=== PATIENT | female | born 1935 | race Caucasian/White ===

== ENCOUNTER → 2016-10-17 | Outpatient (CLI) | payer MEDICARE ==
[~2016-10-17] MED LIST: ACID1TAB5 PO; ASCO500T5 PO; ASPI500T50 PO; CALC-8 PO; CEFD300C3 PO; CYAN100081 PO; DIAZ5TAB3 PO; ESTR0.5T PO; FLUC150T PO; HYDR-2890; HYDR-2890 PO; HYDR-3820 PO; HYDR4TAB PO; LEVO750T9 PO; MOME13HF IH; MORP-34 PO; MORP30TA16 PO; NAPR-243 PO; NAPR500T3 PO; OMEG1CAP51 PO; OMEP40CA36 PO; ONDA4TAB11 PO; PRD10T PO; RT-ALBUINH IH; VITAMIN B12 PO; ZOLP10TA5 PO
--- OUTSIDE RECORDS SUMMARY | 2016-10-17 17:30 | XMS REPORT | Continuity of Care Document ---
Author Author [facility] Organization [facility] Address Unknown Phone Unavailable Care Team Providers Care Upsetter Helper Name Role Phone ARELY SUNSHINE MD PCP Insurance Providers Payer Name Policy Number Subscriber Name Relationship Wps Medicare [id number] EvelioMickey 18 Self / Same As Patient Blue Cross [facility] Supp [id number] Mickey Hunter 18 Self / Same As Patient Advance Directives Directive Response Recorded Date/Time Advance Directives Yes 11/29/14 12:58am Health Care Power of Roller Helper No 11/29/14 12:58am Organ Donor Yes 11/29/14 12:58am Resuscitation Status Full Code 11/29/14 12:58am Problems Medical Problems Problem Onset Date Status Diarrhea Unknown Active Nausea and vomiting Unknown Active Dehydration Unknown Active Diarrhea Unknown Active Medications Medication Dose Route Sig Days/Qty Instructions Order Date Discontinued Date Status Hydrocodone Bit/Acetaminophen 1 - 2 Tab PO EVERY 8HRS PRN 10-325mg TABLET 04/08/13 11/12/13 Discontinued Diazepam (Valium) 5 Mg PO EVERY 8HRS PRN 04/08/13 Active Zolpidem Tartrate 10 Mg PO BEDTIME PRN NEEDED FOR SLEEP 04/08/13 Active Estradiol 0.5 Mg PO BEDTIME 04/08/13 11/12/13 Discontinued Naproxen 500 Mg PO TWICE A DAY 04/08/13 Active Omeprazole 40 Mg PO DAILY 04/08/13 Active [Vitamin B12] 6,000 Mcg PO DAILY 04/08/13 04/08/13 Discontinued Noti-3 Fatty Acids/Fish Oil 1,000 Mg PO DAILY 04/08/13 04/08/13 Discontinued Aspirin 500 Mg PO TWICE A DAY PRN PAIN 11/12/13 Active Hydromorphone Hcl 4 Mg PO EVERY 8HRS PRN PAIN 11/12/13 11/17/13 Discontinued Morphine Sulfate (Morphine Sulfate 30 mg (12 HOUR)) 60 Mg PO GIVE EVERY 12 HRS ON SCHEDULE 60 Qty 11/17/13 Active Hydrocodone Bit/Acetaminophen 120 Qty 11/29/14 Active Ondansetron 4 Mg PO EVERY 6 HOURS PRN NAUSEA/VOMITING 10 Qty 11/29/14 Active Social History Social History Problem Response Recorded Date/Time Alcohol Use Denies Use 11/29/2014 12:58am Recreational Drug Use No 11/29/2014 12:58am Recent Foreign Travel No 11/12/2013 9:00pm Recent Infectious Disease Exposure No 11/12/2013 9:00pm Hospitalization with Isolation Denies 11/17/2013 12:11pm Smoking Status Never a Smoker 11/29/2014 12:58am Query Response Start Date Stop Date Smoking Status Never a Smoker Hospital Discharge Instructions No hospital discharge instructions. Plan of Care No plan of care. Functional Status No functional status results. Allergies, Adverse Reactions, Alerts Allergen Type Severity Reaction Status Last Updated Sulfa (Sulfonamide Antibiotics) ([id number]) Allergy Unknown Active 10/24 Immunizations Name Given Type Date of Pneumonia Vaccine 11/16/13 Historical Tetanus Booster (TDap) Less than 5yrs Historical Vital Signs Acute Vital Signs Vital Response Date/Time Temperature (Fahrenheit) 99.8 degrees F (97.6 - 99.5) Temperature (Calculated Celsius) 37.70828 degrees C (36.4 - 37.5) Pulse Rate (adult) 84 bpm (60 - 90) Respiratory Rate 20 bpm (12 - 24) O2 Sat by Pulse Oximetry 95 % (88 - 100) Blood Pressure 115/63 mm Hg Pain Pain Intensity 0 Height (Feet) 5 feet Height (Inches) 2 inches Height (Calculated Centimeters) 157.830046 cm Weight (Pounds) 175 pounds Weight (Calculated Kilograms) 79.176693 kilograms Calculated BMI 32.00 Results Laboratory Results Test Name Result Units Flags Reference Collection Date/Time Result Date/ Time Comments White Blood Count 8.7 10^3/uL 4.3-11.0 11/29/2014 1:00am 11/29/2014 1: 14am Red Blood Count 4.80 10^6/uL 4.35-5.85 11/29/2014 1:00am 11/29/2014 1: 14am Hemoglobin 11.1 G/DL L 11.5-16.0 11/29/2014 1:00am 11/29/2014 1:14am Hematocrit 35 % 35-52 11/29/2014 1:00am 11/29/2014 1:14am Mean Corpuscular Volume 73 FL L 80-99 11/29/2014 1:00am 11/29/2014 1: 14am Mean Corpuscular Hemoglobin 23 PG L 25-34 11/29/2014 1:00am 11/29/2014 1: 14am Mean Corpuscular Hemoglobin Concent 32 G/DL 32-36 11/29/2014 1:00am 1:14am Red Cell Distribution Width 15.2 % H 10.0-14.5 11/29/2014 1:00am 2014 1:14am Platelet Count 208 10^3/uL 130-400 11/29/2014 1:00am 11/29/2014 1:14am Mean Platelet Volume 9.0 FL 7.4-10.4 11/29/2014 1:00am 11/29/2014 1: 14am Neutrophils (%) (Auto) 76 % H 42-75 11/29/2014 1:00am 11/29/2014 1:14am Lymphocytes (%) (Auto) 14 % 12-44 11/29/2014 1:00am 11/29/2014 1:14am Monocytes (%) (Auto) 9 % 0-12 11/29/2014 1:00am 11/29/2014 1:14am Eosinophils (%) (Auto) 2 % 0-10 11/29/2014 1:0011/29/2014 1:14am Basophils (%) (Auto) 0 % 0-10 11/29/2014 1:00am 11/29/2014 1:14am Neutrophils # (Auto) 6.5 X 10^3 1.8-7.8 11/29/2014 1:00am 11/29/2014 1: 14am Lymphocytes # (Auto) 1.2 X 10^3 1.0-4.0 11/29/2014 1:00am 11/29/2014 1: 14am Monocytes # (Auto) 0.8 X 10^3 0.0-1.0 11/29/2014 1:00am 11/29/2014 1: 14am Eosinophils # (Auto) 0.2 10^3/uL 0.0-0.3 11/29/2014 1:00am 11/29/2014 1 :14am Basophils # (Auto) 0.0 10^3/uL 0.0-0.1 11/29/2014 1:00am 11/29/2014 1: 14am Urine Color YELLOW 11/29/2014 2:00am 11/29/2014 2:19am Urine Clarity CLEAR 11/29/2014 2:00am 11/29/2014 2:19am Urine pH 5 5-9 11/29/2014 2:00am 11/29/2014 2:19am Urine Specific [place] 1.015 * 1.016-1.022 11/29/2014 2:00am 2014 2:19am Urine Protein 1+ * NEGATIVE 11/29/2014 2:00am 11/29/2014 2:19am Urine Glucose (UA) NEGATIVE NEGATIVE 11/29/2014 2:00am 11/29/2014 2: 19am Urine RBC (Auto) NEGATIVE NEGATIVE 11/29/2014 2:00am 11/29/2014 2: 19am Urine Ketones NEGATIVE NEGATIVE 11/29/2014 2:00am 11/29/2014 2:19am Urine Nitrite NEGATIVE NEGATIVE 11/29/2014 2:00am 11/29/2014 2:19am Urine Bilirubin NEGATIVE NEGATIVE 11/29/2014 2:00am 11/29/2014 2: 19am Urine Urobilinogen NORMAL MG/DL NORMAL 11/29/2014 2:00am 11/29/2014 2: 19am Urine Leukocyte Esterase 1+ * NEGATIVE 11/29/2014 2:00am 11/29/2014 2: 19am Urine RBC NONE /HPF 11/29/2014 2:00am 11/29/2014 2:19am Urine WBC 0-2 /HPF 11/29/2014 2:00am 11/29/2014 2:19am Urine Bacteria NEGATIVE /HPF 11/29/2014 2:00am 11/29/2014 2:19am Urine Squamous Epithelial Cells 10-25 /HPF * 11/29/2014 2:00am 2014 2:19am Urine Crystals NONE /LPF 11/29/2014 2:00am 11/29/2014 2:19am Urine Casts NONE /LPF 11/29/2014 2:00am 11/29/2014 2:19am Urine Mucus LARGE /LPF * 11/29/2014 2:00am 11/29/2014 2:19am Urine Culture Indicated NO 11/29/2014 2:00am 11/29/2014 2:19am Sodium Level 134 MMOL/L L 135-145 11/29/2014 1:00am 11/29/2014 1:32am Potassium Level 3.0 MMOL/L L 3.6-5.0 11/29/2014 1:00am 11/29/2014 1:32am Chloride Level 105 MMOL/L 98-107 11/29/2014 1:00am 11/29/2014 1:32am Carbon Dioxide Level 17 MMOL/L L 21-32 11/29/2014 1:00am 11/29/2014 1: 32am Blood Urea Nitrogen 9 MG/DL 7-18 11/29/2014 1:00am 11/29/2014 1:32am Creatinine 0.71 MG/DL 0.60-1.30 11/29/2014 1:00am 11/29/2014 1:32am BUN/Creatinine Ratio 13 11/29/2014 1:00am 11/29/2014 1:32am Estimat Glomerular Filtration Rate > 60 11/29/2014 1:00am 2014 1:32am GFR INTERPRETIVE DATA UNITS FOR ESTIMATED GFR (eGFR): mL/min/1.73 M2 REFERENCE RANGE FOR ESTIMATED GFR (eGFR) eGFR NORMAL eGFR >60 MODERATELY DECREASED eGFR 30-59 SEVERLY DECREASED eGFR 15-29 KIDNEY FAILURE <15 (OR DIALYSIS) Glucose Level 109 MG/DL H 70-105 11/29/2014 1:00am 11/29/2014 1:32am Calcium Level 8.6 MG/DL 8.5-10.1 11/29/2014 1:00am 11/29/2014 1:32am Magnesium Level 1.8 MG/DL 1.8-2.4 11/29/2014 1:00am 11/29/2014 1:32am Total Bilirubin 0.4 MG/DL 0.1-1.0 11/29/2014 1:00am 11/29/2014 1:32am Alkaline Phosphatase 82 U/L 40-136 11/29/2014 1:00am 11/29/2014 1:32am Aspartate Amino Transf (AST/SGOT) 26 U/L 5-34 11/29/2014 1:00am 2014 1:32am Alanine Aminotransferase (ALT/SGPT) 18 U/L 0-55 11/29/2014 1:00am 11/29 1:32am Total Protein 7.3 G/DL 6.4-8.2 11/29/2014 1:00am 11/29/2014 1:32am Albumin 3.9 G/DL 3.2-4.5 11/29/2014 1:00am 11/29/2014 1:32am Procedures No known history of procedures. Encounters Encounter Location Date/Time Departed Emergency Room [facility] 11/29/14 12:57am Recent Diagnosis
--- NOTE | 2016-10-17 18:08 | Diagnostic Imaging Report ---
INDICATION: Productive cough. Comparison with 06/05/2016. FINDINGS: The lungs are well-aerated. No infiltrates are present. There are no masses. The heart is upper limits of normal. No hilar adenopathy. No pulmonary edema. There is some apical pleural scarring which is unchanged. IMPRESSION: No acute abnormalities when compared with previous exam. Dictated by: Dictated on workstation # [id number]
== END ==
LOC: RAD 17:26
PROVIDERS: ATTEND Family Medicine
DX: J20.8 Acute bronchitis due to other specified organisms (principal)
CPT/HCPCS: 71020

== ENCOUNTER 2016-12-27 11:57 | Outpatient (CLI) | payer MEDICARE ==
[~2016-12-27] VITALS: Ht 157.5 cm; Wt 77.3 kg
[2016-12-27] MEDS ORDERED: NS IV 500 ML 500 ML IV SCH (13:30)
[2016-12-27 13:57] VITALS: BP 138/65
[2016-12-27 14:15] VITALS: BP 129/51
[2016-12-27 16:30] VITALS: BP 123/66
[2016-12-27 19:03] VITALS: BP 138/65
== END 2016-12-27 17:07 | disposition home or self-care (01) ==
LOC: SDC 11:57
PROVIDERS: ATTEND Family Medicine
DX: D64.9 Anemia, unspecified (principal)
CPT/HCPCS: 36430; 86850; 86900; 86901; 86920

== ENCOUNTER → 2017-01-02 | Outpatient (CLI) | payer MEDICARE ==
[~2017-01-02] MED LIST changes: +MULT-1029 PO; +RANI150T90 PO
--- NOTE | 2017-01-02 16:30 | Diagnostic Imaging Report ---
PROCEDURE: CT chest without contrast. TECHNIQUE: Multiple contiguous axial images were obtained through the chest without the use of intravenous contrast. INDICATION: Cough and shortness of breath. Chronic anemia. COMPARISON: 11/30/2015. FINDINGS: There are patchy groundglass areas of consolidation involving the lungs bilaterally. This is more prominent in the mid and lower lung zones but also involves the upper lungs. There is a minimal solid consolidation component. Mild septal thickening is also seen. There is no effusion. No mass or pulmonary nodules. The mediastinum demonstrates mildly enlarged lymph nodes up to 1.6 cm in the right paratracheal station and a mildly enlarged infracarinal lymph node measuring 1.2 cm. The axilla demonstrates no significantly enlarged lymph nodes. The thoracic aorta is normal in caliber. There is no pericardial or pleural effusion. Cholecystectomy clips are seen. The osseous structures appear grossly unremarkable. IMPRESSION: Bilateral patchy groundglass opacities in the lungs may relate to inflammatory or infectious pneumonitis. There is associated mild mediastinal lymphadenopathy. Dictated by: Dictated on workstation # [id number]
== END ==
LOC: RAD 15:22
PROVIDERS: ATTEND Family Medicine
DX: D64.9 Anemia, unspecified (principal); R59.0 Localized enlarged lymph nodes; R93.8 Abnormal findings on diagnostic imaging of other specified body structures
CPT/HCPCS: 71250

== ENCOUNTER 2017-01-03 17:32 | Inpatient (IN) | payer MEDICARE ==
[~2017-01-03] VITALS: Ht 157.5 cm; Wt 72.6 kg
[~2017-01-03 17:32] MED LIST changes: -MULT-1029 PO; -RANI150T90 PO
[2017-01-03 18:14] LABS: BASOPHILS % (AUTO) 0 % (0-10); EOSINOPHILS # (AUTO) 0.3 10^3/uL (0.0-0.3); EOSINOPHILS % (AUTO) 3 % (0-10); LYMPHOCYTES # (AUTO) 1.9 X 10^3 (1.0-4.0); LYMPHOCYTES % (AUTO) 17 % (12-44); MEAN CORPUSCULAR HEMOGLOBIN 23 PG (25-34); MEAN CORPUSCULAR HGB CONC 31 G/DL (32-36); MEAN CORPUSCULAR VOLUME 73 FL (80-99); MEAN PLATELET VOLUME 9.5 FL (7.4-10.4); MONOCYTES # (AUTO) 0.7 X 10^3 (0.0-1.0); MONOCYTES % (AUTO) 6 % (0-12); NEUTROPHILS # (AUTO) 8.1 X 10^3 (1.8-7.8); NEUTROPHILS % (AUTO) 74 % (42-75); PLATELET COUNT 376 10^3/uL (130-400); RED BLOOD COUNT 5.18 10^6/uL (4.35-5.85); RED CELL DISTRIBUTION WIDTH 16.8 % (10.0-14.5)
[2017-01-03] MEDS ORDERED: DEXAMETHASONE 4 MG/ML SDV (DECADRON) IH ONE (18:15)
[2017-01-03] MEDS ORDERED: RT-ALBUTEROL/IPRATROPIUM 3 ML (DUONEB) VIAL INH ONE (18:15)
[2017-01-03 18:18] LABS: INR 1.2 (0.8-1.4); PROTHROMBIN TIME PATIENT 14.7 SEC (12.2-14.7)
--- NOTE | 2017-01-03 18:18 | ED Respiratory ---
General Chief Complaint: Respiratory Problems Stated Complaint: COUGH/PNEUMONIA/SOB Nursing Triage Note: TO ROOM 07 VIA WC. STATES SHE HAD A CT DONE YESTERDAY ET CALLED [facility] OFFICE TODAY BECAUSE SHE WAS NOT FEELING BETTER. TOLD SHE HAD PNEUMONIA AND TOLD TO COME TO ER. PT COMPLAINS OF SOA. STATES SHE ALSO RECIEVED A LITER OF BLOOD LAST WEEK DUE TO SOA. Source: patient History of Present Illness Time seen by provider: 17:55 Initial Comments ARRIVES VIA POV FROM HOME STATES SHE HAS BEEN SICK OVER A WEEK, WITH COUGH, CHEST TIGHTNESS AND SHORTNESS OF BREATH HAS HAD YELLOW SPUTUM NO FEVER MUCH DYSPNEA WITH MINIMAL EXERTION NO SWELLING IN LEGS/ FEET OR PAIN IN CALVES PT HAS BEEN SEEN AT DR. SUNSHINE'S OFFICE AND HAD CT OF CHEST TODAY AND WAS REPORTED PNEUMONITIS PT STATES SHE WAS GIVEN A SYMBICORT INHALER, BUT SHE HAS NOT USED IT TODAY DOES NOT NORMALLY WEAR HOME O2. STATES SHE GETS BRONCHITIS OR PNEUMONIA 2-3 TIMES A YEAR NEVER SMOKED, AND ONLY SECOND HAND SMOKE WAS WHEN SHE WAS A CHILD. PT ALSO STATES SHE HAS BEEN ANEMIC AND RECEIVED A UNIT OF BLOOD LAST WEEK PCP: DR. SUNSHINE Allergies and Home Medications Allergies Coded Allergies: Sulfa (Sulfonamide Antibiotics) (Verified Allergy, Unknown, 11/13/13) nitrofurantoin (Verified Adverse Reaction, Unknown, NAUSEA, 06/05/16) Home Medications Cefdinir 300 Mg Capsule, 300 MG PO twice a day, #14 Prescribed by: URSZULA RICHARD on 06/06/16 1406 Cyanocobalamin (Vitamin B-12) 1,000 Mcg/1 Ml Drops, 1,000 MCG PO DAILY, ( Reported) Diazepam 5 Mg Tablet, 5 MG PO Q8H PRN for ANXIETY, (Reported) Hydrocodone/Acetaminophen 1 Each Tablet, 1 TAB PO Q6H PRN for PAIN, (Reported) L. Acidophilus/Bulgaricus 1 Each Tab.chew, 3 TAB.CHEW PO DAILY, (Reported) Mometasone/Formoterol 13 Gm Hfa.aer.ad, 2 PUFF IH BID PRN for SHORTNESS OF BREATH, (Reported) Morphine Sulfate 30 Mg Tablet.er, 30 MG PO BID, (Reported) Naproxen 500 Mg Tablet, 500 MG PO BID PRN for PAIN, (Reported) Omeprazole 40 Mg Capsule.dr, 40 MG PO DAILY, (Reported) Constitutional: No diaphoresis, No dizziness, No fever, malaise, weakness EENTM: no symptoms reported Respiratory: see HPI, cough, dyspnea on exertion, phlegm, short of breath, wheezing Cardiovascular: see HPI, chest pain, No edema, No palpitations, No syncope, No vascular heart diseas Gastrointestinal: no symptoms reported Genitourinary: no symptoms reported Musculoskeletal: no symptoms reported Skin: no symptoms reported Psychiatric/Neurological: No Symptoms Reported Hematologic/Lymphatic: See HPI, Anemia Past Sclcjcx-Tadfmn-Dftuku Hx Patient Social History Alcohol Use: Rarely Uses Recreational Drug Use: No Smoking Status: Never a Smoker Recent Foreign Travel: No (ONLY A CHILD) Contact w/Someone Who Travel: No Recent Infectious Disease Expo: No Recent Hopitalizations: Yes Immunizations Up To Date Tetanus Booster (TDap): Less than 5yrs PED Vaccines UTD: No Date of Pneumonia Vaccine: Nov 16, 2013 Seasonal Allergies Seasonal Allergies: No Surgeries HX Surgeries: Yes (2 hip replacements on right hip; L ankle surgery; CATARACTS) Surgeries: Eye Surgery, Hysterectomy, Orthopedic Respiratory Hx Respiratory Disorders: Yes (SOB WITH EXERTION, FREQUENT BRONCHITIS, PNEUMONIA) Respiratory Disorders: Pneumonia, Chronic Bronchitis Cardiovascular Hx Cardiac Disorders: No Neurological Hx Neurological Disorders: No Reproductive System Hx Reproductive Disorders: No Sexually Transmitted Disease: No HIV/AIDS: No Female Reproductive Disorders: Denies Genitourinary Hx Genitourinary Disorders: Yes Genitourinary Disorders: Bladder Infection, UTI-Chronic Gastrointestinal Hx Gastrointestinal Disorders: Yes Gastrointestinal Disorders: Chronic Constipation Musculoskeletal Hx Musculoskeletal Disorders: Yes (Chronic osteoarthritis, bursitis, ) Musculoskeletal Disorders: Arthritis, Rheumatoid Arthritis Endocrine Hx Endocrine Disorders: No HEENT HX ENT Disorders: Yes (cataracts removed) HEENT Disorders: Cataract Cancer Hx Cancer: No Psychosocial Hx Psychiatric Problems: No Integumentary HX Skin/Integumentary Disorder: No Blood Transfusions Hx Blood Disorders: Yes (CHRONIC ANEMIA) Hx of Blood Transfusion YES Adverse Reaction to a Blood Tr: No Family Medical History Significant Family History: No Pertinent Family Hx Family Medial History: BONE CANCER 19 FATHER HIP REPLACEMENT 19 MOTHER THYROID ISSUES 19 MOTHER Physical Exam Vital Signs Vital Sign - Last 12Hours 01/03/17 17:35 Temp 98.8 Pulse 82 Resp 20 B/P (MAP) 136/54 Pulse Ox 84 O2 Delivery Room Air O2 Flow Rate 2.00 Capillary Refill : Less Than 3 Seconds General Appearance: WD/WN, no apparent distress HEENT: PERRL/EOMI, normal ENT inspection Neck: normal inspection Respiratory: no respiratory distress, no accessory muscle use, rales, rhonchi, wheezing, plerual rub, other (ALL ON RIGHT) Cardiovascular: regular rate, rhythm, no edema, no JVD, no murmur Gastrointestinal: normal bowel sounds, non tender, soft Extremities: normal inspection, no pedal edema, no calf tenderness, normal capillary refill Neurologic/Psychiatric: housing officer II-XII nml as tested, no motor/sensory deficits, alert, normal mood/affect, oriented x 3 Skin: normal color, warm/dry Focused Exam Lactic Acid Level Laboratory Tests Test 01/03/17 18:27 Lactic Acid Level 0.80 MMOL/L (0.50-2.00) Progress/Results/Core Measures Results/Orders Lab Results Laboratory Tests Test 01/03/17 18:00 01/03/17 18:27 01/03/17 18:33 Range/Units White Blood Count 11.0 4.3-11.0 10^3/uL Red Blood Count 5.18 4.35-5.85 10^6/uL Hemoglobin 11.7 11.5-16.0 G/DL Hematocrit 38 35-52 % Mean Corpuscular Volume 73 L 80-99 FL Mean Corpuscular Hemoglobin 23 L 25-34 PG Mean Corpuscular Hemoglobin Concent 31 L 32-36 G/DL Red Cell Distribution Width 16.8 H 10.0-14.5 % Platelet Count 376 130-400 10^3/uL Mean Platelet Volume 9.5 7.4-10.4 FL Neutrophils (%) (Auto) 74 42-75 % Lymphocytes (%) (Auto) 17 12-44 % Monocytes (%) (Auto) 6 0-12 % Eosinophils (%) (Auto) 3 0-10 % Basophils (%) (Auto) 0 0-10 % Neutrophils # (Auto) 8.1 H 1.8-7.8 X 10^3 Lymphocytes # (Auto) 1.9 1.0-4.0 X 10^3 Monocytes # (Auto) 0.7 0.0-1.0 X 10^3 Eosinophils # (Auto) 0.3 0.0-0.3 10^3/uL Basophils # (Auto) 0.0 0.0-0.1 10^3/uL Prothrombin Time 14.7 12.2-14.7 SEC INR Comment 1.2 0.8-1.4 Activated Partial Thromboplast Time 38 H 24-35 SEC Sodium Level 136 135-145 MMOL/L Potassium Level 3.7 3.6-5.0 MMOL/L Chloride Level 101 98-107 MMOL/L Carbon Dioxide Level 23 21-32 MMOL/L Anion Gap 12 5-14 MMOL/L Blood Urea Nitrogen 7 7-18 MG/DL Creatinine 0.80 0.60-1.30 MG/DL Estimat Glomerular Filtration Rate > 60 BUN/Creatinine Ratio 9 Glucose Level 98 70-105 MG/DL Calcium Level 9.8 8.5-10.1 MG/DL Magnesium Level 2.0 1.8-2.4 MG/DL Total Bilirubin 0.3 0.1-1.0 MG/DL Aspartate Amino Transf (AST/SGOT) 26 5-34 U/L Alanine Aminotransferase (ALT/SGPT) 9 0-55 U/L Alkaline Phosphatase 87 40-136 U/L Total Creatine Kinase 32 29-168 U/L Creatine Kinase MB 1.0 <6.6 NG/ML Troponin I < 0.30 <0.30 NG/ML B-Type Natriuretic Peptide 28.9 <100.0 PG/ML Total Protein 7.6 6.4-8.2 G/DL Albumin 3.5 3.2-4.5 G/DL Lactic Acid Level 0.80 0.50-2.00 MMOL/L Blood Gas Puncture Site RIGHT RADIAL Blood Gas Patient Temperature 99.2 Arterial Blood pH 7.36 L 7.37-7.43 Arterial Blood Partial Pressure CO2 46 H 35-45 MMHG Arterial Blood Partial Pressure O2 212 H 79-93 MMHG Arterial Blood HCO3 25 23-27 MMOL/L Arterial Blood Total CO2 26.6 21.0-31.0 MMOL/L Arterial Blood Oxygen Saturation 100 94-100 % Arterial Blood Base Excess 0.5 -2.5-2.5 MMOL/L Villa Test POSITIVE Blood Gas Ventilator Setting NO Blood Gas Inspired Oxygen 2L My Orders Orders - GUILHERME JOHNS DO Saline Lock/Iv-Start (01/03/17 18:07) Ekg Tracing (01/03/17 18:07) O2 (01/03/17 18:07) Monitor-Rhythm Ecg Trace Only (01/03/17 18:07) BNP (01/03/17 18:07) Cbc With Automated Diff (01/03/17 18:07) Comprehensive Metabolic Panel (01/03/17 18:07) Creatine Kinase (01/03/17 18:07) Creatine Kinase Mb (01/03/17 18:07) Lactic Acid Analyzer (01/03/17 18:07) Magnesium (01/03/17 18:07) Protime With Inr (01/03/17 18:07) Partial Thromboplastin Time (01/03/17 18:07) Troponin I (01/03/17 18:07) Blood Culture (01/03/17 18:07) Sputum Culture (01/03/17 18:07) Chest Pa/Lat (2 View) (01/03/17 18:07) Albuterol/Ipra Inhalation Soln (Duoneb I (01/03/17 18:15) Dexamethasone Injection (Decadron Inject (01/03/17 18:15) Rt Request For Service (01/03/17 18:07) Svn Sm Volume Nebulizer Rt-Rfs (01/03/17 18:07) Arterial Blood Gas (01/03/17 18:07) Ceftriaxone Injection (Rocephin Injectio (01/03/17 19:15) Medications Given in ED Current Medications Medications Dose Ordered Sig/Chery Route Start Time Stop Time Status Last Admin Dose Admin Albuterol/ Ipratropium 3 ml ONCE ONCE INH 01/03/17 18:15 01/03/17 18:16 DC 01/03/17 18:25 3 ML Dexamethasone Sodium Phosphate 20 mg ONCE ONCE IH 01/03/17 18:15 01/03/17 18:16 DC 01/03/17 18:25 20 MG Vital Signs/I&O Vital Sign - Last 12Hours 01/03/17 01/03/17 01/03/17 17:35 17:35 18:25 Temp 98.8 Pulse 82 Resp 20 B/P (MAP) 136/54 Pulse Ox 84 97 O2 Delivery Room Air Nasal Cannula O2 Flow Rate 2.00 2.00 Blood Pressure Mean: 81 Progress Note : Progress Note O2 SATS 83-84% ON ROOM AIR ON ARRIVAL--UP TO 96% ON O2 AT 2L/NC PT FEELS MUCH BETTER AFTER NEB TREATMENT, WITH IMPROVED LUNG SOUNDS--DECREASED RALES/RHONCHI/WHEEZING AND NO RUB NOTED AFTER TREATMENT NO DETERIORATION IN PT'S CONDITION DURING ER STAY ECG Initial ECG Impression Time: 19:21 Initial ECG Rate: 85 Initial ECG Rhythm: Normal Sinus Initial ECG Impression: Nonspecific Changes Initial ECG Comparisson: Unchanged (FORM 2013) Diagnostic Imaging Comments CXR--BILATERAL INFILTRATES VS EDEMA PER RADIOLOGIST REPORT AT 1905 Reviewed: Reviewed by Me Departure Communication Progress Notes 1909--SPOKE WITH DR. MCCLELLAN, HOSPITALIST, ACCEPTS PT FOR ADMIT Impression Impression: Primary Impression: Bilateral pneumonia Additional Impression: Hypoxia Disposition: ADMITTED INPATIENT Condition: Improved Decision to Admit Reason: Admit from ER (General) Decision to Admit/Date: January 03, 2017 Time/Decision to Admit Time: 19:10 Departure-Patient Inst. Referrals: ARELY SUNSHINE MD (PCP/Family) Primary Care Physician GUILHERME JOHNS DO January 03, 2017 18:18
[2017-01-03 18:29] LABS: ALANINE AMINOTRANSFERASE 9 U/L (0-55); ALBUMIN 3.5 G/DL (3.2-4.5); ANION GAP 12 MMOL/L (5-14); ASPARTATE AMINO TRANSFERASE 26 U/L (5-34); BILIRUBIN,TOTAL 0.3 MG/DL (0.1-1.0); BLOOD UREA NITROGEN 7 MG/DL (7-18); BUN/CREATININE RATIO 9; CALCIUM 9.8 MG/DL (8.5-10.1); CARBON DIOXIDE 23 MMOL/L (21-32); CHLORIDE 101 MMOL/L (98-107); CREATINE KINASE 32 U/L (29-168); GFR ESTIMATED > 60; GLUCOSE 98 MG/DL (70-105); POTASSIUM 3.7 MMOL/L (3.6-5.0); SODIUM 136 MMOL/L (135-145); TOTAL PROTEIN 7.6 G/DL (6.4-8.2)
[2017-01-03 18:35] LABS: TROPONIN I < 0.30 NG/ML (<0.30)
[2017-01-03 18:39] LABS: ABG BASE EXCESS 0.5 MMOL/L (-2.5-2.5); ABG HCO3 25 MMOL/L (23-27); ABG OXYGEN SATURATION 100 % (94-100); ABG PCO2 46 MMHG (35-45); ABG PH 7.36 (7.37-7.43); ABG PO2 212 MMHG (79-93); ABG TCO2 26.6 MMOL/L (21.0-31.0)
[2017-01-03 18:40] LABS: ALLENS TEST POSITIVE; PATIENT TEMP 99.2
--- NOTE | 2017-01-03 18:54 | Diagnostic Imaging Report ---
Indication: Cough and congestion with dyspnea. Discussion: Two views of the chest were obtained, comparison 10/17/2016. Borderline cardiomegaly is stable. Bilateral mixed interstitial alveolar opacities are now present which could represent pneumonia or edema. No pleural fluid or pneumothorax. No Carmen B lines identified. Age-related degenerative changes are present throughout the thoracic spine. Impression: 1. Interval development of bilateral pulmonary infiltrates, pneumonia versus edema. Dictated by: Dictated on workstation # [id number]
[2017-01-03] MEDS ORDERED: cefTRIAXone INJECTION 1,000 MG in NS (IVPB) 50 ML IV ONE (19:15)
[2017-01-03 20:18] VITALS: BP 124/55
[2017-01-03] MEDS ORDERED: AZITHROMYCIN 500 MG/NS 250 ML IVPB IV NR ×2 (20:45)
[2017-01-03] MEDS ORDERED: CATHETER FLUSH 10 ML SYR IV PRN (20:45)
[2017-01-03] MEDS ORDERED: ACETAMINOPHEN 500 MG TAB (TYLENOL) PO PRN (20:45)
[2017-01-03] MEDS ORDERED: RT-ALBUTEROL/IPRATROPIUM 3 ML (DUONEB) VIAL ONE (20:55)
[2017-01-03] MEDS: CATHETER FLUSH 10 ML SYR IV SCH (21:02)
[2017-01-03] MEDS ORDERED: RT-ALBUTEROL/IPRATROPIUM 3 ML (DUONEB) VIAL INH PRN (22:00)
[2017-01-04 00:14] VITALS: BP 109/67
[2017-01-04 04:20] VITALS: BP 100/66
[2017-01-04] MEDS: CATHETER FLUSH 10 ML SYR IV SCH ×3 (04:55→20:46)
[2017-01-04 06:09] LABS: BASOPHILS % (AUTO) 1 % (0-10); EOSINOPHILS # (AUTO) 0.1 10^3/uL (0.0-0.3); EOSINOPHILS % (AUTO) 1 % (0-10); LYMPHOCYTES # (AUTO) 1.5 X 10^3 (1.0-4.0); LYMPHOCYTES % (AUTO) 16 % (12-44); MEAN CORPUSCULAR HEMOGLOBIN 23 PG (25-34); MEAN CORPUSCULAR HGB CONC 31 G/DL (32-36); MEAN CORPUSCULAR VOLUME 74 FL (80-99); MONOCYTES # (AUTO) 0.5 X 10^3 (0.0-1.0); MONOCYTES % (AUTO) 6 % (0-12); NEUTROPHILS # (AUTO) 6.8 X 10^3 (1.8-7.8); NEUTROPHILS % (AUTO) 77 % (42-75); PLATELET COUNT 316 10^3/uL (130-400); RED BLOOD COUNT 4.66 10^6/uL (4.35-5.85); RED CELL DISTRIBUTION WIDTH 16.8 % (10.0-14.5); WHITE BLOOD COUNT 8.8 10^3/uL (4.3-11.0)
[2017-01-04 06:29] LABS: ALANINE AMINOTRANSFERASE 8 U/L (0-55); ALBUMIN 3.2 G/DL (3.2-4.5); ANION GAP 10 MMOL/L (5-14); ASPARTATE AMINO TRANSFERASE 16 U/L (5-34); BILIRUBIN,TOTAL 0.3 MG/DL (0.1-1.0); BLOOD UREA NITROGEN 7 MG/DL (7-18); BUN/CREATININE RATIO 10; CALCIUM 9.5 MG/DL (8.5-10.1); CARBON DIOXIDE 24 MMOL/L (21-32); CHLORIDE 103 MMOL/L (98-107); CREATININE SERUM 0.67 MG/DL (0.60-1.30); GFR ESTIMATED > 60; GLUCOSE 105 MG/DL (70-105); POTASSIUM 3.7 MMOL/L (3.6-5.0); SODIUM 137 MMOL/L (135-145); TOTAL PROTEIN 7.1 G/DL (6.4-8.2)
[2017-01-04 07:20] VITALS: BP 137/63
[2017-01-04] MEDS: RT-ALBUTEROL/IPRATROPIUM 3 ML (DUONEB) VIAL INH SCH ×4 (07:25→19:07)
--- NOTE | 2017-01-04 08:08 | Pulmonary Consultation ---
History of Present Illness History of Present Illness Date of Consultation 01/04/17 08:07 Date of Admission History of Present Illness 81yo presented to ED secondary to worsening SOB, and generalized fatigue. Pt recieved 1 unit of PRBC last week. Symptoms started 1 wk ago has have been progressively worsening since then. She has had a progressive cough with yellow sputum production. CT scan shows bilateral interstitial infiltrates. Pt gets pneumonia 1-2x/ yr with symptoms like this. I am consulted for pulmonary management. Allergies and Home Medications Allergies Coded Allergies: Sulfa (Sulfonamide Antibiotics) (Verified Allergy, Unknown, 11/13/13) nitrofurantoin (Verified Adverse Reaction, Unknown, NAUSEA, 06/05/16) Home Medications Cefdinir 300 Mg Capsule, 300 MG PO twice a day, #14 Prescribed by: URSZULA RICHARD on 06/06/16 6611 Cyanocobalamin (Vitamin B-12) 1,000 Mcg/1 Ml Drops, 1,000 MCG PO DAILY, ( Reported) Diazepam 5 Mg Tablet, 5 MG PO Q8H PRN for ANXIETY, (Reported) Hydrocodone/Acetaminophen 1 Each Tablet, 1 TAB PO Q6H PRN for PAIN, (Reported) L. Acidophilus/Bulgaricus 1 Each Tab.chew, 3 TAB.CHEW PO DAILY, (Reported) Mometasone/Formoterol 13 Gm Hfa.aer.ad, 2 PUFF IH BID PRN for SHORTNESS OF BREATH, (Reported) Morphine Sulfate 30 Mg Tablet.er, 30 MG PO BID, (Reported) Naproxen 500 Mg Tablet, 500 MG PO BID PRN for PAIN, (Reported) Omeprazole 40 Mg Capsule.dr, 40 MG PO DAILY, (Reported) Past Zuitznf-Bgaepq-Xvvtpo Hx Patient Social History Alcohol Use: Denies Use Recreational Drug Use: No Smoking Status: Never a Smoker Recent Foreign Travel: No Contact w/Someone Who Travel: No Recent Infectious Disease Expo: No Recent Hopitalizations: No Physical Abuse Screen: No Sexual Abuse: No Immunizations Up To Date Tetanus Booster (TDap): Less than 5yrs PED Vaccines UTD: No Date of Pneumonia Vaccine: Nov 16, 2013 Seasonal Allergies Seasonal Allergies: No Surgeries HX Surgeries: Yes (2 hip replacements on right hip; L ankle surgery; CATARACTS) Surgeries: Eye Surgery, Hysterectomy, Orthopedic Respiratory Hx Respiratory Disorders: Yes (SOB WITH EXERTION, FREQUENT BRONCHITIS, PNEUMONIA) Respiratory Disorders: Pneumonia, Chronic Bronchitis Cardiovascular Hx Cardiac Disorders: No Neurological Hx Neurological Disorders: No Reproductive System Hx Reproductive Disorders: No Sexually Transmitted Disease: No HIV/AIDS: No Female Reproductive Disorders: Denies Genitourinary Hx Genitourinary Disorders: Yes Genitourinary Disorders: Bladder Infection, UTI-Chronic Gastrointestinal Hx Gastrointestinal Disorders: Yes Gastrointestinal Disorders: Chronic Constipation Musculoskeletal Hx Musculoskeletal Disorders: Yes (Chronic osteoarthritis, bursitis, ) Musculoskeletal Disorders: Arthritis, Rheumatoid Arthritis Endocrine Hx Endocrine Disorders: No HEENT HX ENT Disorders: Yes (cataracts removed) HEENT Disorders: Cataract Cancer Hx Cancer: No Psychosocial Hx Psychiatric Problems: No Integumentary HX Skin/Integumentary Disorder: No Blood Transfusions Hx Blood Disorders: Yes (CHRONIC ANEMIA) Adverse Reaction to a Blood Tr: No Family Medical History Significant Family History: No Pertinent Family Hx Family Medial History: BONE CANCER 19 FATHER HIP REPLACEMENT 19 MOTHER THYROID ISSUES 19 MOTHER Review of Systems Constitutional: Fever, Malaise, Sweats, Weakness Eyes: No: Conjunctivae inflammation, Eyelid inflammation, Other, Pain, Redness , Vision change ENT: No: Ear discharge, Ear pain, Mouth pain, Mouth swelling, Nose congestion, Nose discharge, Nose pain, Other, Throat pain, Throat swelling Respiratory: Cough, SOB with excertion, Shortness of breath, Sputum Cardiovascular: Edema (left >R), Paroxysmal Noc. Dyspnea, No: Chest Pain, Lt Headedness, Orthopnea, Other, Palpitations Neurological: Weakness, No: Change in speech, Confusion, Incoordination, Numbness, Other, Seizures Exam Exam Vital Signs Date Time Temp Pulse Resp B/P (MAP) Pulse Ox O2 Delivery O2 Flow Rate FiO2 01/04/17 07:26 93 2.00 01/04/17 07:20 97.8 65 18 137/63 96 2.00 01/04/17 04:20 97.4 82 18 100/66 95 2.00 01/04/17 01:00 71 01/04/17 00:14 97.3 78 18 109/67 94 2.00 01/03/17 21:30 95 01/03/17 21:24 97 2.00 01/03/17 20:52 86 01/03/17 20:38 2.00 01/03/17 20:18 100.2 89 20 124/55 96 2.00 01/03/17 20:05 84 20 97 2.00 01/03/17 18:25 97 2.00 01/03/17 17:35 Nasal Cannula 2.00 01/03/17 17:35 98.8 82 20 136/54 84 Room Air I & O 01/04/17 07:00 Intake Total 1210 ml Output Total 550 ml Balance 660 ml General Appearance: No Apparent Distress, WD/WN, Anxious, Chronically ill Respiratory: No Accessory Muscle Use, No Respiratory Distress, Decreased Breath Sounds Capillary Refill: Less Than 3 Seconds Gastrointestinal: normal bowel sounds, non tender, soft Extremity: Other (left leg has 2+ pitting edema ) Neurologic/Psychiatric: Alert, Oriented x3 Skin: Normal Color, Warm/Dry Lymphatic: No Adenopathy Results Lab Laboratory Tests 01/03/17 18:00 01/04/17 05:57 Assessment/Plan Assessment/Plan CAP -Continue Rocephin and azithromycin -sputum and blood culture -check urine strep and legionella Ag LLE edema with hx of fracture -check dopplers 254 Clinical Quality Measures DVT/VTE Risk/Contraindication: Risk Factor Score Per Nursin RFS Level Per Nursing on Admit: 3=High NAOMI GUZMAN DO January 04, 2017 08:08
--- NOTE | 2017-01-04 08:24 | History & Physical-Hospitalist ---
HPI History of Present Illness: HPI/Chief Complaint CC: Pneumonia after failed Z-pack 2 weeks ago HPI: This is a 81yoWF clinic patient of Dr Alvarenga'toya for the past 40 years that has h/o chronic bronchitis and pneumonias in the past that was admitted through the ER due to worsened pneumonia and bilateral infiltrates and O2 sat of 83%. She is a patient of Dr Asher and he will see her in consultation. She does not have home O2 and I am ordering that assessment while in-pt. She reports that she did not feel any better after given Z-pack 2 weeks ago and the dyspnea worsened to the point that she could not manage at home. She denies any chest pain and overall is doing well since taking her narcotic maintenance meds. Source: patient Exam Limitations: no limitations Date Seen 01/04/17 Attending Physician Ronnie Alvarenga MD PCP Ronnie Alvarenga MD Referring Physician Date of Admission January 03, 2017 at 19:10 Home Medications & Allergies Home Medications Reviewed patient Home Medication Reconciliation Form Allergies Allergies Coded Allergies Sulfa (Sulfonamide Antibiotics) (Verified Allergy, Unknown, 11/13/13) nitrofurantoin (Verified Adverse Reaction, Unknown, NAUSEA, 06/05/16) Past Ituedxo-Pqsrtt-Qrddms Hx Patient Social History Marrital Status: Employed/Student: retired Alcohol Use: Denies Use Recreational Drug Use: No Smoking Status: Never a Smoker Physical Abuse Screen: No Sexual Abuse: No Recent Foreign Travel: No Contact w/other who traveled: No Recent Hopitalizations: No Recent Infectious Disease Expo: No Immunizations Up To Date Tetanus Booster (TDap): Less than 5yrs Date of Pneumonia Vaccine: Nov 16, 2013 Seasonal Allergies Seasonal Allergies: No Surgeries HX Surgeries: Yes (2 hip replacements on right hip; L ankle surgery; CATARACTS) Surgeries: Eye Surgery, Hysterectomy, Orthopedic Respiratory Hx Respiratory Disorders: Yes (SOB WITH EXERTION, FREQUENT BRONCHITIS, PNEUMONIA) Cardiovascular Hx Cardiovascular Disorders: No Neurological Hx Neurological Disorders: No Reproductive System Hx Reproductive Disorders: No Sexually Transmitted Disease: No HIV/AIDS: No Female Reproductive Disorders: Denies Genitourinary Hx Genitourinary Disorders: Yes Genitourinary Disorders: Bladder Infection, UTI-Chronic Gastrointestinal Hx Gastrointestinal Disorders: Yes Gastrointestinal Disorders: Chronic Constipation Musculoskeletal Hx Musculoskeletal Disorders: Yes (Chronic osteoarthritis, bursitis, ) Musculoskeletal Disorders: Arthritis, Rheumatoid Arthritis Endocrine Hx Endocrine Disorders: No HEENT HX ENT Disorders: Yes (cataracts removed) HEENT Disorders: Cataract Cancer Hx Cancer: No Psychosocial Hx Psychiatric Problems: No Integumentary HX Skin/Integumentary Disorder: No Blood Transfusions Hx Blood Disorders: Yes (CHRONIC ANEMIA) Adverse Reaction to a Blood Tr: No Family Medical History Significant Family History: No Pertinent Family Hx Family Hx: BONE CANCER 19 FATHER HIP REPLACEMENT 19 MOTHER THYROID ISSUES 19 MOTHER Review of Systems Constitutional: see HPI EENTM: no symptoms reported Respiratory: cough, dyspnea on exertion, short of breath, wheezing Cardiovascular: no symptoms reported Gastrointestinal: no symptoms reported Genitourinary: no symptoms reported Musculoskeletal: back pain Skin: no symptoms reported Psychiatric/Neurological: No Symptoms Reported All Other Systems Reviewed Negative Unless Noted: Yes Physical Exam Physical Exam Vital Signs Vital Sign - Last 12Hours 01/03/17 17:35 Temp 98.8 Pulse 82 Resp 20 B/P (MAP) 136/54 Pulse Ox 84 O2 Delivery Room Air O2 Flow Rate 2.00 Capillary Refill : Less Than 3 Seconds General Appearance: No Apparent Distress, WD/WN, Chronically ill Eyes: Bilateral Eye Normal Inspection, Bilateral Eye PERRL HEENT: PERRL/EOMI, Normal ENT Inspection, Pharynx Normal Neck: Full Range of Motion, Normal Inspection, Non Tender, Supple, Carotid Bruit Respiratory: Chest Non Tender, No Accessory Muscle Use, No Respiratory Distress , Crackles, Decreased Breath Sounds, Wheezing Cardiovascular: Regular Rate, Rhythm, No Edema, No Gallop, No JVD, No Murmur, Normal Peripheral Pulses Gastrointestinal: Normal Bowel Sounds, No Organomegaly, No Pulsatile Mass, Non Tender, Soft Back: Normal Inspection, No CVA Tenderness, No Vertebral Tenderness Extremity: Normal Capillary Refill, Normal Inspection, Normal Range of Motion, Non Tender, No Calf Tenderness, No Pedal Edema Neurologic/Psychiatric: Alert, Oriented x3, No Motor/Sensory Deficits, Normal Mood/Affect Skin: Normal Color, Warm/Dry Lymphatic: No Adenopathy Results Results/Procedures Lab Laboratory Tests 01/03/17 18:00 01/04/17 05:57 Assessment/Plan Admission Diagnosis Assessment: Recurrent pneumonia failed Z-pack 2 weeks ago now with bilateral pneumonia and hypoxia of 83% in ER RA OA Chronic pain Chronic constipation Assessment and Plan Plan: Consult Dr Asher Check CT chest results IV abx Nebs O2 w/home O2 evaluation Clinical Quality Measures DVT/VTE Risk/Contraindication: Risk Factor Score Per Nursin RFS Level Per Nursing on Admit: 3=High CARSON MCCLELLAN DO January 04, 2017 08:24
[2017-01-04] MEDS: morphine ER 30 MG (MS CONTIN) TAB PO SCH ×2 (09:22→20:43)
[2017-01-04] MEDS: AZITHROMYCIN 250 MG TAB (ZITHROMAX) PO SCH (09:22)
[2017-01-04] MEDS: HYDROcodone/APAP 10 MG/325 MG (LORTAB) TAB PO PRN ×2 (09:22→20:45)
[2017-01-04] MEDS ORDERED: MULT-1029 PO ×2 (09:56)
[2017-01-04] MEDS ORDERED: RANI150T90 PO ×2 (09:56)
[2017-01-04] MEDS ORDERED: RT-ALBUINH IH ×2 (09:57)
--- NOTE | 2017-01-04 11:02 | Diagnostic Imaging Report ---
EXAMINATION: Bilateral lower extremity duplex venous ultrasound. TECHNIQUE: DVT protocol. Multiple sonographic images with color Doppler and waveform interrogation were performed of the lower extremity veins, bilaterally, with compression and augmentation maneuvers. INDICATION: Bilateral leg swelling. FINDINGS: The lower extremity veins from the common femoral veins to below the knee veins were examined with normal color-flow, compressibility, and normal waveform demonstrated. The great saphenous vein bilaterally is patent. IMPRESSION: No evidence of DVT in either lower extremity. Dictated by: Dictated on workstation # [id number]
[2017-01-04 12:00] VITALS: BP 113/57
[2017-01-04] MEDS ORDERED: RT-ALBUTEROL SULF 2.5 MG/3 ML PRE-MIX VIAL IH PRN (13:30)
[2017-01-04] MEDS ORDERED: FAMOTIDINE 20 MG (PEPCID) TABLET PO PRN (13:30)
[2017-01-04] MEDS ORDERED: DIAZEPAM 5 MG (VALIUM) TABLET PO PRN (13:30)
[2017-01-04] MEDS ORDERED: raNItidine (ZANTAC) 150 MG TAB NON-FORMULARY PO PRN (13:30)
[2017-01-04] MEDS ORDERED: RT-ALBUTEROL HFA (VENTOLIN) PER PUFF IH PRN ×2 (13:30)
[2017-01-04] MEDS: PANTOPRAZOLE 40 MG (PROTONIX) TAB PO SCH (16:15)
[2017-01-04 16:35] VITALS: BP_SYST 127; BP_SYST 132; BP_DIAS 67; BP_DIAS 88
[2017-01-04 19:36] VITALS: BP 129/66
[2017-01-05] VITALS: BP 144/62
[2017-01-05 04:00] VITALS: BP 128/60
[2017-01-05] MEDS: MULTIVIT W/MINERALS TAB (THERAGRAN M) PO SCH (05:32)
[2017-01-05] MEDS: PANTOPRAZOLE 40 MG (PROTONIX) TAB PO SCH (05:32)
[2017-01-05] MEDS: HYDROcodone/APAP 10 MG/325 MG (LORTAB) TAB PO PRN ×2 (05:32→20:18)
[2017-01-05] MEDS: CATHETER FLUSH 10 ML SYR IV SCH ×3 (05:34→20:12)
[2017-01-05] MEDS: RT-ALBUTEROL/IPRATROPIUM 3 ML (DUONEB) VIAL INH SCH ×4 (06:43→19:07)
--- NOTE | 2017-01-05 07:27 | Pulmonary Progress Note ---
Exam Exam Vital Signs Date Time Temp Pulse Resp B/P (MAP) Pulse Ox O2 Delivery O2 Flow Rate FiO2 01/05/17 06:46 95 2.00 01/05/17 04:00 98.0 78 18 128/60 96 2.50 01/05/17 01:00 79 01/05/17 00:00 98.6 82 18 144/62 94 2.50 01/04/17 20:00 2.00 01/04/17 19:36 98.7 79 20 129/66 97 2.00 01/04/17 19:07 94 2.00 01/04/17 19:00 82 01/04/17 16:35 96.3 76 16 127/67 96 2.00 01/04/17 15:21 92 2.00 01/04/17 13:56 68 01/04/17 12:00 99.8 73 20 113/57 94 2.00 01/04/17 10:51 93 2.00 01/04/17 09:10 94 2.00 01/04/17 08:38 2.00 01/04/17 07:54 79 01/04/17 07:26 93 2.00 I & O 01/05/17 07:00 Intake Total 2930 ml Output Total 1800 ml Balance 1130 ml General Appearance: No Apparent Distress, WD/WN, Anxious, Chronically ill HEENT: PERRL/EOMI, Normal ENT Inspection, Pharynx Normal Neck: Full Range of Motion, Normal Inspection, Non Tender, Supple, Carotid Bruit Respiratory: No Accessory Muscle Use, No Respiratory Distress, Decreased Breath Sounds Cardiovascular: Regular Rate, Rhythm, No Edema, No Gallop, No JVD, No Murmur, Normal Peripheral Pulses Capillary Refill: Less Than 3 Seconds Gastrointestinal: normal bowel sounds, non tender, soft Extremity: Other (left leg has 2+ pitting edema ) Neurologic/Psychiatric: Alert, Oriented x3 Skin: Normal Color, Warm/Dry Lymphatic: No Adenopathy Results Lab Laboratory Tests 01/03/17 18:00 01/04/17 05:57 Assessment/Plan Assessment/Plan MRSA and pseudomonas PNA -vanco and cefepime -sputum and blood culture -BNP is normal -IVF LLE edema with hx of fracture -dopplers-- negative 232 Clinical Quality Measures DVT/VTE Risk/Contraindication: Risk Factor Score Per Nursin RFS Level Per Nursing on Admit: 3=High NAOMI GUZMAN DO January 05, 2017 07:27
[2017-01-05 08:54] VITALS: BP 118/67
[2017-01-05] MEDS ORDERED: NON-FORMULARY MEDICATION 1 EA EA (Omeprazole 40 MG) PO SCH (09:00)
[2017-01-05] MEDS ORDERED: NON-FORMULARY MEDICATION 1 EA EA (Cyanocobalamin (Vitamin B-12) (Vitamin B-12) 1,000 MCG) PO SCH (09:00)
[2017-01-05] MEDS ORDERED: NON-FORMULARY MEDICATION 1 EA EA (Multivit-Min/FA/Lycopene/Lut (Centrum Silver Tablet) 1 T PO SCH (09:00)
[2017-01-05] MEDS ORDERED: [UNRECOGNIZED DRUG - MIXTURE] PO SCH (09:00)
[2017-01-05] MEDS: AZITHROMYCIN 250 MG TAB (ZITHROMAX) PO SCH (09:51)
[2017-01-05] MEDS: morphine ER 30 MG (MS CONTIN) TAB PO SCH ×2 (09:51→20:12)
[2017-01-05] MEDS: LACTOBACILLUS Acidoph/Bulgar (LACTINEX/FLORANEX) TAB PO SCH (09:51)
[2017-01-05] MEDS: CYANOCOBALAMIN 500 MCG TAB (VITAMIN B-12) PO SCH (09:51)
[2017-01-05] MEDS: NS IV 1000 ML 1,000 ML IV SCH (09:54)
[2017-01-05 11:42] VITALS: BP 123/70
[2017-01-05] MEDS ORDERED: VANCOMYCIN 1500 MG/NS 500 ML IVPB IV NR ×2 (12:37)
--- NOTE | 2017-01-05 12:37 | Progress Note-Hospitalist ---
Progress Note HPI/CC on Admission CC: Pneumonia after failed Z-pack 2 weeks ago HPI: This is a 81yoWF clinic patient of Dr Alvarenga's for the past 40 years that has h/o chronic bronchitis and pneumonias in the past that was admitted through the ER due to worsened pneumonia and bilateral infiltrates and O2 sat of 83%. She is a patient of Dr Asher and he will see her in consultation. She does not have home O2 and I am ordering that assessment while in-pt. She reports that she did not feel any better after given Z-pack 2 weeks ago and the dyspnea worsened to the point that she could not manage at home. She denies any chest pain and overall is doing well since taking her narcotic maintenance meds. Progress Notes/Assess & Plan Date Seen 01/05/17 Admission Dx/Process Assessment: Recurrent pneumonia failed Z-pack 2 weeks ago now with bilateral pneumonia and hypoxia of 83% in ER RA OA Chronic pain Chronic constipation Diagonsis/Assessment & Plan Patient still having cough and shortness of breath but much improved Sputum culture revealed Pseudomonas and MRSA so will discontinue Rocephin and Zithromax and start on vancomycin and cefepime No bowel movement yet that she did take her stool softeners Denies any pain issues I restarted her Valium and oxycodone that she is on chronically for many years No fever, vital signs stable, chronically ill, slightly improved Regular rate and rhythm, wheezes and crackles in the bases bilaterally but upper lobes are clear No edema Assessment: Recurrent pneumonia failed Z-pack 2 weeks ago now with bilateral pneumonia and hypoxia of 83% in ER but sputum reveals MRSA and Pseudomonas RA OA Chronic pain Chronic constipation Plan: Consult Dr Asher appreciated IV abx changed to Vanc and Cefepime until cultures completed Nebs O2 w/home O2 evaluation upon DC poor prognosis CARSON MCCLELLAN DO January 05, 2017 12:37
[2017-01-05 16:00] VITALS: BP 125/69
[2017-01-05 20:00] VITALS: BP 125/67
[2017-01-05] MEDS: CEFEPIME INJECTION 2,000 MG in NS (IVPB) 50 ML IV SCH (20:12)
[2017-01-06] VITALS: BP 111/65
[2017-01-06 04:00] VITALS: BP 124/80
[2017-01-06] MEDS: NS IV 1000 ML 1,000 ML IV SCH ×2 (04:04→23:42)
[2017-01-06] MEDS: HYDROcodone/APAP 10 MG/325 MG (LORTAB) TAB PO PRN ×4 (04:04→23:39)
[2017-01-06] MEDS: CATHETER FLUSH 10 ML SYR IV SCH ×3 (05:11→20:21)
[2017-01-06] MEDS: MULTIVIT W/MINERALS TAB (THERAGRAN M) PO SCH (06:16)
[2017-01-06] MEDS: PANTOPRAZOLE 40 MG (PROTONIX) TAB PO SCH (06:17)
[2017-01-06 06:33] LABS: BASOPHILS # (AUTO) 0.1 10^3/uL (0.0-0.1); BASOPHILS % (AUTO) 1 % (0-10); EOSINOPHILS # (AUTO) 0.8 10^3/uL (0.0-0.3); EOSINOPHILS % (AUTO) 12 % (0-10); LYMPHOCYTES # (AUTO) 1.3 X 10^3 (1.0-4.0); LYMPHOCYTES % (AUTO) 20 % (12-44); MEAN CORPUSCULAR HEMOGLOBIN 23 PG (25-34); MEAN CORPUSCULAR HGB CONC 30 G/DL (32-36); MEAN CORPUSCULAR VOLUME 75 FL (80-99); MEAN PLATELET VOLUME 9.5 FL (7.4-10.4); MONOCYTES # (AUTO) 0.6 X 10^3 (0.0-1.0); MONOCYTES % (AUTO) 9 % (0-12); NEUTROPHILS # (AUTO) 3.9 X 10^3 (1.8-7.8); NEUTROPHILS % (AUTO) 58 % (42-75); PLATELET COUNT 316 10^3/uL (130-400); RED BLOOD COUNT 4.27 10^6/uL (4.35-5.85); RED CELL DISTRIBUTION WIDTH 16.7 % (10.0-14.5); WHITE BLOOD COUNT 6.6 10^3/uL (4.3-11.0)
[2017-01-06 06:54] LABS: ALANINE AMINOTRANSFERASE 9 U/L (0-55); ANION GAP 8 MMOL/L (5-14); ASPARTATE AMINO TRANSFERASE 20 U/L (5-34); BILIRUBIN,TOTAL 0.2 MG/DL (0.1-1.0); BLOOD UREA NITROGEN 7 MG/DL (7-18); BUN/CREATININE RATIO 12; CALCIUM 8.9 MG/DL (8.5-10.1); CARBON DIOXIDE 26 MMOL/L (21-32); CHLORIDE 104 MMOL/L (98-107); GFR ESTIMATED > 60; GLUCOSE 91 MG/DL (70-105); POTASSIUM 3.8 MMOL/L (3.6-5.0); SODIUM 138 MMOL/L (135-145); TOTAL PROTEIN 6.4 G/DL (6.4-8.2)
[2017-01-06] MEDS: RT-ALBUTEROL/IPRATROPIUM 3 ML (DUONEB) VIAL INH SCH ×4 (07:45→20:27)
[2017-01-06 08:00] VITALS: BP 123/57
[2017-01-06] MEDS: CEFEPIME INJECTION 2,000 MG in NS (IVPB) 50 ML IV SCH ×2 (09:03→20:21)
[2017-01-06] MEDS: LACTOBACILLUS Acidoph/Bulgar (LACTINEX/FLORANEX) TAB PO SCH (10:41)
[2017-01-06] MEDS: CYANOCOBALAMIN 500 MCG TAB (VITAMIN B-12) PO SCH (10:42)
[2017-01-06] MEDS: morphine ER 30 MG (MS CONTIN) TAB PO SCH ×2 (10:42→20:20)
--- NOTE | 2017-01-06 10:45 | Progress Note-Hospitalist ---
Subjective HPI/CC On Admission CC: Pneumonia after failed Z-pack 2 weeks ago HPI: This is a 81yoWF clinic patient of Dr Alvarenga's for the past 40 years that has h/o chronic bronchitis and pneumonias in the past that was admitted through the ER due to worsened pneumonia and bilateral infiltrates and O2 sat of 83%. She is a patient of Dr Asher and he will see her in consultation. She does not have home O2. Date Seen 01/06/17 Subjective/Events-last exam Pt reports sleeping poorly and thus continuing to feel poorly. She is continuing to cough and feels too weak to ambulate. She has not yet bed out of bed. Objective Exam Vital Signs Vital Sign - Last 12Hours 01/03/17 17:35 Temp 98.8 Pulse 82 Resp 20 B/P (MAP) 136/54 Pulse Ox 84 O2 Delivery Room Air O2 Flow Rate 2.00 Capillary Refill : Less Than 3 Seconds General Appearance: No Apparent Distress, Chronically ill Respiratory: Chest Non Tender, Decreased Breath Sounds (in bases), Rales Cardiovascular: Regular Rate, Rhythm, No JVD Gastrointestinal: Normal Bowel Sounds, Non Tender, Soft Extremity: Non Tender, No Pedal Edema Neurologic/Psychiatric: Alert, Oriented x3 Results/Procedures Lab Laboratory Tests 01/06/17 06:06 Assessment/Plan Assessment and Plan Assess & Plan/Chief Complaint Assessment: CAP due to MRSA/pseudomonas - Continue on IV Vanc/Cefepime - Pulm consulted, appreciate recs - Breathing treatments ordered - Titrate oxygen as able to keep sat >90 - Needs evaluate for will oxygen when more stable - Not sepsis RA OA Chronic pain - on no DMARDs - Continue home narcotic pain medication Chronic constipation - Continue bowel regimen Anemia - likely due to chronic disease, trend in AM Dispo: Cont admission for IV abx. DC Tele. MD GERHARD Contreras KATELYN M MD January 06, 2017 10:45
[2017-01-06 12:00] VITALS: BP 132/76
[2017-01-06] MEDS: VANCOMYCIN INJECTION 1,000 MG in NS (IVPB) 250 ML IV SCH (13:01)
[2017-01-06 15:53] VITALS: BP 115/66
[2017-01-06 19:37] VITALS: BP 155/61
[2017-01-07] VITALS: BP 126/63
[2017-01-07] MEDS: CATHETER FLUSH 10 ML SYR IV SCH ×3 (05:24→22:32)
[2017-01-07 05:28] LABS: BASOPHILS # (AUTO) 0.1 10^3/uL (0.0-0.1); BASOPHILS % (AUTO) 1 % (0-10); EOSINOPHILS # (AUTO) 0.9 10^3/uL (0.0-0.3); EOSINOPHILS % (AUTO) 15 % (0-10); LYMPHOCYTES # (AUTO) 1.3 X 10^3 (1.0-4.0); LYMPHOCYTES % (AUTO) 21 % (12-44); MEAN CORPUSCULAR HEMOGLOBIN 23 PG (25-34); MEAN CORPUSCULAR HGB CONC 30 G/DL (32-36); MEAN CORPUSCULAR VOLUME 76 FL (80-99); MEAN PLATELET VOLUME 9.4 FL (7.4-10.4); MONOCYTES # (AUTO) 0.6 X 10^3 (0.0-1.0); MONOCYTES % (AUTO) 9 % (0-12); NEUTROPHILS # (AUTO) 3.3 X 10^3 (1.8-7.8); NEUTROPHILS % (AUTO) 54 % (42-75); PLATELET COUNT 321 10^3/uL (130-400); RED BLOOD COUNT 4.27 10^6/uL (4.35-5.85); RED CELL DISTRIBUTION WIDTH 16.8 % (10.0-14.5); WHITE BLOOD COUNT 6.1 10^3/uL (4.3-11.0)
[2017-01-07 06:01] LABS: BAND NEUTROPHILS 1 %; LYMPHOCYTES % (MANUAL) 22 %; NEUTROPHILS % (MANUAL) 56 %
[2017-01-07 06:02] LABS: ANISOCYTOSIS SLIGHT; BASOPHILS % (MANUAL) 0 %; EOSINOPHILS % (MANUAL) 14 %; HYPOCHROMASIA MODERATE; POLYCHROMASIA SLIGHT
[2017-01-07] MEDS: MULTIVIT W/MINERALS TAB (THERAGRAN M) PO SCH (06:17)
[2017-01-07] MEDS: PANTOPRAZOLE 40 MG (PROTONIX) TAB PO SCH (06:17)
[2017-01-07 06:29] LABS: ALANINE AMINOTRANSFERASE 8 U/L (0-55); ALBUMIN 2.9 G/DL (3.2-4.5); ANION GAP 8 MMOL/L (5-14); ASPARTATE AMINO TRANSFERASE 20 U/L (5-34); BILIRUBIN,TOTAL 0.2 MG/DL (0.1-1.0); BLOOD UREA NITROGEN 8 MG/DL (7-18); BUN/CREATININE RATIO 13; CALCIUM 9.5 MG/DL (8.5-10.1); CARBON DIOXIDE 28 MMOL/L (21-32); CHLORIDE 102 MMOL/L (98-107); GFR ESTIMATED > 60; GLUCOSE 98 MG/DL (70-105); SODIUM 138 MMOL/L (135-145); TOTAL PROTEIN 6.3 G/DL (6.4-8.2)
[2017-01-07] MEDS: RT-ALBUTEROL/IPRATROPIUM 3 ML (DUONEB) VIAL INH SCH ×4 (07:24→18:44)
[2017-01-07 08:00] VITALS: BP 139/63
[2017-01-07] MEDS: CEFEPIME INJECTION 2,000 MG in NS (IVPB) 50 ML IV SCH ×2 (08:57→20:38)
[2017-01-07] MEDS: LACTOBACILLUS Acidoph/Bulgar (LACTINEX/FLORANEX) TAB PO SCH (09:02)
[2017-01-07] MEDS: morphine ER 30 MG (MS CONTIN) TAB PO SCH ×2 (09:02→20:38)
[2017-01-07] MEDS: HYDROcodone/APAP 10 MG/325 MG (LORTAB) TAB PO PRN ×3 (09:02→21:29)
[2017-01-07] MEDS: CYANOCOBALAMIN 500 MCG TAB (VITAMIN B-12) PO SCH (09:03)
[2017-01-07] MEDS ORDERED: TROUGH ORDER-PHARMACY XX NR (11:00)
[2017-01-07] MEDS: VANCOMYCIN INJECTION 1,000 MG in NS (IVPB) 250 ML IV SCH (11:45)
--- NOTE | 2017-01-07 12:39 | Progress Note-Hospitalist ---
Subjective HPI/CC On Admission CC: Pneumonia after failed Z-pack 2 weeks ago HPI: This is a 81yoWF clinic patient of Dr Alvarenga's for the past 40 years that has h/o chronic bronchitis and pneumonias in the past that was admitted through the ER due to worsened pneumonia and bilateral infiltrates and O2 sat of 83%. She is a patient of Dr Asher and he will see her in consultation. She does not have home O2. Date Seen 01/07/17 Subjective/Events-last exam Reports feeling better but still SOB with exertion. Otherwise no complaints and no overnight events. Objective Exam Vital Signs Vital Sign - Last 12Hours 01/03/17 17:35 Temp 98.8 Pulse 82 Resp 20 B/P (MAP) 136/54 Pulse Ox 84 O2 Delivery Room Air O2 Flow Rate 2.00 Capillary Refill : Less Than 3 Seconds General Appearance: No Apparent Distress, WD/WN Respiratory: No Accessory Muscle Use, Crackles (bilateral bases) Cardiovascular: Regular Rate, Rhythm, No Murmur Gastrointestinal: Non Tender, Soft Extremity: No Calf Tenderness, No Pedal Edema Neurologic/Psychiatric: Alert, Oriented x3, Normal Mood/Affect Skin: Normal Color, Warm/Dry Results/Procedures Lab Laboratory Tests 01/07/17 04:42 Assessment/Plan Assessment and Plan Assess & Plan/Chief Complaint Assessment: CAP due to MRSA/pseudomonas - Continue on IV Vanc/Cefepime as fever curve trending up today - Pharm to dose Vanc - Pulm consulted, appreciate recs - Continue Nebs - Titrate oxygen as able to keep sat >90 - Needs evaluate for home oxygen when more stable RA OA Chronic pain - on no DMARDs, follows with PCP - Continue home narcotic pain medication Chronic constipation - Continue bowel regimen Anemia - likely due to chronic disease, trend in AM Dispo: Cont admission for IV abx. MD GERHARD Contreras KATELYN M MD January 07, 2017 12:39
[2017-01-07 16:08] VITALS: BP 122/65
[2017-01-07] MEDS: NS IV 1000 ML 1,000 ML IV SCH (20:38)
[2017-01-07] MEDS: VANCOMYCIN INJECTION 750 MG in NS (IVPB) 250 ML IV SCH (22:50)
[2017-01-08 00:19] VITALS: BP 157/67
[2017-01-08] MEDS: CATHETER FLUSH 10 ML SYR IV SCH ×3 (06:00→20:28)
[2017-01-08 06:06] LABS: BASOPHILS # (AUTO) 0.1 10^3/uL (0.0-0.1); BASOPHILS % (AUTO) 1 % (0-10); EOSINOPHILS # (AUTO) 0.9 10^3/uL (0.0-0.3); EOSINOPHILS % (AUTO) 16 % (0-10); LYMPHOCYTES # (AUTO) 1.3 X 10^3 (1.0-4.0); LYMPHOCYTES % (AUTO) 23 % (12-44); MEAN CORPUSCULAR HEMOGLOBIN 23 PG (25-34); MEAN CORPUSCULAR HGB CONC 30 G/DL (32-36); MEAN CORPUSCULAR VOLUME 76 FL (80-99); MEAN PLATELET VOLUME 8.9 FL (7.4-10.4); MONOCYTES # (AUTO) 0.4 X 10^3 (0.0-1.0); MONOCYTES % (AUTO) 8 % (0-12); NEUTROPHILS # (AUTO) 2.9 X 10^3 (1.8-7.8); NEUTROPHILS % (AUTO) 52 % (42-75); PLATELET COUNT 297 10^3/uL (130-400); RED BLOOD COUNT 4.12 10^6/uL (4.35-5.85); RED CELL DISTRIBUTION WIDTH 16.6 % (10.0-14.5); WHITE BLOOD COUNT 5.5 10^3/uL (4.3-11.0)
[2017-01-08 06:24] LABS: ALANINE AMINOTRANSFERASE 8 U/L (0-55); ALBUMIN 2.9 G/DL (3.2-4.5); ANION GAP 7 MMOL/L (5-14); ASPARTATE AMINO TRANSFERASE 18 U/L (5-34); BILIRUBIN,TOTAL 0.2 MG/DL (0.1-1.0); BLOOD UREA NITROGEN 7 MG/DL (7-18); BUN/CREATININE RATIO 12; CALCIUM 9.2 MG/DL (8.5-10.1); CARBON DIOXIDE 28 MMOL/L (21-32); CHLORIDE 104 MMOL/L (98-107); CREATININE SERUM 0.58 MG/DL (0.60-1.30); GFR ESTIMATED > 60; GLUCOSE 105 MG/DL (70-105); POTASSIUM 3.5 MMOL/L (3.6-5.0); SODIUM 139 MMOL/L (135-145); TOTAL PROTEIN 6.1 G/DL (6.4-8.2)
[2017-01-08] MEDS: PANTOPRAZOLE 40 MG (PROTONIX) TAB PO SCH ×2 (06:39→09:28)
[2017-01-08] MEDS: MULTIVIT W/MINERALS TAB (THERAGRAN M) PO SCH ×2 (06:39→09:30)
[2017-01-08] MEDS: RT-ALBUTEROL/IPRATROPIUM 3 ML (DUONEB) VIAL INH SCH ×4 (07:17→19:21)
[2017-01-08 08:00] VITALS: BP 163/72
[2017-01-08] MEDS: CYANOCOBALAMIN 500 MCG TAB (VITAMIN B-12) PO SCH (09:00)
[2017-01-08] MEDS: LACTOBACILLUS Acidoph/Bulgar (LACTINEX/FLORANEX) TAB PO SCH (09:28)
[2017-01-08] MEDS: morphine ER 30 MG (MS CONTIN) TAB PO SCH ×2 (09:29→20:27)
[2017-01-08] MEDS: CEFEPIME INJECTION 2,000 MG in NS (IVPB) 50 ML IV SCH ×2 (09:29→20:27)
[2017-01-08] MEDS: VANCOMYCIN INJECTION 750 MG in NS (IVPB) 250 ML IV SCH ×2 (11:34→22:38)
--- NOTE | 2017-01-08 11:39 | Progress Note-Hospitalist ---
Progress Note HPI/CC on Admission CC: Pneumonia after failed Z-pack 2 weeks ago HPI: This is a 81yoWF clinic patient of Dr Alvarenga's for the past 40 years that has h/o chronic bronchitis and pneumonias in the past that was admitted through the ER due to worsened pneumonia and bilateral infiltrates and O2 sat of 83%. She is a patient of Dr Asher and he will see her in consultation. She does not have home O2. Progress Notes/Assess & Plan Date Seen 01/08/17 Admission Dx/Process Assessment: Recurrent pneumonia failed Z-pack 2 weeks ago now with bilateral pneumonia and hypoxia of 83% in ER RA OA Chronic pain Chronic constipation Diagonsis/Assessment & Plan Patient doing very well overall and feels like she is breathing better IV abx tolerated and will HLIVF to allow patient to get up and around in the room more in prep for DC soon Works at the [employer] so she is ready to go as soon as she can No pain is reported BM+ No fever, vital signs stable, chronically ill, slightly improved Regular rate and rhythm, wheezes and crackles are improved No edema Assessment: Recurrent pneumonia failed Z-pack 2 1/2 weeks ago now with bilateral pneumonia and hypoxia of 83% in ER but sputum reveals MRSA and Pseudomonas RA OA Chronic pain Chronic constipation Plan: Consult Dr Asher appreciated IV abx changed to Vanc and Cefepime Nebs O2 w/home O2 evaluation upon DC Poor prognosis retirement HLIVF CARSON MCCLELLAN DO January 08, 2017 11:39
[2017-01-08] MEDS: HYDROcodone/APAP 10 MG/325 MG (LORTAB) TAB PO PRN ×2 (11:40→22:38)
[2017-01-08 15:25] VITALS: BP 125/68
[2017-01-08 23:41] VITALS: BP 145/77
[2017-01-09 05:37] LABS: BASOPHILS # (AUTO) 0.1 10^3/uL (0.0-0.1); BASOPHILS % (AUTO) 1 % (0-10); EOSINOPHILS # (AUTO) 0.7 10^3/uL (0.0-0.3); EOSINOPHILS % (AUTO) 11 % (0-10); LYMPHOCYTES # (AUTO) 1.5 X 10^3 (1.0-4.0); LYMPHOCYTES % (AUTO) 22 % (12-44); MEAN CORPUSCULAR HEMOGLOBIN 23 PG (25-34); MEAN CORPUSCULAR HGB CONC 30 G/DL (32-36); MEAN CORPUSCULAR VOLUME 75 FL (80-99); MEAN PLATELET VOLUME 9.7 FL (7.4-10.4); MONOCYTES # (AUTO) 0.5 X 10^3 (0.0-1.0); MONOCYTES % (AUTO) 8 % (0-12); NEUTROPHILS % (AUTO) 58 % (42-75); PLATELET COUNT 306 10^3/uL (130-400); RED BLOOD COUNT 4.27 10^6/uL (4.35-5.85); RED CELL DISTRIBUTION WIDTH 16.7 % (10.0-14.5); WHITE BLOOD COUNT 6.8 10^3/uL (4.3-11.0)
[2017-01-09 06:02] LABS: ALANINE AMINOTRANSFERASE 8 U/L (0-55); ALBUMIN 2.9 G/DL (3.2-4.5); ANION GAP 10 MMOL/L (5-14); ASPARTATE AMINO TRANSFERASE 21 U/L (5-34); BILIRUBIN,TOTAL 0.2 MG/DL (0.1-1.0); BLOOD UREA NITROGEN 8 MG/DL (7-18); BUN/CREATININE RATIO 14; CALCIUM 9.2 MG/DL (8.5-10.1); CARBON DIOXIDE 26 MMOL/L (21-32); CHLORIDE 103 MMOL/L (98-107); CREATININE SERUM 0.57 MG/DL (0.60-1.30); GFR ESTIMATED > 60; GLUCOSE 99 MG/DL (70-105); POTASSIUM 3.5 MMOL/L (3.6-5.0); SODIUM 139 MMOL/L (135-145); TOTAL PROTEIN 6.3 G/DL (6.4-8.2)
[2017-01-09] MEDS: PANTOPRAZOLE 40 MG (PROTONIX) TAB PO SCH (06:03)
[2017-01-09] MEDS: MULTIVIT W/MINERALS TAB (THERAGRAN M) PO SCH ×2 (06:03→06:06)
[2017-01-09] MEDS: CATHETER FLUSH 10 ML SYR IV SCH (06:03)
[2017-01-09] MEDS: RT-ALBUTEROL/IPRATROPIUM 3 ML (DUONEB) VIAL INH SCH ×2 (06:39→11:03)
[2017-01-09 08:00] VITALS: BP 138/64
[2017-01-09] MEDS: HYDROcodone/APAP 10 MG/325 MG (LORTAB) TAB PO PRN (08:33)
[2017-01-09] MEDS: LACTOBACILLUS Acidoph/Bulgar (LACTINEX/FLORANEX) TAB PO SCH ×2 (08:33→09:25)
[2017-01-09] MEDS: CYANOCOBALAMIN 500 MCG TAB (VITAMIN B-12) PO SCH ×2 (08:34→09:26)
[2017-01-09] MEDS: morphine ER 30 MG (MS CONTIN) TAB PO SCH (08:34)
[2017-01-09] MEDS: CEFEPIME INJECTION 2,000 MG in NS (IVPB) 50 ML IV SCH (08:34)
[2017-01-09] MEDS ORDERED: TROUGH ORDER-PHARMACY XX NR (10:00)
[2017-01-09] MEDS ORDERED: LINE600T5 PO ×2 (10:06)
[2017-01-09] MEDS: VANCOMYCIN INJECTION 750 MG in NS (IVPB) 250 ML IV SCH (11:31)
[2017-01-09] MEDS ORDERED: VANCOMYCIN 1 GM/NS 250 ML IVPB IV SCH ×2 (22:00)
[2017-01-11] MEDS ORDERED: TROUGH ORDER-PHARMACY XX NR (09:00)
--- NOTE | 2017-01-11 11:16 | Discharge Summary-Hospitalist ---
Diagnosis/Chief Complaint Date of Admission January 04, 2017 at 08:54 Date of Discharge January 09, 2017 at 11:58 Discharge Date: January 09, 2017 Admission Diagnosis Assessment: Recurrent pneumonia failed Z-pack 2 weeks ago now with bilateral pneumonia and hypoxia of 83% in ER RA OA Chronic pain Chronic constipation Discharge Diagnosis Patient doing very well overall and feels like she is breathing better IV abx tolerated and will HLIVF to allow patient to get up and around in the room more in prep for DC soon Works at the [employer] so she is ready to go as soon as she can No pain is reported BM+ No fever, vital signs stable, chronically ill, slightly improved Regular rate and rhythm, wheezes and crackles are improved No edema Assessment: Recurrent pneumonia failed Z-pack 2 1/2 weeks ago now with bilateral pneumonia and hypoxia of 83% in ER but sputum reveals MRSA and Pseudomonas RA OA Chronic pain Chronic constipation Plan: Consult Dr Asher appreciated IV abx changed to Vanc and Cefepime Nebs O2 w/home O2 evaluation upon DC 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 She is a patient of Dr Asher and he will see her in consultation. She does not have home O2. Hospital course: Patient had an uneventful hospital course she was placed on swing bed to continue cefepime and vancomycin due to resistant strains of bacteria on sputum culture causing the recurrent pneumonia. Overall she stabilized lab work remained stable and she was agreeable for swing bed status along with oxygen supplementation and nebulizer treatments to improve enough to be discharged once IV antibiotics were completed. Discharge Summary Discharge Physical Examination Allergies: Coded Allergies: Sulfa (Sulfonamide Antibiotics) (Verified Allergy, Unknown, 11/13/13) nitrofurantoin (Verified Adverse Reaction, Unknown, NAUSEA, 06/05/16) Vitals & I&Os Vital Signs Date Time Temp Pulse Resp B/P (MAP) Pulse Ox O2 Delivery O2 Flow Rate FiO2 01/09/17 11:30 91 01/09/17 11:10 1.00 01/09/17 08:00 98.9 73 20 138/64 Hospital Course Labs (last 24 hrs) Microbiology 01/03/17 Blood Culture - Final, Complete No growth 01/03/17 Gram Stain - Final, Complete 01/03/17 Sputum Culture - Final, Complete Staphylococcus Aureus Pseudomonas Aeruginosa Normal michael Discharge Home Medications: Active Scripts Active Zyvox (Linezolid) 600 Mg Tablet 600 Mg PO BID Reported Proair Hfa (Albuterol Sulfate) 1 Puff Puff 2 Puff IH Q4H PRN 1 PUFF = 90 MCG Acid Bartender (RANITIDINE) (Ranitidine HCl) 150 Mg Tablet 150 Mg PO HS PRN Centrum Silver Tablet (Multivit-Min/FA/Lycopene/Lut) 1 Each Tablet 1 Tab PO DAILY Vitamin B-12 (Cyanocobalamin (Vitamin B-12)) 1,000 Mcg/1 Ml Drops 1,000 Mcg PO DAILY Lactinex Chewable Tablet (L. Acidophilus/Bulgaricus) 1 Each Tab.chew 3 Tab.chew PO DAILY Omeprazole 40 Mg Capsule.dr 40 Mg PO DAILY Hydrocodon-Acetaminophn 10-325 (Hydrocodone/Acetaminophen) 1 Each Tablet 1-2 Tab PO Q6H PRN Morphine Sulfate ER (Morphine Sulfate) 30 Mg Tablet.er 30 Mg PO BID Diazepam 5 Mg (Diazepam) 5 Mg Tablet 5 Mg PO Q8H PRN Instructions to patient/family Please see electonic discharge instructions given to patient. Clinical Quality Measures DVT/VTE Risk/Contraindication: Risk Factor Score Per Nursin RFS Level Per Nursing on Admit: 3=High CARSON MCCLELLAN DO Jan 11, 2017 11:16
== END 2017-01-09 11:58 | disposition swing bed (61) | DRG 179 ==
LOC: EDUNIT# 17:32 → ER 17:34 → UNDOADMOB 19:10 → 4TH 19:10 → OBSVTOIN 01-04 08:54 → INTOOBSV 01-04 08:55 → OBSVTOIN 01-04 08:55
PROVIDERS: ADMIT Internal Medicine; ATTEND Family Medicine
DX: J15.1 Pneumonia due to Pseudomonas (principal); J15.212 Pneumonia due to Methicillin resistant Staphylococcus aureus; J42 Unspecified chronic bronchitis; M06.9 Rheumatoid arthritis, unspecified; M19.90 Unspecified osteoarthritis, unspecified site; R60.9 Edema, unspecified; G89.29 Other chronic pain; K59.00 Constipation, unspecified; D63.8 Anemia in other chronic diseases classified elsewhere
CPT/HCPCS: 36415; 71020; 80053; 80202; 82550; 82553; 82805; 83605; 83735; 83880; 84484; 85007; 85025; 85027; 85610; 85730; 87040; 87070; 87077; 87186; 87205; 93005; 93970; 94640; 94664; 94760; 94761; 96374; G0378

== ENCOUNTER 2017-01-09 09:14 | Inpatient (IN) | payer MEDICARE ==
[~2017-01-09] VITALS: Ht 157.5 cm; Wt 72.6 kg
[~2017-01-09 09:14] MED LIST changes: +MULT-1029 PO; +RANI150T90 PO
[2017-01-09] MEDS ORDERED: LINE600T5 PO (10:06)
[2017-01-09] MEDS ORDERED: ACETAMINOPHEN 500 MG TAB (TYLENOL) PO PRN (12:15)
[2017-01-09] MEDS ORDERED: RT-ALBUTEROL/IPRATROPIUM 3 ML (DUONEB) VIAL INH PRN (12:15)
[2017-01-09] MEDS ORDERED: DIAZEPAM 5 MG (VALIUM) TABLET PO PRN (12:15)
[2017-01-09] MEDS ORDERED: FAMOTIDINE 20 MG (PEPCID) TABLET PO PRN (12:15)
[2017-01-09] MEDS ORDERED: CATHETER FLUSH 10 ML SYR IV PRN (12:15)
--- NOTE | 2017-01-09 12:40 | Pulmonary Progress Note ---
Exam Exam General Appearance: No Apparent Distress, WD/WN HEENT: PERRL/EOMI, Pharynx Normal Neck: Full Range of Motion, Normal Inspection, Supple Respiratory: Chest Non Tender, No Accessory Muscle Use, No Respiratory Distress , Decreased Breath Sounds Cardiovascular: Regular Rate, Rhythm, No Edema, No Gallop Gastrointestinal: normal bowel sounds, non tender, soft, no organomegaly Neurologic/Psychiatric: Alert, Oriented x3 Skin: Normal Color, Warm/Dry Assessment/Plan Assessment/Plan pseudomonus/MRSA PNA -Cefepime -- Sergio was d/c'd by Dr. Dang -Will repeat CXR -There is no leukocytosis or fever so will continue to monitor with cefepime only for now and await repeat CXR LLE edema with hx of fracture -dopplers negative 232 NAOMI GUZMAN DO January 09, 2017 12:40
[2017-01-09] MEDS ORDERED: PROMETHAZINE/ CODEINE SYRUP 5 ML UDC PO PRN (13:00)
[2017-01-09] MEDS: HYDROcodone/APAP 10 MG/325 MG (LORTAB) TAB PO PRN (13:15)
--- NOTE | 2017-01-09 13:47 | Diagnostic Imaging Report ---
INDICATION: Cough. COMPARISON: 01/03/2017. FINDINGS: Frontal and lateral radiographic views of the chest were obtained and continue to show scattered patchy and confluent areas of alveolar infiltrate bilaterally. Overall, aeration has not significantly changed compared to prior exam. No large effusion or pneumothorax is seen. Cardiac silhouette and pulmonary vasculature within normal limits. Bony structures show no acute abnormalities. IMPRESSION: 1. Stable exam of the chest showing scattered patchy and confluent bilateral infiltrates. Continued followup to resolution is recommended. Dictated by: Dictated on workstation # [id number]
[2017-01-09] MEDS: CATHETER FLUSH 10 ML SYR IV SCH ×2 (14:46→20:20)
[2017-01-09] MEDS: RT-ALBUTEROL/IPRATROPIUM 3 ML (DUONEB) VIAL INH SCH ×3 (15:00→19:27)
[2017-01-09 17:35] VITALS: BP 126/70
[2017-01-09] MEDS: morphine ER 30 MG (MS CONTIN) TAB PO SCH (20:19)
[2017-01-09] MEDS: CEFEPIME INJECTION 2,000 MG in NS (IVPB) 50 ML IV SCH (20:19)
[2017-01-10 06:00] VITALS: BP 147/67
[2017-01-10] MEDS: MULTIVIT W/MINERALS TAB (THERAGRAN M) PO SCH (06:04)
[2017-01-10] MEDS: CATHETER FLUSH 10 ML SYR IV SCH ×3 (06:05→20:17)
[2017-01-10] MEDS: PANTOPRAZOLE 40 MG (PROTONIX) TAB PO SCH (06:05)
[2017-01-10] MEDS: RT-ALBUTEROL/IPRATROPIUM 3 ML (DUONEB) VIAL INH SCH ×4 (07:30→18:50)
[2017-01-10] MEDS: CYANOCOBALAMIN 500 MCG TAB (VITAMIN B-12) PO SCH (09:43)
[2017-01-10] MEDS: morphine ER 30 MG (MS CONTIN) TAB PO SCH ×2 (09:43→20:16)
[2017-01-10] MEDS: LACTOBACILLUS Acidoph/Bulgar (LACTINEX/FLORANEX) TAB PO SCH (09:43)
[2017-01-10] MEDS: CEFEPIME INJECTION 2,000 MG in NS (IVPB) 50 ML IV SCH ×2 (09:45→20:16)
--- NOTE | 2017-01-10 09:45 | Pulmonary Progress Note ---
Exam Exam Vital Signs Date Time Temp Pulse Resp B/P (MAP) Pulse Ox O2 Delivery O2 Flow Rate FiO2 01/10/17 06:00 96.8 64 22 147/67 94 1.00 01/09/17 19:25 1.00 01/09/17 17:35 98.9 68 24 126/70 95 1.00 01/09/17 11:57 1.00 I & O 01/10/17 07:00 Intake Total 1190 ml Balance 1190 ml General Appearance: No Apparent Distress, WD/WN HEENT: PERRL/EOMI, Pharynx Normal Neck: Full Range of Motion, Normal Inspection, Supple Respiratory: Chest Non Tender, No Accessory Muscle Use, No Respiratory Distress , Decreased Breath Sounds Cardiovascular: Regular Rate, Rhythm, No Edema, No Gallop Gastrointestinal: normal bowel sounds, non tender, soft, no organomegaly Neurologic/Psychiatric: Alert, Oriented x3 Skin: Normal Color, Warm/Dry Assessment/Plan Assessment/Plan pseudomonus/MRSA PNA -Cefepime -- Sergio was d/c'd by Dr. Dang -Will repeat CXR -There is no leukocytosis or fever so will continue to monitor with cefepime only for now and await repeat CXR -repeat labs LLE edema with hx of fracture -dopplers negative 232 Clinical Quality Measures DVT/VTE Risk/Contraindication: Risk Factor Score Per Nursin RFS Level Per Nursing on Admit: 4+=Very High NAOMI GUZMAN DO January 10, 2017 09:45
[2017-01-10 10:08] LABS: RED BLOOD COUNT 4.72 10^6/uL (4.35-5.85); RED CELL DISTRIBUTION WIDTH 16.8 % (10.0-14.5); WHITE BLOOD COUNT 6.1 10^3/uL (4.3-11.0)
[2017-01-10 10:28] LABS: ANION GAP 8 MMOL/L (5-14); BLOOD UREA NITROGEN 8 MG/DL (7-18); BUN/CREATININE RATIO 13; CALCIUM 9.9 MG/DL (8.5-10.1); CARBON DIOXIDE 29 MMOL/L (21-32); CHLORIDE 101 MMOL/L (98-107); CREATININE SERUM 0.63 MG/DL (0.60-1.30); GFR ESTIMATED > 60; GLUCOSE 98 MG/DL (70-105); POTASSIUM 3.5 MMOL/L (3.6-5.0); SODIUM 138 MMOL/L (135-145)
[2017-01-10 17:36] VITALS: BP 136/61
[2017-01-10] MEDS: HYDROcodone/APAP 10 MG/325 MG (LORTAB) TAB PO PRN (19:43)
[2017-01-11 05:27] VITALS: BP 140/66
[2017-01-11] MEDS: PANTOPRAZOLE 40 MG (PROTONIX) TAB PO SCH (06:08)
[2017-01-11] MEDS: CATHETER FLUSH 10 ML SYR IV SCH ×3 (06:08→20:58)
[2017-01-11] MEDS: MULTIVIT W/MINERALS TAB (THERAGRAN M) PO SCH (06:08)
[2017-01-11] MEDS: RT-ALBUTEROL/IPRATROPIUM 3 ML (DUONEB) VIAL INH SCH ×4 (08:35→19:00)
[2017-01-11] MEDS: morphine ER 30 MG (MS CONTIN) TAB PO SCH ×2 (09:18→20:57)
[2017-01-11] MEDS: CEFEPIME INJECTION 2,000 MG in NS (IVPB) 50 ML IV SCH ×2 (09:18→20:57)
[2017-01-11] MEDS: CYANOCOBALAMIN 500 MCG TAB (VITAMIN B-12) PO SCH (09:18)
[2017-01-11] MEDS: HYDROcodone/APAP 10 MG/325 MG (LORTAB) TAB PO PRN (09:19)
[2017-01-11] MEDS: LACTOBACILLUS Acidoph/Bulgar (LACTINEX/FLORANEX) TAB PO SCH (09:19)
--- NOTE | 2017-01-11 10:56 | Progress Note-Hospitalist ---
Progress Note Progress Notes/Assess & Plan Date Seen 01/11/17 Diagonsis/Assessment & Plan Chart Review: Max fever 100.6 Pharmacy Review: Pt is only be treating one of the resistant organisms. Dr. 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 Pt was informed that she is, in fact, getting better, but it is a slow progression. Physical exam stable. Pt stated that she took 5 stool softeners last night. Pt has been having BMs, but did not have one yesterday. 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 Asher is appreciated [facility] at [place] PT Rehab eval? Restart Zyvox and will continue that on [place] Scribed by Rina Melo under the direct supervision of Dr. Mcclellan. CARSON MCCLELLAN DO Jan 11, 2017 10:56
--- NOTE | 2017-01-11 11:42 | Physical Therapy Evaluation ---
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 Pain Numeric Pain Scale: 0-No Pain Location: No Pain Reported Pt/Family Goals return to home ANT Objective Patient Orientation: Normal For Age Problem Solving: Good Attachments: Oxygen (2L) ROM/Strength ROM Lower Extremities bilateral LE WFL Strenght Lower Extremities right knee flexion/extension 5/5; hip flexion 4/5; ankle dorsi/plantarflexion 5/ 5 left knee flexion/extension 5/5; hip flexion 4/5; ankle dorsi/plantarflexion 5/5 Integumentary/Posture Integumentary refer to nursing notes Bowel Incontinence: No Bladder Incontinence: No Posture WNL Neuromuscular (Tone, Coordination, Reflexes) grossly intact Sensory Vision: Functional Hearing: Functional Sensation Right Lower Extremit: Intact Sensation Left Lower Extremity: Intact Transfers Functional Green Measure 0=Not Assessed/NA 4=Minimal Assistance 1=Total Assistance 5=Supervision or Setup 2=Maximal Assistance 6=Modified Green 3=Moderate Assistance 7=Complete Green Transfers (B, C, W/C) (FIM): 7 Scootin Rollin Supine to/from Sit: 7 Sit to/from Stand: 7 Sit to Lying (QC): 6 Lying to Sitting/Side of Bed(Q: 6 Sit to Stand (QC): 6 Gait Does the Patient Walk?: Yes Mode of Locomotion: Walk Anticipated Mode of Locomotion: Walk Gait (FIM): 6 Distance (FIM): 3=150 ft Distance: 300' Walk 50 ft with 2 Turns(QC): 6 Walk 150 ft (QC): 6 Gait Level of Assist: 6 Gait Assistive Device: Cane Large Base Quad Comments/Gait Description safe and functional with LBQC; assist for O2 tank Balance Sitting Static: Normal Sitting Dynamic: Normal Standing Static: Normal Standing Dynamic: Normal Treatment SAO2 monitor for Home O2 during treatment with patient decreasing to 87 on RA with ambulation x 15' and improving to 93% on 2L O2 NC during ambulation x 300' with noted increase in SOA, however, SAO2 remained >90%; RT notified. Assessment/Needs 81 y.o. female, will benefit from short term skilled PT to address cardiopulmonary functional with functional mobility to return to home safely. Per Dr. Lin, patient will dismiss to home tomorrow. 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 Time Frame: Jan 12, 2017 Transfers (B,C,W/C) (FIM): 7 Sit to Lying (QC): 6 Lying-Sitting on Side/Bed(QC): 6 Sit to Stand (QC): 6 Rollin Chair/Qix-iy-Vibvl Xfer(QC): 6 Does the Patient Walk: Yes Gait (FIM): 6 Gait distance (FIM): 3=150 ft Distance: 300' Walk 50ft with 2 Turns (QC): 6 Walk 150 ft (QC): 6 Gait Level of Assist: 6 Gait Assistive Device: Cane Large Base Quad PT Plan Treatment/Plan Treatment Plan: Continue Plan of Care Treatment Plan: Education, Functional Activity Lelia, Functional Strength, Gait , Safety, Therapeutic Exercise, Transfers Treatment Duration: Jan 12, 2017 # of days/week 2 Visits Per Week: 2 Minutes/Day (M-F): 15-30 Pt/Family Agrees w/Plan: Yes Safety Risks/Education Patient Education: Disease Process, Safety Issues Teaching Recipient: Patient Teaching Methods: Discussion Response to Teaching: Verbalize Understanding, Reinforcement Needed Discharge Recommendations Therapy D/C Recommendations: Home w/ Family Support Time/GCodes Time In: 1050 Time Out: 1115 Total Billed Treatment Time: 25 Total Billed Treatment 1 visit EVLowC 10 min FA 15 min NIKO FERNANDEZ PT Jan 11, 2017 11:42
[2017-01-11] MEDS: LINEZOLID (ZYVOX) 600 MG TAB PO SCH ×2 (13:34→20:57)
--- NOTE | 2017-01-11 14:23 | Occupational Therapy Eval ---
OT Evaluation-General/PLF Medical Diagnosis Admission Date January 09, 2017 at 11:58 Medical Diagnosis: pneumonia/hypoxia Onset Date: January 03, 2017 Therapy Diagnosis Therapy Diagnosis: weakness Height/Weight Height (Feet): 5 Height (Inches): 2.00 Weight (Pounds): 160 Weight (Ounces): 2.3 Precautions Precautions/Isolations: Droplet Isolation, Fall Prevention Safety Interventions: None Referral Physician: Riley Referral Reason: Evaluation/Treatment Medical History Pertinent Medical History: Arthritis, OA, Rheumatoid Arthritis Additional Medical History R THR x 2, L ankle surgery, cataract surgery. SOB with exertion, frequent bronchitis, pneumonia. Chronic UTI and constipation. Bursitis. Chronic anemia Current History Admitted with bilat pneumonia, hypoxia. Reviewed History: Yes Social History Home: Single Level Current Living Status: Spouse ADL-Prior Level of Function ADL PLOF Comments Pt reported that she has been able to manage all of her basic ADLs except that she goes to the [employer] 2 times a week. She lives with her and daughter and she takes turns with her daughter for cooking. She still drives and works with her at their [employer]. 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 Reports pain 0/10. Appearance Alert, cooperative Current Upper Extremity ROM grossly WFL bilat Upper Extremity Strength Grossly 4+/5 bilat ADL-Treatment ADL-Current Pt reported she has been taking herself to the bathroom, has been brushing her own teeth, gave herself a bath last night, dressing herself. She was observed feeding herself without assistance. Functional [place] Measure 0=Not Assessed/NA 4=Minimal Assistance 1=Total Assistance 5=Supervision or Setup 2=Maximal Assistance 6=Modified [place] 3=Moderate Assistance 7=Complete IndependenceIRFPAI Quality Coding Scale 6 Independent with activity with or without an assistive device 5 Patient requires set up or clean up by helper. Patient completes activity by themselves 4 Supervision or touching assist (CGA). Story provide cues , steadying assist 3 The helper provides less than half the effort to complete the activity 2 The helper provides more than half the effort to complete the activity 1 Dependent. The helper does all the effort to complete an activity 7 Patient refused to complete or attempt activity 9 The patient did not perform the activity before the current illness or injury 88 Not attempted due to Medical conditions or safety concerns Eating (FIM): 7 Eating (QC): 6 Grooming (FIM): 6 Oral Hygiene (QC): 6 Bathing (FIM): 6 Upper Body Dressing (FIM): 6 Lower Body Dressing (FIM): 6 Toileting (FIM): 6 Toileting Hygiene (QC): 6 Toilet/Commode Transfer (FIM): 6 Toilet Transfer (QC): 6 All ADL scores by patient report. Education OT Patient Education: Purpose of tx/functional activities, Rehab process Teaching Recipient: Patient Teaching Methods: Discussion Response to Teaching: Verbalize Understanding OT Education/Plan Problem List/Assessment Assessment: No Skilled OT Needs ID'd (pt is managing basic ADLs and UE strength is functional) Pt does not demonstrate needs for skilled OT Discharge Recommendations Plan/Recommendations: Discontinue OT Target Placement Pt reported she is being discharged to home tomorrow Treatment Plan/Plan of Care Treatment,Training & Education: No Patient would benefit from OT for education, treatment and training to promote independence in ADL's, mobility, safety and/or upper extremity function for ADL' s. Treatment Duration: Jan 11, 2017 Visits Per Week: one Agreement: Yes Rehab Potential: Good Time/GCodes Start Time: 13:45 Stop Time: 14:05 Total Time Billed (hr/min): 20 Billed Treatment Time visit, 20 minutes evaluation low intensity ROBERTO ROBERSON OT Jan 11, 2017 14:23
[2017-01-11 17:44] VITALS: BP 125/59
[2017-01-12 05:00] VITALS: BP 141/63
[2017-01-12] MEDS: CATHETER FLUSH 10 ML SYR IV SCH (06:20)
[2017-01-12] MEDS: MULTIVIT W/MINERALS TAB (THERAGRAN M) PO SCH ×2 (06:20→06:30)
[2017-01-12] MEDS: PANTOPRAZOLE 40 MG (PROTONIX) TAB PO SCH (06:21)
[2017-01-12] MEDS: LINEZOLID (ZYVOX) 600 MG TAB PO SCH (08:00)
[2017-01-12] MEDS: HYDROcodone/APAP 10 MG/325 MG (LORTAB) TAB PO PRN (08:00)
[2017-01-12] MEDS: LACTOBACILLUS Acidoph/Bulgar (LACTINEX/FLORANEX) TAB PO SCH (08:00)
[2017-01-12] MEDS: RT-ALBUTEROL/IPRATROPIUM 3 ML (DUONEB) VIAL INH SCH ×2 (08:00→10:44)
[2017-01-12] MEDS: CEFEPIME INJECTION 2,000 MG in NS (IVPB) 50 ML IV SCH (08:00)
[2017-01-12] MEDS: CYANOCOBALAMIN 500 MCG TAB (VITAMIN B-12) PO SCH ×2 (08:00→09:45)
[2017-01-12] MEDS: morphine ER 30 MG (MS CONTIN) TAB PO SCH (09:45)
[2017-01-12] MEDS ORDERED: LEVO750T9 PO (10:59)
[2017-01-12] MEDS ORDERED: LINE600T5 PO ×3 (11:02→11:05)
--- NOTE | 2017-01-12 11:19 | Discharge Summary-Hospitalist ---
Diagnosis/Chief Complaint Date of Admission January 09, 2017 at 11:58 Date of Discharge Discharge Date: Jan 12, 2017 Discharge Diagnosis Chart Review: Max fever 100.6 Pharmacy Review: Pt is only be treating one of the resistant organisms. Dr. Alton HUANG Vanc earlier this week Zyvox was previously stopped MRSA is not currently being treated Dr. 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 Pt was informed that she is, in fact, getting better, but it is a slow progression. Physical exam stable. Pt stated that she took 5 stool softeners last night. Pt has been having BMs, but did not have one yesterday. 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 Asher is appreciated [facility] [place] PT Rehab eval? Restart Zyvox and will continue that on [place] Scribed by Rina Melo under the direct supervision of Dr. Mcclellan. Reason Hospital Visit/Course Notes from 01/12/17: Chart Review: No fever Vit stable SW Review: Pt denies home health Patient Interview: Pt states that she started the Zyvox today and will continue this medication She will need some O2 when she goes home Lungs sounded very good today Physical examination was stable Pt does not need any pain med refills no fever vital signs stable, pleasant, improved Regular rate and rhythm, clear to auscultation bilaterally only subtle wheezes in the upper lobes Plan: Home O2 Continue at home PO antibiotics Pt will regroup with Dr. Alvarenga and Dr. Asher for an afternoon appt possibly on the same day Scribed by Rina Melo under the direct supervision of Dr. Mcclellan. Hospital course: Patient had an uneventful swing bed hospital course she was maintained on appropriate antibiotics for MRSA pneumonia along with resistant bacteria source so she did well vitals remained stable labs remain stable and physical therapy walked patient and able to approve going home. She declined home health but she did agree to 2 L of oxygen to be sent home on continuous. Discharge Summary Discharge Physical Examination Allergies: Coded Allergies: Sulfa (Sulfonamide Antibiotics) (Verified Allergy, Unknown, 11/13/13) nitrofurantoin (Verified Adverse Reaction, Unknown, NAUSEA, 06/05/16) Vitals & I&Os Vital Signs Date Time Temp Pulse Resp B/P (MAP) Pulse Ox O2 Delivery O2 Flow Rate FiO2 01/12/17 10:44 95 1.00 01/12/17 05:00 97.3 74 20 141/63 Discharge Home Medications: Active Scripts Active Zyvox (Linezolid) 600 Mg Tablet 600 Mg PO BID 8 Days ALREADY SENT TO [facility] ON 01/11/17 Levaquin (Levofloxacin) 750 Mg Tablet 750 Mg PO Q48H Reported Proair Hfa (Albuterol Sulfate) 1 Puff Puff 2 Puff IH Q4H PRN 1 PUFF = 90 MCG Acid Ict Developer (RANITIDINE) (Ranitidine HCl) 150 Mg Tablet 150 Mg PO HS PRN Centrum Silver Tablet (Multivit-Min/FA/Lycopene/Lut) 1 Each Tablet 1 Tab PO DAILY Vitamin B-12 (Cyanocobalamin (Vitamin B-12)) 1,000 Mcg/1 Ml Drops 1,000 Mcg PO DAILY Lactinex Chewable Tablet (L. Acidophilus/Bulgaricus) 1 Each Tab.chew 3 Tab.chew PO DAILY Omeprazole 40 Mg Capsule.dr 40 Mg PO DAILY Hydrocodon-Acetaminophn 10-325 (Hydrocodone/Acetaminophen) 1 Each Tablet 1-2 Tab PO Q6H PRN Morphine Sulfate ER (Morphine Sulfate) 30 Mg Tablet.er 30 Mg PO BID Diazepam 5 Mg (Diazepam) 5 Mg Tablet 5 Mg PO Q8H PRN Instructions to patient/family Please see electonic discharge instructions given to patient. Clinical Quality Measures DVT/VTE Risk/Contraindication: Risk Factor Score Per Nursin RFS Level Per Nursing on Admit: 4+=Very High CARSON MCCLELLAN DO Jan 12, 2017 11:19
--- NOTE | 2017-01-12 11:41 | Therapy Team Discharge Summary ---
Therapy Discharge Summary Discharge Recommendations Date of Discharge Therapy D/C Recommendations: Home w/ Family Support Physical Therapy Patient has attained all functional goals and will dismiss to home at [facility]. Patient seen x 2 sessions. PT Medical Administrative Goals Shelter Goals PT Shelter Goals Time Frame: Jan 12, 2017 Transfers (B,C,W/C) (FIM): 7 (met 01/12/17) Sit to Lying (QC): 6 (met 01/12/17) Lying-Sitting on Side/Bed(QC): 6 (met 01/12/17) Sit to Stand (QC): 6 (met ) Rollin (met 01/12/17) Chair/Ggo-tg-Hjkwy Xfer(QC): 6 (met 01/12/17) Does the Patient Walk: Yes Gait (FIM): 6 (met 01/12/17) Gait distance (FIM): 3=150 ft Distance: 300' Walk 50ft with 2 Turns (QC): 6 (met 01/12/17) Walk 150 ft (QC): 6 (met 01/12/17) Gait Level of Assist: 6 (met 01/12/17) Gait Assistive Device: Cane Large Base Quad OT Medical Administrative Goals Shelter Goals 1=Demonstrate adherence to instructed precautions during ADL tasks. 2=Patient will verbalize/demonstrate understanding of assistive devices/ modifications for ADL. 3=Patient will improve strength/tolerance for activity to enable patient to perform ADL's. NIKO FERNANDEZ PT Jan 12, 2017 11:41
--- NOTE | 2017-01-12 11:41 | Physical Therapy Daily Note ---
PT Daily Note-Current Subjective Patient reports she is going home on this date. Pain Numeric Pain Scale: 0-No Pain Location: No Pain Reported Mental Status Patient Orientation: Normal For Age Attachments: Oxygen (2L continuous) Transfers Functional [place] Measure 0=Not Assessed/NA 4=Minimal Assistance 1=Total Assistance 5=Supervision or Setup 2=Maximal Assistance 6=Modified [place] 3=Moderate Assistance 7=Complete IndependenceIRFPAI Quality Coding Scale 6 Independent with activity with or without an assistive device 5 Patient requires set up or clean up by helper. Patient completes activity by themselves 4 Supervision or touching assist (CGA). [place] provide cues , steadying assist 3 The helper provides less than half the effort to complete the activity 2 The helper provides more than half the effort to complete the activity 1 Dependent. The helper does all the effort to complete an activity 7 Patient refused to complete or attempt activity 9 The patient did not perform the activity before the current illness or injury 88 Not attempted due to Medical conditions or safety concerns Transfers (B, C, W/C) (FIM): 7 Scootin Roll Left to Right (QC): 6 Supine to/from Sit: 7 Sit to/from Stand: 7 Sit to Lying (QC): 6 Sit to Stand (QC): 6 Chair/Php-xl-Ldyut Xfer(QC): 6 Bed to/from Chair: 7 Gait Training Does the Patient Walk?: Yes Gait (FIM): 6 Distance (FIM): 3=150 ft Distance: 300' Walk 50 ft with 2 Turns(QC): 6 Walk 150 ft (QC): 6 Gait Level of Assist: 6 Gait Assistive Device: Cane Large Base Quad safe and functional Assessment Patient has attained all functional goals and will dismiss to home at [facility]. Patient seen x 2 sessions. 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 [facility] Goals 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 Time Frame: Jan 12, 2017 Transfers (B,C,W/C) (FIM): 7 (met 01/12/17) Sit to Lying (QC): 6 (met 01/12/17) Lying-Sitting on Side/Bed(QC): 6 (met 01/12/17) Sit to Stand (QC): 6 (met ) Rollin (met 01/12/17) Chair/Lsc-ut-Emyhv Xfer(QC): 6 (met 01/12/17) Does the Patient Walk: Yes Gait (FIM): 6 (met 01/12/17) Gait distance (FIM): 3=150 ft Distance: 300' Walk 50ft with 2 Turns (QC): 6 (met 01/12/17) Walk 150 ft (QC): 6 (met 01/12/17) Gait Level of Assist: 6 (met 01/12/17) Gait Assistive Device: Cane Large Base Quad PT Plan Treatment/Plan Treatment Plan: Discontinue PT, goals met Treatment Plan: Education, Functional Activity Lelia, Functional Strength, Gait , Safety, Therapeutic Exercise, Transfers Treatment Duration: Jan 12, 2017 Visits Per Week: 2 Minutes/Day (M-F): 15-30 Time/GCodes Time In: 1102 Time Out: 1117 Total Billed Treatment Time: 15 Total Billed Treatment 1 visit FA 15 min NIKO FERNANDEZ PT Jan 12, 2017 11:41
[2017-01-12 12:00] VITALS: BP 141/63
== END 2017-01-12 12:25 | disposition home or self-care (01) | DRG 179 ==
LOC: 4TH 11:58
PROVIDERS: ADMIT Internal Medicine; ATTEND Internal Medicine
DX: J15.1 Pneumonia due to Pseudomonas (principal); J15.212 Pneumonia due to Methicillin resistant Staphylococcus aureus; J42 Unspecified chronic bronchitis; M06.9 Rheumatoid arthritis, unspecified; M19.90 Unspecified osteoarthritis, unspecified site; R60.9 Edema, unspecified; G89.29 Other chronic pain; K59.00 Constipation, unspecified; D63.8 Anemia in other chronic diseases classified elsewhere
CPT/HCPCS: 36415; 71020; 80048; 85027; 94640; 94664; 94760; 94761

== ENCOUNTER → 2019-06-04 | Outpatient (CLI) | payer MEDICARE ==
[~2019-06-04] MED LIST changes: -CALC-8 PO; +LINE600T5 PO; +NAPR-915 PO; -NAPR500T3 PO; +[UNRECOGNIZED DRUG - CODE] PO
--- NOTE | 2019-06-04 13:26 | Diagnostic Imaging Report ---
PROCEDURE: CT head without contrast. TECHNIQUE: Multiple contiguous axial images were obtained through the brain without the use of intravenous contrast. Auto Exposure Controls were utilized during the CT exam to meet ALARA standards for radiation dose reduction. DATE: June 04, 2019. COMPARISON: None. INDICATION: 83-year-old female, stroke-like symptoms x 1 week. Dizziness. Loss of consciousness. Slurred speech. FINDINGS: There is mild proportional prominence of the ventricles and CSF spaces, consistent with mild cerebral volume loss. The ventricles and cerebral spinal fluid spaces are of normal size and configuration for the patient's age. There is no mass effect or midline shift. There is no acute intracranial hemorrhage. There is no abnormal extra-axial fluid collection. The visualized portions of the paranasal sinuses, mastoid air cells, and middle ears are well aerated. IMPRESSION: 1. No identified acute intracranial abnormality. 2. Mild cerebral volume loss. Dictated by: Dictated on workstation # [id number]
== END ==
LOC: RAD 12:08
PROVIDERS: ATTEND Family Medicine
DX: G93.89 Other specified disorders of brain (principal); R55 Syncope and collapse
CPT/HCPCS: 70450

== ENCOUNTER 2019-07-27 11:27 | Inpatient (IN) | payer MEDICARE ==
[~2019-07-27] VITALS: Ht 154.9 cm; Wt 76.9 kg
[2019-07-27] MEDS ORDERED: IBUPROFEN 800 MG (MOTRIN) TAB PO ONE (11:45)
--- NOTE | 2019-07-27 11:52 | ED General ---
General Chief Complaint: Altered Mental Status Stated Complaint: AMS Source of Information: EMS Exam Limitations: No Limitations History of Present Illness Date Seen by Provider: Jul 27, 2019 Time Seen by Provider: 11:50 Initial Comments To ER per EMS from home with reports of altered mental status, fever, talking nonsense. She was seen to be well and conversing appropriately at 5 AM this morning at home by family. Upon EMS arrival he is garbled and unintelligible. She moves all extremities. She is noted to be febrile at 101.1. Family reports she has a history of similar symptoms with urinary tract infection.On ER arrival, o2 sats 85% room air--does not wear home o2. Timing/Duration: 4-6 Hours Severity: Mild Associated Systoms: Denies Symptoms Allergies and Home Medications Allergies Coded Allergies: Sulfa (Sulfonamide Antibiotics) (Verified Allergy, Unknown, 11/13/13) nitrofurantoin (Verified Adverse Reaction, Unknown, NAUSEA, 06/05/16) Home Medications Albuterol Sulfate 1 Puff Puff, 2 PUFF IH Q4H PRN for SHORTNESS OF BREATH, (Reported) 1 PUFF = 90 MCG Cyanocobalamin (Vitamin B-12) 1,000 Mcg/1 Ml Drops, 1,000 MCG PO DAILY, (Reported) Diazepam 5 Mg Tablet, 5 MG PO Q8H PRN for ANXIETY, (Reported) Hydrocodone/Acetaminophen 1 Each Tablet, 1-2 TAB PO Q6H PRN for PAIN-MODERATE, (Reported) L. Acidophilus/Bulgaricus 1 Each Tab.chew, 3 TAB.CHEW PO DAILY, (Reported) Levofloxacin 750 Mg Tablet, 750 MG PO Q48H Prescribed by: CARSON MCCLELLAN on 01/12/17 1059 Linezolid 600 Mg Tablet, 600 MG PO BID ALREADY SENT TO [facility] ON 01/11/17 Prescribed by: FRANK KLEIN on 01/12/17 1105 Morphine Sulfate 30 Mg Tablet.er, 30 MG PO BID, (Reported) Multivit-Min/FA/Lycopene/Lut 1 Each Tablet, 1 TAB PO DAILY, (Reported) Omeprazole 40 Mg Capsule.dr, 40 MG PO DAILY, (Reported) Ranitidine HCl 150 Mg Tablet, 150 MG PO HS PRN for HEARTBURN, (Reported) Patient Home Medication List Home Medication List Reviewed: Yes Review of Systems Review of Systems Constitutional: see HPI, other (unable to obtain) Past Jodtitl-Ldbace-Vgqfyc Hx Patient Social History Alcohol Use: Denies Use Recreational Drug Use: No Smoking Status: Never a Smoker Recent Hopitalizations: No Physical Abuse: No Sexual Abuse: No Mistreated: No Fear: No Immunizations Up To Date Tetanus Booster (TDap): Less than 5yrs PED Vaccines UTD: No Date of Pneumonia Vaccine: Nov 16, 2013 Seasonal Allergies Seasonal Allergies: No Past Medical History Surgeries: Yes (2 hip replacements on right hip; L ankle surgery; CATARACTS) Eye Surgery, Hysterectomy, Orthopedic Respiratory: Yes (SOB WITH EXERTION, FREQUENT BRONCHITIS, PNEUMONIA) Pneumonia, Chronic Bronchitis Currently Using CPAP: No Currently Using BIPAP: No Cardiac: No Neurological: No Reproductive Disorders: No Female Reproductive Disorders: Denies Sexually Transmitted Disease: No HIV/AIDS: No Bladder Infection, UTI-Chronic Gastrointestinal: Yes Chronic Constipation Musculoskeletal: Yes (Chronic osteoarthritis, bursitis, ) Arthritis, Rheumatoid Arthritis Endocrine: No Cataract Cancer: No Psychosocial: No Integumentary: No Blood Disorders: Yes (CHRONIC ANEMIA) Adverse Reaction/Blood Tranf: No Family Medical History BONE CANCER 19 FATHER HIP REPLACEMENT 19 MOTHER THYROID ISSUES 19 MOTHER No Pertinent Family Hx Physical Exam Vital Signs Vital Signs - First Documented 07/27/19 11:36 Temp 38.3 Pulse 92 Resp 16 B/P (MAP) 163/81 (108) Pulse Ox 92 O2 Delivery Nasal Cannula O2 Flow Rate 2.00 Capillary Refill : Height, Weight, BMI Height: 5'2.00" Weight: 160lbs. 2.3oz. 72.329924yg; 29.3 BMI Method:Stated General Appearance: No Apparent Distress, WD/WN, Other (speech is garbled and unintelligible. She does move all extremities, unable to participate in an age exam as she cannot follow direction.) Eyes: Bilateral Eye Normal Inspection, Bilateral Eye PERRL, Bilateral Eye EOMI Neck: Full Range of Motion, Normal Inspection Respiratory: No Accessory Muscle Use, No Respiratory Distress Cardiovascular: Regular Rate, Rhythm, Normal Peripheral Pulses Gastrointestinal: Normal Bowel Sounds, Non Tender, Soft Extremity: Normal Capillary Refill, Normal Inspection Neurologic/Psychiatric: Alert, Other (alert and speaking but disoriented) Skin: Normal Color, Warm/Dry Focused Exam Lactate Level 07/27/19 11:45: Lactic Acid Level 2.23*H Lactic Acid Level Laboratory Tests Test 07/27/19 11:45 Lactic Acid Level 2.23 MMOL/L (0.50-2.00) *H Progress/Results/Core Measures Suspected Sepsis SIRS Temperature: Pulse: Respiratory Rate: Laboratory Tests 07/27/19 11:35: White Blood Count 16.8H Blood Pressure / Mean: 07/27/19 11:45: Lactic Acid Level 2.23*H Laboratory Tests 07/27/19 11:35: Creatinine 0.84, INR Comment 1.0, Platelet Count 206, Total Bilirubin 0.5 Results/Orders Lab Results Laboratory Tests Test 07/27/19 11:35 07/27/19 11:45 Range/Units White Blood Count 16.8 H 4.3-11.0 10^3/uL Red Blood Count 5.30 4.35-5.85 10^6/uL Hemoglobin 14.6 11.5-16.0 G/DL Hematocrit 46 35-52 % Mean Corpuscular Volume 86 80-99 FL Mean Corpuscular Hemoglobin 28 25-34 PG Mean Corpuscular Hemoglobin Concent 32 32-36 G/DL Red Cell Distribution Width 14.2 10.0-14.5 % Platelet Count 206 130-400 10^3/uL Mean Platelet Volume 9.1 7.4-10.4 FL Neutrophils (%) (Auto) 84 H 42-75 % Lymphocytes (%) (Auto) 9 L 12-44 % Monocytes (%) (Auto) 4 0-12 % Eosinophils (%) (Auto) 2 0-10 % Basophils (%) (Auto) 0 0-10 % Neutrophils # (Auto) 14.2 H 1.8-7.8 X 10^3 Lymphocytes # (Auto) 1.5 1.0-4.0 X 10^3 Monocytes # (Auto) 0.7 0.0-1.0 X 10^3 Eosinophils # (Auto) 0.4 H 0.0-0.3 10^3/uL Basophils # (Auto) 0.1 0.0-0.1 10^3/uL Neutrophils % (Manual) 84 % Lymphocytes % (Manual) 11 % Monocytes % (Manual) 0 % Eosinophils % (Manual) 2 % Basophils % (Manual) 0 % Band Neutrophils 3 % Blood Morphology Comment NORMAL Prothrombin Time 13.7 12.2-14.7 SEC INR Comment 1.0 0.8-1.4 Sodium Level 137 135-145 MMOL/L Potassium Level 4.2 3.6-5.0 MMOL/L Chloride Level 100 98-107 MMOL/L Carbon Dioxide Level 22 21-32 MMOL/L Anion Gap 15 H 5-14 MMOL/L Blood Urea Nitrogen 12 7-18 MG/DL Creatinine 0.84 0.60-1.30 MG/DL Estimat Glomerular Filtration Rate > 60 BUN/Creatinine Ratio 14 Glucose Level 135 H 70-105 MG/DL Calcium Level 9.7 8.5-10.1 MG/DL Corrected Calcium 9.5 8.5-10.1 MG/DL Total Bilirubin 0.5 0.1-1.0 MG/DL Aspartate Amino Transf (AST/SGOT) 20 5-34 U/L Alanine Aminotransferase (ALT/SGPT) 11 0-55 U/L Alkaline Phosphatase 96 40-136 U/L Total Protein 8.7 H 6.4-8.2 GM/DL Albumin 4.2 3.2-4.5 GM/DL Urine Color YELLOW Urine Clarity CLEAR Urine pH 5.0 5-9 Urine Specific [place] 1.015 L 1.016-1.022 Urine Protein NEGATIVE NEGATIVE Urine Glucose (UA) NEGATIVE NEGATIVE Urine Ketones NEGATIVE NEGATIVE Urine Nitrite NEGATIVE NEGATIVE Urine Bilirubin NEGATIVE NEGATIVE Urine Urobilinogen 0.2 < = 1.0 MG/DL Urine Leukocyte Esterase NEGATIVE NEGATIVE Urine RBC (Auto) NEGATIVE NEGATIVE Urine RBC NONE /HPF Urine WBC NONE /HPF Urine Squamous Epithelial Cells NONE /HPF Urine Crystals NONE /LPF Urine Bacteria NEGATIVE /HPF Urine Casts NONE /LPF Urine Mucus NEGATIVE /LPF Urine Culture Indicated NO Lactic Acid Level 2.23 *H 0.50-2.00 MMOL/L Micro Results Microbiology 07/27/19 Influenza Types A,B Antigen (JASBIR) - Final, Complete My Orders Orders - TIERRA ESPINAL LIEUTENANT BALLISTICS Cbc With Automated Diff (07/27/19 11:30) Comprehensive Metabolic Panel (07/27/19 11:30) Ua Culture If Indicated (07/27/19 11:30) Straight Cath (Urinary) (07/27/19 11:30) Ct Head/Cervical Spine Wo (07/27/19 11:30) Chest 1 View, Ap/Pa Only (07/27/19 11:30) Influenza A And B Antigens (07/27/19 11:30) Blood Culture (07/27/19 11:30) Lactic Acid Analyzer (07/27/19 11:30) Protime With Inr (07/27/19 11:32) Ibuprofen Tablet (Motrin Tablet) (07/27/19 11:45) Manual Differential (07/27/19 11:35) Ns Iv 1000 Ml (Sodium Chloride 0.9%) (07/27/19 12:30) Ceftriaxone For Iv Use (Rocephin For I (07/27/19 12:30) Ns Iv 1000 Ml (Sodium Chloride 0.9%) (07/27/19 12:30) Medications Given in ED Current Medications Medications Dose Ordered Sig/Chery Route Start Time Stop Time Status Last Admin Dose Admin Ceftriaxone Sodium 1000 mg/ Sterile Water 10 ml @ 200 mls/hr ONCE ONCE IV 07/27/19 12:30 07/27/19 12:32 DC 07/27/19 12:40 200 MLS/HR Ibuprofen 800 mg ONCE ONCE PO 07/27/19 11:45 07/27/19 11:46 DC 07/27/19 11:50 800 MG Vital Signs/I&O 07/27/19 11:36 Temp 38.3 Pulse 92 Resp 16 B/P (MAP) 163/81 (108) Pulse Ox 92 O2 Delivery Nasal Cannula O2 Flow Rate 2.00 Capillary Refill : Diagnostic Imaging Diagonstic Imaging: CT Comments NAME: [facility] REC#: [id number] PT STATUS: REG ER : 1935 PHYSICIAN: TIERRA ESPINAL APRN ADMIT DATE: 07/27/19/ER Signed POSDate of Exam:07/27/19 CT HEAD/CERVICAL SPINE WO PROCEDURE: CT head and CT cervical spine without contrast. TECHNIQUE: Multiple contiguous axial images were obtained through the brain and cervical spine without the use of intravenous contrast. Sagittal and coronal reformations through the cervical spine were then performed. Auto Exposure Controls were utilized during the CT exam to meet ALARA standards for radiation dose reduction. INDICATION: Head and neck pain after fall. Comparison interpretation 06/04/2019 FINDINGS: There is prominence of ventricles and sulci. There is no hydrocephalus. No midline shift. There is no mass hemorrhage or extra-axial fluid collection. The calvarium is intact. Sinuses and mastoid air cells are clear. There is straightening of the normal cervical lordosis. There is multilevel degenerative disc disease. No fracture tracks fixation. Odontoids intact lateral masses well aligned. Prevertebral soft tissues are within normal limits. There is posterior facet arthropathy. There is a focal infiltrate in the right upper lobe. IMPRESSION: Atrophy and some chronic microvascular ischemic disease however no acute intracranial abnormality Moderate cervical spondylosis without acute fracture to maxillofacial fixation. Focal infiltrate in the right lung apex Dictated by: Dictated on workstation # [id number] Dict: 07/27/19 1221 Trans: 07/27/19 1223 LG [id number] Interpreted by: TERELL LOFTON MD Electronically signed by: TERELL LOFTON MD 07/27/19 1223 NAME: MICKEY HUNTER [facility] REC#: [id number] PT STATUS: REG ER : 1935 PHYSICIAN: TIERRA ESPINAL APRN ADMIT DATE: 07/27/19/ER Draft POSDate of Exam:07/27/19 CHEST 1 VIEW, AP/PA ONLY INDICATION: Confusion and fever. COMPARISON: Comparison made with prior examination 01/09/2017. FINDINGS: Heart size is normal. There is some venous congestion. There are patchy bibasilar and right upper lobe infiltrates. Mediastinum is unremarkable. IMPRESSION: 1. Patchy bibasilar and right upper lobe infiltrates. 2. Mild central pulmonary venous congestion. Dictated on workstation # [id number] Dict: 07/27/19 1214 Trans: 07/27/19 1224 TS [id number] Interpreted by: TERELL LOFTON MD Electronically signed by: Departure Communication (Admissions) Time/Spoke to Admitting Phy: 12:[address] Campbell, we'll admit, Rocephin and doxycycline was initially going to be my drug of choice given the absence of recent antibiotics or known structural lung disease, however she has had several episodes of recurrent pneumonia over the past few years making a structural lung disease possibility, as such I'll change to cefepime. Daughter states full CODE STATUS, patient is unable to verbalize to me her wishes. Granddaughter at the bedside, Araceli Mueller, advises other family members as well as myself that DO NOT RESUSCITATE would be a better option. At this point we'll keep her full code Impression Primary Impression: RUL pneumonia Additional Impression: Hypoxia Disposition: 09 ADMITTED INPATIENT Condition: Stable Admissions Decision to Admit Reason: Admit from ER (General) Decision to Admit/Date: Jul 27, 2019 Time/Decision to Admit Time: 12:12 Departure-Patient Inst. Referrals: ARELY SUNSHINE MD (PCP/Family) Primary Care Physician TIERRA ESPINAL APRN Jul 27, 2019 11:52 POS
[2019-07-27 11:54] LABS: BASOPHILS # (AUTO) 0.1 10^3/uL (0.0-0.1); BASOPHILS % (AUTO) 0 % (0-10); EOSINOPHILS # (AUTO) 0.4 10^3/uL (0.0-0.3); EOSINOPHILS % (AUTO) 2 % (0-10); HEMATOCRIT 46 % (35-52); HEMOGLOBIN 14.6 G/DL (11.5-16.0); LYMPHOCYTES # (AUTO) 1.5 X 10^3 (1.0-4.0); LYMPHOCYTES % (AUTO) 9 % (12-44); MEAN CORPUSCULAR HEMOGLOBIN 28 PG (25-34); MEAN CORPUSCULAR HGB CONC 32 G/DL (32-36); MEAN CORPUSCULAR VOLUME 86 FL (80-99); MEAN PLATELET VOLUME 9.1 FL (7.4-10.4); MONOCYTES # (AUTO) 0.7 X 10^3 (0.0-1.0); MONOCYTES % (AUTO) 4 % (0-12); NEUTROPHILS # (AUTO) 14.2 X 10^3 (1.8-7.8); NEUTROPHILS % (AUTO) 84 % (42-75); PLATELET COUNT 206 10^3/uL (130-400); RED CELL DISTRIBUTION WIDTH 14.2 % (10.0-14.5); WHITE BLOOD COUNT 16.8 10^3/uL (4.3-11.0)
[2019-07-27 11:54] LABS: BILIRUBIN,URINE NEGATIVE (NEGATIVE); CLARITY,URINE CLEAR; COLOR,URINE YELLOW; GLUCOSE, URINE (UA) NEGATIVE (NEGATIVE); KETONES,URINE NEGATIVE (NEGATIVE); LEUKOCYTE ESTERASE ,URINE NEGATIVE (NEGATIVE); NITRITE,URINE NEGATIVE (NEGATIVE); PROTEIN,URINE NEGATIVE (NEGATIVE)
[2019-07-27 12:03] LABS: PROTHROMBIN TIME PATIENT 13.7 SEC (12.2-14.7)
[2019-07-27 12:07] LABS: BACTERIA,URINE NEGATIVE /HPF
[2019-07-27 12:14] LABS: ALANINE AMINOTRANSFERASE 11 U/L (0-55); ALBUMIN 4.2 GM/DL (3.2-4.5); ALKALINE PHOSPHATASE 96 U/L (40-136); BILIRUBIN,TOTAL 0.5 MG/DL (0.1-1.0); BUN/CREATININE RATIO 14; CALCIUM 9.7 MG/DL (8.5-10.1); CARBON DIOXIDE 22 MMOL/L (21-32); CHLORIDE 100 MMOL/L (98-107); CREATININE SERUM 0.84 MG/DL (0.60-1.30); GFR ESTIMATED > 60; GLUCOSE 135 MG/DL (70-105); POTASSIUM 4.2 MMOL/L (3.6-5.0); SODIUM 137 MMOL/L (135-145); TOTAL PROTEIN 8.7 GM/DL (6.4-8.2)
--- NOTE | 2019-07-27 12:25 | Diagnostic Imaging Report ---
PROCEDURE: CT head and CT cervical spine without contrast. TECHNIQUE: Multiple contiguous axial images were obtained through the brain and cervical spine without the use of intravenous contrast. Sagittal and coronal reformations through the cervical spine were then performed. Auto Exposure Controls were utilized during the CT exam to meet ALARA standards for radiation dose reduction. INDICATION: Head and neck pain after fall. Comparison interpretation 06/04/2019 FINDINGS: There is prominence of ventricles and sulci. There is no hydrocephalus. No midline shift. There is no mass hemorrhage or extra-axial fluid collection. The calvarium is intact. Sinuses and mastoid air cells are clear. There is straightening of the normal cervical lordosis. There is multilevel degenerative disc disease. No fracture tracks fixation. Odontoids intact lateral masses well aligned. Prevertebral soft tissues are within normal limits. There is posterior facet arthropathy. There is a focal infiltrate in the right upper lobe. IMPRESSION: Atrophy and some chronic microvascular ischemic disease however no acute intracranial abnormality Moderate cervical spondylosis without acute fracture to maxillofacial fixation. Focal infiltrate in the right lung apex Dictated by: Dictated on workstation # [id number]
--- NOTE | 2019-07-27 12:25 | Diagnostic Imaging Report ---
INDICATION: Confusion and fever. COMPARISON: Comparison made with prior examination 01/09/2017. FINDINGS: Heart size is normal. There is some venous congestion. There are patchy bibasilar and right upper lobe infiltrates. Mediastinum is unremarkable. IMPRESSION: 1. Patchy bibasilar and right upper lobe infiltrates. 2. Mild central pulmonary venous congestion. Dictated by: Dictated on workstation # [id number]
[2019-07-27 12:29] LABS: BAND NEUTROPHILS 3 %; BASOPHILS % (MANUAL) 0 %; EOSINOPHILS % (MANUAL) 2 %; LYMPHOCYTES % (MANUAL) 11 %; MONOCYTES % (MANUAL) 0 %; NEUTROPHILS % (MANUAL) 84 %; RBC MORPH NORMAL
[2019-07-27] MEDS ORDERED: cefTRIAXone FOR IV USE 1,000 MG in WATER (STERILE) FOR INJECTION 10 ML IV ONE (12:30)
[2019-07-27] MEDS ORDERED: NS IV 1000 ML 1,000 ML IV SCH ×2 (12:30)
[2019-07-27 13:19] VITALS: BP 120/65
[2019-07-27] MEDS: NS IV 1000 ML 1,000 ML IV SCH ×2 (14:14→23:29)
[2019-07-27] MEDS ORDERED: IBUPROFEN 600 MG (MOTRIN) TAB PO PRN (14:15)
[2019-07-27] MEDS ORDERED: ACETAMINOPHEN 325 MG TABLET PO PRN ×2 (14:15→16:00)
[2019-07-27] MEDS ORDERED: FLU QUADRIvalent (5+ YOA) 2019-2020 (AFLURIA) 0.5 ML IM ONE (15:15)
[2019-07-27 15:25] VITALS: BP 101/64
[2019-07-27] MEDS ORDERED: RT-ALBUTEROL SULF 2.5 MG/3 ML PRE-MIX VIAL INH PRN (15:45)
[2019-07-27] MEDS ORDERED: ONDANSETRON 4 MG/2 ML (SDV) Z0FRAN IV PRN (16:00)
[2019-07-27] MEDS ORDERED: ONDANSETRON 4 MG (ZOFRAN) ORAL DISSOLVE TAB PO PRN (16:00)
[2019-07-27] MEDS ORDERED: POLYETHYLENE GLYCOL 17 GM (MIRALAX) PACK PO PRN (16:00)
[2019-07-27] MEDS ORDERED: BISACODYL 10 MG SUPP (DULCOLAX) PR PRN (16:00)
[2019-07-27] MEDS: ENOXAPARIN 40 MG/0.4 ML (LOVENOX) SYR SC SCH (16:55)
[2019-07-27 19:25] VITALS: BP 107/66
[2019-07-27] MEDS ORDERED: RT-ALBUTEROL SULF 2.5 MG/3 ML PRE-MIX VIAL INH SCH (21:00)
[2019-07-27] MEDS: DOCUSATE SODIUM 100 MG (COLACE) CAP PO SCH (21:47)
[2019-07-27] MEDS: CEFEPIME 2,000 MG/SWFI 20 ML IV PUSH IV SCH ×2 (21:47)
[2019-07-27] MEDS: SENNOSIDES 8.6 MG (SENOKOT) TAB PO SCH (21:47)
[2019-07-28] VITALS (7 sets, daily range): BP systolic 101–122; BP diastolic 57–67
[2019-07-28 06:28] LABS: BASOPHILS % (AUTO) 0 % (0-10); EOSINOPHILS # (AUTO) 0.2 10^3/uL (0.0-0.3); EOSINOPHILS % (AUTO) 1 % (0-10); HEMATOCRIT 37 % (35-52); HEMOGLOBIN 11.5 G/DL (11.5-16.0); LYMPHOCYTES # (AUTO) 1.9 X 10^3 (1.0-4.0); LYMPHOCYTES % (AUTO) 15 % (12-44); MEAN CORPUSCULAR HEMOGLOBIN 28 PG (25-34); MEAN CORPUSCULAR HGB CONC 32 G/DL (32-36); MEAN CORPUSCULAR VOLUME 89 FL (80-99); MEAN PLATELET VOLUME 9.5 FL (7.4-10.4); MONOCYTES # (AUTO) 0.8 X 10^3 (0.0-1.0); MONOCYTES % (AUTO) 6 % (0-12); NEUTROPHILS # (AUTO) 9.7 X 10^3 (1.8-7.8); NEUTROPHILS % (AUTO) 77 % (42-75); PLATELET COUNT 157 10^3/uL (130-400); WHITE BLOOD COUNT 12.6 10^3/uL (4.3-11.0)
[2019-07-28 06:46] LABS: BUN/CREATININE RATIO 15; CALCIUM 8.2 MG/DL (8.5-10.1); CARBON DIOXIDE 23 MMOL/L (21-32); CHLORIDE 107 MMOL/L (98-107); CREATININE SERUM 0.68 MG/DL (0.60-1.30); GFR ESTIMATED > 60; GLUCOSE 91 MG/DL (70-105); POTASSIUM 3.4 MMOL/L (3.6-5.0); SODIUM 139 MMOL/L (135-145)
[2019-07-28] MEDS: SENNOSIDES 8.6 MG (SENOKOT) TAB PO SCH ×2 (08:04→20:35)
[2019-07-28] MEDS: CEFEPIME 2,000 MG/SWFI 20 ML IV PUSH IV SCH ×2 (08:04)
[2019-07-28] MEDS: DOCUSATE SODIUM 100 MG (COLACE) CAP PO SCH ×2 (08:04→20:35)
[2019-07-28] MEDS ORDERED: ESCI20TA PO (09:36)
[2019-07-28] MEDS ORDERED: DIAZ5TAB3 PO (09:36)
[2019-07-28] MEDS ORDERED: OMEP20TA7 PO (09:37)
[2019-07-28] MEDS ORDERED: GLYC-18 RC (09:38)
[2019-07-28] MEDS ORDERED: DOCU100T7 PO (09:38)
--- NOTE | 2019-07-28 09:38 | NUR ---
SPOKE WITH PT (AND HER DAUGHTER WHO HELPS TAKE CARE OF HER) WELL GETTING A MED LIST FROM [facility] (I ATTACHED TO THE CHART) TO COMPLETE THE MED REC. PT AND HER DAUGHTER WERE ABLE TO TELL ME HOW/WHEN SHE TAKES EACH MEDICATION. THE FOLLOWING ARE FILL DATES PER [facility]: 07-08-2019 HYDROCODONE #142/28DS 07-08-2019 MORPHINE #60/30DS 07-08-2019 DIAZEPAM#90/30DS 07-24-2019 ESCITALOPRAM #30/30DS PT SAYS ON THE MORPHINE ER THAT SHE CUTS THEM IN HALF- BUT ASAF WITH DR. SUNSHINE SAID NOT TO, I LET HER KNOW SHE SHOULD FOLLOW THE DIRECTIONS AND ADVISE FROM THE OFFICE- AND IF SHE NEEDED A LOWER STRENGTH TO SPEAK WITH THE DR AND LET HIM KNOW OF HER CONCERNS. OTC MEDS: GLYCERIN SUPP STOOL SOFTENER RANITIDINE OMEPRAZOLE
[2019-07-28] MEDS: NS IV 1000 ML 1,000 ML IV SCH ×2 (09:53→20:15)
--- NOTE | 2019-07-28 10:39 | History & Physical-Hospitalist ---
History of Present Illness HPI/Chief Complaint Patient is an 84-year-old female well-known to me who presented to the emergency department due to altered mental status and fever. She is alert and oriented today but does not remember much of yesterday. Because of this history is obtained from the notes. Apparently she was well at 5 a.m. yesterday but th en throughout the day worsened had garbled speech with confusion. She is found to be febrile at 101. She has had previous episodes with urinary tract infections and family thought that maybe what is going on so brought her to the emergency department. She was found to have a leukocytosis with lactic acidosis and chest x-ray concerning for pneumonia. She was admitted for severe sepsis. This morning she states she is feeling much better. She does complain of a cough otherwise has no complaints. Source: patient Date Seen 07/28/19 Time Seen by a Provider: 10:35 Attending Physician Carol Campbell MD PCP Ronnie Alvarenga MD Referring Physician Date of Admission Jul 27, 2019 at 12:30 Home Medications & Allergies Home Medications Reviewed patient Home Medication Reconciliation performed by pharmacy medication reconciliations manufacturing process technician and/or nursing. Patients Allergies have been reviewed. Allergies Allergies Coded Allergies Sulfa (Sulfonamide Antibiotics) (Verified Allergy, Unknown, 11/13/13) nitrofurantoin (Verified Adverse Reaction, Unknown, NAUSEA, 06/05/16) Past Oqizxad-Ertgak-Qfidhn Hx Past Med/Social Hx: Reviewed Nursing Past Med/Soc Hx Patient Social History Marrital Status: Alcohol Use: Denies Use Recreational Drug Use: No Smoking Status: Never a Smoker Recent Foreign Travel: No Contact w/other who traveled: No Recent Hopitalizations: No Recent Infectious Disease Expo: No Immunizations Up To Date Tetanus Booster (TDap): Less than 5yrs Pediatric: No Date of Pneumonia Vaccine: Nov 16, 2013 Seasonal Allergies Seasonal Allergies: No Past Medical History Surgeries: Eye Surgery, Hysterectomy, Orthopedic Currently Using CPAP: No Currently Using BIPAP: No : No Reproductive: No Sexually Transmitted Disease: No HIV/AIDS: No Female Reproductive Disorders: Denies Genitourinary: Bladder Infection, UTI-Chronic Gastrointestinal: Chronic Constipation Musculoskeletal: Arthritis, Rheumatoid Arthritis HEENT: Cataract History of Blood Disorders: Yes (CHRONIC ANEMIA) Adverse Reaction to Blood [place]: No Family History BONE CANCER 19 FATHER HIP REPLACEMENT 19 MOTHER THYROID ISSUES 19 MOTHER No Pertinent Family Hx Review of Systems ROS-Unable to Obtain: limited- see hpi Constitutional: fever, malaise Respiratory: cough Physical Exam Physical Exam Vital Signs Vital Signs - First Documented 07/27/19 07/28/19 11:36 08:19 Temp 38.3 Pulse 92 Resp 16 B/P (MAP) 163/81 (108) Pulse Ox 92 O2 Delivery Nasal Cannula O2 Flow Rate 2.00 FiO2 28 Capillary Refill : Less Than 3 Seconds Height, Weight, BMI Height: 5'2.00" Weight: 160lbs. 2.3oz. 72.078387ky; 29.50 BMI Method:Stated General Appearance: No Apparent Distress, WD/WN HEENT: Moist Mucous Membranes; No Scleral Icterus (L), No Scleral Icterus (R) Neck: Supple; No Thyromegaly Respiratory: Lungs Clear, No Accessory Muscle Use, No Respiratory Distress Cardiovascular: Regular Rate, Rhythm, No Murmur Gastrointestinal: Normal Bowel Sounds, Non Tender, Soft Extremity: Normal Capillary Refill, No Calf Tenderness, No Pedal Edema Neurologic/Psychiatric: Alert, Oriented x3, Normal Mood/Affect Skin: Normal Color, Warm/Dry Results Results/Procedures Labs Laboratory Tests 07/27/19 11:35 07/28/19 05:35 Patient resulted labs reviewed. Imaging: Reviewed Imaging Report Assessment/Plan Admission Diagnosis Severe Sepsis Admission Status: Inpatient Order (span 2 midnights) Reason for Inpatient Admission: IV abx, await cultures Assessment and Plan Severe Sepsis CAP present on arrival- now resolved Continue IV abx Await cultures MAT protocol RA OA Chronic pain on no DMARDs, follows with PCP Continue home narcotic pain medication as able but limit due to AMS if she tolerates PT/OT Diagnosis/Problems Diagnosis/Problems (1) Rheumatoid arthritis Status: Chronic Qualifiers: Rheumatoid arthritis location: unspecified site Rheumatoid factor presence: unspecified presence Qualified Codes: M06.9 - Rheumatoid arthritis, unspecified (2) Chronic pain Status: Chronic Qualifiers: Chronic pain type: other chronic pain Qualified Codes: G89.29 - Other chronic pain (3) Severe sepsis Status: Acute (4) CAP (community acquired pneumonia) Status: Acute Qualifiers: Laterality: right Lung location: upper lobe of lung Qualified Codes: J18.1 - Lobar pneumonia, unspecified organism (5) Hypoxia Status: Acute Clinical Quality Measures DVT/VTE Risk/Contraindication: Risk Factor Score Per Nursin RFS Level Per Nursing on Admit: 3=High TIFFANIE HENNESSY MD Jul 28, 2019 10:39 POS
[2019-07-28] MEDS ORDERED: DIAZEPAM 5 MG (VALIUM) TABLET PO PRN (10:45)
[2019-07-28] MEDS: PANTOPRAZOLE 20 MG TABLET (PROTONIX) PO SCH (11:37)
[2019-07-28] MEDS ORDERED: RT-ALBUTEROL SULF 2.5 MG/3 ML PRE-MIX VIAL INH PRN (12:00)
--- NOTE | 2019-07-28 12:11 | Occupational Therapy Eval ---
OT Evaluation-General/PLF Medical Diagnosis Admission Date Jul 27, 2019 at 12:30 Medical Diagnosis: severe sepsis, Community acquired pneumonia, RA, chronic pain, hypoxia Onset Date: Jul 27, 2019 Therapy Diagnosis Therapy Diagnosis: impaired ADLs and functional mobility Height/Weight Height (Feet): 5 Height (Inches): 2.00 Weight (Pounds): 160 Weight (Ounces): 2.3 Precautions Precautions/Isolations: Fall Prevention, Standard Precautions Safety Interventions: None Referral Physician: Ryan Referral Reason: Evaluation/Treatment Medical History Pertinent Medical History: Arthritis, OA, Rheumatoid Arthritis Additional Medical History pneumonia, chronic bronchitis, 2 hip replacements (R hip), L ankle surgery, cataracts, chronic UTI, arthritis, RA, chronic anemia Current History Per H&P: "Patient is an 84-year-old female well-known to me who presented to the emergency department due to altered mental status and fever. She is alert and oriented today but does not remember much of yesterday. Because of this history is obtained from the notes. Apparently she was well at 5 a.m. yesterday but then throughout the day worsened had garbled speech with confusion. She is found to be febrile at 101. She has had previous episodes with urinary tract infections and family thought that maybe what is going on so brought her to the emergency department. She was found to have a leukocytosis with lactic acidosis and chest x-ray concerning for pneumonia. She was admitted for severe sepsis. This morning she states she is feeling much better. She does complain of a cough otherwise has no complaints." Reviewed History: Yes Social History Home: Multilevel (pt stays on first level) Current Living Status: Significant Other ( and daughter) Pt's daughter reports the pt lives with her and the pt's . They live in a multilevel house but only use the first level. ADL-Prior Level of Function SCALE: Activities may be completed with or without assistive devices. 0-Uakjpbbyrz-ksssqgw completes the activity by him/herself with no assistance from a helper. 5-Set-up or Clean-up Assistance-helper sets up or cleans up; patient completes activity. [place] assists only prior to or following the activity. 4-Supervision or Touching Assistance-helper provides verbal cues and/or touching/steadying and/or contact guard assistance as patient completes activity. Assistance may be provided throughout the activity or intermittently. 3-Partial/Moderate Assistance-helper does LESS THAN HALF the effort. [place] lifts, holds or supports trunk or limbs, but provides less than half the effort. 2-Substantial/Maximal Assistance-helper does MORE THAN HALF the effort. [place] lifts or holds trunk or limbs and provides more than half the effort. 1-Okzvxpmhn-bduswq does ALL the effort. Patient does none of the effort to complete the activity. Or, the assistance of 2 or more helpers is required for the patient to complete the activity. If activity was not attempted, code reason: 7-Patient Refused. 9-Not Applicable-not attempted and the patient did not perform the activity before the current illness, exacerbation or injury. 10-Not Attempted due to Environmental Limitations-(lack of equipment, weather restraints, etc.). 88-Not Attempted due to Medical Conditions or Safety Concerns. ADL PLOF Comments Pt's daughter reports pt is able to complete a sponge bath and dressing without assistance. She does not take a regular bath/shower, she just completes sponge bath. Self Care: Independent Functional Cognition: Needed Some Help DME/Equipment Comments Pt's daughter indicated the pt has a cane that she uses some, but she does not use it all of the time. OT Current Status Subjective Pt laying in bed at start of session with daughter and aide present. rehabilitation therapy aide stated pt had already had a sponge bath and she had been having BM in the bed. Pt declined transferring to the commode, but with encouragement agreed. Mental Status/Objective Patient Orientation: Confused Attachments: IV Current Hearing Aids: Yes Hand Dominance: Right Upper Extremity ROM BUE shoulder flexion to approximately 110 degrees Upper Extremity Coordination WFL Upper Extremity Sensation unable to assess on eval, further testing required Upper Extremity Strength grossly 3/5 MMT Pt asked where her hearing aides were, daughter said she had not had time to go home to bring them into the hospital. Pt did not state if she wore glasses/had dentures. ADL-Treatment Eating (QC): 6 Oral Hygiene (QC): 6 Shower/Bathe Self (QC): 6 Upper Body Dressing (QC): 6 Lower Body Dressing (QC): 6 On/Off Footwear (QC): 6 Toileting Hygiene (QC): 1 Toilet Transfer (QC): 4 Other Treatments Pt laying in bed at start of session, pt having BM in bed. With encouragement pt able to transfer to [facility] with CGA. Pt unable to provide information about PLOF due to confusion. OT talked with pt's daughter who provided information about pt's PLOF and home set up. Pt was not wearing a brief so clothing management not assess, pt required total assist with hygiene for BM. During session, pt talked about a suppository and other topics not relevant to eval/tx. Post OT session, pt seated on BSC, GAMING CAGE WORKER and daughter present, with all needs met. Education OT Patient Education: Correct positioning, Modified ADL techniques, Progress toward Goal/Update tx plan, Purpose of tx/functional activities, Transfer techniques Teaching Recipient: Patient, Family Teaching Methods: Discussion Response to Teaching: Verbalize Understanding, Reinforcement Needed OT Respiratory Care Specialist Goals Respiratory Care Specialist Goals Time Frame: Aug 08, 2019 Eating (QC): 6 Oral Hygiene (QC): 5 Toileting Hygiene (QC): 3 Shower/Bathe Self (QC): 3 Upper Body Dressing (QC): 5 Lower Body Dressing (QC): 3 On/Off Footwear (QC): 3 Additional Goals: 1-Demonstrate ADL Tasks, 2-Verbalize Understanding, 3- ImproveStrength/Lelia 1=Demonstrate adherence to instructed precautions during ADL tasks. 2=Patient will verbalize/demonstrate understanding of assistive devices/modifications for ADL. 3=Patient will improve strength/tolerance for activity to enable patient to perform ADL's. OT Education/Plan Problem List/Assessment Assessment: Decreased Activ Tolerance, Decreased UE Strength, Impaired I ADL's, Impaired Self-Care Skills Discharge Recommendations Plan/Recommendations: Continue POC Therapy Discharge Recommendati: 24 Hour Supervision Treatment Plan/Plan of Care Treatment,Training & Education: Yes Patient would benefit from OT for education, treatment and training to promote independence in ADL's, mobility, safety and/or upper extremity function for ADL's. Plan of Care: ADL Retraining, Caregiver Training, Functional Mobility, UE Funct Exercise/Act Treatment Duration: Aug 08, 2019 Frequency: 5 times per week Estimated Hrs Per Day: .25 hour per day Agreement: Yes Rehab Potential: Fair Time/GCodes Start Time: 11:10 Stop Time: 11:20 Total Time Billed (hr/min): 10 Billed Treatment Time 1, CELINA GHOSH OT Jul 28, 2019 12:10 POS
--- NOTE | 2019-07-28 13:55 | Physical Therapy Evaluation ---
PT Evaluation-General Medical Diagnosis Admission Date Jul 27, 2019 at 12:30 Medical Diagnosis: severe sepsis, Community acquired pneumonia, RA, chronic pain, hypoxia Onset Date: Jul 27, 2019 Therapy Diagnosis Therapy Diagnosis: debility/weakness Height/Weight Height (Feet): 5 Height (Inches): 2.00 Weight (Pounds): 160 Weight (Ounces): 2.3 Precautions Precautions/Isolations: Fall Prevention, Standard Precautions Weight Bear Status Right Lower Extremity: Right Weight Bearing/Tolerated Left Lower Extremity: Left Weight Bearing/Tolerated Referral Physician: Ryan Reason for Referral: Evaluation/Treatment Medical History Pertinent Medical History: Arthritis, OA, Rheumatoid Arthritis Additional Medical History bilateral THR Current History EMS from home secondary to AMS and fever Reviewed History: Yes Social History Home: Multilevel (pt stays on first level) Current Living Status: Significant Other ( and daughter) Prior Prior Level of Function SCALE: Activities may be completed with or without assistive devices. 8-Ioxyhojcid-kdogxvm completes the activity by him/herself with no assistance from a helper. 5-Set-up or Clean-up Assistance-helper sets up or cleans up; patient completes activity. [place] assists only prior to or following the activity. 4-Supervision or Touching Assistance-helper provides verbal cues and/or touchin g/steadying and/or contact guard assistance as patient completes activity. Assistance may be provided throughout the activity or intermittently. 3-Partial/Moderate Assistance-helper does LESS THAN HALF the effort. [place] lifts, holds or supports trunk or limbs, but provides less than half the effort. 2-Substantial/Maximal Assistance-helper does MORE THAN HALF the effort. [place] lifts or holds trunk or limbs and provides more than half the effort. 6-Vtwchnppt-dupznz does ALL the effort. Patient does none of the effort to complete the activity. Or, the assistance of 2 or more helpers is required for the patient to complete the activity. If activity was not attempted, code reason: 7-Patient Refused. 9-Not Applicable-not attempted and the patient did not perform the activity before the current illness, exacerbation or injury. 10-Not Attempted due to Environmental Limitations-(lack of equipment, weather restraints, etc.). 88-Not Attempted due to Medical Conditions or Safety Concerns. Bed Mobility: 5 Transfers (B,C,W/C): 5 Gait: 5 Stairs: 5 Indoor Mobility (Ambulation): Independent Stairs: Independent Prior Devices Use: Other-see list below Prior Device Use: cane PT Evaluation-Current Subjective Patient agrees to PT. Family present Pain Numeric Pain Scale: 0-No Pain Location: No Pain Reported Objective Patient Orientation: Normal For Age Attachments: Oxygen, IV ROM/Strength ROM Lower Extremities bilateral LE WFL Strength Lower Extremities 4-/5 grossly bilateral LE Integumentary/Posture Integumentary refer to nursing notes Bowel Incontinence: No Bladder Incontinence: No Posture WFL Neuromuscular (Tone, Coordination, Reflexes) grossly intact Sensory Vision: Functional Hearing: Functional Hand Dominance: Right Sensation Right Lower Extremit: Intact Sensation Left Lower Extremity: Intact Transfers Roll Left to Right (QC): 5 Sit to Lying (QC): 5 Lying to Sitting/Side of Bed(Q: 5 Sit to Stand (QC): 5 Chair/Mjx-zt-Jidqb Xfer(QC): 5 Car Transfer (QC): 88 Gait Does the Patient Walk?: Yes Mode of Locomotion: Walk Anticipated Mode of Locomotion: Walk Walk 10 feet (QC): 5 Walk 50 ft with 2 Turns(QC): 5 Walk 150 ft (QC): 5 Walking 10ft/uneven surface-QC: 5 Distance: 225' Gait Assistive Device: FWW Comments/Gait Description slow, safe and functional Wheelchair Training Does the Pt Use a Wheelchair?: No Wheel 50 ft with 2 turns (QC): 9 Wheel 150 ft (QC): 9 Type of Wheelchair: Manual Stairs 1 Step (curb) (QC): 88 4 Steps (QC): 88 12 Steps (QC): 88 Balance Sitting Static: Normal Sitting Dynamic: Normal Standing Static: Normal Standing Dynamic: Normal Picking up an Object (QC): 88 Assessment/Needs 84 y.o. female, will benefit from short term skilled PT to address functional strength and mobility to ensure safe return to home with family at maximum LOF. Rehab Potential: Fair PT Pickling Drum Operator Goals Pickling Drum Operator Goals PT Intermediate Goals Time Frame: Aug 16, 2019 Roll Left & Right (QC): 5 Sit to Lying (QC): 5 Lying-Sitting on Side/Bed(QC): 5 Sit to Stand (QC): 5 Chair/Olg-yk-Ycnbx Xfer(QC): 5 Toilet Transfer (QC): 5 Car Transfer (QC): 5 Does the Patient Walk: Yes Walk 10 feet (QC): 5 Walk 50ft with 2 Turns (QC): 5 Walk 150 ft (QC): 5 Walking 10ft on Uneven Surface: 5 1 Step (curb) (QC): 5 4 Steps (QC): 5 12 Steps (QC): 9 Picking up an Object (QC): 5 Does the Pt use WC or Scooter?: No Type: N/A Type: N/A PT Plan Problem List Problem List: Activity Tolerance Treatment/Plan Treatment Plan: Continue Plan of Care Treatment Plan: Bed Mobility, Education, Functional Activity Lelia, Functional Strength, Gait, Safety, Therapeutic Exercise, Transfers Treatment Duration: Aug 16, 2019 Frequency: 6 times per week Estimated Hrs Per Day: .25 hour per day Patient and/or Family Agrees t: Yes Time/GCodes Time In: 1300 Time Out: 1314 Total Billed Treatment Time: 14 Total Billed Treatment 1 visit EVLowC 14 min NIKO FERNANDEZ PT Jul 28, 2019 13:55 POS
[2019-07-28] MEDS: HYDROcodone/APAP 10 MG/325 MG (LORTAB) TAB PO PRN ×2 (13:56→23:28)
[2019-07-28] MEDS: ENOXAPARIN 40 MG/0.4 ML (LOVENOX) SYR SC SCH (15:29)
[2019-07-28] MEDS: RT-ALBUTEROL SULF 2.5 MG/3 ML PRE-MIX VIAL INH SCH ×2 (18:06→21:43)
[2019-07-28] MEDS: FAMOTIDINE 20 MG (PEPCID) TABLET PO SCH (21:06)
[2019-07-28] MEDS: MELATONIN 3 MG TABLET PO PRN (23:28)
[2019-07-29 00:05] VITALS: BP 125/66
[2019-07-29] MEDS: RT-ALBUTEROL SULF 2.5 MG/3 ML PRE-MIX VIAL INH SCH ×6 (01:28→22:35)
[2019-07-29 04:00] VITALS: BP 124/68
[2019-07-29 06:29] LABS: BASOPHILS % (AUTO) 0 % (0-10); EOSINOPHILS # (AUTO) 0.2 10^3/uL (0.0-0.3); EOSINOPHILS % (AUTO) 2 % (0-10); HEMATOCRIT 33 % (35-52); HEMOGLOBIN 10.6 G/DL (11.5-16.0); LYMPHOCYTES # (AUTO) 1.5 X 10^3 (1.0-4.0); LYMPHOCYTES % (AUTO) 22 % (12-44); MEAN CORPUSCULAR HEMOGLOBIN 28 PG (25-34); MEAN CORPUSCULAR HGB CONC 32 G/DL (32-36); MEAN CORPUSCULAR VOLUME 87 FL (80-99); MEAN PLATELET VOLUME 9.5 FL (7.4-10.4); MONOCYTES # (AUTO) 0.5 X 10^3 (0.0-1.0); MONOCYTES % (AUTO) 8 % (0-12); NEUTROPHILS # (AUTO) 4.8 X 10^3 (1.8-7.8); NEUTROPHILS % (AUTO) 68 % (42-75); PLATELET COUNT 153 10^3/uL (130-400)
[2019-07-29 06:50] LABS: BUN/CREATININE RATIO 8; CALCIUM 8.2 MG/DL (8.5-10.1); CARBON DIOXIDE 22 MMOL/L (21-32); CHLORIDE 110 MMOL/L (98-107); CREATININE SERUM 0.59 MG/DL (0.60-1.30); GFR ESTIMATED > 60; GLUCOSE 94 MG/DL (70-105); POTASSIUM 3.2 MMOL/L (3.6-5.0); SODIUM 141 MMOL/L (135-145)
[2019-07-29] MEDS: NS IV 1000 ML 1,000 ML IV SCH ×2 (07:01→16:05)
[2019-07-29 08:00] VITALS: BP 144/71
[2019-07-29] MEDS: CEFEPIME 2,000 MG/SWFI 20 ML IV PUSH IV SCH ×2 (08:16)
[2019-07-29] MEDS: PANTOPRAZOLE 20 MG TABLET (PROTONIX) PO SCH (08:16)
[2019-07-29] MEDS: SENNOSIDES 8.6 MG (SENOKOT) TAB PO SCH ×2 (08:17→20:49)
[2019-07-29] MEDS: HYDROcodone/APAP 10 MG/325 MG (LORTAB) TAB PO PRN (10:01)
[2019-07-29] MEDS ORDERED: KCL 20 MEQ TAB (K-DUR) PO NR (11:15)
--- NOTE | 2019-07-29 11:40 | Physical Therapy Daily Note ---
PT Daily Note-Current Subjective Pt in bed, agreeable to participate with PT. No c/o. Mental Status Patient Orientation: Person, Place, Time, Situation Attachments: Oxygen, Guillen Catheter, IV Transfers SCALE: Activities may be completed with or without assistive devices. 9-Bxtubsycdm-kqcgwuw completes the activity by him/herself with no assistance from a helper. 5-Set-up or Clean-up Assistance-helper sets up or cleans up; patient completes activity. [place] assists only prior to or following the activity. 4-Supervision or Touching Assistance-helper provides verbal cues and/or touching/steadying and/or contact guard assistance as patient completes activity. Assistance may be provided throughout the activity or intermittently. 3-Partial/Moderate Assistance-helper does LESS THAN HALF the effort. [place] lifts, holds or supports trunk or limbs, but provides less than half the effort. 2-Substantial/Maximal Assistance-helper does MORE THAN HALF the effort. [place] lifts or holds trunk or limbs and provides more than half the effort. 3-Scfvfvjwy-gtdssm does ALL the effort. Patient does none of the effort to complete the activity. Or, the assistance of 2 or more helpers is required for the patient to complete the activity. If activity was not attempted, code reason: 7-Patient Refused. 9-Not Applicable-not attempted and the patient did not perform the activity before the current illness, exacerbation or injury. 10-Not Attempted due to Environmental Limitations-(lack of equipment, weather restraints, etc.). 88-Not Attempted due to Medical Conditions or Safety Concerns. Sit to Lying (QC): 5 Lying to Sitting/Side of Bed(Q: 5 Sit to Stand (QC): 5 Toilet Transfer (QC): 5 Weight Bearing Right Lower Extremity: Right Weight Bearing/Tolerated Left Lower Extremity: Left Weight Bearing/Tolerated Gait Training Does the Patient Walk?: Yes Distance: 175 Walk 10 feet (QC): 5 Walk 50 ft with 2 Turns(QC): 5 Walk 150 ft (QC): 5 Gait Persons Needed: 1 Gait Assistive Device: FWW Pt ambulates with slow, steady gait. Assist with IV/O2 Wheelchair Training Does the Pt Use a Wheelchair?: No Treatments Transfer training, gait with FWW. SBA with toilet transfer. Stood at sink with good static standing balance to brush teeth (I). Returned to bed with O2 in situ, needs met. Assessment Current Status: Good Progress Pt tolerated well. Slow but steady functional mobility. PT Chcf Goals Outsole Cementer Goals PT Chcf Goals Time Frame: Aug 16, 2019 Roll Left & Right (QC): 5 Sit to Lying (QC): 5 Lying-Sitting on Side/Bed(QC): 5 Sit to Stand (QC): 5 Chair/Jeu-ig-Tlzpi Xfer(QC): 5 Toilet Transfer (QC): 5 Car Transfer (QC): 5 Does the Patient Walk: Yes Walk 10 feet (QC): 5 Walk 50ft with 2 Turns (QC): 5 Walk 150 ft (QC): 5 Walking 10ft on Uneven Surface: 5 1 Step (curb) (QC): 5 4 Steps (QC): 5 12 Steps (QC): 9 Picking up an Object (QC): 5 Does the Pt use WC or Scooter?: No Type: N/A Type: N/A PT Plan Problem List Problem List: Activity Tolerance, Functional Strength, Safety, Balance, Gait, Transfer, Bed Mobility Treatment/Plan Treatment Plan: Continue Plan of Care Treatment Plan: Bed Mobility, Education, Functional Activity Lelia, Functional Strength, Gait, Safety, Therapeutic Exercise, Transfers Treatment Duration: Aug 16, 2019 Frequency: 6 times per week Estimated Hrs Per Day: .25 hour per day Patient and/or Family Agrees t: Yes Time/GCodes Time In: 1052 Time Out: 1132 Total Billed Treatment Time: 40 Total Billed Treatment 1, FA x 40' KAYLENE KIM DPSaadia Jul 29, 2019 11:40 POS
--- NOTE | 2019-07-29 12:31 | Progress Note - Hospitalist ---
[facility] 07/29/19 1231: Subjective HPI/CC On Admission Date Seen by Provider: Jul 29, 2019 Time Seen by Provider: 09:30 Patient is an 84-year-old female well-known to me who presented to the emergency department due to altered mental status and fever. She is alert and oriented today but does not remember much of yesterday. Because of this history is obtained from the notes. Apparently she was well at 5 a.m. yesterday but then throughout the day worsened had garbled speech with confusion. She is found to be febrile at 101. She has had previous episodes with urinary tract infections and family thought that maybe what is going on so brought her to the emergency department. She was found to have a leukocytosis with lactic acidosis and chest x-ray concerning for pneumonia. She was admitted for severe sepsis. This morning she states she is feeling much better. She does complain of a cough otherwise has no complaints. Subjective/Events-last exam She is alert and oriented and in no acute distress. Family at bedside Drinking without issue. Has not eaten yet, she has not had the urge. Patient has catheter present Having bowel movements without issue She is ambulating. She has pain in her LE but is being managed on pain medication. Denies feeling SOB, Chest pain, N/V, F/C and Abdominal pain Focused Exam Lactate Level 07/27/19 13:30: Lactic Acid Level 1.50 Objective Exam Vital Signs Vital Signs Date Time Temp Pulse Resp B/P (MAP) Pulse Ox O2 Delivery O2 Flow Rate FiO2 07/30/19 08:00 37.1 53 18 142/66 (91) 97 Nasal Cannula 2.00 07/28/19 08:19 28 Capillary Refill : Less Than 3 Seconds General Appearance: No Apparent Distress HEENT: PERRL/EOMI Neck: Non Tender, Supple Respiratory: Chest Non Tender, No Accessory Muscle Use, No Respiratory Distress, Crackles, Wheezing Cardiovascular: Regular Rate, Rhythm, No Murmur, Normal Peripheral Pulses Gastrointestinal: Normal Bowel Sounds, No Organomegaly; No Distended, No Guarding Extremity: Normal Capillary Refill, No Calf Tenderness, Other (left ankle and right hip pain ) Neurologic/Psychiatric: Alert, Oriented x3 Skin: Normal Color, Warm/Dry Lymphatic: No Adenopathy Results/Procedures Lab Patient resulted labs reviewed. Imaging: Reviewed Imaging Report Assessment/Plan Assessment and Plan Assess & Plan/Chief Complaint CAP: - WBC resolved - Continue IV ABX - Cultures came back positive for staph Epidermis and Gram positive cocci. Waiting for sensitivities - MAT protocol RA, OA, Chronic pain - patient is currently on DMARDS, she should follow up with PCP. Pain is being managed. PT/OT - making progress Guillen Catheter - remove Clinical Quality Measures DVT/VTE Risk/Contraindication: Risk Factor Score Per Nursin RFS Level Per Nursing on Admit: 3=High TIFFANIE HENNESSY MD 07/29/19 1546: Assessment/Plan Assessment and Plan Assess & Plan/Chief Complaint Sepsis resolving. Blood cultures are positive and ID and sensitivities are pending. Will DC Guillen and continue on IV abx as she is clinically improving. Diagnosis/Problems Diagnosis/Problems (1) Severe sepsis Status: Acute (2) CAP (community acquired pneumonia) Status: Acute Qualifiers: Qualified Codes: J18.1 - Lobar pneumonia, unspecified organism (3) Rheumatoid arthritis Status: Chronic Qualifiers: Qualified Codes: M06.9 - Rheumatoid arthritis, unspecified (4) Chronic pain Status: Chronic Qualifiers: Qualified Codes: G89.29 - Other chronic pain (5) Hypoxia Status: Acute Supervisory-Addendum Brief Verification & Attestation Participated in pt care: history, MDM, physical Personally performed: exam, history, MDM, supervision of care Care discussed with: Medical Student Procedures: n/a Results interpretation: Verified all documentation Verification and Attestation of Medical Student E/M Service A medical student performed and documented this service in my presence. I reviewed and verified all information documented by the medical student and made modifications to such information, when appropriate. I personally performed the physical exam and medical decision making. Tiffanie Hennessy, Jul 29, 2019,15:42 [facility] Jul 29, 2019 12:31 TIFFANIE HENNESSY MD Jul 29, 2019 15:46
--- NOTE | 2019-07-29 12:38 | NUR ---
"RD ASSESSMENT PMHx: RA; chronic-UTI; chronic constipation PT INTERACTION: Pt was awake and pleasant during nutrition assessment. Note pt has AMS, per chart review. Pt states current appetite is poor and has been for quite awhile. Note pt avg PO intake of 30% x1d, per chart review. Pt states following a regular diet at home, and has no issues with chewing/swallowing food at this time. Pt states no recent issues with n/v at this time. Pt states having recent episodes of diarrhea. Note last BM was 07/28 (x3), and pt currently on bowel regimen of colace BID, and senna BID, per chart review. Pt states some recent wt loss, but could not give amount/timeframe. Note unable to determine recent wt hx, per chart review. ABNORMAL NUTRITION-RELATED LAB VALUES LOW: K 3.2; BUN 5; cr 0.59; Ca 8.2 HIGH: Cl 110 Est. kcal needs: 3103-4174 kcal | 20-25 kcal/kg Est. Pro needs: 61-76 g Pro | 0.8-1.0 g Pro/kg PES STATEMENT: Inadequate oral intake (NI-2.1) related to loss of appetite | diarrhea as evidenced by pt interview | avg PO intake 30% x1d INTERVENTION: Continue with current diet order of Regular diet. Add Ensure Clear (vary) to meals TID for increased kcal intake. Provides 240 kcal and 8 g Pro per serving. Will continue to follow and reassess as pt needs and status change. MONITOR/EVALUATE: PO Intake; Plan of Care; Hydration Status; Weight Status; Lab Values Sayra Gonzalez, MS, RD, LD"
--- NOTE | 2019-07-29 13:49 | Occupational Ther Daily Note ---
OT Current Status-Daily Note Subjective Pt in bed, agrees to therapy. Mental Status/Objective Attachments: Guillen Catheter, IV, Oxygen ADL-Treatment Pt supine to sit with SBA. Pt sat EOB with supervision for balance during ADL tasks. Pt combed hair with much increased time. Able to complete task after set up. Pt doffed socks without assist. Donned socks with SBA for balance while seated EOB. Sit to stand with supervision. Steps to HOB. Pt completed sit to supine without assist. Pt requires increased time to complete all functional tasks. Pt resting in bed with needs met and daughter present after session. Therapy Code Descriptions/Definitions Functional [place] Measure: 0=Not Assessed/NA 4=Minimal Assistance 1=Total Assistance 5=Supervision or Setup 2=Maximal Assistance 6=Modified [place] 3=Moderate Assistance 7=Complete IndependenceSCALE: Activities may be completed with or without assistive devices. 0-Jvrfsbhknz-sbjqqix completes the activity by him/herself with no assistance from a helper. 5-Set-up or Clean-up Assistance-helper sets up or cleans up; patient completes activity. [place] assists only prior to or following the activity. 4-Supervision or Touching Assistance-helper provides verbal cues and/or touching/steadying and/or contact guard assistance as patient completes activity. Assistance may be provided throughout the activity or intermittently. 3-Partial/Moderate Assistance-helper does LESS THAN HALF the effort. [place] lifts, holds or supports trunk or limbs, but provides less than half the effort. 2-Substantial/Maximal Assistance-helper does MORE THAN HALF the effort. [place] lifts or holds trunk or limbs and provides more than half the effort. 5-Hmhsedhph-xefdun does ALL the effort. Patient does none of the effort to complete the activity. Or, the assistance of 2 or more helpers is required for the patient to complete the activity. If activity was not attempted, code reason: 7-Patient Refused. 9-Not Applicable-not attempted and the patient did not perform the activity before the current illness, exacerbation or injury. 10-Not Attempted due to Environmental Limitations-(lack of equipment, weather restraints, etc.). 88-Not Attempted due to Medical Conditions or Safety Concerns. OT Fci Goals Fci Goals Time Frame: Aug 08, 2019 Eating (QC): 6 Oral Hygiene (QC): 5 Toileting Hygiene (QC): 3 Shower/Bathe Self (QC): 3 Upper Body Dressing (QC): 5 Lower Body Dressing (QC): 3 On/Off Footwear (QC): 3 Additional Goals: 1-Demonstrate ADL Tasks, 2-Verbalize Understanding, 3- ImproveStrength/Lelia 1=Demonstrate adherence to instructed precautions during ADL tasks. 2=Patient will verbalize/demonstrate understanding of assistive devices/modifications for ADL. 3=Patient will improve strength/tolerance for activity to enable patient to perform ADL's. OT Education/Plan Discharge Recommendations Plan/Recommendations: Continue POC Treatment Plan/Plan of Care Patient would benefit from OT for education, treatment and training to promote independence in ADL's, mobility, safety and/or upper extremity function for ADL's. Plan of Care: ADL Retraining, Caregiver Training, Functional Mobility, UE Funct Exercise/Act Treatment Duration: Aug 08, 2019 Frequency: 5 times per week Estimated Hrs Per Day: .25 hour per day Agreement: Yes Rehab Potential: Fair Time/GCodes Start Time: 13:13 Stop Time: 13:40 Total Time Billed (hr/min): 27 Billed Treatment Time 1 visit, ADLx2(27minutes) JORJE ALFRED OT Jul 29, 2019 13:49 POS
[2019-07-29] MEDS: ENOXAPARIN 40 MG/0.4 ML (LOVENOX) SYR SC SCH (16:06)
[2019-07-29 16:11] VITALS: BP 147/67
[2019-07-29] MEDS: FAMOTIDINE 20 MG (PEPCID) TABLET PO SCH (20:48)
[2019-07-29] MEDS: DOCUSATE SODIUM 100 MG (COLACE) CAP PO SCH (20:49)
[2019-07-30] VITALS: BP 152/66
[2019-07-30 01:01] VITALS: BP 152/66
[2019-07-30] MEDS: MELATONIN 3 MG TABLET PO PRN (01:19)
[2019-07-30] MEDS: NS IV 1000 ML 1,000 ML IV SCH ×3 (01:42→19:52)
[2019-07-30] MEDS: RT-ALBUTEROL SULF 2.5 MG/3 ML PRE-MIX VIAL INH SCH ×6 (02:15→22:28)
[2019-07-30 08:00] VITALS: BP 142/66
[2019-07-30] MEDS: PANTOPRAZOLE 20 MG TABLET (PROTONIX) PO SCH (08:47)
[2019-07-30] MEDS: CEFEPIME 2,000 MG/SWFI 20 ML IV PUSH IV SCH ×2 (08:48)
[2019-07-30] MEDS: SENNOSIDES 8.6 MG (SENOKOT) TAB PO SCH ×2 (08:50→19:44)
--- NOTE | 2019-07-30 11:03 | Progress Note - Hospitalist ---
[facility] 07/30/19 1103: Subjective HPI/CC On Admission Date Seen by Provider: Jul 30, 2019 Time Seen by Provider: 09:00 Patient is an 84-year-old female well-known to me who presented to the emergency department due to altered mental status and fever. She is alert and oriented today but does not remember much of yesterday. Because of this history is obtained from the notes. Apparently she was well at 5 a.m. yesterday but then throughout the day worsened had garbled speech with confusion. She is found to be febrile at 101. She has had previous episodes with urinary tract infections and family thought that maybe what is going on so brought her to the emergency department. She was found to have a leukocytosis with lactic acidosis and chest x-ray concerning for pneumonia. She was admitted for severe sepsis. This morning she states she is feeling much better. She does complain of a cough otherwise has no complaints. Subjective/Events-last exam Patient is alert and in no acute distress with family at bedside. Patient has been drinking without issue and is still working up an appetite to eat Urinating fine without catheter and is having bowel movements. She ambulated yesterday, she stated she need oxygen afterwards She states she is feeling better but is tired because she had trouble sleeping last night. Denies: SOB, Chest pain, N/V and F/C Focused Exam Lactate Level 07/27/19 13:30: Lactic Acid Level 1.50 Objective Exam Vital Signs Vital Signs Date Time Temp Pulse Resp B/P (MAP) Pulse Ox O2 Delivery O2 Flow Rate FiO2 07/30/19 08:00 37.1 53 18 142/66 (91) 97 Nasal Cannula 2.00 07/28/19 08:19 28 Capillary Refill : Less Than 3 Seconds General Appearance: No Apparent Distress HEENT: PERRL/EOMI, Moist Mucous Membranes Neck: Non Tender, Supple Respiratory: Chest Non Tender, No Accessory Muscle Use, No Respiratory Dist ress, Other (Patient was wheezing yesterday and lung sounds shows improvement today. ) Cardiovascular: Regular Rate, Rhythm, Normal Peripheral Pulses Gastrointestinal: No Organomegaly, Non Tender, Soft; No Distended, No Guarding Extremity: Normal Capillary Refill, No Calf Tenderness, Other (2/4 radial and 2/4 dorsal pedial pulse, sensory intact LE BL and strength in dorsi and plantarflexion 5/5 LE BL ) Neurologic/Psychiatric: Alert, Normal Mood/Affect, smasher II-XII Norm as Tested Skin: Normal Color, Warm/Dry Lymphatic: No Adenopathy Results/Procedures Lab Patient resulted labs reviewed. Imaging: Reviewed Imaging Report Assessment/Plan Assessment and Plan Assess & Plan/Chief Complaint CAP: - WBC resolved - Continue IV ABX, receiving 2g Cefepime - Cultures came back positive for staph Epidermis and Gram positive cocci. Waiting for sensitivities - MAT protocol RA, OA, Chronic pain - patient is currently on DMARDS, she should follow up with PCP. Pain is being managed. PT/OT - making progress Guillen Catheter - catheter has been removed and patient is urinating without issue Respiratory - titrate oxygen and see if patient can tolerate 1L NC Hypokalemia - patient was received potassium supplement - consider reordering CMP Clinical Quality Measures DVT/VTE Risk/Contraindication: Risk Factor Score Per Nursin RFS Level Per Nursing on Admit: 3=High TIFFANIE HENNESSY MD 07/30/19 1313: Assessment/Plan Assessment and Plan Assess & Plan/Chief Complaint Continues to improves on antibiotics. Awaiting c/s form blood cultures. Continue PT/OT. Екатерина be able to DC tomorrow if continues to improve. Will need home oxygen study. Diagnosis/Problems Diagnosis/Problems (1) Bacteremia Status: Acute (2) CAP (community acquired pneumonia) Status: Acute Qualifiers: Qualified Codes: J18.1 - Lobar pneumonia, unspecified organism (3) Severe sepsis Status: Acute (4) Chronic pain Status: Chronic Qualifiers: Qualified Codes: G89.29 - Other chronic pain (5) Rheumatoid arthritis Status: Chronic Qualifiers: Qualified Codes: M06.9 - Rheumatoid arthritis, unspecified Supervisory-Addendum Brief Verification & Attestation Participated in pt care: history, MDM, physical Personally performed: exam, history, MDM, supervision of care Care discussed with: Medical Student Procedures: n/a Results interpretation: Verified all documentation Verification and Attestation of Medical Student E/M Service A medical student performed and documented this service in my presence. I reviewed and verified all information documented by the medical student and made modifications to such information, when appropriate. I personally performed the physical exam and medical decision making. Tiffanie Hennessy, Jul 30, 2019,13:10 [facility] Jul 30, 2019 11:03 TIFFANIE HENNESSY MD Jul 30, 2019 13:13
--- NOTE | 2019-07-30 11:19 | Physical Therapy Daily Note ---
PT Daily Note-Current Subjective Pt agreeable to PT session with encouragement, states she would rather just sleep. Pain Numeric Pain Scale: 0-No Pain Appearance Pt in bed upon arrival. Pt requesting and assisted to bathroom. At end of session, pt sitting EOB with OT. Mental Status Patient Orientation: Normal For Age Attachments: [place] Lock, Oxygen (2L), IV Transfers SCALE: Activities may be completed with or without assistive devices. 0-Hopkkorxzl-hfcwsds completes the activity by him/herself with no assistance from a helper. 5-Set-up or Clean-up Assistance-helper sets up or cleans up; patient completes activity. [place] assists only prior to or following the activity. 4-Supervision or Touching Assistance-helper provides verbal cues and/or touching/steadying and/or contact guard assistance as patient completes ac tivity. Assistance may be provided throughout the activity or intermittently. 3-Partial/Moderate Assistance-helper does LESS THAN HALF the effort. [place] lifts, holds or supports trunk or limbs, but provides less than half the effort. 2-Substantial/Maximal Assistance-helper does MORE THAN HALF the effort. [place] lifts or holds trunk or limbs and provides more than half the effort. 2-Iwqpwkeko-qnvczb does ALL the effort. Patient does none of the effort to complete the activity. Or, the assistance of 2 or more helpers is required for the patient to complete the activity. If activity was not attempted, code reason: 7-Patient Refused. 9-Not Applicable-not attempted and the patient did not perform the activity before the current illness, exacerbation or injury. 10-Not Attempted due to Environmental Limitations-(lack of equipment, weather restraints, etc.). 88-Not Attempted due to Medical Conditions or Safety Concerns. Roll Left & Right (QC): 5 Lying to Sitting/Side of Bed(Q: 4 Sit to Stand (QC): 4 Toilet Transfer (QC): 4 slow transitions Weight Bearing Right Lower Extremity: Right Weight Bearing/Tolerated Left Lower Extremity: Left Weight Bearing/Tolerated Gait Training Does the Patient Walk?: Yes Walk 10 feet (QC): 5 Walk 50 ft with 2 Turns(QC): 5 Walk 150 ft (QC): 5 Gait Persons Needed: 1 (assist with O2 tank) Gait Assistive Device: FWW slow pace, report of ankle pain toward end of gait distance, no LOB or unsteadiness, pt with fatigue and slight SOA Treatments education, safety, bed mobility, transfers, gait, toileting, activity tolerance, functional mobility. During session, pt standing, requesting to be on room air, SPO2 decreased to 88%, pt agreeable to keep O2 on during session. Assessment Current Status: Good Progress SPO2 decreased on room air while standing with walker x5 minutes PT Broom Maker Goals Senior Living Goals PT Broom Maker Goals Time Frame: Aug 16, 2019 Roll Left & Right (QC): 5 Sit to Lying (QC): 5 Lying-Sitting on Side/Bed(QC): 5 Sit to Stand (QC): 5 Chair/Ats-qq-Lftfd Xfer(QC): 5 Toilet Transfer (QC): 5 Car Transfer (QC): 5 Does the Patient Walk: Yes Walk 10 feet (QC): 5 Walk 50ft with 2 Turns (QC): 5 Walk 150 ft (QC): 5 Walking 10ft on Uneven Surface: 5 1 Step (curb) (QC): 5 4 Steps (QC): 5 12 Steps (QC): 9 Picking up an Object (QC): 5 Does the Pt use WC or Scooter?: No Type: N/A Type: N/A PT Plan Treatment/Plan Treatment Plan: Continue Plan of Care Treatment Plan: Bed Mobility, Education, Functional Activity Lelia, Functional Strength, Gait, Safety, Therapeutic Exercise, Transfers Treatment Duration: Aug 16, 2019 Frequency: 6 times per week Estimated Hrs Per Day: .25 hour per day Patient and/or Family Agrees t: Yes Safety Risks/Education Patient Education: Gait Training, Transfer Techniques, Safety Issues Teaching Recipient: Patient Teaching Methods: Demonstration, Discussion Response to Teaching: Verbalize Understanding, Return Demonstration Time/GCodes Time In: 1109 Time Out: 1145 Total Billed Treatment Time: 36 Total Billed Treatment 1 visit, GT x18 min, FA x18 min SYLVIA WALKER PTA Jul 30, 2019 11:19
--- NOTE | 2019-07-30 14:47 | Occupational Ther Daily Note ---
OT Current Status-Daily Note Subjective Took over care from PT. Pt seated EOB and agrees to therapy. No c/o pain only fatigue. Mental Status/Objective Patient Orientation: Person, Place Attachments: IV ADL-Treatment Per PT report, pt was able to complete toileting and transfer with CGA then stood at sink with SBA to cleanse hands. Sitting EOB, pt able to brush hair by self, don robe and shoes. Therapy Code Descriptions/Definitions Functional [place] Measure: 0=Not Assessed/NA 4=Minimal Assistance 1=Total Assistance 5=Supervision or Setup 2=Maximal Assistance 6=Modified [place] 3=Moderate Assistance 7=Complete IndependenceSCALE: Activities may be completed with or without assistive devices. 5-Zosuswashg-kcgkhwc completes the activity by him/herself with no assistance from a helper. 5-Set-up or Clean-up Assistance-helper sets up or cleans up; patient completes activity. [place] assists only prior to or following the activity. 4-Supervision or Touching Assistance-helper provides verbal cues and/or touching/steadying and/or contact guard assistance as patient completes activity. Assistance may be provided throughout the activity or intermittently. 3-Partial/Moderate Assistance-helper does LESS THAN HALF the effort. [place] lifts, holds or supports trunk or limbs, but provides less than half the effort. 2-Substantial/Maximal Assistance-helper does MORE THAN HALF the effort. [place] lifts or holds trunk or limbs and provides more than half the effort. 4-Xjifpnubx-xxzejm does ALL the effort. Patient does none of the effort to complete the activity. Or, the assistance of 2 or more helpers is required for the patient to complete the activity. If activity was not attempted, code reason: 7-Patient Refused. 9-Not Applicable-not attempted and the patient did not perform the activity before the current illness, exacerbation or injury. 10-Not Attempted due to Environmental Limitations-(lack of equipment, weather restraints, etc.). 88-Not Attempted due to Medical Conditions or Safety Concerns. Other Treatment Pt was able to complete light resistance theraband exercises (3) after skilled instruction for correct position and technique. Pt stated that she has rheumatoid arthritis and stretching UE's hurt. LOPEZ educated pt on keeping mobile for increased ROM and mobility. Theraband was left in pt's room with instructions to use at least 1x per day. After therapy, pt lying in bed with call light/phone in reach. All needs met in room. OT Shelter Goals Jamb Cutter Goals Time Frame: Aug 08, 2019 Eating (QC): 6 Oral Hygiene (QC): 5 Toileting Hygiene (QC): 3 Shower/Bathe Self (QC): 3 Upper Body Dressing (QC): 5 Lower Body Dressing (QC): 3 On/Off Footwear (QC): 3 Additional Goals: 1-Demonstrate ADL Tasks, 2-Verbalize Understanding, 3- ImproveStrength/Lelia 1=Demonstrate adherence to instructed precautions during ADL tasks. 2=Patient will verbalize/demonstrate understanding of assistive devices/modifications for ADL. 3=Patient will improve strength/tolerance for activity to enable patient to perform ADL's. OT Education/Plan Problem List/Assessment Assessment: Decreased UE Strength Discharge Recommendations Plan/Recommendations: Continue POC Treatment Plan/Plan of Care Patient would benefit from OT for education, treatment and training to promote independence in ADL's, mobility, safety and/or upper extremity function for ADL's. Plan of Care: ADL Retraining, Caregiver Training, Functional Mobility, UE Funct Exercise/Act Treatment Duration: Aug 08, 2019 Frequency: 5 times per week Estimated Hrs Per Day: .25 hour per day Agreement: Yes Rehab Potential: Fair Time/GCodes Start Time: 11:45 Stop Time: 11:55 Total Time Billed (hr/min): 10 Billed Treatment Time 1 visit-EX 1 (10 min) VIET RAM Jul 30, 2019 14:47
[2019-07-30] MEDS: HYDROcodone/APAP 10 MG/325 MG (LORTAB) TAB PO PRN (14:54)
[2019-07-30] MEDS: ENOXAPARIN 40 MG/0.4 ML (LOVENOX) SYR SC SCH (16:02)
[2019-07-30 16:59] VITALS: BP 149/67
[2019-07-30] MEDS: DOCUSATE SODIUM 100 MG (COLACE) CAP PO SCH (19:44)
[2019-07-30] MEDS: FAMOTIDINE 20 MG (PEPCID) TABLET PO SCH (19:52)
[2019-07-31 00:45] VITALS: BP 142/66
[2019-07-31] MEDS: HYDROcodone/APAP 10 MG/325 MG (LORTAB) TAB PO PRN (01:42)
[2019-07-31] MEDS: RT-ALBUTEROL SULF 2.5 MG/3 ML PRE-MIX VIAL INH SCH ×2 (02:15→06:50)
[2019-07-31] MEDS: NS IV 1000 ML 1,000 ML IV SCH (05:51)
[2019-07-31 07:03] VITALS: BP 142/66
--- NOTE | 2019-07-31 07:12 | NUR ---
PATIENT HAD BEEN ON 1 L NC AND WAS SATTING 94%, O2 WAS REMOVED AND PATIENT WAS CHECKED OVER 1 HR LATER AND HER O2 SAT WAS AT 87%, RT ADDED 1 L NC TO GET O2 SAT UP TO AND ABOVE 88%. PATIENT IS REQUIRING 1 L NC CONTINUOUSLY AT THIS TIME
[2019-07-31 07:33] VITALS: BP 142/63
[2019-07-31] MEDS: SENNOSIDES 8.6 MG (SENOKOT) TAB PO SCH (08:22)
[2019-07-31] MEDS: PANTOPRAZOLE 20 MG TABLET (PROTONIX) PO SCH (08:22)
[2019-07-31] MEDS: CEFEPIME 2,000 MG/SWFI 20 ML IV PUSH IV SCH ×2 (08:22)
--- NOTE | 2019-07-31 10:15 | Occupational Ther Daily Note ---
OT Current Status-Daily Note Subjective Pt alert, up walking with nrsg. Pt agrees to therapy. Pt c/o cramps in lower legs, pt has reported to nrsg. Mental Status/Objective Patient Orientation: Person, Place, Time, Situation Attachments: IV, Oxygen (1L) ADL-Treatment Pt ambulated using FWW to bathroom, assist for manipulating IV pole. Pt transferred to toilet using FWW and grabbars, mod I. Completed toilet hygiene and manipulated clothing, mod I. Pt stood at sink to complete grooming and oral care, mod I. Pt ambulated back to bed and got back into bed using FWW and bedrails. After therapy, pt lying in bed with call light/phone in reach. All n eeds met in room. Therapy Code Descriptions/Definitions Functional [place] Measure: 0=Not Assessed/NA 4=Minimal Assistance 1=Total Assistance 5=Supervision or Setup 2=Maximal Assistance 6=Modified [place] 3=Moderate Assistance 7=Complete IndependenceSCALE: Activities may be completed with or without assistive devices. 8-Mmguoxidvz-lpvpcjz completes the activity by him/herself with no assistance from a helper. 5-Set-up or Clean-up Assistance-helper sets up or cleans up; patient completes activity. [place] assists only prior to or following the activity. 4-Supervision or Touching Assistance-helper provides verbal cues and/or touching/steadying and/or contact guard assistance as patient completes activity. Assistance may be provided throughout the activity or intermittently. 3-Partial/Moderate Assistance-helper does LESS THAN HALF the effort. [place] lifts, holds or supports trunk or limbs, but provides less than half the effort. 2-Substantial/Maximal Assistance-helper does MORE THAN HALF the effort. [place] lifts or holds trunk or limbs and provides more than half the effort. 9-Itghbwapg-gikdur does ALL the effort. Patient does none of the effort to complete the activity. Or, the assistance of 2 or more helpers is required for the patient to complete the activity. If activity was not attempted, code reason: 7-Patient Refused. 9-Not Applicable-not attempted and the patient did not perform the activity before the current illness, exacerbation or injury. 10-Not Attempted due to Environmental Limitations-(lack of equipment, weather restraints, etc.). 88-Not Attempted due to Medical Conditions or Safety Concerns. OT Retirement Goals Retirement Goals Time Frame: Aug 08, 2019 Eating (QC): 6 Oral Hygiene (QC): 5 Toileting Hygiene (QC): 3 Shower/Bathe Self (QC): 3 Upper Body Dressing (QC): 5 Lower Body Dressing (QC): 3 On/Off Footwear (QC): 3 Additional Goals: 1-Demonstrate ADL Tasks, 2-Verbalize Understanding, 3- ImproveStrength/Lelia 1=Demonstrate adherence to instructed precautions during ADL tasks. 2=Patient will verbalize/demonstrate understanding of assistive devices/modifications for ADL. 3=Patient will improve strength/tolerance for activity to enable patient to perform ADL's. OT Education/Plan Problem List/Assessment Assessment: Decreased Activ Tolerance Discharge Recommendations Plan/Recommendations: Continue POC Treatment Plan/Plan of Care Patient would benefit from OT for education, treatment and training to promote independence in ADL's, mobility, safety and/or upper extremity function for ADL's. Plan of Care: ADL Retraining, Caregiver Training, Functional Mobility, UE Funct Exercise/Act Treatment Duration: Aug 08, 2019 Frequency: 5 times per week Estimated Hrs Per Day: .25 hour per day Agreement: Yes Rehab Potential: Fair Time/GCodes Start Time: 10:13 Stop Time: 10:30 Total Time Billed (hr/min): 17 Billed Treatment Time 1 visit-ADL 1 (17 min) VIET RAM Jul 31, 2019 10:15
--- NOTE | 2019-07-31 11:00 | Discharge Summary ---
GISELLE CORNEJO [facility] 07/31/19 1100: Diagnosis/Chief Complaint Date of Admission Jul 27, 2019 at 12:30 Date of Discharge Admission Diagnosis Severe Sepsis Primary Care Ronnie Alvarenga MD Discharge Diagnosis (1) Bacteremia Status: Acute (2) CAP (community acquired pneumonia) Status: Acute (3) Severe sepsis Status: Acute (4) Chronic pain Status: Chronic (5) Rheumatoid arthritis Status: Chronic Discharge Summary Discharge Physical Exam Allergies: Coded Allergies: Sulfa (Sulfonamide Antibiotics) (Verified Allergy, Unknown, 11/13/13) nitrofurantoin (Verified Adverse Reaction, Unknown, NAUSEA, 06/05/16) Vitals & I&Os Vital Signs Date Time Temp Pulse Resp B/P (MAP) Pulse Ox O2 Delivery O2 Flow Rate FiO2 07/31/19 08:00 97 Nasal Cannula 1.00 07/31/19 07:33 36.9 61 18 142/63 (89) 07/31/19 07:03 24 General Appearance: No Apparent Distress, WD/WN HEENT: PERRL/EOMI Respiratory: Chest Non Tender, Normal Breath Sounds, No Accessory Muscle Use, Other (lung sounds improved ) Cardiovascular: Regular Rate, Rhythm, No Edema, Normal Peripheral Pulses Gastrointestinal: Normal Bowel Sounds, No Organomegaly; No Distended, No Guarding Extremity: Normal Capillary Refill, No Calf Tenderness, No Pedal Edema Neurologic/Psychiatric: Alert, Oriented x3, linoleum layer helper II-XII Norm as Tested Hospital Course Avril was admitted to [facility] on 07/27/19 and is being discharged today 07/31/19. She was admitted for altered mental status, hypoxemia and running a temperature >101.She has no pertinent PMH. She was admitted under the care of Dr. Davis hospitalist. She worked with PT/OT while admitted. While at [facility] the patient had a chest x-ray that showed a patchy basilar RUL infiltrate and CT showed focal infiltrate of the right lung apex. Urinary analysis showed no infection, but urine antigen for strep pneumoniae was positive. She also had positive blood cultures. The patient had a WBC of 16.8, lactic acid of 2.23. Her lung exam had wheezing and crackles present predominantly over the right lung area. The patient was treated for bacteriemia, CAP, severe sepsis and for her chronic pain. The patient was started on antibiotics, supplemental oxygen and fluids for her CAP, sepsis and bacteruria. Pain was managed accordingly. The patient has improved since being admitted. WBC has now normalized to 7.0 and lactic acid has normalized. Patient states she is feeling better and is breathing better. Lung sounds have improved. The patient should follow all D/C instructions that are outlined in her packet. The patient is being discharged today in stable conditions. The following information is only a summary of the patients admission while at [facility] and is not all inclusive. Please review entire chart for more complete information. Labs (last 24 hrs) Microbiology 07/29/19 Gram Stain - Final, Complete 07/29/19 Sputum Culture - Final, Complete Usual upper respiratory michael 07/27/19 Blood Culture - Final, Complete Staphylococcus epidermidis See Comments Patient resulted labs reviewed. Imaging: Reviewed Imaging Report Discharge Home Medications: Active Scripts Active Reported Stool Softener (Docusate Sodium) 100 Mg Tablet 400 Mg PO HS TAKES 4 (100MG) FOR A TOTAL OF 400MG Glycerin 1 Each Supp.rect 1 Each RC DAILY Omeprazole 20 Mg Tablet.dr 20 Mg PO DAILY PRN Lexapro (Escitalopram Oxalate) 20 Mg Tablet 20 Mg PO DAILY Diazepam 5 Mg Tablet 5 Mg PO Q8H PRN Acid Compounding Pharmacy Technician (RANITIDINE) (Ranitidine HCl) 150 Mg Tablet 150 Mg PO HS PRN Hydrocodon-Acetaminophn 10-325 (Hydrocodone/Acetaminophen) 1 Each Tablet 1 Tab PO Q4H PRN MDD 5 PER DAY Morphine Sulfate ER (Morphine Sulfate) 30 Mg Tablet.er 15-30 Mg PO BID PRN TAKES 1/2 TO 1 TAB Instructions to patient/family Please see electronic discharge instructions given to patient. Clinical Quality Measures DVT/VTE Risk/Contraindication: Risk Factor Score Per Nursin RFS Level Per Nursing on Admit: 3=High TIFFANIE DAVIS MD 07/31/19 1510: Discharge Summary Discharge Physical Exam Allergies: Coded Allergies: Sulfa (Sulfonamide Antibiotics) (Verified Allergy, Unknown, 11/13/13) nitrofurantoin (Verified Adverse Reaction, Unknown, NAUSEA, 06/05/16) Discussion & Recommendations Discharge Planning: >30 minutes discharge planning Supervisory-Addendum Brief Verification & Attestation Participated in pt care: history, MDM, physical Personally performed: exam, history, MDM, supervision of care Care discussed with: Medical Student Procedures: n/a Results interpretation: Verified all documentation Verification and Attestation of Medical Student E/M Service A medical student performed and documented this service in my presence. I reviewed and verified all information documented by the medical student and made modifications to such information, when appropriate. I personally performed the physical exam and medical decision making. Tiffanie Davis, Jul 31, 2019,15:10 Problem Qualifiers (1) CAP (community acquired pneumonia): Laterality: right Lung location: upper lobe of lung Qualified Codes: J18.1 - Lobar pneumonia, unspecified organism (2) Chronic pain: Chronic pain type: other chronic pain Qualified Codes: G89.29 - Other chronic pain (3) Rheumatoid arthritis: Rheumatoid arthritis location: unspecified site Rheumatoid factor presence: unspecified presence Qualified Codes: M06.9 - Rheumatoid arthritis, unspecified GISELLE CORNEJO STUD Jul 31, 2019 11:00 TIFFANIE DAVIS MD Jul 31, 2019 15:10
[2019-07-31] MEDS ORDERED: CEPH-507 PO (12:31)
--- NOTE | 2019-07-31 12:34 | Discharge Inst-Simple/Standard ---
Discharge Inst-Standard Reconcile Patient Problems Problems Reviewed?: Yes Discharge Medications New, Converted or Re-Newed RX: Transmitted to Pharmacy Patient Instructions/Follow Up Plan of Care/Instructions/FU: Please continue to take your medications as written. Please follow up with your PCP in the next week to follow up this stay. Activity as Tolerated: Yes Discharge Diet: No Restrictions Return to The Hospital For: Chest pain, fever, shortness of breath, confusion, weakness, if you feel you are getting worse. TIFFANIE HENNESSY MD Jul 31, 2019 12:34
--- NOTE | 2019-07-31 12:45 | NUR ---
Important Message from Medicare presented, reviewed, signed and placed in patient chart. Patient voiced no intention to appeal and deny any needs or further questions at this time.
--- NOTE | 2019-07-31 13:38 | Physical Therapy Progress Note ---
Therapy Progress Note x2 attempts made for PT visit at 0915am and 1058am, pt refusing both times stating that she is having cramping in both of her calves and does not want to make it worse. 3rd attempt pt states she is going home and does not want PT visit before she leaves. SYLVIA WALKER EXCHANGE TROUBLE SHOOTER Jul 31, 2019 13:38
[2019-07-31] MEDS ORDERED: RT-ALBUTEROL SULF 2.5 MG/3 ML PRE-MIX VIAL INH SCH (21:00)
== END 2019-07-31 15:24 | disposition home or self-care (01) | DRG 871 ==
LOC: ER 11:27 → EDUNIT# 11:27 → 4TH 12:30
PROVIDERS: ADMIT Internal Medicine; ATTEND Internal Medicine
DX: A40.3 Sepsis due to Streptococcus pneumoniae (principal); R65.20 Severe sepsis without septic shock; J18.1 Lobar pneumonia, unspecified organism; E87.2 Acidosis; R09.02 Hypoxemia; R41.0 Disorientation, unspecified; J42 Unspecified chronic bronchitis; M06.9 Rheumatoid arthritis, unspecified; M19.91 Primary osteoarthritis, unspecified site; G89.29 Other chronic pain; K59.09 Other constipation; E87.6 Hypokalemia; Z96.641 Presence of right artificial hip joint
CPT/HCPCS: 36415; 70450; 71045; 72125; 80048; 80053; 81000; 83605; 84145; 85007; 85025; 85027; 85610; 87040; 87070; 87077; 87186; 87205; 87804; 87899; 94640; 94760; 94761; 96374

== ENCOUNTER → 2021-05-02 | Outpatient (CLI) | payer MEDICARE ==
[~2021-05-02] MED LIST changes: +ACHYD1T PO; -ASCO500T5 PO; +ASCO500T71 PO; +CEPH-507 PO; +DIAZ5TAB49 PO; +DOCU100T7 PO; +ESCI20TA PO; +GLYC-18 RC; -HYDR-3820 PO; +LINE600T12 PO; -LINE600T5 PO; -MORP-34 PO; +MORP-69 PO; +OMEP20TA7 PO; +OMEP40CA6 PO
--- NOTE | 2021-05-02 16:55 | Diagnostic Imaging Report ---
EXAMINATION: CT chest without contrast (high resolution) TECHNIQUE: Prone and supine non-contrast high resolution CT images of the chest were obtained in inspiration and expiration. All CT scans use one or more of the following dose optimizing techniques: automated exposure control, MA and/or KvP adjustment based on patient size and exam type or iterative reconstruction. HISTORY: Abnormal chest radiograph, interstitial lung disease COMPARISON: 01/02/2017 FINDINGS: Aggression of a fibrotic interstitial lung disease characterized predominantly by honeycombing in the right lung base. There is mildly asymmetric involvement of the right lung compared to the left. There is honeycombing extending into the right apex. There are moderate reticulations. There is traction bronchiectasis. The disease has progressed significantly from the prior exam. There is no air trapping, no groundglass. There is no edema or pneumonia. No pleural effusion. No pneumothorax. There is a 2.1 x 1.8 cm consolidative area in the right upper lobe. There is no axillary or supraclavicular lymphadenopathy. There is no mediastinal lymphadenopathy. Enlarged mediastinal lymph nodes are likely reactive to interstitial lung disease. Heart size is normal. There are mild coronary artery calcifications. No pericardial effusion. Aorta is normal in caliber. Limited views of the upper abdomen show changes of cholecystectomy. There are no suspicious osseus lesions. IMPRESSION: 1. Progressive severe fibrotic interstitial lung disease in a typical usual interstitial pneumonia pattern. 2. More consolidative opacity in the right upper lobe measures 2.1 x 1.8 cm. It may represent a focal area of fibrosis. A PET CT is recommended as it could represent a lung malignancy. Dictated by: Dictated on workstation # [id number]
== END ==
LOC: RAD 15:45
PROVIDERS: ATTEND Pediatrics
DX: J84.9 Interstitial pulmonary disease, unspecified (principal); M19.90 Unspecified osteoarthritis, unspecified site
CPT/HCPCS: 36415; 71250; 85652

== ENCOUNTER → 2021-05-17 | Outpatient (CLI) | payer MEDICARE ==
--- NOTE | 2021-05-17 15:42 | Diagnostic Imaging Report ---
INDICATION: Lung mass. TECHNIQUE: Serum blood glucose level at the time of injection was 112 mg/dL. The patient was administered 12.1 mCi F-18 FDG intravenously in the left antecubital location, and whole body PET imaging was performed. Noncontrast CT was also performed for attenuation correction and anatomic correlation. COMPARISON: No prior PET/CT studies are available for comparison. Comparison is made with prior high-resolution CT chest study from 05/02/2021. FINDINGS: There is symmetric activity throughout the brain. Soft tissues of the neck are unremarkable. Extensive interstitial changes throughout both lungs are again noted. The area of consolidation in the right upper lobe does not demonstrate FDG avidity. No suspicious hypermetabolic focus is identified. There is physiologic activity throughout the gastrointestinal and genitourinary tracts of the abdomen and pelvis. Bilateral lower extremities are unremarkable. IMPRESSION: Unremarkable whole body PET/CT study. Specifically, the area of consolidation in the right upper lobe does not demonstrate FDG avidity and likely represents fibrotic tissue. Dictated by: Dictated on workstation # [id number]
== END ==
LOC: RAD 11:58
PROVIDERS: ATTEND Pediatrics
DX: J18.1 Lobar pneumonia, unspecified organism (principal); J84.10 Pulmonary fibrosis, unspecified; R91.8 Other nonspecific abnormal finding of lung field
CPT/HCPCS: 78816; A9552

== ENCOUNTER 2021-07-15 13:57 | Inpatient (IN) | payer MEDICARE ==
[~2021-07-15] VITALS: Ht 160 cm; Wt 56.2 kg
--- NOTE | 2021-07-15 14:24 | ED General ---
General Chief Complaint: Unresponsive Stated Complaint: UNRESPONSIVE Source of Information: Patient Exam Limitations: No Limitations History of Present Illness Date Seen by Provider: Jul 15, 2021 Time Seen by Provider: 14:21 Initial Comments 86 y.o Female pt of Dr Carl Hopkins at [facility] presents to ER after being found at home unresponsive by daughter at around 1030am today. Ems summoned subsequently at around 1400. 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 She is DO NOT RESUSCITATE status according to granddaughter. Reportedly, she has had similar presentation with urinary tract infection. Upon EMS arrival she had an oxygen saturation of mid 70% range and a blood pressure of 70 systolic. IV fluids were initiated and she was transported to the hospital. Timing/Duration: 1-2 Days Severity: Moderate Associated Systoms: Weakness Allergies and Home Medications Allergies Coded Allergies: Sulfa (Sulfonamide Antibiotics) (Verified Allergy, Unknown, 11/13/13) nitrofurantoin (Verified Adverse Reaction, Unknown, NAUSEA, 06/05/16) Patient Home Medication List Home Medication List Reviewed: Yes Cephalexin (Keflex) 500 Mg Capsule, 500 MG PO BID Prescribed by: TIFFANIE HENNESSY on 07/31/19 1231 Diazepam (Diazepam) 5 Mg Tablet, 5 MG PO Q8H PRN for ANXIETY, (Reported) Entered as Reported by: CARL SHI on 07/28/19 0936 Docusate Sodium (Stool Softener) 100 Mg Tablet, 400 MG PO HS, (Reported) Entered as Reported by: CARL SHI on 07/28/19 0938 Escitalopram Oxalate (Lexapro) 20 Mg Tablet, 20 MG PO DAILY, (Reported) Entered as Reported by: CARL SHI on 07/28/19 0936 Glycerin (Glycerin) 1 Each Supp.rect, 1 EACH RC DAILY, (Reported) Entered as Reported by: CARL SHI on 07/28/19 0938 Hydrocodone Bit/Acetaminophen (HYDROcodone/APAP 10/325 TABLET) 1 Each Tablet, 1 TAB PO Q4H PRN for PAIN-MODERATE (5-7), (Reported) Entered as Reported by: CAMRON JACINTO on 12/01/15 0916 Morphine Sulfate (Morphine Sulfate ER) 30 Mg Tablet.er, 15-30 MG PO BID PRN for PAIN-SEVERE (8-10), (Reported) Entered as Reported by: CAMRON JACINTO on 12/01/15 0916 Omeprazole (Omeprazole) 20 Mg Tablet.dr, 20 MG PO DAILY PRN for HEARTBURN, (Reported) Entered as Reported by: ACRL SHI on 07/28/19 0937 Ranitidine HCl (Acid Ui Designer (RANITIDINE)) 150 Mg Tablet, 150 MG PO HS PRN for HEARTBURN, (Reported) Entered as Reported by: CAMRON JACINTO on 01/04/17 0956 Review of Systems Review of Systems Constitutional: see HPI, other (Unable to obtain) Past [id number] Hx Patient Social History Tobacco Use?: No Smoking Status: Never a Smoker Smokeless Tobacco Frequency: Never a User Use of E-Cig and/or Vaping dev: No Use of E-Cig and/or Vaping Bk: Never a User Substance use?: No Alcohol Use?: No Pt feels they are or have been: No Immunizations Up To Date Tetanus Booster (TDap): Less than 5yrs PED Vaccines UTD: No Seasonal Allergies Seasonal Allergies: No Past Medical History Surgeries: Yes (2 hip replacements on right hip; L ankle surgery; CATARACTS) Eye Surgery, Hysterectomy, Orthopedic Respiratory: Yes (SOB WITH EXERTION, FREQUENT BRONCHITIS, PNEUMONIA) Pneumonia, Chronic Bronchitis Currently Using CPAP: No Currently Using BIPAP: No Cardiac: No Neurological: No Reproductive Disorders: No Female Reproductive Disorders: Denies Sexually Transmitted Disease: No HIV/AIDS: No Bladder Infection, UTI-Chronic Gastrointestinal: Yes Chronic Constipation Musculoskeletal: Yes (Chronic osteoarthritis, bursitis, ) Arthritis, Rheumatoid Arthritis Endocrine: No Cataract Cancer: No Psychosocial: No Integumentary: No Blood Disorders: Yes (CHRONIC ANEMIA) Adverse Reaction/Blood Tranf: No Family Medical History BONE CANCER 19 FATHER HIP REPLACEMENT 19 MOTHER THYROID ISSUES 19 MOTHER No Pertinent Family Hx Physical Exam Vital Signs Vital Signs - First Documented Capillary Refill : Height, Weight, BMI Height: 5'2.00" Weight: 160lbs. 2.3oz. 72.543250lx; 29.50 BMI Method:Stated General Appearance: Thin, Other (Frail unresponsive.. GCS gets score of 1 for eye, 1 for verbal and 4 for motor response as she withdraws to Covid testing. GCS total 6, however at this time I do not think intubation is in her best interest. On a nonrebreather oxygen saturation is up to 96% though quickly fall s back to the mid 70s when this is taken off even briefly. Blood pressure is 110 over 80s) Neck: Full Range of Motion, Normal Inspection Respiratory: No Accessory Muscle Use, No Respiratory Distress, Wheezing (On the right) Cardiovascular: Regular Rate, Rhythm, Normal Peripheral Pulses Gastrointestinal: Normal Bowel Sounds, Non Tender, Soft Extremity: Normal Capillary Refill, Normal Inspection Skin: Normal Color, Warm/Dry Focused Exam Lactate Level 07/15/21 14:03: Lactic Acid Level 1.73 Lactic Acid Level Laboratory Tests Test 07/15/21 14:03 Lactic Acid Level 1.73 MMOL/L (0.50-2.00) Progress/Results/Core Measures Suspected Sepsis SIRS Temperature: Pulse: Respiratory Rate: Laboratory Tests 07/15/21 14:03: White Blood Count 11.7H Blood Pressure / Mean: 07/15/21 14:03: Lactic Acid Level 1.73 Laboratory Tests 07/15/21 14:03: Creatinine 1.83H, INR Comment 1.0, Platelet Count 228, Total Bilirubin 0.3 Results/Orders Lab Results Laboratory Tests Test 07/15/21 14:03 07/15/21 14:11 07/15/21 14:12 07/15/21 14:49 Range/Units White Blood Count 11.7 H 4.3-11.0 10^3/uL Red Blood Count 4.55 3.80-5.11 10^6/uL Hemoglobin 13.6 11.5-16.0 g/dL Hematocrit 44 35-52 % Mean Corpuscular Volume 96 80-99 fL Mean Corpuscular Hemoglobin 30 25-34 pg Mean Corpuscular Hemoglobin Concent 31 L 32-36 g/dL Red Cell Distribution Width 14.0 10.0-14.5 % Platelet Count 228 130-400 10^3/uL Mean Platelet Volume 9.9 9.0-12.2 fL Immature Granulocyte % (Auto) 2 % Neutrophils (%) (Auto) 61 42-75 % Lymphocytes (%) (Auto) 32 12-44 % Monocytes (%) (Auto) 5 0-12 % Eosinophils (%) (Auto) 1 0-10 % Basophils (%) (Auto) 1 0-10 % Neutrophils # (Auto) 7.1 1.8-7.8 10^3/uL Lymphocytes # (Auto) 3.7 1.0-4.0 10^3/uL Monocytes # (Auto) 0.6 0.0-1.0 10^3/uL Eosinophils # (Auto) 0.1 0.0-0.3 10^3/uL Basophils # (Auto) 0.1 0.0-0.1 10^3/uL Immature Granulocyte # (Auto) 0.2 H 0.0-0.1 10^3/uL Prothrombin Time 14.1 12.2-14.7 SEC INR Comment 1.0 0.8-1.4 Activated Partial Thromboplast Time 37 H 24-35 SEC Sodium Level 137 135-145 MMOL/L Potassium Level 4.6 3.6-5.0 MMOL/L Chloride Level 102 98-107 MMOL/L Carbon Dioxide Level 27 21-32 MMOL/L Anion Gap 8 5-14 MMOL/L Blood Urea Nitrogen 22 H 7-18 MG/DL Creatinine 1.83 H 0.60-1.30 MG/DL Estimat Glomerular Filtration Rate 26 BUN/Creatinine Ratio 12 Glucose Level 119 H 70-105 MG/DL Lactic Acid Level 1.73 0.50-2.00 MMOL/L Calcium Level 9.0 8.5-10.1 MG/DL Corrected Calcium 9.5 8.5-10.1 MG/DL Total Bilirubin 0.3 0.1-1.0 MG/DL Aspartate Amino Transf (AST/SGOT) 21 5-34 U/L Alanine Aminotransferase (ALT/SGPT) 15 0-55 U/L Alkaline Phosphatase 70 40-136 U/L B-Type Natriuretic Peptide 507.6 H <100.0 PG/ML Total Protein 7.7 6.4-8.2 GM/DL Albumin 3.4 3.2-4.5 GM/DL Procalcitonin 0.06 <0.10 NG/ML Blood Gas Puncture Site RT RAD Blood Gas Patient Temperature 37.2 Arterial Blood pH 7.26 *L 7.37-7.43 Arterial Blood Partial Pressure CO2 58 H 35-45 MMHG Arterial Blood Partial Pressure O2 120 H 79-93 MMHG Arterial Blood HCO3 25 23-27 MMOL/L Arterial Blood Total CO2 27.2 21.0-31.0 MMOL/L Arterial Blood Oxygen Saturation 98 94-100 % Arterial Blood Base Excess -0.8 -2.5-2.5 MMOL/L Villa Test YES-POS Blood Gas Ventilator Setting NO Blood Gas Inspired Oxygen 10 L Influenza Type A (RT-PCR) Not Detected Not Detecte Influenza Type B (RT-PCR) Not Detected Not Detecte SARS-CoV-2 RNA (RT-PCR) Not Detected Not Detecte Urine Color YELLOW Urine Clarity CLEAR Urine pH 5.5 5-9 Urine Specific [place] 1.025 H 1.016-1.022 Urine Protein NEGATIVE NEGATIVE Urine Glucose (UA) NEGATIVE NEGATIVE Urine Ketones TRACE H NEGATIVE Urine Nitrite NEGATIVE NEGATIVE Urine Bilirubin NEGATIVE NEGATIVE Urine Urobilinogen 0.2 < = 1.0 MG/DL Urine Leukocyte Esterase NEGATIVE NEGATIVE Urine RBC (Auto) NEGATIVE NEGATIVE Urine RBC NONE /HPF Urine WBC NONE /HPF Urine Squamous Epithelial Cells RARE /HPF Urine Crystals NONE /LPF Urine Bacteria TRACE /HPF Urine Casts PRESENT /LPF Urine Hyaline Casts 10-25 H /LPF Urine Mucus MODERATE H /LPF Urine Culture Indicated NO Urine Opiates Screen POSITIVE H NEGATIVE Urine Oxycodone Screen POSITIVE H NEGATIVE Urine Methadone Screen NEGATIVE NEGATIVE Urine Propoxyphene Screen NEGATIVE NEGATIVE Urine Barbiturates Screen NEGATIVE NEGATIVE Ur Tricyclic Antidepressants Screen NEGATIVE NEGATIVE Urine Phencyclidine Screen NEGATIVE NEGATIVE Urine Amphetamines Screen NEGATIVE NEGATIVE Urine Methamphetamines Screen NEGATIVE NEGATIVE Urine Benzodiazepines Screen POSITIVE H NEGATIVE Urine Cocaine Screen NEGATIVE NEGATIVE Urine Cannabinoids Screen NEGATIVE NEGATIVE My Orders Orders - TIERRA ESPINAL APRN Cbc With Automated Diff (07/15/21 14:13) Comprehensive Metabolic Panel (07/15/21 14:13) Blood Culture (07/15/21 14:13) Sputum Culture (07/15/21 14:13) Urinalysis (07/15/21 14:13) Urine Culture (07/15/21 14:13) Protime With Inr (07/15/21 14:13) Partial Thromboplastin Time (07/15/21 14:13) Chest 1 View, Ap/Pa Only (07/15/21 14:13) Ed Iv/Invasive Line Start (07/15/21 14:13) Ed Iv/Invasive Line Start (07/15/21 14:13) Vital Signs Adult Sepsis Patie Q15M (07/15/21 14:13) O2 (07/15/21 14:13) Remove Rings In Anticipation O (07/15/21 14:13) Lactic Acid Analyzer (07/15/21 14:13) Bnp [place] (07/15/21 14:13) Covid 19 Inhouse Test (07/15/21 14:13) Influenza A And B By Pcr (07/15/21 14:13) Arterial Blood Gas (07/15/21 14:24) Procalcitonin (Pct) (07/15/21 14:27) Bipap (Bilevel) Set Up (07/15/21 14:40) Albuterol/Ipra Inhalation Soln (Duoneb I (07/15/21 14:45) Svn Small Volume Nebulizer (07/15/21 14:40) Cefepime Injection (Maxipime Injection) (07/15/21 14:45) Guillen Cath (07/15/21 14:40) Drug Screen Stat (Urine) (07/15/21 14:40) Ct Head Wo (07/15/21 14:50) Methylprednisolone Sod Succ (Solu-Medrol (07/15/21 15:00) Naloxone Injection (Narcan Injection) (07/15/21 15:00) Ed Admission (Communication) (07/15/21 15:58) Medications Given in ED Current Medications Medications Dose Ordered Sig/Chery Route Start Time Stop Time Status Last Admin Dose Admin Albuterol/ Ipratropium 3 ml ONCE ONCE INH 07/15/21 14:45 07/15/21 14:46 DC 07/15/21 15:17 3 ML Cefepime HCl 1000 mg/Sodium Chloride 50 ml @ 100 mls/hr ONCE ONCE IV 07/15/21 14:45 07/15/21 15:14 DC 07/15/21 15:24 100 MLS/HR Methylprednisolone Sodium Succinate 125 mg ONCE ONCE IVP 07/15/21 15:00 07/15/21 15:01 DC 07/15/21 15:25 125 MG Naloxone HCl 0.4 mg ONCE ONCE IV 07/15/21 15:00 07/15/21 15:01 DC 07/15/21 15:24 0.4 MG Vital Signs/I&O 07/15/21 07/15/21 07/15/21 14:03 14:03 15:17 Temp 37.0 Pulse 70 67 Resp 18 16 B/P (MAP) 111/69 (83) Pulse Ox 94 100 O2 Delivery Non Rebreather Non Rebreather O2 Flow Rate 15.00 15.00 40.00 Capillary Refill : Diagnostic Imaging Diagonstic Imaging: Xray Plain Films/CT/US/NM/MRI: chest Comments NAME: MICKEY HUNTER [facility] REC#: [id number] PT STATUS: REG ER : 1935 PHYSICIAN: TIERRA ESPINAL APRN ADMIT DATE: 07/15/21/ER Draft Date of Exam:07/15/21 CHEST 1 VIEW, AP/PA ONLY EXAMINATION: Chest, one view. HISTORY: Sepsis. COMPARISON: 07/27/2019. FINDINGS: Heart size and pulmonary vasculature are normal. There are patchy interstitial and airspace opacities throughout both lungs. No pleural effusion or pneumothorax. Degenerative changes of the thoracic spine. Osseous structures are otherwise intact. There are calcifications of the aorta. IMPRESSION: 1. Patchy interstitial and airspace opacities throughout both lungs concerning for a multifocal pneumonia. Dictated on workstation # [id number] Dict: 07/15/21 1425 Trans: 07/15/21 1429 [id number] Interpreted by: ONEL REGALADO DO Electronically signed by: Departure Communication (Admissions) 7575-heart rate 75 sinus without ectopy. Oxygen 95% on BiPAP at 18/6 percent FiO2. Respiratory rate increased from about 16 up to about 30 after 0.4 mg IV Narcan. Blood pressure 114/89. Still unresponsive to her granddaughter at the bedside who she knows very well. 2875-spoke with Dr. Lin, will admit to cardiac stepdown on BiPAP antibiotics steroids. 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 Discussed with the patient's granddaughter Araceli at the bedside and I would be surprised if she pulls through this despite how well she seemed yesterday. NAME: MICKEY HUNTER [facility] REC#: [id number] PT STATUS: REG ER : 1935 PHYSICIAN: TIERRA ESPINAL APRN ADMIT DATE: 07/15/21/ER Draft Date of Exam:07/15/21 CT HEAD WO PROCEDURE: CT head without contrast. TECHNIQUE: Multiple contiguous axial images were obtained through the brain without the use of intravenous contrast. Auto Exposure Controls were utilized during the CT exam to meet ALARA standards for radiation dose reduction. INDICATION: Unresponsive. COMPARISON: Correlation is made with prior CT from 07/27/2019. FINDINGS: Ventricles and sulci are prominent consistent with the patient's age. No sulcal effacement or midline shift is identified. No acute intra-axial or extra-axial hemorrhage is detected. Cisterns are patent. Visualized paranasal sinuses are clear. IMPRESSION: No acute intracranial process is identified. Dictated on workstation # [id number] Dict: 07/15/21 1507 Trans: 07/15/21 1511 [id number] Interpreted by: FILI HARRIS MD Electronically signed by: Impression Primary Impression: Bilateral pneumonia Additional Impressions: Unresponsive RESPIRATORY FAILURE, UNSP, UNSP W HYPOXIA OR HYPERCAPNIA Disposition: ADMITTED INPATIENT Condition: Critical Admissions Decision to Admit Reason: Admit from ER (General) Decision to Admit/Date: Jul 15, 2021 Time/Decision to Admit Time: 15:42 Departure-Patient Inst. Decision time for Depature: 14:54 Referrals: ARELY SUNSHINE MD (PCP/Family) Primary Care Physician TIERRA ESPINAL APRN Jul 15, 2021 14:24
[2021-07-15 14:28] LABS: ABG BASE EXCESS -0.8 MMOL/L (-2.5-2.5); ABG OXYGEN SATURATION 98 % (94-100); ABG PCO2 58 MMHG (35-45); ABG PO2 120 MMHG (79-93); ABG TCO2 27.2 MMOL/L (21.0-31.0)
[2021-07-15 14:29] LABS: ABG PH 7.26 (7.37-7.43)
[2021-07-15 14:30] LABS: ALLENS TEST YES-POS; INSPIRED O2 10 L; PATIENT TEMP 37.2; VENTILATOR NO
--- NOTE | 2021-07-15 14:30 | Diagnostic Imaging Report ---
EXAMINATION: Chest, one view. HISTORY: Sepsis. COMPARISON: 07/27/2019. FINDINGS: Heart size and pulmonary vasculature are normal. There are patchy interstitial and airspace opacities throughout both lungs. No pleural effusion or pneumothorax. Degenerative changes of the thoracic spine. Osseous structures are otherwise intact. There are calcifications of the aorta. IMPRESSION: 1. Patchy interstitial and airspace opacities throughout both lungs concerning for a multifocal pneumonia. Dictated by: Dictated on workstation # [id number]
[2021-07-15 14:32] LABS: BASOPHILS # (AUTO) 0.1 10^3/uL (0.0-0.1); BASOPHILS % (AUTO) 1 % (0-10); EOSINOPHILS # (AUTO) 0.1 10^3/uL (0.0-0.3); EOSINOPHILS % (AUTO) 1 % (0-10); HEMATOCRIT 44 % (35-52); HEMOGLOBIN 13.6 g/dL (11.5-16.0); LYMPHOCYTES # (AUTO) 3.7 10^3/uL (1.0-4.0); LYMPHOCYTES % (AUTO) 32 % (12-44); MEAN CORPUSCULAR HEMOGLOBIN 30 pg (25-34); MEAN CORPUSCULAR HGB CONC 31 g/dL (32-36); MEAN CORPUSCULAR VOLUME 96 fL (80-99); MEAN PLATELET VOLUME 9.9 fL (9.0-12.2); MONOCYTES # (AUTO) 0.6 10^3/uL (0.0-1.0); MONOCYTES % (AUTO) 5 % (0-12); NEUTROPHILS # (AUTO) 7.1 10^3/uL (1.8-7.8); NEUTROPHILS % (AUTO) 61 % (42-75); PLATELET COUNT 228 10^3/uL (130-400); WHITE BLOOD COUNT 11.7 10^3/uL (4.3-11.0)
[2021-07-15 14:37] LABS: ALBUMIN 3.4 GM/DL (3.2-4.5)
[2021-07-15 14:38] LABS: POTASSIUM 4.6 MMOL/L (3.6-5.0); PROTHROMBIN TIME PATIENT 14.1 SEC (12.2-14.7)
[2021-07-15 14:40] LABS: TOTAL PROTEIN 7.7 GM/DL (6.4-8.2)
[2021-07-15 14:42] LABS: BILIRUBIN,TOTAL 0.3 MG/DL (0.1-1.0)
[2021-07-15 14:44] LABS: CREATININE SERUM 1.83 MG/DL (0.60-1.30)
[2021-07-15] MEDS ORDERED: RT-ALBUTEROL/IPRATROPIUM 3 ML (DUONEB) VIAL INH ONE (14:45)
[2021-07-15] MEDS ORDERED: CEFEPIME INJECTION 1,000 MG in NS (IVPB) 50 ML IV ONE (14:45)
[2021-07-15 14:55] LABS: BILIRUBIN,URINE NEGATIVE (NEGATIVE); CLARITY,URINE CLEAR; COLOR,URINE YELLOW; GLUCOSE, URINE (UA) NEGATIVE (NEGATIVE); KETONES,URINE TRACE (NEGATIVE); LEUKOCYTE ESTERASE ,URINE NEGATIVE (NEGATIVE); NITRITE,URINE NEGATIVE (NEGATIVE); PH,URINE 5.5 (5-9); PROTEIN,URINE NEGATIVE (NEGATIVE)
[2021-07-15] MEDS ORDERED: methylPREDNISolone 125 MG (Solu-MEDROL) VIAL IVP ONE (15:00)
[2021-07-15] MEDS ORDERED: NALOXONE 0.4 MG/ML 1 ML (NARCAN) VIAL IV ONE (15:00)
[2021-07-15 15:03] LABS: BACTERIA,URINE TRACE /HPF; SQUAMOUS EPITHELIAL CELL,UR RARE /HPF
[2021-07-15 15:05] LABS: AMPHETAMINE SCREEN, URINE NEGATIVE (NEGATIVE); BENZODIAZEPINES SCREEN URINE POSITIVE (NEGATIVE); CANNABINOID SCREEN, URINE NEGATIVE (NEGATIVE); COCAINE SCREEN URINE NEGATIVE (NEGATIVE); METHAMPHETAMINE SCREEN URINE S NEGATIVE (NEGATIVE)
[2021-07-15 15:06] LABS: BARBITURATE SCREEN URINE NEGATIVE (NEGATIVE); METHADONE STAT NEGATIVE (NEGATIVE); OPIATE SCREEN URINE POSITIVE (NEGATIVE); OXYCODONE STAT POSITIVE (NEGATIVE); PROPOXYPHENE STAT NEGATIVE (NEGATIVE); TRICYCLIC ANTIDEPRESSANTS SCRE NEGATIVE (NEGATIVE)
--- NOTE | 2021-07-15 15:12 | Diagnostic Imaging Report ---
PROCEDURE: CT head without contrast. TECHNIQUE: Multiple contiguous axial images were obtained through the brain without the use of intravenous contrast. Auto Exposure Controls were utilized during the CT exam to meet ALARA standards for radiation dose reduction. INDICATION: Unresponsive. COMPARISON: Correlation is made with prior CT from 07/27/2019. FINDINGS: Ventricles and sulci are prominent consistent with the patient's age. No sulcal effacement or midline shift is identified. No acute intra-axial or extra-axial hemorrhage is detected. Cisterns are patent. Visualized paranasal sinuses are clear. IMPRESSION: No acute intracranial process is identified. Dictated by: Dictated on workstation # [id number]
[2021-07-15 15:17] VITALS: BP 98/47
[2021-07-15] MEDS ORDERED: ALPRAZolam 0.25 MG (XANAX) TAB PO PRN (18:30)
[2021-07-15] MEDS ORDERED: CALCIUM CARBONATE 500 MG (TUMS) TAB.CHEW PO PRN (18:30)
[2021-07-15] MEDS ORDERED: morphine INJ 10 MG/ML 1ML (SYR OR VIAL) IVP PRN (18:30)
[2021-07-15] MEDS ORDERED: LORazepam INJ 2 MG/ML (ATIVAN) VIAL IVP PRN (18:30)
[2021-07-15] MEDS ORDERED: WATER (STERILE) FOR INJ 10 ML BTL INJ SCH (18:30)
[2021-07-15] MEDS ORDERED: diphenhydrAMINE 25 MG TAB (BENADRYL) PO PRN (18:30)
[2021-07-15] MEDS ORDERED: LOPERAMIDE 2 MG (IMODIUM) TABLET PO PRN (18:30)
[2021-07-15] MEDS ORDERED: ZIPRASIDONE 20 MG INJ (GEODON) VIAL IM PRN (18:30)
[2021-07-15] MEDS ORDERED: HALOPERIDOL 5 MG/ML (HALDOL) VIAL IM PRN (18:30)
[2021-07-15] MEDS ORDERED: ENOXAPARIN 40 MG/0.4 ML (LOVENOX) SYR SC SCH (18:30)
[2021-07-15] MEDS ORDERED: DOCUSATE SODIUM 100 MG (COLACE) CAP PO PRN (18:30)
[2021-07-15] MEDS ORDERED: HYDROcodone/APAP 5 MG/325 MG (LORTAB) TAB PO PRN (18:30)
[2021-07-15] MEDS ORDERED: ONDANSETRON 4 MG/2 ML (SDV) Z0FRAN IVP PRN (18:30)
[2021-07-15 18:47] VITALS: BP 111/69
[2021-07-15] MEDS ORDERED: ENOXAPARIN 30 MG/0.3 ML (LOVENOX) SYR SC SCH (19:00)
[2021-07-15] MEDS: NS IV 1000 ML 1,000 ML IV SCH (19:11)
[2021-07-15] MEDS ORDERED: RT-ALBUTEROL SULF 2.5 MG/3 ML PRE-MIX VIAL INH SCH (21:00)
[2021-07-15] MEDS: CEFEPIME INJECTION 2,000 MG in NS (IVPB) 50 ML IV SCH (21:50)
[2021-07-15] MEDS: SENNA W/DOCUSATE (SENOKOT S) TABLET PO SCH (21:50)
[2021-07-16] MEDS: methylPREDNISolone 40 MG/ML (Solu-MEDROL) VIAL IV SCH ×5 (02:14→23:14)
[2021-07-16 06:02] LABS: BASOPHILS % (AUTO) 0 % (0-10); EOSINOPHILS % (AUTO) 0 % (0-10); HEMATOCRIT 44 % (35-52); HEMOGLOBIN 13.9 g/dL (11.5-16.0); LYMPHOCYTES % (AUTO) 19 % (12-44); MEAN CORPUSCULAR HEMOGLOBIN 30 pg (25-34); MEAN CORPUSCULAR HGB CONC 32 g/dL (32-36); MEAN CORPUSCULAR VOLUME 94 fL (80-99); MEAN PLATELET VOLUME 9.9 fL (9.0-12.2); MONOCYTES # (AUTO) 0.1 10^3/uL (0.0-1.0); MONOCYTES % (AUTO) 2 % (0-12); NEUTROPHILS # (AUTO) 3.9 10^3/uL (1.8-7.8); NEUTROPHILS % (AUTO) 78 % (42-75); PLATELET COUNT 175 10^3/uL (130-400)
[2021-07-16 06:19] LABS: ALBUMIN 3.1 GM/DL (3.2-4.5)
[2021-07-16 06:20] LABS: POTASSIUM 4.3 MMOL/L (3.6-5.0)
[2021-07-16 06:21] LABS: CALCIUM 8.6 MG/DL (8.5-10.1)
[2021-07-16 06:22] LABS: TOTAL PROTEIN 7.3 GM/DL (6.4-8.2)
[2021-07-16 06:24] LABS: BILIRUBIN,TOTAL 0.3 MG/DL (0.1-1.0)
[2021-07-16 06:26] LABS: CREATININE SERUM 0.74 MG/DL (0.60-1.30)
[2021-07-16] MEDS: NS IV 1000 ML 1,000 ML IV SCH (06:43)
[2021-07-16 07:34] VITALS: BP_DIAS 112
[2021-07-16] MEDS: RT-ALBUTEROL SULF 2.5 MG/3 ML PRE-MIX VIAL INH SCH ×4 (07:34→20:48)
[2021-07-16] MEDS: CEFEPIME INJECTION 2,000 MG in NS (IVPB) 50 ML IV SCH (08:44)
[2021-07-16] MEDS: SENNA W/DOCUSATE (SENOKOT S) TABLET PO SCH ×2 (08:44→21:04)
--- NOTE | 2021-07-16 09:06 | History & Physical-Hospitalist ---
History of Present Illness HPI/Chief Complaint Chief complaint: Shortness of breath History present illness: This is an 86-year-old white female very debilitated pa tient of Dr. Reuben Hopkins who has a past medical history of COPD who presented to the ER with significant respiratory failure requiring BiPAP. IV steroids initiated and BiPAP was very helpful through the night. Nurse suspects aspiration so will initiate a pured diet. She currently is off BiPAP and on 2 L of oxygen. We will transfer her to the floor. Family at bedside during interview. Source: patient, family Exam Limitations: no limitations Date Seen 07/16/21 Time Seen by a Provider: 11:00 Attending Physician Karine Lin Floyd R MD Referring Physician Date of Admission Jul 15, 2021 at 16:00 Home Medications & Allergies Home Medications Reviewed patient Home Medication Reconciliation performed by pharmacy medication reconciliations semiconductor equipment technician and/or nursing. Patients Allergies have been reviewed. Allergies Allergies Coded Allergies Sulfa (Sulfonamide Antibiotics) (Verified Allergy, Unknown, 11/13/13) nitrofurantoin (Verified Adverse Reaction, Unknown, NAUSEA, 06/05/16) Past Vjzgujz-Jyskxv-Ldsohb Hx Patient Social History Marrital Status: single Employed/Student: unemployed Tobacco Use?: No Smoking Status: Never a Smoker Smokeless Tobacco Frequency: Never a User Use of E-Cig and/or Vaping dev: No Use of E-Cig and/or Vaping Bk: Never a User Substance use?: No Alcohol Use?: No Pt feels they are or have been: No Immunizations Up To Date Date of Influenza Vaccine: Jun 10, 2021 PED Vaccines UTD: No Date of Pneumonia Vaccine: Nov 16, 2013 Seasonal Allergies Seasonal Allergies: No Current Status status: No status: No Advance Directives: Unable to obtain Communicates: Unable To Communicate Primary Language: [place] Leonean Preferred Spoken Language: [place] Leonean Is interpretation needed?: No Sensory deficits: Vision impairment Implanted or Applied Medical D: None Past Medical History Surgeries: Eye Surgery, Hysterectomy, Orthopedic Pneumonia, Chronic Bronchitis Currently Using CPAP: No Currently Using BIPAP: No Sexually Transmitted Disease: No HIV/AIDS: No Bladder Infection, UTI-Chronic Chronic Constipation Arthritis, Rheumatoid Arthritis Cataract Blood Disorders: Yes (CHRONIC ANEMIA) Adverse Reaction/Blood Tranf: No Family Medical History BONE CANCER 19 FATHER HIP REPLACEMENT 19 MOTHER THYROID ISSUES 19 MOTHER No Pertinent Family Hx Review of Systems Constitutional: see HPI EENTM: no symptoms reported Respiratory: dyspnea on exertion Cardiovascular: no symptoms reported Gastrointestinal: no symptoms reported Genitourinary: no symptoms reported Musculoskeletal: no symptoms reported Skin: no symptoms reported Psychiatric/Neurological: No Symptoms Reported All Other Systems Reviewed Negative Unless Noted: Yes Physical Exam Physical Exam Vital Signs Vital Signs - First Documented 07/15/21 18:35 FiO2 50 Capillary Refill : Greater Than 3 Seconds Height, Weight, BMI Height: 5'2.00" Weight: 160lbs. 2.3oz. 72.488348gm; 21.25 BMI Method:Stated General Appearance: No Apparent Distress, Anxious, Chronically ill, Thin Eyes: Right Eye Normal Inspection, Right Eye PERRL HEENT: PERRL/EOMI, Normal ENT Inspection, Pharynx Normal, Moist Mucous Membranes Neck: Full Range of Motion, Normal Inspection, Non Tender Respiratory: Chest Non Tender, Lungs Clear, No Accessory Muscle Use, No Respiratory Distress, Decreased Breath Sounds Cardiovascular: Regular Rate, Rhythm, No Edema, No Gallop, No JVD, No Murmur, Normal Peripheral Pulses Gastrointestinal: Normal Bowel Sounds, No Organomegaly, No Pulsatile Mass, Non Tender, Soft Back: Normal Inspection, No CVA Tenderness, No Vertebral Tenderness Extremity: Normal Capillary Refill, Normal Inspection, Normal Range of Motion, Non Tender, No Calf Tenderness, No Pedal Edema Neurologic/Psychiatric: Alert, Oriented x3, No Motor/Sensory Deficits, helmet hat brim cutter II- XII Norm as Tested, Abnormal Gait, Depressed Affect Skin: Normal Color, Warm/Dry Lymphatic: No Adenopathy Results Results/Procedures Labs Laboratory Tests 07/15/21 14:03 07/16/21 05:15 Patient resulted labs reviewed. Assessment/Plan Admission Diagnosis Assessment: Acute Hypoxic Respiratory failure requiring BiPAP Exacerbation of COPD Hypoxia Frail status Plan: Transfer to fourth floor Oxygen Supportive shelter meds Admission Status: Inpatient Order (span 2 midnights) Reason for Inpatient Admission: resp failure Diagnosis/Problems Diagnosis/Problems (1) Unresponsive Status: Acute (2) Bilateral pneumonia Status: Acute (3) CAP (community acquired pneumonia) Status: Acute KARINE LIN DO Jul 16, 2021 09:06
[2021-07-16] MEDS: ENOXAPARIN 40 MG/0.4 ML (LOVENOX) SYR SC SCH (18:01)
[2021-07-16] MEDS: CEFEPIME 1,000 MG/NS 50 ML IVPB IV SCH ×2 (21:46)
[2021-07-16] MEDS: MELATONIN 3 MG TABLET PO PRN (21:46)
[2021-07-17] MEDS: methylPREDNISolone 40 MG/ML (Solu-MEDROL) VIAL IV SCH ×4 (05:48→22:52)
[2021-07-17] MEDS: CEFEPIME 1,000 MG/NS 50 ML IVPB IV SCH ×6 (05:48→20:41)
[2021-07-17] MEDS: RT-ALBUTEROL SULF 2.5 MG/3 ML PRE-MIX VIAL INH SCH ×4 (06:45→18:40)
[2021-07-17 07:31] VITALS: BP 119/63
[2021-07-17 07:38] LABS: BASOPHILS % (AUTO) 0 % (0-10); EOSINOPHILS % (AUTO) 0 % (0-10); HEMATOCRIT 42 % (35-52); HEMOGLOBIN 13.2 g/dL (11.5-16.0); LYMPHOCYTES # (AUTO) 1.1 10^3/uL (1.0-4.0); LYMPHOCYTES % (AUTO) 12 % (12-44); MEAN CORPUSCULAR HEMOGLOBIN 30 pg (25-34); MEAN CORPUSCULAR HGB CONC 32 g/dL (32-36); MEAN CORPUSCULAR VOLUME 93 fL (80-99); MEAN PLATELET VOLUME 9.8 fL (9.0-12.2); MONOCYTES # (AUTO) 0.3 10^3/uL (0.0-1.0); MONOCYTES % (AUTO) 3 % (0-12); NEUTROPHILS # (AUTO) 7.6 10^3/uL (1.8-7.8); NEUTROPHILS % (AUTO) 84 % (42-75); PLATELET COUNT 214 10^3/uL (130-400); WHITE BLOOD COUNT 9.1 10^3/uL (4.3-11.0)
[2021-07-17 08:01] LABS: ALBUMIN 2.9 GM/DL (3.2-4.5); BILIRUBIN,TOTAL 0.3 MG/DL (0.1-1.0); CALCIUM 8.9 MG/DL (8.5-10.1); CREATININE SERUM 0.65 MG/DL (0.60-1.30); TOTAL PROTEIN 6.8 GM/DL (6.4-8.2)
[2021-07-17] MEDS: SENNA W/DOCUSATE (SENOKOT S) TABLET PO SCH ×2 (08:31→19:30)
[2021-07-17] MEDS: ACETAMINOPHEN 500 MG TAB (TYLENOL) PO PRN ×2 (09:16→18:05)
--- NOTE | 2021-07-17 12:21 | Progress Note - Hospitalist ---
Subjective HPI/CC On Admission Date Seen by Provider: Jul 17, 2021 Time Seen by Provider: 11:00 Chief complaint: Shortness of breath History present illness: This is an 86-year-old white female very debilitated patient of Dr. Reuben Hopkins who has a past medical history of COPD who presented to the ER with significant respiratory failure requiring BiPAP. IV steroids initiated and BiPAP was very helpful through the night. Nurse suspects aspiration so will initiate a pured diet. She currently is off BiPAP and on 2 L of oxygen. We will transfer her to the floor. Family at bedside during interview. Subjective/Events-last exam Patient doing much better Confusion noted 2 L of oxygen maintained Very frail Review of Systems General: Fatigue, Malaise Focused Exam Lactate Level 07/15/21 14:03: Lactic Acid Level 1.73 Objective Exam Vital Signs Vital Signs Date Time Temp Pulse Resp B/P (MAP) Pulse Ox O2 Delivery O2 Flow Rate FiO2 07/17/21 15:11 97 Nasal Cannula 2.00 07/17/21 12:55 36.7 73 22 102/60 (74) 07/16/21 08:01 21 Capillary Refill : Greater Than 3 Seconds General Appearance: No Apparent Distress, WD/WN, Chronically ill Respiratory: Lungs Clear, Normal Breath Sounds, No Accessory Muscle Use, No Respiratory Distress Cardiovascular: Regular Rate, Rhythm Results/Procedures Lab Laboratory Tests 07/17/21 07:07 Patient resulted labs reviewed. Assessment/Plan Assessment and Plan Assess & Plan/Chief Complaint Assessment: Acute Hypoxic Respiratory failure requiring BiPAP Exacerbation of COPD Hypoxia Frail status Plan: Transfer to fourth floor Oxygen Supportive senior care meds 07/17/2021: Supportive care Diagnosis/Problems Diagnosis/Problems (1) Unresponsive Status: Acute (2) Bilateral pneumonia Status: Acute (3) CAP (community acquired pneumonia) Status: Acute CARSON MCCLELLAN DO Jul 17, 2021 12:21
[2021-07-17 12:55] VITALS: BP 102/60
[2021-07-17 17:00] VITALS: BP 120/64
[2021-07-17 19:17] VITALS: BP 137/66
[2021-07-17] MEDS: ENOXAPARIN 40 MG/0.4 ML (LOVENOX) SYR SC SCH (19:30)
[2021-07-17] MEDS: MELATONIN 3 MG TABLET PO PRN (22:52)
[2021-07-17 23:21] VITALS: BP 154/68
[2021-07-18 03:20] VITALS: BP 121/64
[2021-07-18] MEDS: methylPREDNISolone 40 MG/ML (Solu-MEDROL) VIAL IV SCH ×3 (04:42→18:13)
[2021-07-18] MEDS: CEFEPIME 1,000 MG/NS 50 ML IVPB IV SCH ×6 (04:42→22:27)
[2021-07-18 06:18] LABS: BASOPHILS % (AUTO) 0 % (0-10); EOSINOPHILS % (AUTO) 0 % (0-10); HEMATOCRIT 44 % (35-52); LYMPHOCYTES # (AUTO) 0.8 10^3/uL (1.0-4.0); LYMPHOCYTES % (AUTO) 9 % (12-44); MEAN CORPUSCULAR HEMOGLOBIN 30 pg (25-34); MEAN CORPUSCULAR HGB CONC 32 g/dL (32-36); MEAN CORPUSCULAR VOLUME 93 fL (80-99); MEAN PLATELET VOLUME 10.4 fL (9.0-12.2); MONOCYTES # (AUTO) 0.3 10^3/uL (0.0-1.0); MONOCYTES % (AUTO) 3 % (0-12); NEUTROPHILS # (AUTO) 7.9 10^3/uL (1.8-7.8); NEUTROPHILS % (AUTO) 87 % (42-75); PLATELET COUNT 204 10^3/uL (130-400)
[2021-07-18 06:41] LABS: ALBUMIN 3.3 GM/DL (3.2-4.5); POTASSIUM 3.4 MMOL/L (3.6-5.0)
[2021-07-18 06:43] LABS: CALCIUM 9.4 MG/DL (8.5-10.1)
[2021-07-18 06:44] LABS: TOTAL PROTEIN 7.4 GM/DL (6.4-8.2)
[2021-07-18 06:45] LABS: BILIRUBIN,TOTAL 0.4 MG/DL (0.1-1.0)
[2021-07-18 06:47] LABS: CREATININE SERUM 0.63 MG/DL (0.60-1.30)
[2021-07-18 06:58] LABS: LYMPHOCYTES % (MANUAL) 12 %; MONOCYTES % (MANUAL) 3 %; NEUTROPHILS % (MANUAL) 85 %
[2021-07-18] MEDS: RT-ALBUTEROL SULF 2.5 MG/3 ML PRE-MIX VIAL INH SCH ×4 (08:08→19:58)
[2021-07-18 08:16] VITALS: BP 125/70
[2021-07-18] MEDS: SENNA W/DOCUSATE (SENOKOT S) TABLET PO SCH ×2 (09:00→22:22)
--- NOTE | 2021-07-18 11:16 | Discharge Summary ---
Diagnosis/Chief Complaint Date of Admission Jul 15, 2021 at 16:00 Date of Discharge 07/18/21 Discharge Summary-Simple/Stand Consultations Discharge Physical Examination Allergies: Coded Allergies: Sulfa (Sulfonamide Antibiotics) (Verified Allergy, Unknown, 11/13/13) nitrofurantoin (Verified Adverse Reaction, Unknown, NAUSEA, 06/05/16) Vitals & I&Os Vital Sign - Last 12Hours Date Time Temp Pulse Resp B/P (MAP) Pulse Ox O2 Delivery O2 Flow Rate FiO2 07/18/21 09:01 High Flow N/C 2.00 07/18/21 08:16 36.4 56 18 125/70 (88) 97 07/16/21 08:01 21 Intake and Output 07/18/21 00:00 Intake Total 1420 ml Output Total 200 ml Balance 1220 ml General Appearance: Alert, Cooperative, No Acute Distress Respiratory: Clear to Auscultation, Normal Air Movement Cardiovascular: Regular Rate, No Murmurs Abdominal: Normal Bowel Sounds, Soft, No Tenderness, No Masses Extremities: No Tenderness/Swelling Skin: No Rashes Neuro: Normal Speech, Sensation Intact, Cranial Nerves 3-12 NL Psych/Mental Status: Mood NL Hospital Course Was the Problem List Reviewed?: Yes See final discharge diagnosis. Discharge Instructions to patient/family Please see electronic discharge instructions given to patient. Discharge Medications Reviewed and agree with Discharge Medication list on patient's Discharge Instr uction sheet BING HUBER MD Jul 18, 2021 11:16
[2021-07-18] MEDS ORDERED: PRD20T PO (11:19)
[2021-07-18] MEDS ORDERED: CEPH500T PO (11:19)
--- NOTE | 2021-07-18 11:20 | Discharge Summary ---
Discharge [facility] Reconcile Patient Problems Problems Reviewed?: Yes Discharge Medications New, Converted or Re-Newed RX: Transmitted to Pharmacy New Medications: Cephalexin (Cephalexin) 500 Mg Tablet 500 MG PO BID for 5 Days, #10 TAB Prednisone (Prednisone) 20 Mg Tab 20 MG PO DAILY, #20 TAB Take 3 tabs x 3 days Take 2 tabs x 3 days take 1 tab x 3 days take 1/2 tab x 4 days, stop Continued Medications: Diazepam (Diazepam) 5 Mg Tablet 5 MG PO Q8H PRN for ANXIETY, TAB Docusate Sodium (Stool Softener) 100 Mg Tablet 400 MG PO HS, TAB TAKES 4 (100MG) FOR A TOTAL OF 400MG Escitalopram Oxalate (Lexapro) 20 Mg Tablet 20 MG PO DAILY, TAB Glycerin (Glycerin) 1 Each Supp.rect 1 EACH RC DAILY, SUPP.RECT Hydrocodone Bit/Acetaminophen (HYDROcodone/APAP 10/325 TABLET) 1 Each Tablet 1 TAB PO Q4H PRN for PAIN-MODERATE (5-7) MDD 5 PER DAY, TAB Morphine Sulfate (Morphine Sulfate ER) 30 Mg Tablet.er 15-30 MG PO BID PRN for PAIN-SEVERE (8-10), TAB TAKES 1/2 TO 1 TAB Omeprazole (Omeprazole) 20 Mg Tablet.dr 20 MG PO DAILY PRN for HEARTBURN, TAB Ranitidine HCl (Acid Envelope Folder (RANITIDINE)) 150 Mg Tablet 150 MG PO HS PRN for HEARTBURN, TAB Discontinued Medications: Cephalexin (Keflex) 500 Mg Capsule 500 MG PO BID, #20 CAP Patient Instructions Goal/Follow Up Appt: F/u [address] Hopkins Activity & Diet Discharge Diet: Other Diet (Pureed diet) Activity as Tolerated: Yes Copy Copies To 1: CARL HOPKINS HOLLY R MD Jul 18, 2021 11:20
[2021-07-18 12:25] VITALS: BP 136/62
[2021-07-18] MEDS ORDERED: MORP15TA69 PO (15:53)
[2021-07-18] MEDS ORDERED: BUDE10.2 IH (15:55)
[2021-07-18] MEDS ORDERED: OLOP5DRO13 OP (15:56)
[2021-07-18] MEDS ORDERED: RT-ALBUINH IH (15:57)
[2021-07-18] MEDS ORDERED: HYDR-3817 PO (15:58)
[2021-07-18 16:00] VITALS: BP 143/65
[2021-07-18] MEDS ORDERED: ASCO500C17 PO (16:04)
[2021-07-18] MEDS ORDERED: MAGN400O7 PO (16:04)
[2021-07-18] MEDS ORDERED: BACI1TAB8 PO (16:05)
[2021-07-18] MEDS: ENOXAPARIN 40 MG/0.4 ML (LOVENOX) SYR SC SCH (18:13)
[2021-07-18 19:58] VITALS: BP 143/65
[2021-07-18 20:42] VITALS: BP 145/65
--- NOTE | 2021-07-18 20:42 | Progress Note ---
Subjective Subjective/Events-last exam Patient states that she is feeling much better. Tolerating PO diet. Denies any pain. Breathing at baseline. States that she does not have a home oxygen baseline. Review of Systems General: Fatigue, Malaise Pulmonary: Dyspnea; No Cough Cardiovascular: No: Chest Pain, Palpitations, Edema Gastrointestinal: No: Nausea, Vomiting, Abdominal Pain, Diarrhea, Constipation Genitourinary: No Dysuria, No Frequency Neurological: Weakness, Incoordination Objective Exam Last Set of Vital Signs Vital Signs Date Time Temp Pulse Resp B/P (MAP) Pulse Ox O2 Delivery O2 Flow Rate FiO2 07/18/21 16:00 36.4 52 20 143/65 (91) 96 Nasal Cannula 1.00 07/16/21 08:01 21 Capillary Refill : Greater Than 3 Seconds I&O Intake and Output 07/18/21 00:00 Intake Total 1570 ml Output Total 550 ml Balance 1020 ml Intake Oral 1470 ml IV Total 100 ml Output Urine Total 550 ml # Voids 3 # Bowel Movements 1 General: Alert, Oriented X3, No Acute Distress HEENT: Mucous Memb Moist/[place] Lungs: Normal Air Movement, Other (end exp wheezing, normal work of breathing at rest) Heart: Regular Rate, No Murmurs Abdomen: Normal Bowel Sounds, Soft, No Tenderness, No Masses Extremities: No Edema, No Tenderness/Swelling Neuro: Normal Speech, Cranial Nerves 3-12 NL Results/Procedures Lab Laboratory Tests 07/18/21 05:50: White Blood Count 9.0, Red Blood Count 4.69, Hemoglobin 14.0, Hematocrit 44, Mean Corpuscular Volume 93, Mean Corpuscular Hemoglobin 30, Mean Corpuscular Hemoglobin Concent 32, Red Cell Distribution Width 13.2, Platelet Count 204, Mean Platelet Volume 10.4, Immature Granulocyte % (Auto) 0, Neutrophils (%) (Auto) 87H, Lymphocytes (%) (Auto) 9L, Monocytes (%) (Auto) 3, Eosinophils (%) (Auto) 0, Basophils (%) (Auto) 0, Neutrophils # (Auto) 7.9H, Lymphocytes # (Auto) 0.8L, Monocytes # (Auto) 0.3, Eosinophils # (Auto) 0.0, Basophils # (Auto) 0.0, Immature Granulocyte # (Auto) 0.0, Neutrophils % (Manual) 85, Lymphocytes % (Manual) 12, Monocytes % (Manual) 3, Sodium Level 140, Potassium Level 3.4L, Chloride Level 104, Carbon Dioxide Level 26, Anion Gap 10, Blood Urea Nitrogen 18, Creatinine 0.63, Estimat Glomerular Filtration Rate 90, BUN/Creatinine Ratio 29, Glucose Level 118H, Calcium Level 9.4, Corrected Calcium 10.0, Total Bilirubin 0.4, Aspartate Amino Transf (AST/SGOT) 20, Alanine Aminotransferase (ALT/SGPT) 19, Alkaline Phosphatase 58, Total Protein 7.4, Albumin 3.3 Microbiology 07/15/21 Blood Culture - Preliminary, Resulted No growth 07/15/21 Urine Culture - Final, Complete Strep, Beta Hemolytic Group B Assessment/Plan Assessment/Plan (1) Acute and chronic respiratory failure with hypoxia Status: Acute Assessment & Plan: 07/18: MAT protocol, patient on RA this AM, Will do home study (2) COPD exacerbation Status: Acute Assessment & Plan: 07/18: Continue antibiotics and steroids (3) Altered mental status Status: Resolved (4) Debility Status: Acute Assessment & Plan: 07/18: Family wish for SNF placement, patient desires to go home. Will continue to work on discharge planning (5) CAP (community acquired pneumonia) Status: Acute Qualifiers: Qualified Codes: J18.9 - Pneumonia, unspecified organism BING HUBER MD Jul 18, 2021 20:42
[2021-07-19] VITALS (7 sets, daily range): BP systolic 130–162; BP diastolic 64–80
[2021-07-19] MEDS ORDERED: RT-ALBUTEROL SULF 2.5 MG/3 ML PRE-MIX VIAL INH PRN (01:15)
[2021-07-19] MEDS: methylPREDNISolone 40 MG/ML (Solu-MEDROL) VIAL IV SCH ×5 (01:15→23:21)
[2021-07-19] MEDS: CEFEPIME 1,000 MG/NS 50 ML IVPB IV SCH ×6 (05:35→22:08)
[2021-07-19 06:13] LABS: BASOPHILS % (AUTO) 0 % (0-10); EOSINOPHILS % (AUTO) 0 % (0-10); HEMATOCRIT 44 % (35-52); HEMOGLOBIN 14.4 g/dL (11.5-16.0); LYMPHOCYTES % (AUTO) 12 % (12-44); MEAN CORPUSCULAR HEMOGLOBIN 30 pg (25-34); MEAN CORPUSCULAR HGB CONC 33 g/dL (32-36); MEAN CORPUSCULAR VOLUME 91 fL (80-99); MEAN PLATELET VOLUME 9.9 fL (9.0-12.2); MONOCYTES # (AUTO) 0.4 10^3/uL (0.0-1.0); MONOCYTES % (AUTO) 5 % (0-12); NEUTROPHILS % (AUTO) 83 % (42-75); PLATELET COUNT 251 10^3/uL (130-400); WHITE BLOOD COUNT 8.4 10^3/uL (4.3-11.0)
[2021-07-19 06:22] LABS: ALBUMIN 3.3 GM/DL (3.2-4.5)
[2021-07-19 06:23] LABS: POTASSIUM 3.1 MMOL/L (3.6-5.0)
[2021-07-19 06:24] LABS: CALCIUM 9.3 MG/DL (8.5-10.1)
[2021-07-19 06:25] LABS: TOTAL PROTEIN 7.1 GM/DL (6.4-8.2)
[2021-07-19 06:27] LABS: BILIRUBIN,TOTAL 0.5 MG/DL (0.1-1.0)
[2021-07-19 06:29] LABS: CREATININE SERUM 0.59 MG/DL (0.60-1.30)
[2021-07-19] MEDS: SENNA W/DOCUSATE (SENOKOT S) TABLET PO SCH ×2 (09:05→20:19)
[2021-07-19] MEDS: RT-ALBUTEROL SULF 2.5 MG/3 ML PRE-MIX VIAL INH SCH ×2 (11:13→19:57)
--- NOTE | 2021-07-19 14:29 | Physical Therapy Evaluation ---
PT Evaluation-General Medical Diagnosis Admission Date Jul 15, 2021 at 16:00 Medical Diagnosis: respiratory failure Onset Date: Jul 15, 2021 Therapy Diagnosis Therapy Diagnosis: debility/weakness Height/Weight Height (Feet): 5 Height (Inches): 2.00 Weight (Pounds): 160 Weight (Ounces): 2.3 Precautions Precautions/Isolations: Aspiration, Fall Prevention, Standard Precautions Referral Physician: Miki Reason for Referral: Evaluation/Treatment Medical History Pertinent Medical History: Arthritis, OA, Rheumatoid Arthritis Current History EMS secondary patient found unresponsive Reviewed History: Yes Social History Home: Single Level Current Living Status: Other Family Entry Into Home: Level Entry Prior Prior Level of Function SCALE: Activities may be completed with or without assistive devices. 0-Xyxhlznfva-cdsiilm completes the activity by him/herself with no assistance from a helper. 5-Set-up or Clean-up Assistance-helper sets up or cleans up; patient completes activity. [place] assists only prior to or following the activity. 4-Supervision or Touching Assistance-helper provides verbal cues and/or touching/steadying and/or contact guard assistance as patient completes activity. Assistance may be provided throughout the activity or intermittently. 3-Partial/Moderate Assistance-helper does LESS THAN HALF the effort. [place] lifts, holds or supports trunk or limbs, but provides less than half the effort. 2-Substantial/Maximal Assistance-helper does MORE THAN HALF the effort. [place] lifts or holds trunk or limbs and provides more than half the effort. 7-Dupvmnydk-ydydib does ALL the effort. Patient does none of the effort to complete the activity. Or, the assistance of 2 or more helpers is required for the patient to complete the activity. If activity was not attempted, code reason: 7-Patient Refused. 9-Not Applicable-not attempted and the patient did not perform the activity b efore the current illness, exacerbation or injury. 10-Not Attempted due to Environmental Limitations-(lack of equipment, weather restraints, etc.). 88-Not Attempted due to Medical Conditions or Safety Concerns. Bed Mobility: 6 Transfers (B,C,W/C): 6 Gait: 6 Stairs: 6 Indoor Mobility (Ambulation): Independent Prior Devices Use: Other-see list below Prior Device Use: cane PT Evaluation-Current Subjective Patient reports fatigue but agrees to PT. Objective Patient Orientation: Normal For Age Attachments: Oxygen ROM/Strength ROM Lower Extremities bilateral LE WFL Strength Lower Extremities 3/5 grossly bilateral LE Integumentary/Posture Integumentary refer to nursing notes Bowel Incontinence: No Bladder Incontinence: No Posture WFL Neuromuscular (Tone, Coordination, Reflexes) grossly intact Sensory Vision: Functional Hearing: Impaired Transfers Sit to Lying (QC): 4 Lying to Sitting/Side of Bed(Q: 4 Sit to Stand (QC): 4 CGA for safety Gait Mode of Locomotion: Walk Anticipated Mode of Locomotion: Walk Walk 10 feet (QC): 4 Walk 50 ft with 2 Turns(QC): 4 Gait Assistive Device: FWW Comments/Gait Description CGA for safety/slow, functional gait sequence Balance Sitting Static: Normal Sitting Dynamic: Normal Standing Static: Good Standing Dynamic: Good Assessment/Needs 86 y.o. female, will benefit from skilled PT to address functional strength and mobility to improve current LOF. Rehab Potential: Fair PT Group Home Goals Group Home Goals PT Group Home Goals Time Frame: Jul 30, 2021 Roll Left & Right (QC): 5 Sit to Lying (QC): 5 Lying-Sitting on Side/Bed(QC): 5 Sit to Stand (QC): 5 Chair/Dwz-te-Ycetl Xfer(QC): 5 Toilet Transfer (QC): 5 Walk 10 feet (QC): 5 Walk 50ft with 2 Turns (QC): 5 Walk 150 ft (QC): 5 PT Plan Problem List Problem List: Activity Tolerance, Functional Strength, Balance, Gait, Transfer, Bed Mobility Treatment/Plan Treatment Plan: Continue Plan of Care Treatment Plan: Bed Mobility, Education, Functional Activity Lelia, Functional Strength, Gait, Safety, Therapeutic Exercise, Transfers Treatment Duration: Jul 30, 2021 Frequency: 6 times per week Estimated Hrs Per Day: .5 hour per day Patient and/or Family Agrees t: Yes Time/GCodes Time In: 1339 Time Out: 1349 Total Billed Treatment Time: 10 Total Billed Treatment 1 visit EVModC 10 min NIKO FERNANDEZ PT Jul 19, 2021 14:29
--- NOTE | 2021-07-19 15:17 | Occupational Therapy Eval ---
OT Evaluation-General/PLF Medical Diagnosis Admission Date Jul 15, 2021 at 16:00 Medical Diagnosis: respiratory failure Onset Date: Jul 15, 2021 Therapy Diagnosis Therapy Diagnosis: Impaired endurance Height/Weight Height (Feet): 5 Height (Inches): 2.00 Weight (Pounds): 160 Weight (Ounces): 2.3 Precautions Precautions/Isolations: Aspiration, Fall Prevention, Standard Precautions Referral Physician: Miki Referral Reason: Evaluation/Treatment Medical History Pertinent Medical History: Arthritis, OA, Rheumatoid Arthritis Current History Presented to ER with significant respiratory failure requiring BiPAP. Pt reports that she lives with her spouse, son, dtr in law, and daughter. Per social work note, pt enduring poor living conditions and will stay with other daughter post d/c. She reports being indep with adls and shares iadl responsibilities with family. Pt states that she hasn't showered in a very long time and instead performs sponge bathes standing at the sink. She goes to salon 2x/week to get her hair washed. She was using a walker [employer]. Reviewed History: Yes Social History Home: Single Level Current Living Status: Other Family Entry Into Home: Level Entry ADL-Prior Level of Function SCALE: Activities may be completed with or without assistive devices. 3-Oqqtqxejes-evegclh completes the activity by him/herself with no assistance from a helper. 5-Set-up or Clean-up Assistance-helper sets up or cleans up; patient completes activity. [place] assists only prior to or following the activity. 4-Supervision or Touching Assistance-helper provides verbal cues and/or touching/steadying and/or contact guard assistance as patient completes activity. Assistance may be provided throughout the activity or intermittently. 3-Partial/Moderate Assistance-helper does LESS THAN HALF the effort. [place] lifts, holds or supports trunk or limbs, but provides less than half the effort. 2-Substantial/Maximal Assistance-helper does MORE THAN HALF the effort. [place] lifts or holds trunk or limbs and provides more than half the effort. 8-Vvztuvyoq-odkssd does ALL the effort. Patient does none of the effort to complete the activity. Or, the assistance of 2 or more helpers is required for the patient to complete the activity. If activity was not attempted, code reason: 7-Patient Refused. 9-Not Applicable-not attempted and the patient did not perform the activity before the current illness, exacerbation or injury. 10-Not Attempted due to Environmental Limitations-(lack of equipment, weather restraints, etc.). 88-Not Attempted due to Medical Conditions or Safety Concerns. Self Care: Independent Functional Cognition: Independent DME/Equipment: Shower Drive Self: No OT Current Status Subjective Denies pain, agreeable to eval. Appearance Returned to supine in bed, all needs within reach. Mental Status/Objective Patient Orientation: Person, Place, Situation Attachments: IV, Oxygen Current Upper Extremity ROM WNL Upper Extremity Strength 3+/5 grossly ADL-Treatment Upper Body Dressing (QC): 4 Lower Body Dressing (QC): 4 On/Off Footwear (QC): 4 Supine<>sit: SBA. Able to don/doff gene socks with use of cross over method, supervision. Sit<>stand: CGA for safety. Due to IV pump being connected to bed pole vs IV pole, limited distance allowed. Pt took 4-5 steps toward HOB with SBA-CGA and use of walker. SOA notable with limited activity. Recovers with rest break. Able to don robe and tie in front with zero UE support, CGA for safety. Education OT Patient Education: Energy conservation, Purpose of tx/functional activities, Transfer techniques Teaching Recipient: Patient, Family Teaching Methods: Discussion Response to Teaching: Verbalize Understanding OT Mcfp Goals Primary School Teacher Goals Time Frame: Jul 27, 2021 Oral Hygiene (QC): 5 Toileting Hygiene (QC): 4 Shower/Bathe Self (QC): 4 Upper Body Dressing (QC): 5 Lower Body Dressing (QC): 5 1=Demonstrate adherence to instructed precautions during ADL tasks. 2=Patient will verbalize/demonstrate understanding of assistive devices/modifications for ADL. 3=Patient will improve strength/tolerance for activity to enable patient to perform ADL's. OT Education/Plan Problem List/Assessment Assessment: Decreased Activ Tolerance, Decreased UE Strength, Impaired I ADL's, Impaired Self-Care Skills Discharge Recommendations Plan/Recommendations: Continue POC Target Placement Home health vs home with family pending progress Treatment Plan/Plan of Care Treatment,Training & Education: Yes Patient would benefit from OT for education, treatment and training to promote independence in ADL's, mobility, safety and/or upper extremity function for ADL's. Plan of Care: ADL Retraining, Functional Mobility, UE Funct Exercise/Act Treatment Duration: Jul 27, 2021 Frequency: 3 times per week Estimated Hrs Per Day: .25 hour per day Rehab Potential: Fair Time/GCodes Start Time: 14:50 Stop Time: 15:10 Total Time Billed (hr/min): 20 Billed Treatment Time 1 visit Pema Castellanos OT Jul 19, 2021 15:17
[2021-07-19] MEDS: ENOXAPARIN 40 MG/0.4 ML (LOVENOX) SYR SC SCH (18:36)
[2021-07-19] MEDS ORDERED: KCL 20 MEQ TAB (K-DUR) PO ONE ×2 (19:45→22:05)
--- NOTE | 2021-07-19 19:48 | Progress Note ---
Subjective Subjective/Events-last exam Patient feeling much better this AM. She is tolerating PO diet. Still getting short of breath with any activity. Review of Systems General: Fatigue Pulmonary: Dyspnea, Cough Cardiovascular: No: Chest Pain, Palpitations, Orthopnea, Edema Gastrointestinal: Nausea, Vomiting, Abdominal Pain, Diarrhea, Constipation Neurological: Weakness, Incoordination Objective Exam Last Set of Vital Signs Vital Signs Date Time Temp Pulse Resp B/P (MAP) Pulse Ox O2 Delivery O2 Flow Rate FiO2 07/19/21 19:16 36.8 68 18 130/65 (86) 96 Nasal Cannula 1.00 07/16/21 08:01 21 Capillary Refill : Greater Than 3 Seconds I&O Intake and Output 07/19/21 00:00 Intake Total 1100 ml Output Total 1350 ml Balance -250 ml Intake Oral 650 ml IV Total 450 ml Output Urine Total 1350 ml # Voids 4 # Bowel Movements 4 General: Alert, Oriented X3, No Acute Distress Lungs: Clear to Auscultation, Normal Air Movement Heart: Regular Rate, No Murmurs Abdomen: Normal Bowel Sounds, Soft, No Tenderness, No Masses Extremities: No Edema, No Tenderness/Swelling Neuro: Normal Speech, Sensation Intact Psych/Mental Status: Mental Status NL, Mood NL Results/Procedures Lab Laboratory Tests 07/19/21 05:54: White Blood Count 8.4, Red Blood Count 4.85, Hemoglobin 14.4, Hematocrit 44, Mean Corpuscular Volume 91, Mean Corpuscular Hemoglobin 30, Mean Corpuscular Hemoglobin Concent 33, Red Cell Distribution Width 13.1, Platelet Count 251, Mean Platelet Volume 9.9, Immature Granulocyte % (Auto) 0, Neutrophils (%) (Auto) 83H, Lymphocytes (%) (Auto) 12, Monocytes (%) (Auto) 5, Eosinophils (%) (Auto) 0, Basophils (%) (Auto) 0, Neutrophils # (Auto) 7.0, Lymphocytes # (Auto) 1.0, Monocytes # (Auto) 0.4, Eosinophils # (Auto) 0.0, Basophils # (Auto) 0.0, Immature Granulocyte # (Auto) 0.0, Sodium Level 137, Potassium Level 3.1L, Chloride Level 98, Carbon Dioxide Level 28, Anion Gap 11, Blood Urea Nitrogen 16, Creatinine 0.59L, Estimat Glomerular Filtration Rate 97, BUN/Creatinine Ratio 27, Glucose Level 108H, Calcium Level 9.3, Corrected Calcium 9.9, Total Bilirubin 0.5, Aspartate Amino Transf (AST/SGOT) 26, Alanine Aminotransferase (ALT/SGPT) 38, Alkaline Phosphatase 55, Total Protein 7.1, Albumin 3.3 Microbiology 07/15/21 Blood Culture - Preliminary, Resulted No growth 07/15/21 Urine Culture - Final, Complete Strep, Beta Hemolytic Group B Assessment/Plan Assessment/Plan (1) Acute and chronic respiratory failure with hypoxia Status: Acute Assessment & Plan: 07/18: MAT protocol, patient on RA this AM, Will do home study 07/19: Home study with 2-4 LPM needed during activity, plan to d/c to SNF (2) COPD exacerbation Status: Acute Assessment & Plan: 07/18: Continue antibiotics and steroids (3) Altered mental status Status: Resolved (4) Debility Status: Acute Assessment & Plan: 07/18: Family wish for SNF placement, patient desires to go home. Will continue to work on discharge planning 07/19: Plan to d/c to SNF (5) CAP (community acquired pneumonia) Status: Acute Qualifiers: Qualified Codes: J18.9 - Pneumonia, unspecified organism BING HUBER MD Jul 19, 2021 19:48
[2021-07-20] MEDS: methylPREDNISolone 40 MG/ML (Solu-MEDROL) VIAL IV SCH ×2 (05:45→11:24)
[2021-07-20] MEDS: CEFEPIME 1,000 MG/NS 50 ML IVPB IV SCH ×2 (05:45)
[2021-07-20 06:07] LABS: BASOPHILS % (AUTO) 0 % (0-10); EOSINOPHILS % (AUTO) 0 % (0-10); HEMATOCRIT 47 % (35-52); HEMOGLOBIN 15.5 g/dL (11.5-16.0); LYMPHOCYTES # (AUTO) 0.8 10^3/uL (1.0-4.0); LYMPHOCYTES % (AUTO) 12 % (12-44); MEAN CORPUSCULAR HEMOGLOBIN 30 pg (25-34); MEAN CORPUSCULAR HGB CONC 33 g/dL (32-36); MEAN CORPUSCULAR VOLUME 91 fL (80-99); MEAN PLATELET VOLUME 9.6 fL (9.0-12.2); MONOCYTES # (AUTO) 0.5 10^3/uL (0.0-1.0); MONOCYTES % (AUTO) 7 % (0-12); NEUTROPHILS # (AUTO) 5.7 10^3/uL (1.8-7.8); NEUTROPHILS % (AUTO) 81 % (42-75); PLATELET COUNT 261 10^3/uL (130-400)
[2021-07-20 06:31] LABS: ALBUMIN 3.3 GM/DL (3.2-4.5); POTASSIUM 3.5 MMOL/L (3.6-5.0)
[2021-07-20 06:32] LABS: CALCIUM 9.6 MG/DL (8.5-10.1)
[2021-07-20 06:33] LABS: TOTAL PROTEIN 7.3 GM/DL (6.4-8.2)
[2021-07-20 06:35] LABS: BILIRUBIN,TOTAL 0.5 MG/DL (0.1-1.0)
[2021-07-20 06:37] LABS: CREATININE SERUM 0.64 MG/DL (0.60-1.30)
[2021-07-20] MEDS: RT-ALBUTEROL SULF 2.5 MG/3 ML PRE-MIX VIAL INH SCH (07:23)
[2021-07-20 08:00] VITALS: BP 182/84
[2021-07-20] MEDS: SENNA W/DOCUSATE (SENOKOT S) TABLET PO SCH (08:20)
--- NOTE | 2021-07-20 10:19 | Occupational Ther Daily Note ---
OT Current Status-Daily Note Subjective Pt sitting in recliner, talking on phone. Pt has high anxiety, stating that she was having difficulty in paying phone bill. No c/o pain. Pt agrees to therapy. Mental Status/Objective Patient Orientation: Person, Place, Time, Situation Attachments: IV, Oxygen ADL-Treatment Therapy Code Descriptions/Definitions Functional [place] Measure: 0=Not Assessed/NA 4=Minimal Assistance 1=Total Assistance 5=Supervision or Setup 2=Maximal Assistance 6=Modified [place] 3=Moderate Assistance 7=Complete IndependenceSCALE: Activities may be completed with or without assistive devices. 2-Dxwqufvihd-aircgco completes the activity by him/herself with no assistance from a helper. 5-Set-up or Clean-up Assistance-helper sets up or cleans up; patient completes activity. [place] assists only prior to or following the activity. 4-Supervision or Touching Assistance-helper provides verbal cues and/or touching/steadying and/or contact guard assistance as patient completes activity. Assistance may be provided throughout the activity or intermittently. 3-Partial/Moderate Assistance-helper does LESS THAN HALF the effort. [place] lifts, holds or supports trunk or limbs, but provides less than half the effort. 2-Substantial/Maximal Assistance-helper does MORE THAN HALF the effort. [place] lifts or holds trunk or limbs and provides more than half the effort. 1-Hsuseveqv-dwwwly does ALL the effort. Patient does none of the effort to complete the activity. Or, the assistance of 2 or more helpers is required for the patient to complete the activity. If activity was not attempted, code reason: 7-Patient Refused. 9-Not Applicable-not attempted and the patient did not perform the activity before the current illness, exacerbation or injury. 10-Not Attempted due to Environmental Limitations-(lack of equipment, weather restraints, etc.). 88-Not Attempted due to Medical Conditions or Safety Concerns. Other Treatment Pt discussed issue with phone bill while seated in recliner. Redirection given for pt to engage in skilled therapeutic exercise to strengthen B UE and increase activity tolerance for completion of ADL/IADL tasks. Pt given light strength t herapy sponge. Pt completed squeezing sponge 10 reps using B LUE with good return demonstration with recovery break required between reps. Pt engaged in B shoulder flexion/extension against gravity while seated in recliner 5 reps x2 sets with recovery break required after each set. After session, pt in recliner with call light/phone within reach. All needs met in room. OT Tray Packer Goals [facility] Goals Time Frame: Jul 27, 2021 Oral Hygiene (QC): 5 Toileting Hygiene (QC): 4 Shower/Bathe Self (QC): 4 Upper Body Dressing (QC): 5 Lower Body Dressing (QC): 5 1=Demonstrate adherence to instructed precautions during ADL tasks. 2=Patient will verbalize/demonstrate understanding of assistive devices/modifications for ADL. 3=Patient will improve strength/tolerance for activity to enable patient to perform ADL's. OT Education/Plan Problem List/Assessment Assessment: Decreased Activ Tolerance, Decreased UE Strength Discharge Recommendations Plan/Recommendations: Continue POC Treatment Plan/Plan of Care Patient would benefit from OT for education, treatment and training to promote independence in ADL's, mobility, safety and/or upper extremity function for ADL's. Plan of Care: ADL Retraining, Functional Mobility, UE Funct Exercise/Act Treatment Duration: Jul 27, 2021 Frequency: 3 times per week Estimated Hrs Per Day: .25 hour per day Rehab Potential: Fair Time/GCodes Start Time: 09:33 Stop Time: 09:53 Total Time Billed (hr/min): 20 Billed Treatment Time 1 Visit- EX (20 min) VIET RAM Jul 20, 2021 10:19
--- NOTE | 2021-07-20 10:21 | Physical Therapy Daily Note ---
PT Daily Note-Current Subjective Pt agreeable. Pt denies pain. Pt requests toileting, agrees to sit in chair post therapy session. Mental Status Patient Orientation: Person, Place Transfers SCALE: Activities may be completed with or without assistive devices. 8-Qegjlawqwo-zyyxcwb completes the activity by him/herself with no assistance from a helper. 5-Set-up or Clean-up Assistance-helper sets up or cleans up; patient completes activity. [place] assists only prior to or following the activity. 4-Supervision or Touching Assistance-helper provides verbal cues and/or touching/steadying and/or contact guard assistance as patient completes activity. Assistance may be provided throughout the activity or intermittently. 3-Partial/Moderate Assistance-helper does LESS THAN HALF the effort. [place] lifts, holds or supports trunk or limbs, but provides less than half the effort. 2-Substantial/Maximal Assistance-helper does MORE THAN HALF the effort. [place] lifts or holds trunk or limbs and provides more than half the effort. 4-Qbtljmnzw-qnrpba does ALL the effort. Patient does none of the effort to complete the activity. Or, the assistance of 2 or more helpers is required for the patient to complete the activity. If activity was not attempted, code reason: 7-Patient Refused. 9-Not Applicable-not attempted and the patient did not perform the activity before the current illness, exacerbation or injury. 10-Not Attempted due to Environmental Limitations-(lack of equipment, weather restraints, etc.). 88-Not Attempted due to Medical Conditions or Safety Concerns. Bed mobility and transfers mod (I) Gait Training Gait Assistive Device: FWW Pt amb to toilet x 15', in room x 50' with O2 at 1.5L/min per portable O2. Pt slightly SOB with activity. Exercises Seated Therapy Exercises: Ankle pumps, Long arc quads Seated Reps: 15 Treatments Pt toileted mod (I). Assessment Current Status: Fair Progress Pt julia above well. Pt easily distracted requiring cues to stay on task. Pt resting in recliner with call light and all needs met post therapy. (B) LE elevated, pt reminded to call nurse if she needs anything. Pt agreeable. PT Podiatry Doctor Goals [facility] Goals PT Podiatry Doctor Goals Time Frame: Jul 30, 2021 Roll Left & Right (QC): 5 Sit to Lying (QC): 5 Lying-Sitting on Side/Bed(QC): 5 Sit to Stand (QC): 5 Chair/Cjt-cm-Fpcaa Xfer(QC): 5 Toilet Transfer (QC): 5 Walk 10 feet (QC): 5 Walk 50ft with 2 Turns (QC): 5 Walk 150 ft (QC): 5 PT Plan Treatment/Plan Treatment Plan: Continue Plan of Care Treatment Plan: Bed Mobility, Education, Functional Activity Lelia, Functional Strength, Gait, Safety, Therapeutic Exercise, Transfers Treatment Duration: Jul 30, 2021 Frequency: 6 times per week Estimated Hrs Per Day: .5 hour per day Patient and/or Family Agrees t: Yes Time/GCodes Time In: 845 Time Out: 915 Total Billed Treatment Time: 30 Total Billed Treatment 1, FA 15', Gt x 15' TYRELL MARTIN CPTA Jul 20, 2021 10:21
[2021-07-20 12:03] VITALS: BP 182/84
--- NOTE | 2021-07-20 12:26 | Discharge Summary ---
Discharge Summary Reconcile Patient Problems Problems Reviewed?: Yes Hospital Course Hospital Course Date of Admission: Jul 15, 2021 at 16:00 Admission Diagnosis : Family Physician/Provider: Ronnie Alvarenga MD Date of Discharge: 07/20/21 Discharge Diagnosis: Acute on Chronic Respiratory Failure COPD Exacerbation CAP Altered mental status Advanced age Hospital Course: 86 yo F that presented with severe shortness of breath. Patient was placed on oxygen which is new for her and started on IV antibiotics. Upon admission patient was disoriented but by the AM was at her baseline. She continued to improve and was able to wean off oxygen at rest but still requires oxygen with activity. Plan to d/c to SNF with goal of moving in with daughter following rehab. Labs and Pending Lab Test: Laboratory Tests 07/20/21 05:40: White Blood Count 7.0, Red Blood Count 5.18H, Hemoglobin 15.5, Hematocrit 47, Mean Corpuscular Volume 91, Mean Corpuscular Hemoglobin 30, Mean Corpuscular Hemoglobin Concent 33, Red Cell Distribution Width 13.2, Platelet Count 261, Mean Platelet Volume 9.6, Immature Granulocyte % (Auto) 0, Neutrophils (%) (Auto) 81H, Lymphocytes (%) (Auto) 12, Monocytes (%) (Auto) 7, Eosinophils (%) (Auto) 0, Basophils (%) (Auto) 0, Neutrophils # (Auto) 5.7, Lymphocytes # (Auto) 0.8L, Monocytes # (Auto) 0.5, Eosinophils # (Auto) 0.0, Basophils # (Auto) 0.0, Immature Granulocyte # (Auto) 0.0, Sodium Level 138, Potassium Level 3.5L, Chloride Level 98, Carbon Dioxide Level 28, Anion Gap 12, Blood Urea Nitrogen 21H, Creatinine 0.64, Estimat Glomerular Filtration Rate 88, BUN/Creatinine Ratio 33, Glucose Level 114H, Calcium Level 9.6, Corrected Calcium 10.2H, Total Bilirubin 0.5, Aspartate Amino Transf (AST/SGOT) 27, Alanine Aminotransferase (ALT/SGPT) 41, Alkaline Phosphatase 54, Total Protein 7.3, Albumin 3.3 Microbiology 07/15/21 Blood Culture - Preliminary, Resulted No growth 07/15/21 Urine Culture - Final, Complete Strep, Beta Hemolytic Group B Home Meds Active Cephalexin 500 Mg Tablet 500 Mg PO BID 5 Days Prednisone 20 Mg Tab 20 Mg PO DAILY Take 3 tabs x 3 days Take 2 tabs x 3 days take 1 tab x 3 days take 1/2 tab x 4 days, stop Reported Probiotic 2 Billion Gummies (Bacillus Coagulans/Vitamin D3) 1 Each Tab.chew 1 Each PO DAILY Milk of Magnesia (Magnesium Hydroxide) 400 Mg/5 Ml Oral.susp 400 Mg PO DAILY PRN Vitamin C (Ascorbic Acid) 500 Mg Capsule 500 Mg PO DAILY Hydrocodone-Acetamin 7.5-325 (Hydrocodone/Acetaminophen) 1 Each Tablet 1 Each PO Q6H PRN Proair Hfa (Albuterol Sulfate) 1 Puff Puff 2 Puff IH Q6H PRN 1 PUFF = 90 MCG Olopatadine HCl 5 Ml Drops 1 Drop OP BID Symbicort 160-4.5 Mcg Inhaler (Budesonide/Formoterol Fumarate) 10.2 Gm Hfa.aer.ad 2 Puff IH BID Ms Contin (Morphine Sulfate) 15 Mg Tablet.er 15 Mg PO HS PRN Lexapro (Escitalopram Oxalate) 20 Mg Tablet 20 Mg PO DAILY Diazepam 5 Mg Tablet 5 Mg PO BID PRN Follow Up Appt.: Nicole will see you a facility Skilled NF Admit to: [facility] Certification (SNF) I certify that SNF services are required to be given on an inpatient basis because of the above named patient's need for [facility] care on a continuing basis for the conditions(s) for which he/she was receiving inpatient hospital services prior to his/her transfer to the SNF. [facility]dc Facility Order: Nursing Services, Room Service Waiter-Evaluate & Treat, Physical Therapy-Evaluate & Treat Oxygen Delivery Method: Nasal Cannula (RA at rest 2-3 LPM with activity) Discharge Diet: Other Diet (Pureed diet) Daily Activity as Tolerated: Yes Resuscitation Status: Do Not Resuscitate Bing Livingston Jul 20, 2021 12:20 Discharge Physical Exam General: Alert, Oriented X3, Cooperative, Mild Distress (with activity, conversational dsypnea) Lungs: Clear to Auscultation, Normal Air Movement Heart: Regular Rate, No Murmurs Abdomen: Normal Bowel Sounds, Soft, No Tenderness, No Masses Extremities: No Edema, No Tenderness/Swelling Skin: No Rashes Neuro: Normal Speech, Sensation Intact Psych/Mental Status: Mental Status NL, Mood NL BING LIVINGSTON MD Jul 20, 2021 12:26
[2021-07-20] MEDS ORDERED: HYDR-3817 PO (12:28)
[2021-07-20] MEDS ORDERED: DIAZ5TAB49 PO (12:28)
[2021-07-20] MEDS ORDERED: MORP15TA69 PO (12:28)
== END 2021-07-20 14:10 | DRG 193 ==
LOC: EDUNIT# 13:57 → ER 13:58 → CSD 16:00 → 4TH 07-16 14:24
PROVIDERS: ADMIT Internal Medicine; ATTEND Family Medicine
PROC: 5A09357 Assistance with Respiratory Ventilation, Less than 24 Consecutive Hours, Continuous Positive Airway Pressure (ICD-10-PCS; principal; 2021-07-15)
DX: J18.9 Pneumonia, unspecified organism (principal); J96.21 Acute and chronic respiratory failure with hypoxia; J44.0 Chronic obstructive pulmonary disease with (acute) lower respiratory infection; J44.1 Chronic obstructive pulmonary disease with (acute) exacerbation; Z66 Do not resuscitate; Z88.2 Allergy status to sulfonamides; Z79.899 Other long term (current) drug therapy; M06.9 Rheumatoid arthritis, unspecified; R54 Age-related physical debility; R41.82 Altered mental status, unspecified; Z20.822 Contact with and (suspected) exposure to COVID-19
CPT/HCPCS: 36415; 70450; 71045; 80053; 80306; 81000; 82805; 82947; 83605; 83880; 84145; 85007; 85025; 85027; 85610; 85730; 87040; 87077; 87088; 87636; 94640; 94660; 94760; 94761

== ENCOUNTER 2021-10-23 14:08 | Inpatient (IN) | payer MEDICARE ==
[~2021-10-23] VITALS: Ht 154 cm; Wt 57.1 kg
[~2021-10-23 14:08] MED LIST changes: +ASCO500C17 PO; +BACI1TAB8 PO; +BUDE10.2 IH; +CEPH500T PO; +HYDR-3817 PO; +MAGN400O7 PO; +MORP15TA69 PO; +OLOP5DRO13 OU; +PRD20T PO
[2021-10-23] MEDS ORDERED: RT-ALBUTEROL/IPRATROPIUM 3 ML (DUONEB) VIAL ONE (14:19)
[2021-10-23] MEDS ORDERED: NS IV 1000 ML 1,000 ML IV SCH (14:30)
[2021-10-23] MEDS ORDERED: AZITHROMYCIN INJECTION 500 MG in NS (IVPB) 250 ML IV ONE (14:30)
[2021-10-23] MEDS ORDERED: cefTRIAXone 1 GM PRE-MIX 50 ML IV ONE (14:30)
[2021-10-23 14:32] LABS: ABG BASE EXCESS -0.2 MMOL/L (-2.5-2.5); ABG OXYGEN SATURATION 97 % (94-100); ABG PCO2 37 MMHG (35-45); ABG PH 7.42 (7.37-7.43); ABG PO2 79 MMHG (79-93); ABG TCO2 25.2 MMOL/L (21.0-31.0); ALLENS TEST YES-POS; INSPIRED O2 6 L; PATIENT TEMP 36.7; VENTILATOR NO
--- NOTE | 2021-10-23 14:32 | ED Respiratory ---
General Chief Complaint: Respiratory Problems Stated Complaint: SOA Nursing Triage Note: PT PRESENTS TO ED FROM [facility] WITH COMPLAINTS OF INCREASED SOA AND HYPOXIA. Source: patient Exam Limitations: no limitations History of Present Illness Date Seen by Provider: Oct 23, 2021 Time Seen by Provider: 14:00 Initial Comments The patient presents to the ER by private conveyance with her daughter and chief complaint last couple days of worsening shortness of air oxygen saturations below 90% per the [facility] this morning. She does not use oxygen at [facility] or have a history of lung disease. She is not having any chest pain nausea fevers chills. No known sick contacts. She did get 3 doses of COVID-19 vaccination and an influenza vaccine. She is coughing up some white sputum. Allergies and Home Medications Allergies Coded Allergies: Sulfa (Sulfonamide Antibiotics) (Verified Allergy, Unknown, 11/13/13) nitrofurantoin (Verified Adverse Reaction, Unknown, NAUSEA, 06/05/16) Patient Home Medication List Home Medication List Reviewed: Yes Albuterol Sulfate (Proair Hfa) 1 Puff Puff, 2 PUFF IH Q6H PRN for SHORTNESS OF BREATH, (Reported) Entered as Reported by: PAULY RASCON on 07/18/21 1557 Ascorbic Acid (Vitamin C) 500 Mg Capsule, 500 MG PO DAILY, (Reported) Entered as Reported by: PAULY RASCON on 07/18/21 1604 Bacillus Coagulans/Vitamin D3 (Probiotic 2 Billion Gummies) 1 Each Tab.chew, 1 EACH PO DAILY, (Reported) Entered as Reported by: PAULY RASCON on 07/18/21 1605 Budesonide/Formoterol Fumarate (Symbicort 160-4.5 Mcg Inhaler) 10.2 Gm Hfa.aer.ad, 2 PUFF IH BID, (Reported) Entered as Reported by: PAULY RASCON on 07/18/21 1555 Cephalexin (Cephalexin) 500 Mg Tablet, 500 MG PO BID Prescribed by: BING HUBER on 07/18/21 1119 Diazepam (Diazepam) 5 Mg Tablet, 5 MG PO BID PRN for ANXIETY Prescribed by: BING HUBER on 07/20/21 1229 Escitalopram Oxalate (Lexapro) 20 Mg Tablet, 20 MG PO DAILY, (Reported) Entered as Reported by: CARL SHI on 07/28/19 0936 Hydrocodone/Acetaminophen (Hydrocodone-Acetamin 7.5-325) 1 Each Tablet, 1 EACH PO Q6H PRN for PAIN-MODERATE (5-7) Prescribed by: BING HUBER on 07/20/21 1229 Magnesium Hydroxide (Milk of Magnesia) 400 Mg/5 Ml Oral.susp, 400 MG PO DAILY PRN for CONSTIPATION-1ST LINE, (Reported) Entered as Reported by: PAULY RASCON on 07/18/21 1604 Morphine Sulfate (Ms Contin) 15 Mg Tablet.er, 15 MG PO HS PRN for PAIN-SEVERE (8-10) Prescribed by: BING HUBER on 07/20/21 1229 Olopatadine HCl (Olopatadine HCl) 5 Ml Drops, 1 DROP OP BID, (Reported) Entered as Reported by: PAULY RASCON on 07/18/21 1556 Prednisone (Prednisone) 20 Mg Tab, 20 MG PO DAILY Prescribed by: BING HUBER on 07/18/21 1119 Review of Systems Review of Systems Constitutional: No chills, No diaphoresis, No fever; malaise EENTM: No ear discharge, No ear pain Respiratory: cough, phlegm, short of breath Cardiovascular: No chest pain, No palpitations Gastrointestinal: No abdominal pain, No constipation, No diarrhea, No nausea Genitourinary: No discharge, No dysuria Musculoskeletal: No back pain, No joint pain All Other Systems Reviewed Negative Unless Noted: Yes Past Roecuiw-Ivrdvu-Lfomed Hx Patient Social History Tobacco Use?: No Smoking Status: Never a Smoker Substance use?: No Alcohol Use?: Yes Alcohol Frequency: Rarely Pt feels they are or have been: No Immunizations Up To Date Tetanus Booster (TDap): Less than 5yrs PED Vaccines UTD: No First/Initial COVID19 Vaccinat: YES Second COVID19 Vaccination [place]: YES Seasonal Allergies Seasonal Allergies: No Past Medical History Surgery/Hospitalization HX: PMH:ARTHRITIS, DEPRESSION, COPD, Surgeries: Yes (2 hip replacements on right hip; L ankle surgery; CATARACTS) Eye Surgery, Hysterectomy, Orthopedic Respiratory: Yes (SOB WITH EXERTION, FREQUENT BRONCHITIS, PNEUMONIA) Pneumonia, Chronic Bronchitis Currently Using CPAP: No Currently Using BIPAP: No Cardiac: No Neurological: No Reproductive Disorders: No Female Reproductive Disorders: Denies Sexually Transmitted Disease: No HIV/AIDS: No Bladder Infection, UTI-Chronic Gastrointestinal: Yes Chronic Constipation Musculoskeletal: Yes (Chronic osteoarthritis, bursitis, ) Arthritis, Rheumatoid Arthritis Endocrine: No Cataract Cancer: No Psychosocial: No Integumentary: No Blood Disorders: Yes (CHRONIC ANEMIA) Adverse Reaction/Blood Tranf: No Family Medical History BONE CANCER 19 FATHER HIP REPLACEMENT 19 MOTHER THYROID ISSUES 19 MOTHER No Pertinent Family Hx Physical Exam Vital Signs - First Documented 10/23/21 10/23/21 14:14 14:50 Temp 36.1 Pulse 88 Resp 20 B/P (MAP) 155/65 (95) Pulse Ox 94 O2 Delivery Nasal Cannula O2 Flow Rate 6.00 FiO2 65 Capillary Refill : Less Than 3 Seconds Height: 5'2.00" Weight: 160lbs. 2.3oz. [id number]; 24.00 BMI Method:Stated General Appearance: WD/WN, moderate distress Eyes: Bilateral Eye Normal Inspection, Bilateral Eye PERRL, Bilateral Eye EOMI HEENT: PERRL/EOMI, pharynx normal Neck: full range of motion, normal inspection Respiratory: respiratory distress (Moderate with oxygen saturations 70% on room air), accessory muscle use, wheezing (Left worse than right) Cardiovascular: normal peripheral pulses, regular rate, rhythm Gastrointestinal: non tender, soft Extremities: non-tender, normal inspection; No no pedal edema (Trace bipedal edema); normal capillary refill Neurologic/Psychiatric: alert, normal mood/affect, oriented x 3 Skin: normal color, warm/dry Focused Exam Lactate Level 10/23/21 14:20: Lactic Acid Level 1.10 Lactic Acid Level Laboratory Tests Test 10/23/21 14:20 Lactic Acid Level 1.10 MMOL/L (0.50-2.00) Progress/Results/Core Measures Suspected Sepsis SIRS Temperature: Pulse: 88 Respiratory Rate: 20 Laboratory Tests 10/23/21 14:20: White Blood Count 13.3H Blood Pressure 155 /65 Mean: 95 10/23/21 14:20: Lactic Acid Level 1.10 Laboratory Tests 10/23/21 14:20: Creatinine 0.81, INR Comment 1.0, Platelet Count 348, Total Bilirubin 0.3 Results/Orders Lab Results Laboratory Tests Test 10/23/21 14:20 Range/Units White Blood Count 13.3 H 4.3-11.0 10^3/uL Red Blood Count 5.06 3.80-5.11 10^6/uL Hemoglobin 14.9 11.5-16.0 g/dL Hematocrit 46 35-52 % Mean Corpuscular Volume 91 80-99 fL Mean Corpuscular Hemoglobin 29 25-34 pg Mean Corpuscular Hemoglobin Concent 33 32-36 g/dL Red Cell Distribution Width 13.0 10.0-14.5 % Platelet Count 348 130-400 10^3/uL Mean Platelet Volume 9.4 9.0-12.2 fL Immature Granulocyte % (Auto) 0 % Neutrophils (%) (Auto) 67 42-75 % Lymphocytes (%) (Auto) 20 12-44 % Monocytes (%) (Auto) 7 0-12 % Eosinophils (%) (Auto) 5 0-10 % Basophils (%) (Auto) 1 0-10 % Neutrophils # (Auto) 8.9 H 1.8-7.8 10^3/uL Lymphocytes # (Auto) 2.7 1.0-4.0 10^3/uL Monocytes # (Auto) 0.9 0.0-1.0 10^3/uL Eosinophils # (Auto) 0.7 H 0.0-0.3 10^3/uL Basophils # (Auto) 0.1 0.0-0.1 10^3/uL Immature Granulocyte # (Auto) 0.1 0.0-0.1 10^3/uL Prothrombin Time 13.4 12.2-14.7 SEC INR Comment 1.0 0.8-1.4 Activated Partial Thromboplast Time 36 H 24-35 SEC D-Dimer 1.93 H 0.00-0.49 UG/ML Blood Gas Puncture Site RT RAD Blood Gas Patient Temperature 36.7 Arterial Blood pH 7.42 7.37-7.43 Arterial Blood Partial Pressure CO2 37 35-45 MMHG Arterial Blood Partial Pressure O2 79 79-93 MMHG Arterial Blood HCO3 24 23-27 MMOL/L Arterial Blood Total CO2 25.2 21.0-31.0 MMOL/L Arterial Blood Oxygen Saturation 97 94-100 % Arterial Blood Base Excess -0.2 -2.5-2.5 MMOL/L Villa Test YES-POS Blood Gas Ventilator Setting NO Blood Gas Inspired Oxygen 6 L Sodium Level 134 L 135-145 MMOL/L Potassium Level 3.9 3.6-5.0 MMOL/L Chloride Level 102 98-107 MMOL/L Carbon Dioxide Level 20 L 21-32 MMOL/L Anion Gap 12 5-14 MMOL/L Blood Urea Nitrogen 19 H 7-18 MG/DL Creatinine 0.81 0.60-1.30 MG/DL Estimat Glomerular Filtration Rate 72 BUN/Creatinine Ratio 23 Glucose Level 104 70-105 MG/DL Lactic Acid Level 1.10 0.50-2.00 MMOL/L Calcium Level 9.3 8.5-10.1 MG/DL Corrected Calcium 9.7 8.5-10.1 MG/DL Total Bilirubin 0.3 0.1-1.0 MG/DL Aspartate Amino Transf (AST/SGOT) 16 5-34 U/L Alanine Aminotransferase (ALT/SGPT) 7 0-55 U/L Alkaline Phosphatase 92 40-136 U/L Troponin I < 0.028 <0.028 NG/ML C-Reactive Protein High Sensitivity 2.35 H 0.00-0.50 MG/DL B-Type Natriuretic Peptide 36.0 <100.0 PG/ML Total Protein 7.4 6.4-8.2 GM/DL Albumin 3.5 3.2-4.5 GM/DL Procalcitonin 0.02 <0.10 NG/ML Influenza Type A (RT-PCR) Not Detected Not Detecte Influenza Type B (RT-PCR) Not Detected Not Detecte SARS-CoV-2 RNA (RT-PCR) Not Detected Not Detecte My Orders Orders - DEXTER WEST Albuterol/Ipra Inhalation Soln (Duoneb I (10/23/21 14:19) Arterial Blood Gas (10/23/21 14:25) Cbc With Automated Diff (10/23/21 14:26) Comprehensive Metabolic Panel (10/23/21 14:26) Blood Culture (10/23/21 14:26) Sputum Culture (10/23/21 14:26) Urinalysis (10/23/21 14:) Urine Culture (10/23/21 14:) Protime With Inr (10/23/21 14:) Partial Thromboplastin Time (10/23/21 14:26) Chest 1 View, Ap/Pa Only (10/23/21 14:26) Ed Iv/Invasive Line Start (10/23/21 14:26) Ed Iv/Invasive Line Start (10/23/21 14:26) Ekg Tracing (10/23/21 14:26) Troponin I Jaron (10/23/21 14:26) Vital Signs Adult Sepsis Patie Q15M (10/23/21 14:26) O2 (10/23/21 14:26) Remove Rings In Anticipation O (10/23/21 14:26) Lactic Acid Analyzer (10/23/21 14:) Influenza A And B By Pcr (10/23/21 14:) Ns Iv 1000 Ml (Sodium Chloride 0.9%) (10/23/21 14:30) Ceftriaxone 1 Gm Pre-Mix (Rocephin 1 Gm (10/23/21 14:30) Azithromycin Injection (Zithromax Inject (10/23/21 14:30) Covid 19 Inhouse Test (10/23/21 14:) Bnp Jaron (10/23/21 14:26) Hs C Reactive Protein (10/23/21 14:) Fibrin Degradation Products (10/23/21 14:) Procalcitonin (Pct) (10/23/21 14:26) Albuterol/Ipra Inhalation Soln (Duoneb I (10/23/21 14:45) Svn Small Volume Nebulizer (10/23/21 14:32) Vapotherm - Admin Rt Rfs (10/23/21 14:36) Ct Angio Chest W (10/23/21 15:06) Iohexol Injection (Omnipaque 350 Mg/Ml 1 (10/23/21 15:45) Received Contrast (Hold Metformin- Contr (10/23/21 15:45) Sodium Chloride Flush (Catheter Flush Sy (10/23/21 15:45) Ns (Ivpb) (Sodium Chloride 0.9% Ivpb Bag (10/23/21 15:45) Medications Given in ED Current Medications Medications Dose Ordered Sig/Chery Route Start Time Stop Time Status Last Admin Dose Admin Albuterol/ Ipratropium 3 ml STK-MED ONCE .ROUTE 10/23/21 14:19 10/23/21 14:22 DC 10/23/21 14:30 3 ML Ceftriaxone Sodium/Dextrose 50 ml @ 100 mls/hr ONCE ONCE IV 10/23/21 14:30 10/23/21 14:59 DC 10/23/21 16:06 100 MLS/HR Iohexol 75 ml ONCE ONCE IV 10/23/21 15:45 10/23/21 15:46 DC 10/23/21 15:44 75 ML Sodium Chloride 10 ml NEEDED PRN IV 10/23/21 15:45 10/23/21 15:44 10 ML Sodium Chloride 100 ml ONCE ONCE IV 10/23/21 15:45 10/23/21 15:46 DC 10/23/21 15:44 80 ML Vital Signs/I&O 10/23/21 10/23/21 10/23/21 14:14 14:31 14:50 Temp 36.1 Pulse 88 Resp 20 B/P (MAP) 155/65 (95) Pulse Ox 94 94 97 O2 Delivery Nasal Cannula Nasal Cannula Vapotherm O2 Flow Rate 6.00 5.00 35.00 FiO2 65 Capillary Refill : Less Than 3 Seconds Blood Pressure Mean: 95 Progress Note #1: Time: 14:31 Progress Note Septic work-up including COVID and influenza, ABG and put her on 6 L by nasal cannula which decreased her work of breathing and brought her up to 96%. We wi ll probably put her on Vapotherm if her ABG is acceptable. Looking for atypical angina. D-dimer for intermediate risk of pulmonary embolism. She is not on blood thinners Progress Note #2: Time: 15:02 Progress Note Plan to do a CT angiogram for rule out pulmonary embolism. She has no significant interstitial opacities seen on chest x-ray that are stable from last year. Could be a pneumonia hidden amongst them. Going to keep covering her with broad-spectrum antibiotics and will put her on Vapotherm which has helped significantly. She is FiO2 of 60% maintaining oxygen saturation of 99%. Heart rate is now down in the 80s from the 1 teens. She remains afebrile with good blood pressure of 119/95. ECG Initial ECG Impression Date: Oct 23, 2021 Initial ECG Impression Time: 13:52 Initial ECG Rate: 80 Initial ECG Rhythm: Normal Sinus Initial ECG Intervals: QT (471) Initial ECG Impression: Normal Initial ECG Comparisson: Unchanged Comment Normal sinus rhythm without clinically relevant ST elevation or depression. Borderline prolonged QTC. Diagnostic Imaging Diagonstic Imaging: Xray Plain Films/CT/US/NM/MRI: chest Comments [facility] [place], [place] NAME: [facility] REC#: [id number] PT STATUS: REG ER : 1935 PHYSICIAN: DEXTER WEST MD ADMIT DATE: 10/23/21/ER Draft Date of Exam:10/23/21 CHEST 1 VIEW, AP/PA ONLY EXAMINATION: Chest radiograph, portable AP view. DATE: 10/23/2021 2:46 PM. INDICATION: 86-year-old female, shortness of breath and hypoxia. COMPARISON: July 15, 2021. FINDINGS: There are bilateral predominantly interstitial appearing opacities which are also present on the prior exam and are essentially unchanged. Heart size and mediastinal contours are unchanged. There is no identified pneumothorax. There is no large pleural effusion. The degree of interstitial opacities is increased since prior radiographs on July 27, 2019. IMPRESSION: 1. Predominantly interstitial lung opacities with unchanged appearance since July 15, 2021. Findings are progressed since July 2019. Findings most likely reflect prominent findings of interstitial lung disease with interval progression of interstitial lung disease since 2019. 2. No definite acute cardiopulmonary abnormality. Dictated on workstation # [id number] Dict: 10/23/21 1446 Trans: 10/23/21 1451 [id number] Interpreted by: ADAN WILLIAMSON MD Electronically signed by: Reviewed: Reviewed by Me Diagonstic Imaging: CT (angio) Plain Films/CT/US/NM/MRI: chest Comments [facility]. [place], [place] NAME: [facility] REC#: [id number] PT STATUS: REG ER : 1935 PHYSICIAN: DEXTER WEST MD ADMIT DATE: 10/23/21/ER Draft Date of Exam:10/23/21 CT ANGIO CHEST W PROCEDURE: CT angiography of the chest with contrast. TECHNIQUE: Multiple contiguous axial images were obtained through the chest after uneventful bolus administration of intravenous contrast. 3D reconstructed CTA MIP acquisitions were also performed. Auto Exposure Controls were utilized during the CT exam to meet ALARA standards for radiation dose reduction. DATE: October 23, 2021. COMPARISON: CT chest May 02, 2021. Chest radiograph January 09, 2017. Chest radiograph October 23, 2021. July 15, 2021. INDICATION: 86-year-old female, increasing shortness of breath and hypoxia. FINDINGS: There is right lower lobe and right upper lobe bronchiectasis. There is left lower lobe and left upper lobe bronchiectasis. There are multifocal bilateral predominantly interstitial opacities. There is groundglass type consolidation present in the left upper lobe and left lower lobe. The areas of groundglass attenuation are an interval change since prior CT chest on May 02, 2021. The extensive findings of interstitial lung disease are also present on the comparison CT chest and appear largely unchanged. There is no pneumothorax. There is no sizable pleural effusion. More central airways are patent. The trachea is normal in caliber. There are limitations for assessment of subsegmental pulmonary emboli given degree of motion artifact. There is no identified central or segmental pulmonary embolus. The heart is not enlarged. There is no pericardial effusion. There are atherosclerotic calcifications. There are confluent mildly prominent AP window lymph nodes. There is a right superior mediastinal lymph node on axial image 33 measuring 1.2 cm in short axis. There is also right hilar adenopathy. This is largely similar to the prior CT. The gallbladder is surgically absent. There is a superior endplate concavity of T8 which is new since May 02, 2021. This may be an acute compression fracture. IMPRESSION: CT chest: 1. Extensive findings of interstitial lung disease without significant interval change since May 02, 2021. 2. New areas of groundglass consolidation in the left upper lobe and left lower lobe which may relate to areas of active pneumonitis, atypical infection and/or asymmetric edema. 3. No identified central or segmental pulmonary embolus. 4. Very mild compression deformity of T8 which is new since May 02, 2021 and may potentially be acute in age. Dictated on workstation # [id number] Dict: 10/23/21 1544 Trans: 10/23/21 1601 [facility] [id number] Interpreted by: ADAN WILLIAMSON MD Electronically signed by: Reviewed: Reviewed by Me Departure Communication (Admissions) Time/Spoke to Admitting Phy: 16:25 Discussed the case with Dr. Lin who agrees with admission on Vapotherm to the cardiac stepdown unit. Impression Primary Impression: Acute on chronic respiratory failure with hypoxemia Additional Impression: Interstitial lung disease Disposition: ADMITTED INPATIENT Condition: Stable Admissions Decision to Admit Reason: Admit from ER (General) Decision to Admit/Date: Oct 23, 2021 Time/Decision to Admit Time: 15:06 Departure-Patient Inst. Referrals: NO,LOCAL PHYSICIAN (PCP/Family) Primary Care Physician DEXTER WEST Oct 23, 2021 14:32
[2021-10-23 14:34] LABS: BASOPHILS # (AUTO) 0.1 10^3/uL (0.0-0.1); BASOPHILS % (AUTO) 1 % (0-10); EOSINOPHILS # (AUTO) 0.7 10^3/uL (0.0-0.3); EOSINOPHILS % (AUTO) 5 % (0-10); HEMATOCRIT 46 % (35-52); HEMOGLOBIN 14.9 g/dL (11.5-16.0); LYMPHOCYTES # (AUTO) 2.7 10^3/uL (1.0-4.0); LYMPHOCYTES % (AUTO) 20 % (12-44); MEAN CORPUSCULAR HEMOGLOBIN 29 pg (25-34); MEAN CORPUSCULAR HGB CONC 33 g/dL (32-36); MEAN CORPUSCULAR VOLUME 91 fL (80-99); MEAN PLATELET VOLUME 9.4 fL (9.0-12.2); MONOCYTES # (AUTO) 0.9 10^3/uL (0.0-1.0); MONOCYTES % (AUTO) 7 % (0-12); NEUTROPHILS # (AUTO) 8.9 10^3/uL (1.8-7.8); NEUTROPHILS % (AUTO) 67 % (42-75); PLATELET COUNT 348 10^3/uL (130-400); WHITE BLOOD COUNT 13.3 10^3/uL (4.3-11.0)
[2021-10-23 14:42] LABS: ALBUMIN 3.5 GM/DL (3.2-4.5); CHLORIDE 102 MMOL/L (98-107); POTASSIUM 3.9 MMOL/L (3.6-5.0); SODIUM 134 MMOL/L (135-145)
[2021-10-23 14:43] LABS: CALCIUM 9.3 MG/DL (8.5-10.1)
[2021-10-23 14:44] LABS: FIBRIN DEGRADATION PRODUCTS 1.93 UG/ML (0.00-0.49); GLUCOSE 104 MG/DL (70-105); PROTHROMBIN TIME PATIENT 13.4 SEC (12.2-14.7); TOTAL PROTEIN 7.4 GM/DL (6.4-8.2)
[2021-10-23 14:45] LABS: CARBON DIOXIDE 20 MMOL/L (21-32)
[2021-10-23] MEDS ORDERED: RT-ALBUTEROL/IPRATROPIUM 3 ML (DUONEB) VIAL INH ONE (14:45)
[2021-10-23 14:46] LABS: BILIRUBIN,TOTAL 0.3 MG/DL (0.1-1.0)
[2021-10-23 14:48] LABS: ALKALINE PHOSPHATASE 92 U/L (40-136); CREATININE SERUM 0.81 MG/DL (0.60-1.30); GFR ESTIMATED 72
[2021-10-23 14:49] LABS: BUN/CREATININE RATIO 23
[2021-10-23 14:51] LABS: ALANINE AMINOTRANSFERASE 7 U/L (0-55)
--- NOTE | 2021-10-23 14:52 | Diagnostic Imaging Report ---
EXAMINATION: Chest radiograph, portable AP view. DATE: 10/23/2021 2:46 PM. INDICATION: 86-year-old female, shortness of breath and hypoxia. COMPARISON: July 15, 2021. FINDINGS: There are bilateral predominantly interstitial appearing opacities which are also present on the prior exam and are essentially unchanged. Heart size and mediastinal contours are unchanged. There is no identified pneumothorax. There is no large pleural effusion. The degree of interstitial opacities is increased since prior radiographs on July 27, 2019. IMPRESSION: 1. Predominantly interstitial lung opacities with unchanged appearance since July 15, 2021. Findings are progressed since July 2019. Findings most likely reflect prominent findings of interstitial lung disease with interval progression of interstitial lung disease since 2019. 2. No definite acute cardiopulmonary abnormality. Dictated by: Dictated on workstation # [id number]
[2021-10-23] MEDS ORDERED: IOHEXOL 350 MG/ML 100 ML (OMNIPAQUE 350) VIAL IV ONE (15:45)
[2021-10-23] MEDS ORDERED: NS 100 ML (IVPB) BAG IV ONE (15:45)
[2021-10-23] MEDS ORDERED: CATHETER FLUSH 10 ML SYR IV PRN (15:45)
[2021-10-23] MEDS ORDERED: HOLD METFORMIN - RECEIVED CONTRAST 20 ML VIAL IV SCH (15:45)
--- NOTE | 2021-10-23 16:02 | Diagnostic Imaging Report ---
PROCEDURE: CT angiography of the chest with contrast. TECHNIQUE: Multiple contiguous axial images were obtained through the chest after uneventful bolus administration of intravenous contrast. 3D reconstructed CTA MIP acquisitions were also performed. Auto Exposure Controls were utilized during the CT exam to meet ALARA standards for radiation dose reduction. DATE: October 23, 2021. COMPARISON: CT chest May 02, 2021. Chest radiograph January 09, 2017. Chest radiograph October 23, 2021. July 15, 2021. INDICATION: 86-year-old female, increasing shortness of breath and hypoxia. FINDINGS: There is right lower lobe and right upper lobe bronchiectasis. There is left lower lobe and left upper lobe bronchiectasis. There are multifocal bilateral predominantly interstitial opacities. There is groundglass type consolidation present in the left upper lobe and left lower lobe. The areas of groundglass attenuation are an interval change since prior CT chest on May 02, 2021. The extensive findings of interstitial lung disease are also present on the comparison CT chest and appear largely unchanged. There is no pneumothorax. There is no sizable pleural effusion. More central airways are patent. The trachea is normal in caliber. There are limitations for assessment of subsegmental pulmonary emboli given degree of motion artifact. There is no identified central or segmental pulmonary embolus. The heart is not enlarged. There is no pericardial effusion. There are atherosclerotic calcifications. There are confluent mildly prominent AP window lymph nodes. There is a right superior mediastinal lymph node on axial image 33 measuring 1.2 cm in short axis. There is also right hilar adenopathy. This is largely similar to the prior CT. The gallbladder is surgically absent. There is a superior endplate concavity of T8 which is new since May 02, 2021. This may be an acute compression fracture. IMPRESSION: CT chest: 1. Extensive findings of interstitial lung disease without significant interval change since May 02, 2021. 2. New areas of groundglass consolidation in the left upper lobe and left lower lobe which may relate to areas of active pneumonitis, atypical infection and/or asymmetric edema. 3. No identified central or segmental pulmonary embolus. 4. Very mild compression deformity of T8 which is new since May 02, 2021 and may potentially be acute in age. Dictated by: Dictated on workstation # [id number]
[2021-10-23 17:10] LABS: BILIRUBIN,URINE NEGATIVE (NEGATIVE); CLARITY,URINE CLEAR; COLOR,URINE YELLOW; GLUCOSE, URINE (UA) NEGATIVE (NEGATIVE); KETONES,URINE NEGATIVE (NEGATIVE); LEUKOCYTE ESTERASE ,URINE NEGATIVE (NEGATIVE); NITRITE,URINE NEGATIVE (NEGATIVE); PROTEIN,URINE NEGATIVE (NEGATIVE)
[2021-10-23 17:16] LABS: BACTERIA,URINE NEGATIVE /HPF; SQUAMOUS EPITHELIAL CELL,UR 0-2 /HPF
[2021-10-23] MEDS ORDERED: ONDANSETRON 4 MG/2 ML (SDV) Z0FRAN IV PRN (17:30)
[2021-10-23] MEDS ORDERED: LACTULOSE SYRUP 10GM/15ML (ENULOSE) 30ML UDC PO PRN (17:30)
[2021-10-23] MEDS ORDERED: ANTACID SUSP 30 ML UDC (MYLANTA) PO PRN (17:30)
[2021-10-23] MEDS ORDERED: DIAZEPAM 5 MG (VALIUM) TABLET PO PRN (17:30)
[2021-10-23] MEDS ORDERED: diphenhydrAMINE 25 MG TAB (BENADRYL) PO PRN (17:30)
[2021-10-23] MEDS ORDERED: diphenhydrAMINE 50 MG/ML INJ (BENADRYL) IVP PRN (17:30)
[2021-10-23] MEDS ORDERED: MILK OF MAGNESIA 400 MG/5 ML 30 ML UDC PO PRN (17:30)
[2021-10-23] MEDS ORDERED: polyethylene glycoL POWDER 17 GM (MIRALAX) PACK PO PRN (17:30)
[2021-10-23] MEDS ORDERED: CALCIUM CARBONATE 500 MG (TUMS) TAB.CHEW PO PRN (17:30)
[2021-10-23] MEDS ORDERED: BISACODYL 10 MG SUPP (DULCOLAX) PR PRN (17:30)
[2021-10-23] MEDS ORDERED: morphine INJ 4 MG/ML 1 ML (VIAL/SYRINGE) IV PRN (17:30)
[2021-10-23] MEDS ORDERED: ONDANSETRON 4 MG (ZOFRAN) ORAL DISSOLVE TAB PO PRN (17:30)
[2021-10-23] MEDS ORDERED: NS IV 1000 ML 1,000 ML ONE (17:39)
[2021-10-23] MEDS: NS IV 1000 ML 1,000 ML IV SCH (17:58)
[2021-10-23] MEDS ORDERED: methylPREDNISolone 125 MG (Solu-MEDROL) VIAL ONE (17:59)
[2021-10-23] MEDS: methylPREDNISolone 125 MG (Solu-MEDROL) VIAL IVP SCH (18:00)
[2021-10-23] MEDS ORDERED: RT-ALBUTEROL/IPRATROPIUM 3 ML (DUONEB) VIAL INH SCH (18:00)
[2021-10-23 18:23] VITALS: BP 155/65
[2021-10-23] MEDS ORDERED: RT-ALBUTEROL SULF 2.5 MG/3 ML PRE-MIX VIAL INH PRN (18:45)
[2021-10-23 20:00] VITALS: BP 144/66
[2021-10-23] MEDS ORDERED: CEFEPIME 1 GM/10 ML (MAXIPIME) VIAL ONE (20:26)
[2021-10-23] MEDS ORDERED: MELATONIN 3 MG TABLET ONE (20:26)
[2021-10-23] MEDS ORDERED: ENOXAPARIN 40 MG/0.4 ML (LOVENOX) SYR ONE (20:26)
[2021-10-23] MEDS ORDERED: NS (IVPB) 50 ML ONE (20:26)
[2021-10-23] MEDS: SENNOSIDES 8.6 MG (SENOKOT) TAB PO SCH (20:40)
[2021-10-23] MEDS: DOCUSATE SODIUM 100 MG (COLACE) CAP PO SCH (20:40)
[2021-10-23] MEDS: ENOXAPARIN 40 MG/0.4 ML (LOVENOX) SYR SC SCH (20:41)
[2021-10-23] MEDS: MELATONIN 3 MG TABLET PO PRN (20:41)
[2021-10-23] MEDS ORDERED: CEFEPIME INJECTION 1,000 MG in NS (IVPB) 50 ML IV SCH (21:00)
[2021-10-23 21:15] VITALS: BP 143/71
[2021-10-23] MEDS: RT-ALBUTEROL/IPRATROPIUM 3 ML (DUONEB) VIAL INH SCH (21:45)
[2021-10-24] VITALS (8 sets, daily range): BP systolic 124–141; BP diastolic 62–78
[2021-10-24] MEDS: methylPREDNISolone 125 MG (Solu-MEDROL) VIAL IVP SCH ×4 (00:15→17:21)
[2021-10-24] MEDS: RT-ALBUTEROL/IPRATROPIUM 3 ML (DUONEB) VIAL INH SCH ×5 (04:38→21:16)
[2021-10-24 04:49] LABS: BASOPHILS % (AUTO) 0 % (0-10); EOSINOPHILS % (AUTO) 0 % (0-10); HEMATOCRIT 39 % (35-52); HEMOGLOBIN 12.6 g/dL (11.5-16.0); LYMPHOCYTES # (AUTO) 0.4 10^3/uL (1.0-4.0); LYMPHOCYTES % (AUTO) 8 % (12-44); MEAN CORPUSCULAR HEMOGLOBIN 30 pg (25-34); MEAN CORPUSCULAR HGB CONC 33 g/dL (32-36); MEAN CORPUSCULAR VOLUME 92 fL (80-99); MEAN PLATELET VOLUME 9.1 fL (9.0-12.2); MONOCYTES # (AUTO) 0.1 10^3/uL (0.0-1.0); MONOCYTES % (AUTO) 1 % (0-12); NEUTROPHILS # (AUTO) 4.9 10^3/uL (1.8-7.8); NEUTROPHILS % (AUTO) 90 % (42-75); PLATELET COUNT 264 10^3/uL (130-400); WHITE BLOOD COUNT 5.4 10^3/uL (4.3-11.0)
[2021-10-24 04:59] LABS: ALBUMIN 3.1 GM/DL (3.2-4.5); POTASSIUM 3.8 MMOL/L (3.6-5.0)
[2021-10-24 05:00] LABS: CALCIUM 8.9 MG/DL (8.5-10.1)
[2021-10-24 05:01] LABS: TOTAL PROTEIN 6.3 GM/DL (6.4-8.2)
[2021-10-24 05:03] LABS: BILIRUBIN,TOTAL 0.3 MG/DL (0.1-1.0)
[2021-10-24 05:05] LABS: CREATININE SERUM 0.75 MG/DL (0.60-1.30)
[2021-10-24 05:49] LABS: BAND NEUTROPHILS 1 %; LYMPHOCYTES % (MANUAL) 10 %; NEUTROPHILS % (MANUAL) 89 %; RBC MORPH NORMAL
[2021-10-24] MEDS: CEFEPIME 1,000 MG/NS 50 ML IVPB IV SCH ×6 (05:55→20:06)
[2021-10-24] MEDS: SENNOSIDES 8.6 MG (SENOKOT) TAB PO SCH ×2 (07:57→20:06)
[2021-10-24] MEDS: DOCUSATE SODIUM 100 MG (COLACE) CAP PO SCH ×2 (08:04→20:06)
--- NOTE | 2021-10-24 09:27 | Occupational Therapy Eval ---
OT Evaluation-General/PLF Medical Diagnosis Admission Date Oct 23, 2021 at 16:29 Medical Diagnosis: Acute on chronic resp failure with hypoxemia Onset Date: Oct 23, 2021 Therapy Diagnosis Therapy Diagnosis: decreased ADL status, weakness Height/Weight Height (Feet): 5 Height (Inches): 2.00 Weight (Pounds): 160 Weight (Ounces): 2.3 Precautions Precautions/Isolations: Fall Prevention, Standard Precautions Referral Physician: Riley Referral Reason: Evaluation/Treatment Medical History Pertinent Medical History: Arthritis, OA, Rheumatoid Arthritis Additional Medical History arthritis, depression, COPD, 2 hip replacements R, L ankle surgery, PNA, UTI-ch ronic, arthritis/RA, chronic anemia Current History ED from [facility] c/o increased SOA and hypoxia Social History Home: Assisted Living ADL-Prior Level of Function SCALE: Activities may be completed with or without assistive devices. 4-Tcqefhdiks-fjhjzee completes the activity by him/herself with no assistance from a helper. 5-Set-up or Clean-up Assistance-helper sets up or cleans up; patient completes activity. [place] assists only prior to or following the activity. 4-Supervision or Touching Assistance-helper provides verbal cues and/or touching/steadying and/or contact guard assistance as patient completes activity. Assistance may be provided throughout the activity or intermittently. 3-Partial/Moderate Assistance-helper does LESS THAN HALF the effort. [place] lifts, holds or supports trunk or limbs, but provides less than half the effort. 2-Substantial/Maximal Assistance-helper does MORE THAN HALF the effort. [place] lifts or holds trunk or limbs and provides more than half the effort. 8-Kndvetgcw-mfjwpv does ALL the effort. Patient does none of the effort to complete the activity. Or, the assistance of 2 or more helpers is required for the patient to complete the activity. If activity was not attempted, code reason: 7-Patient Refused. 9-Not Applicable-not attempted and the patient did not perform the activity before the current illness, exacerbation or injury. 10-Not Attempted due to Environmental Limitations-(lack of equipment, weather restraints, etc.). 88-Not Attempted due to Medical Conditions or Safety Concerns. ADL PLOF Comments Pt reports IND with ADLs and functional mobility using 4WW. She is independent with dressing, toileting and sponge baths. Self Care: Independent Functional Cognition: Independent OT Current Status Subjective Pt in bed, family member present. Pt agreeable to OT tx, states she did not sleep well last night. Mental Status/Objective Patient Orientation: Person, Place, Situation Attachments: IV Current Upper Extremity ROM WFL Upper Extremity Strength grossly 3/5 ADL-Treatment Eating (QC): 5 (per pt report.) Toileting Hygiene (QC): 4 Other Treatments Pt laying in bed, agreeablet o OT Tx. Pt transferred supine to sit EOB SBA, then transferred to [facility] [place] (SPT no AD) with OT managing lines. Pt completed toileting, O2 dropping to 88%, O2 increased to 90% after a few seconds and pursed lip breathing. Pt transferred back to bed, SBA. O2 dropping to 82% on 3L, after a couple mins of pursed lip breathing, pt unable to raise O2 level above 85%. OT increased O2 to 4L, then 5L. After several mins, pt able to increase O2 saturation to 93%, OT decreased O2 back to 3L NC. Post tx, pt in bed, call light in reach and all needs met. Education OT Patient Education: Correct positioning, Modified ADL techniques, Progress toward Goal/Update tx plan, Purpose of tx/functional activities, Rehab process Teaching Recipient: Patient Teaching Methods: Discussion Response to Teaching: Verbalize Understanding OT Retirement Goals Clinical Faculty Goals Time Frame: Nov 04, 2021 Eating (QC): 6 Oral Hygiene (QC): 6 Toileting Hygiene (QC): 6 Shower/Bathe Self (QC): 4 (sponge bath) Upper Body Dressing (QC): 5 Lower Body Dressing (QC): 4 On/Off Footwear (QC): 4 1=Demonstrate adherence to instructed precautions during ADL tasks. 2=Patient will verbalize/demonstrate understanding of assistive devices/modifications for ADL. 3=Patient will improve strength/tolerance for activity to enable patient to perform ADL's. OT Education/Plan Problem List/Assessment Assessment: Decreased Activ Tolerance, Decreased UE Strength, Impaired Funct Balance, Impaired I ADL's, Impaired Self-Care Skills Discharge Recommendations Plan/Recommendations: Continue POC Treatment Plan/Plan of Care Patient would benefit from OT for education, treatment and training to promote independence in ADL's, mobility, safety and/or upper extremity function for ADL's. Plan of Care: ADL Retraining, Functional Mobility, UE Funct Exercise/Act Treatment Duration: Nov 04, 2021 Frequency: 3 times per week (3-5 times per week) Time/GCodes Start Time: 08:25 Stop Time: 08:48 Total Time Billed (hr/min): 23 Billed Treatment Time 1, EVM (10'), ADL (13') CELINA SIGALA OT Oct 24, 2021 09:27
--- NOTE | 2021-10-24 10:44 | Physical Therapy Evaluation ---
PT Evaluation-General Medical Diagnosis Admission Date Oct 23, 2021 at 16:29 Medical Diagnosis: Acute on chronic resp failure with hypoxemia Onset Date: Oct 23, 2021 Therapy Diagnosis Therapy Diagnosis: respiratory failure Height/Weight Height (Feet): 5 Height (Inches): 2.00 Weight (Pounds): 160 Weight (Ounces): 2.3 Precautions Precautions/Isolations: Fall Prevention, Standard Precautions Referral Physician: Riley Reason for Referral: Evaluation/Treatment Medical History Pertinent Medical History: Arthritis, OA, Rheumatoid Arthritis Current History ER from [place] due to SOA/hypoxia Reviewed History: Yes Social History Home: Assisted Living Prior Prior Level of Function SCALE: Activities may be completed with or without assistive devices. 3-Lkovbrcoad-lhqowju completes the activity by him/herself with no assistance from a helper. 5-Set-up or Clean-up Assistance-helper sets up or cleans up; patient completes activity. [place] assists only prior to or following the activity. 4-Supervision or Touching Assistance-helper provides verbal cues and/or touchi ng/steadying and/or contact guard assistance as patient completes activity. Assistance may be provided throughout the activity or intermittently. 3-Partial/Moderate Assistance-helper does LESS THAN HALF the effort. [place] lifts, holds or supports trunk or limbs, but provides less than half the effort. 2-Substantial/Maximal Assistance-helper does MORE THAN HALF the effort. [place] lifts or holds trunk or limbs and provides more than half the effort. 3-Xiqhvatev-juqxiq does ALL the effort. Patient does none of the effort to complete the activity. Or, the assistance of 2 or more helpers is required for the patient to complete the activity. If activity was not attempted, code reason: 7-Patient Refused. 9-Not Applicable-not attempted and the patient did not perform the activity before the current illness, exacerbation or injury. 10-Not Attempted due to Environmental Limitations-(lack of equipment, weather restraints, etc.). 88-Not Attempted due to Medical Conditions or Safety Concerns. Bed Mobility: 6 Transfers (B,C,W/C): 6 Gait: 6 Stairs: 9 Prior Devices Use: Walker (4WW) PT Evaluation-Current Subjective Patient reports fatigue due to not sleeping last night. Family present. Objective Patient Orientation: Normal For Age Attachments: Oxygen (3L HF) ROM/Strength ROM Lower Extremities bilateral LE WFL Strength Lower Extremities 3+/5 grossly bilateral LE all planes Integumentary/Posture Bowel Incontinence: No Bladder Incontinence: No Neuromuscular (Tone, Coordination, Reflexes) grossly intact Sensory Vision: Functional Hearing: Impaired Transfers Sit to Lying (QC): 6 Lying to Sitting/Side of Bed(Q: 6 Sit to Stand (QC): 4 Chair/Ofh-yl-Wwhky Xfer(QC): 4 Toilet Transfer (QC): 4 Gait Mode of Locomotion: Walk Anticipated Mode of Locomotion: Walk Gait Assistive Device: Walker 4 Wheeled Balance Sitting Static: Normal Sitting Dynamic: Normal Standing Static: Fair Standing Dynamic: Fair Treatment SAO2 decreases with minimal activity. Per RN, increase of O2 to 10L with activity. PT increased O2 to 5L with activity and reviewed breathing techniques. Assessment/Needs 86 y.o. female, will benefit from skilled PT to address pulmonary function with functional mobility to improve current LOF. Per family , patient will transfer to nursing home due to increase need. Rehab Potential: Guarded PT Intermediate Goals Intermediate Goals PT Intermediate Goals Time Frame: Nov 05, 2021 Roll Left & Right (QC): 6 Sit to Lying (QC): 6 Lying-Sitting on Side/Bed(QC): 6 Sit to Stand (QC): 6 Chair/Eam-lo-Kgpac Xfer(QC): 6 Toilet Transfer (QC): 6 Walk 10 feet (QC): 4 Walk 50ft with 2 Turns (QC): 4 PT Plan Problem List Problem List: Activity Tolerance, Functional Strength, Balance, Gait, Transfer, Bed Mobility Treatment/Plan Treatment Plan: Continue Plan of Care Treatment Plan: Bed Mobility, Education, Functional Activity Lelia, Functional Strength, Gait, Safety, Therapeutic Exercise, Transfers Treatment Duration: Nov 05, 2021 Frequency: 6 times per week Estimated Hrs Per Day: .25 hour per day Patient and/or Family Agrees t: Yes Time/GCodes Time In: 1015 Time Out: 1029 Total Billed Treatment Time: 14 Total Billed Treatment 1 visit EVModC 14 min NIKO FERNANDEZ PT Oct 24, 2021 10:44
[2021-10-24] MEDS: NS IV 1000 ML 1,000 ML IV SCH (11:08)
[2021-10-24] MEDS ORDERED: GUAI600T43 PO (11:09)
[2021-10-24] MEDS ORDERED: L. A1TAB10 PO (11:09)
[2021-10-24] MEDS ORDERED: MELA5TAB14 PO (11:09)
[2021-10-24] MEDS ORDERED: IPRA3AMP31 IH (11:09)
[2021-10-24] MEDS ORDERED: AMOX875T2 PO (11:09)
[2021-10-24] MEDS ORDERED: ACET325T38 PO (11:09)
[2021-10-24] MEDS ORDERED: ACHD5005 PO (11:09)
[2021-10-24] MEDS ORDERED: LOPE2TAB48 PO (11:09)
[2021-10-24] MEDS ORDERED: CARB15DR OU (11:09)
[2021-10-24] MEDS ORDERED: BENZ-36 PO (11:09)
[2021-10-24] MEDS: ACETAMINOPHEN 325 MG TABLET PO PRN (13:09)
[2021-10-24] MEDS ORDERED: NS (IVPB) 50 ML ONE (13:14)
--- NOTE | 2021-10-24 15:44 | History & Physical ---
HPI History of Present Illness: 86 yo F that presents with increasing shortness of breath. Patient does not have a baseline oxygen need but she was sent home on oxygen in Jun after an episode of PNA. She was then weened off oxygen over the next month. Patient states that about 1 week ago she started feeling weak and having increase in urination. She was seen in [facility] and was started on treatment for UTI. Patient is able to ambulate at baseline. Denies any fever or chills. Source: patient, other (daughter) Exam Limitations: no limitations Date seen by provider: Oct 24, 2021 Time Seen by Provider: 09:15 Attending Physician Bing Livingston MD PCP No,Local Physician Consult Date of Admission Oct 23, 2021 at 16:29 Home Medications Home Medications Reviewed patient Home Medication Reconciliation performed by pharmacy medication reconciliations cytogenetic technician and/or nursing. Patients Allergies have been reviewed. Allergies Coded Allergies: Sulfa (Sulfonamide Antibiotics) (Verified Allergy, Unknown, 11/13/13) nitrofurantoin (Verified Adverse Reaction, Unknown, NAUSEA, 06/05/16) VTM-Zdfbjo-Yzjzls Hx Patient Social History Living Status: Assisted living facility Smoking Status: Never a Smoker Recent Hopitalizations: No Alcohol Use?: No Have you traveled recently?: No Immunizations Up To Date Tetanus Booster (TDap): Less than 5yrs Influenza Vaccine Up-to-Date: Yes; Up-to-Date First/Initial COVID19 Vaccinat: YES Second COVID19 Vaccination [place]: YES Third COVID19 Vaccination Date: YES Past Medical History COPD Chronic pain Family Medical History Significant Family History: No Pertinent Family Hx Family History: BONE CANCER 19 FATHER HIP REPLACEMENT 19 MOTHER THYROID ISSUES 19 MOTHER Review of Systems (CHC) Constitutional: No fever; malaise, weakness EENTM: no symptoms reported; No nose congestion, No nose pain Respiratory: cough, dyspnea on exertion; No orthopnea; short of breath Cardiovascular: no symptoms reported; No chest pain, No edema, No palpitations Gastrointestinal: abdominal pain; No constipation, No diarrhea, No nausea, No vomiting Genitourinary: No dysuria; frequency; No hematuria Musculoskeletal: back pain Skin: no symptoms reported; No lesions, No rash Psychiatric/Neurological: Weakness Reviewed Test Results Reviewed Test Results Lab Laboratory Tests Test 10/23/21 17:05 3/14/22 04:38 Range/Units Urine Color YELLOW Urine Clarity CLEAR Urine pH 6.0 5-9 Urine Specific [place] 1.010 L 1.016-1.022 Urine Protein NEGATIVE NEGATIVE Urine Glucose (UA) NEGATIVE NEGATIVE Urine Ketones NEGATIVE NEGATIVE Urine Nitrite NEGATIVE NEGATIVE Urine Bilirubin NEGATIVE NEGATIVE Urine Urobilinogen 0.2 < = 1.0 MG/DL Urine Leukocyte Esterase NEGATIVE NEGATIVE Urine RBC (Auto) NEGATIVE NEGATIVE Urine RBC NONE /HPF Urine WBC NONE /HPF Urine Squamous Epithelial Cells 0-2 /HPF Urine Renal Epithelial Cells NONE /HPF Urine Crystals NONE /LPF Urine Bacteria NEGATIVE /HPF Urine Casts NONE /LPF Urine Mucus NEGATIVE /LPF Urine Culture Indicated CULTURE PENDING White Blood Count 5.4 4.3-11.0 10^3/uL Red Blood Count 4.21 3.80-5.11 10^6/uL Hemoglobin 12.6 11.5-16.0 g/dL Hematocrit 39 35-52 % Mean Corpuscular Volume 92 80-99 fL Mean Corpuscular Hemoglobin 30 25-34 pg Mean Corpuscular Hemoglobin Concent 33 32-36 g/dL Red Cell Distribution Width 12.7 10.0-14.5 % Platelet Count 264 130-400 10^3/uL Mean Platelet Volume 9.1 9.0-12.2 fL Immature Granulocyte % (Auto) 1 % Neutrophils (%) (Auto) 90 H 42-75 % Lymphocytes (%) (Auto) 8 L 12-44 % Monocytes (%) (Auto) 1 0-12 % Eosinophils (%) (Auto) 0 0-10 % Basophils (%) (Auto) 0 0-10 % Neutrophils # (Auto) 4.9 1.8-7.8 10^3/uL Lymphocytes # (Auto) 0.4 L 1.0-4.0 10^3/uL Monocytes # (Auto) 0.1 0.0-1.0 10^3/uL Eosinophils # (Auto) 0.0 0.0-0.3 10^3/uL Basophils # (Auto) 0.0 0.0-0.1 10^3/uL Immature Granulocyte # (Auto) 0.0 0.0-0.1 10^3/uL Neutrophils % (Manual) 89 % Lymphocytes % (Manual) 10 % Band Neutrophils 1 % Blood Morphology Comment NORMAL Sodium Level 134 L 135-145 MMOL/L Potassium Level 3.8 3.6-5.0 MMOL/L Chloride Level 104 98-107 MMOL/L Carbon Dioxide Level 18 L 21-32 MMOL/L Anion Gap 12 5-14 MMOL/L Blood Urea Nitrogen 18 7-18 MG/DL Creatinine 0.75 0.60-1.30 MG/DL Estimat Glomerular Filtration Rate 78 BUN/Creatinine Ratio 24 Glucose Level 227 H 70-105 MG/DL Calcium Level 8.9 8.5-10.1 MG/DL Corrected Calcium 9.6 8.5-10.1 MG/DL Total Bilirubin 0.3 0.1-1.0 MG/DL Aspartate Amino Transf (AST/SGOT) 12 5-34 U/L Alanine Aminotransferase (ALT/SGPT) 6 0-55 U/L Alkaline Phosphatase 77 40-136 U/L Total Protein 6.3 L 6.4-8.2 GM/DL Albumin 3.1 L 3.2-4.5 GM/DL Physical Exam-(CHC) Physical Exam Vital Signs VS - Last 72 Hours, by Label 10/23/21 10/23/21 10/23/21 10/23/21 14:14 14:31 14:50 17:38 Temp 36.1 Pulse 88 76 Resp 20 18 B/P (MAP) 155/65 (95) 119/66 Pulse Ox 94 94 97 97 O2 Delivery Nasal Cannula Nasal Cannula Vapotherm O2 Flow Rate 6.00 5.00 35.00 FiO2 65 10/23/21 10/23/21 10/23/21 10/23/21 18:02 18:23 18:30 19:00 Temp 36.1 Pulse 76 88 83 Pulse Ox 70 96 O2 Delivery Vapotherm O2 Flow Rate 20.00 FiO2 21 45 10/23/21 10/23/21 10/23/21 10/23/21 20:00 20:30 21:05 21:15 Temp 36.3 Pulse 80 77 Resp 20 22 B/P (MAP) 144/66 (92) 143/71 (95) Pulse Ox 95 97 97 97 O2 Delivery Vapotherm Vapotherm O2 Flow Rate 20.00 20.00 FiO2 45 45 10/24/21 10/24/21 10/24/21 10/24/21 00:00 00:30 01:00 01:15 Temp 36.3 Pulse 86 79 77 Resp 26 23 B/P (MAP) 139/65 (89) Pulse Ox 93 95 97 O2 Delivery Vapotherm Nasal Cannula Vapotherm O2 Flow Rate 20.00 5.00 20.00 30.00 FiO2 35 10/24/21 10/24/21 10/24/21 10/24/21 03:48 07:00 07:35 07:50 Temp 35.9 Pulse 79 73 71 Resp 11 18 B/P (MAP) 124/62 (82) 132/71 (91) Pulse Ox 96 97 98 O2 Delivery Nasal Cannula Nasal Cannula High Flow N/C O2 Flow Rate 5.00 5.00 10/24/21 10/24/21 10/24/21 10/24/21 07:51 08:00 09:00 11:00 Temp 36.7 Pulse 72 86 Resp 18 9 B/P (MAP) 132/71 (91) 132/66 (88) Pulse Ox 98 97 95 O2 Delivery Nasal Cannula Nasal Cannula Nasal Cannula Nasal Cannula O2 Flow Rate 3.00 3.00 3.00 3.00 10/24/21 10/24/21 10/24/21 10/24/21 11:49 12:00 12:00 13:00 Temp 36.5 Pulse 78 79 85 Resp 19 20 B/P (MAP) 132/66 (88) Pulse Ox 97 96 O2 Delivery Nasal Cannula Nasal Cannula Nasal Cannula O2 Flow Rate 2.00 2.00 Capillary Refill : Less Than 3 Seconds General Appearance: WD/WN, no apparent distress HEENT: PERRL/EOMI Neck: non-tender, full range of motion, supple Respiratory: chest non-tender, no respiratory distress, no accessory muscle use, wheezing, expiration Cardiovascular: regular rate, rhythm, no edema, no murmur Gastrointestinal: normal bowel sounds, non tender, soft Back: no CVA tenderness, no vertebral tenderness Extremities: normal range of motion, normal inspection, no pedal edema, no calf tenderness, normal capillary refill Neurologic/Psychiatric: merchandise flow associate II-XII nml as tested, no motor/sensory deficits, alert, normal mood/affect, oriented x 3 Skin: normal color, warm/dry Lymphatic: no adenopathy Assessment/Plan Assessment/Plan Admission Status: Inpatient Order (span 2 midnights) Reason for Inpatient Admission: High risk of decompensation, requiring increased oxygen (1) Acute on chronic respiratory failure with hypoxemia Status: Acute Assessment & Plan: - MAT protocol, Steroids and antibiotics, IS, titrate oxygen as tolerated (2) Interstitial lung disease Status: Acute (3) COPD exacerbation Status: Acute (4) Debility Status: Acute Assessment & Plan: - PT ordered BING [place] MD Oct 24, 2021 15:44
[2021-10-24] MEDS: guaiFENesin/DM (ROBITUSSIN DM) 10 ML UDC PO PRN (15:54)
[2021-10-24] MEDS: RT--FLUTICASONE/SALMETEROL 113-14 (AIRDUO RespiCLICK) IH SCH ×2 (16:42→21:16)
[2021-10-24] MEDS: ENOXAPARIN 40 MG/0.4 ML (LOVENOX) SYR SC SCH (17:23)
[2021-10-24] MEDS: AZITHROMYCIN INJECTION 250 MG in NS (IVPB) 250 ML IV SCH (17:40)
[2021-10-24] MEDS: MELATONIN 3 MG TABLET PO PRN (21:00)
[2021-10-25] VITALS (7 sets, daily range): BP systolic 116–150; BP diastolic 55–77
[2021-10-25] MEDS: NS IV 1000 ML 1,000 ML IV SCH ×2 (02:20→20:16)
[2021-10-25] MEDS: CEFEPIME 1,000 MG/NS 50 ML IVPB IV SCH ×6 (05:00→20:16)
[2021-10-25] MEDS: methylPREDNISolone 125 MG (Solu-MEDROL) VIAL IVP SCH ×4 (05:16→16:58)
[2021-10-25 05:29] LABS: BASOPHILS % (AUTO) 0 % (0-10); EOSINOPHILS % (AUTO) 0 % (0-10); HEMATOCRIT 38 % (35-52); HEMOGLOBIN 12.1 g/dL (11.5-16.0); LYMPHOCYTES # (AUTO) 0.8 10^3/uL (1.0-4.0); LYMPHOCYTES % (AUTO) 7 % (12-44); MEAN CORPUSCULAR HEMOGLOBIN 30 pg (25-34); MEAN CORPUSCULAR HGB CONC 32 g/dL (32-36); MEAN CORPUSCULAR VOLUME 92 fL (80-99); MEAN PLATELET VOLUME 9.2 fL (9.0-12.2); MONOCYTES # (AUTO) 0.3 10^3/uL (0.0-1.0); MONOCYTES % (AUTO) 2 % (0-12); NEUTROPHILS # (AUTO) 9.9 10^3/uL (1.8-7.8); NEUTROPHILS % (AUTO) 90 % (42-75); PLATELET COUNT 296 10^3/uL (130-400)
[2021-10-25 05:55] LABS: ALBUMIN 2.9 GM/DL (3.2-4.5); BILIRUBIN,TOTAL 0.3 MG/DL (0.1-1.0); CALCIUM 8.8 MG/DL (8.5-10.1); CREATININE SERUM 0.61 MG/DL (0.60-1.30); POTASSIUM 3.9 MMOL/L (3.6-5.0); TOTAL PROTEIN 6.2 GM/DL (6.4-8.2)
[2021-10-25] MEDS: DOCUSATE SODIUM 100 MG (COLACE) CAP PO SCH ×2 (08:02→20:15)
[2021-10-25] MEDS: SENNOSIDES 8.6 MG (SENOKOT) TAB PO SCH ×2 (08:04→20:17)
--- NOTE | 2021-10-25 09:48 | Physical Therapy Daily Note ---
PT Daily Note-Current Subjective Patient agitated this morning due to being cold. Patient reluctantly agrees to PT. Mental Status Patient Orientation: Person, Time, Situation Attachments: Oxygen, IV Transfers SCALE: Activities may be completed with or without assistive devices. 9-Kbxhaqmdso-kqrbhoo completes the activity by him/herself with no assistance from a helper. 5-Set-up or Clean-up Assistance-helper sets up or cleans up; patient completes activity. [place] assists only prior to or following the activity. 4-Supervision or Touching Assistance-helper provides verbal cues and/or touching/steadying and/or contact guard assistance as patient completes activity. Assistance may be provided throughout the activity or intermittently. 3-Partial/Moderate Assistance-helper does LESS THAN HALF the effort. [place] lifts, holds or supports trunk or limbs, but provides less than half the effort. 2-Substantial/Maximal Assistance-helper does MORE THAN HALF the effort. [place] lifts or holds trunk or limbs and provides more than half the effort. 1-Fveqzbaxl-tfwopw does ALL the effort. Patient does none of the effort to complete the activity. Or, the assistance of 2 or more helpers is required for the patient to complete the activity. If activity was not attempted, code reason: 7-Patient Refused. 9-Not Applicable-not attempted and the patient did not perform the activity before the current illness, exacerbation or injury. 10-Not Attempted due to Environmental Limitations-(lack of equipment, weather restraints, etc.). 88-Not Attempted due to Medical Conditions or Safety Concerns. Lying to Sitting/Side of Bed(Q: 4 Sit to Stand (QC): 4 Chair/Cuh-yb-Byofe Xfer(QC): 4 Gait Training Distance: 8' Gait Assistive Device: None Exercises Seated Therapy Exercises: Ankle pumps, Long arc quads Seated Reps: 12 Assessment Patient up in recliner with 2 warm blankets on for comfort. Patient continues to be agitated and wanted to remain in bed and not perform OOB activity. RN present. PT increase O2 flow with activity to ensure SAO2 remains >90%. (3-5L) PT Rock Wool Insulator Goals Rock [employer] Insulator Goals PT [employer] Insulator Goals Time Frame: Nov 05, 2021 Roll Left & Right (QC): 6 Sit to Lying (QC): 6 Lying-Sitting on Side/Bed(QC): 6 Sit to Stand (QC): 6 Chair/Wah-zd-Owmgd Xfer(QC): 6 Toilet Transfer (QC): 6 Walk 10 feet (QC): 4 Walk 50ft with 2 Turns (QC): 4 PT Plan Treatment/Plan Treatment Plan: Continue Plan of Care Treatment Plan: Bed Mobility, Education, Functional Activity [place], Functional Strength, Gait, Safety, Therapeutic Exercise, Transfers Treatment Duration: Nov 05, 2021 Frequency: 6 times per week Estimated Hrs Per Day: .25 hour per day Patient and/or Family Agrees t: Yes Time/GCodes Time In: 745 Time Out: 758 Total Billed Treatment Time: 14 Total Billed Treatment 1 visit FA 14 min NIKO FERNANDEZ PT Oct 25, 2021 09:48
--- NOTE | 2021-10-25 10:06 | Occupational Ther Daily Note ---
OT Current Status-Daily Note Subjective Pt reports frustration about having to get up into the chair earlier in day. Agreeable to work with OT. Appearance Pt returned to sitting in recliner, all needs within reach, RN notified. Mental Status/Objective Patient Orientation: Person, Place, Situation Attachments: IV, Oxygen, Telemetry ADL-Treatment Therapy Code Descriptions/Definitions Functional [place] Measure: 0=Not Assessed/NA 4=Minimal Assistance 1=Total Assistance 5=Supervision or Setup 2=Maximal Assistance 6=Modified [place] 3=Moderate Assistance 7=Complete IndependenceSCALE: Activities may be completed with or without assistive devices. 7-Jugbxapoki-odaqgwt completes the activity by him/herself with no assistance from a helper. 5-Set-up or Clean-up Assistance-helper sets up or cleans up; patient completes activity. [place] assists only prior to or following the activity. 4-Supervision or Touching Assistance-helper provides verbal cues and/or touching/steadying and/or contact guard assistance as patient completes activity. Assistance may be provided throughout the activity or intermittently. 3-Partial/Moderate Assistance-helper does LESS THAN HALF the effort. [place] lifts, holds or supports trunk or limbs, but provides less than half the effort. 2-Substantial/Maximal Assistance-helper does MORE THAN HALF the effort. [place] lifts or holds trunk or limbs and provides more than half the effort. 3-Alpwjhedr-hxburw does ALL the effort. Patient does none of the effort to complete the activity. Or, the assistance of 2 or more helpers is required for the patient to complete the activity. If activity was not attempted, code reason: 7-Patient Refused. 9-Not Applicable-not attempted and the patient did not perform the activity before the current illness, exacerbation or injury. 10-Not Attempted due to Environmental Limitations-(lack of equipment, weather restraints, etc.). 88-Not Attempted due to Medical Conditions or Safety Concerns. Eating (QC): 6 Toileting Hygiene (QC): 4 Toilet Transfer (QC): 4 Pt sitting in chair but reports frustration that she had to get out of bed earlier in the morning. Pt then requests to ambulate to bathroom to use toilet. Per OT eval, pt desats with minimal activity. She was agreeable to transfer to commode instead. She stood and transferred with SBA for management of multiple lines. No unsteadiness. Post transfer, pt desat to low 80's on 3L. Oxygen increased to 5L and then to 7L after significant time without recovery. Oxygen between 88-92% on 7L. She was continent with a large BM. Pt performed cruz care and clothing management with set up only. OT returned oxygen to 3L once pt returned to chair. RN informed. Education OT Patient Education: Progress toward Goal/Update tx plan, Purpose of tx/functional activities, Safety issues, Transfer techniques Teaching Recipient: Patient Teaching Methods: Discussion Response to Teaching: Verbalize Understanding, Return Demonstration OT Water Control Supervisor Goals Assisted Goals Time Frame: Nov 04, 2021 Eating (QC): 6 Oral Hygiene (QC): 6 Toileting Hygiene (QC): 6 Shower/Bathe Self (QC): 4 (sponge bath) Upper Body Dressing (QC): 5 Lower Body Dressing (QC): 4 On/Off Footwear (QC): 4 1=Demonstrate adherence to instructed precautions during ADL tasks. 2=Patient will verbalize/demonstrate understanding of assistive devices/modifications for ADL. 3=Patient will improve strength/tolerance for activity to enable patient to perform ADL's. OT Education/Plan Problem List/Assessment Assessment: Decreased Activ Tolerance, Decreased UE Strength, Impaired Self-Ca re Skills Discharge Recommendations Plan/Recommendations: Continue POC Treatment Plan/Plan of Care Treatment,Training & Education: Yes Patient would benefit from OT for education, treatment and training to promote independence in ADL's, mobility, safety and/or upper extremity function for ADL's. Plan of Care: ADL Retraining, Functional Mobility, UE Funct Exercise/Act Treatment Duration: Nov 04, 2021 Frequency: 3 times per week (3-5 times per week) Rehab Potential: Guarded Time/GCodes Start Time: 09:22 Stop Time: 09:45 Total Time Billed (hr/min): 23 Billed Treatment Time 1 visit ADL x2 Pema Wang OT Oct 25, 2021 10:06
[2021-10-25] MEDS: RT-ALBUTEROL/IPRATROPIUM 3 ML (DUONEB) VIAL INH SCH ×4 (10:40→19:06)
--- NOTE | 2021-10-25 14:10 | Progress Note ---
Subjective Subjective/Events-last exam Patient feeling better this AM. Breathing improving but still short of breath. Tolerating PO diet. Review of Systems General: No Chills; Malaise Pulmonary: Dyspnea, Cough Cardiovascular: No: Chest Pain, Palpitations, Edema Gastrointestinal: No: Nausea, Vomiting, Abdominal Pain Neurological: Weakness, Incoordination Focused Exam Lactate Level 10/23/21 14:20: Lactic Acid Level 1.10 Objective Exam Last Set of Vital Signs Vital Signs Date Time Temp Pulse Resp B/P (MAP) Pulse Ox O2 Delivery O2 Flow Rate FiO2 10/25/21 12:00 36.5 75 27 119/62 (81) 95 Nasal Cannula 10/25/21 11:00 3.00 10/24/21 01:15 35 Capillary Refill : Less Than 3 Seconds I&O Intake and Output 10/25/21 00:00 Intake Total 1340 ml Output Total 2100 ml Balance -760 ml Intake Oral 1340 ml Output Urine Total 2100 ml General: Alert, Oriented X3, No Acute Distress Lungs: Other (diffuse wheezing, no crackles, normal work of breathing) Heart: Regular Rate, No Murmurs Abdomen: Normal Bowel Sounds, Soft Extremities: No Edema, No Tenderness/Swelling Psych/Mental Status: Mental Status NL, Mood NL Results/Procedures Lab Laboratory Tests 10/25/21 05:13: White Blood Count 11.0, Red Blood Count 4.10, Hemoglobin 12.1, Hematocrit 38, Mean Corpuscular Volume 92, Mean Corpuscular Hemoglobin 30, Mean Corpuscular Hemoglobin Concent 32, Red Cell Distribution Width 12.5, Platelet Count 296, Mean Platelet Volume 9.2, Immature Granulocyte % (Auto) 1, Neutrophils (%) (Auto) 90H, Lymphocytes (%) (Auto) 7L, Monocytes (%) (Auto) 2, Eosinophils (%) (Auto) 0, Basophils (%) (Auto) 0, Neutrophils # (Auto) 9.9H, Lymphocytes # (Auto) 0.8L, Monocytes # (Auto) 0.3, Eosinophils # (Auto) 0.0, Basophils # (Auto) 0.0, Immature Granulocyte # (Auto) 0.1, Sodium Level 136, Potassium Level 3.9, Chloride Level 106, Carbon Dioxide Level 21, Anion Gap 9, Blood Urea Nitrogen 20H, Creatinine 0.61, Estimat Glomerular Filtration Rate 88, BUN/Creatinine Ratio 33, Glucose Level 143H, Calcium Level 8.8, Corrected Calcium 9.7, Total Bilirubin 0.3, Aspartate Amino Transf (AST/SGOT) 15, Alanine Aminotransferase (ALT/SGPT) 9, Alkaline Phosphatase 69, Total Protein 6.2L, Albumin 2.9L Microbiology 10/23/21 Urine Culture - Preliminary, Resulted NO GROWTH 10/23/21 Blood Culture - Preliminary, Resulted No growth Assessment/Plan Assessment/Plan (1) Acute on chronic respiratory failure with hypoxemia Status: Acute Assessment & Plan: - MAT protocol, Steroids and antibiotics, IS, titrate oxygen as tolerated 10/25: Will continue to titrate oxygen as tolerated, Encouraged IS (2) Interstitial lung disease Status: Acute (3) COPD exacerbation Status: Acute (4) Debility Status: Acute Assessment & Plan: - PT ordered BING HUBER MD Oct 25, 2021 14:10
[2021-10-25] MEDS: RT--FLUTICASONE/SALMETEROL 113-14 (AIRDUO RespiCLICK) IH SCH (15:18)
[2021-10-25] MEDS: ACETAMINOPHEN 325 MG TABLET PO PRN (16:08)
[2021-10-25] MEDS: ENOXAPARIN 40 MG/0.4 ML (LOVENOX) SYR SC SCH (16:58)
[2021-10-25] MEDS: AZITHROMYCIN INJECTION 250 MG in NS (IVPB) 250 ML IV SCH (17:08)
[2021-10-25] MEDS: guaiFENesin/DM (ROBITUSSIN DM) 10 ML UDC PO PRN ×2 (20:15→23:55)
[2021-10-25] MEDS: MELATONIN 3 MG TABLET PO PRN (22:03)
[2021-10-26] VITALS (7 sets, daily range): BP systolic 131–163; BP diastolic 57–86
[2021-10-26] MEDS: methylPREDNISolone 125 MG (Solu-MEDROL) VIAL IVP SCH ×4 (00:59→17:57)
[2021-10-26] MEDS: guaiFENesin/DM (ROBITUSSIN DM) 10 ML UDC PO PRN (04:18)
[2021-10-26] MEDS: CEFEPIME 1,000 MG/NS 50 ML IVPB IV SCH ×6 (05:28→20:23)
[2021-10-26 06:11] LABS: BASOPHILS % (AUTO) 0 % (0-10); EOSINOPHILS % (AUTO) 0 % (0-10); MEAN CORPUSCULAR HEMOGLOBIN 30 pg (25-34); MEAN CORPUSCULAR HGB CONC 32 g/dL (32-36); MEAN CORPUSCULAR VOLUME 94 fL (80-99); MEAN PLATELET VOLUME 11.1 fL (9.0-12.2)
[2021-10-26 06:13] LABS: HEMATOCRIT 38 % (35-52); HEMOGLOBIN 12.1 g/dL (11.5-16.0); LYMPHOCYTES # (AUTO) 1.5 10^3/uL (1.0-4.0); LYMPHOCYTES % (AUTO) 12 % (12-44); MONOCYTES # (AUTO) 0.7 10^3/uL (0.0-1.0); MONOCYTES % (AUTO) 6 % (0-12); NEUTROPHILS # (AUTO) 10.6 10^3/uL (1.8-7.8); NEUTROPHILS % (AUTO) 82 % (42-75); PLATELET COUNT 91 10^3/uL (130-400); WHITE BLOOD COUNT 12.9 10^3/uL (4.3-11.0)
[2021-10-26 06:19] LABS: ALBUMIN 2.6 GM/DL (3.2-4.5)
[2021-10-26 06:20] LABS: POTASSIUM 4.4 MMOL/L (3.6-5.0)
[2021-10-26 06:21] LABS: CALCIUM 8.4 MG/DL (8.5-10.1)
[2021-10-26 06:22] LABS: TOTAL PROTEIN 5.5 GM/DL (6.4-8.2)
[2021-10-26 06:24] LABS: BILIRUBIN,TOTAL 0.2 MG/DL (0.1-1.0)
[2021-10-26 06:26] LABS: CREATININE SERUM 0.59 MG/DL (0.60-1.30)
[2021-10-26] MEDS: RT-ALBUTEROL/IPRATROPIUM 3 ML (DUONEB) VIAL INH SCH ×5 (07:40→22:13)
[2021-10-26] MEDS: SENNOSIDES 8.6 MG (SENOKOT) TAB PO SCH ×2 (08:46→20:23)
[2021-10-26] MEDS: DOCUSATE SODIUM 100 MG (COLACE) CAP PO SCH ×2 (08:46→20:23)
--- NOTE | 2021-10-26 09:42 | Occupational Ther Daily Note ---
OT Current Status-Daily Note Subjective Pt in bed, requests to rest but agreeable to OT tx with some encouragement. Mental Status/Objective Patient Orientation: Person, Place, Situation ADL-Treatment Therapy Code Descriptions/Definitions Functional [place] Measure: 0=Not Assessed/NA 4=Minimal Assistance 1=Total Assistance 5=Supervision or Setup 2=Maximal Assistance 6=Modified [place] 3=Moderate Assistance 7=Complete IndependenceSCALE: Activities may be completed with or without assistive devices. 2-Utyprzuzet-qsqxret completes the activity by him/herself with no assistance from a helper. 5-Set-up or Clean-up Assistance-helper sets up or cleans up; patient completes activity. [place] assists only prior to or following the activity. 4-Supervision or Touching Assistance-helper provides verbal cues and/or touching/steadying and/or contact guard assistance as patient completes activity. Assistance may be provided throughout the activity or intermittently. 3-Partial/Moderate Assistance-helper does LESS THAN HALF the effort. [place] lifts, holds or supports trunk or limbs, but provides less than half the effort. 2-Substantial/Maximal Assistance-helper does MORE THAN HALF the effort. [place] lifts or holds trunk or limbs and provides more than half the effort. 2-Ioohjbsep-megstm does ALL the effort. Patient does none of the effort to complete the activity. Or, the assistance of 2 or more helpers is required for the patient to complete the activity. If activity was not attempted, code reason: 7-Patient Refused. 9-Not Applicable-not attempted and the patient did not perform the activity before the current illness, exacerbation or injury. 10-Not Attempted due to Environmental Limitations-(lack of equipment, weather restraints, etc.). 88-Not Attempted due to Medical Conditions or Safety Concerns. Other Treatment Pt laying in bed, declines ADLs at this time but agreeable to BUE exercises in order to increase strength and activity tolerance. Pt transferred supine to EOB independently, then completed x10 reps each of the following BUE exercises: shoulder flexion, elbow flexion/extension, front punch, wrist flexion/extension, and finger flexion/extension. Pt on 3L HF NC at rest, after a couple exercised, pt's O2 saturation decreased to 88%, O2 turned up to 5L with activity and pt able to maintain saturations above 90%. Pt transferred supine independently, OT assisted with positioning pt to comfort with blankets/pillows. Post tx, pt in bed, call light in reach and all needs met. Pt's O2 decreased to 3L, pt remained above 90% O2 saturation Education OT Patient Education: Correct positioning, Energy conservation, Exercise program, Modified ADL techniques, Progress toward Goal/Update tx plan, Purpose of tx/functional activities, Rehab process Teaching Recipient: Patient Teaching Methods: Discussion Response to Teaching: Verbalize Understanding OT Penitentiary Goals Penitentiary Goals Time Frame: Nov 04, 2021 Eating (QC): 6 Oral Hygiene (QC): 6 Toileting Hygiene (QC): 6 Shower/Bathe Self (QC): 4 (sponge bath) Upper Body Dressing (QC): 5 Lower Body Dressing (QC): 4 On/Off Footwear (QC): 4 1=Demonstrate adherence to instructed precautions during ADL tasks. 2=Patient will verbalize/demonstrate understanding of assistive devices/modifications for ADL. 3=Patient will improve strength/tolerance for activity to enable patient to perform ADL's. OT Education/Plan Problem List/Assessment Assessment: Decreased Activ Tolerance, Decreased UE Strength, Impaired Funct Balance, Impaired I ADL's, Impaired Self-Care Skills Discharge Recommendations Plan/Recommendations: Continue POC Treatment Plan/Plan of Care Patient would benefit from OT for education, treatment and training to promote independence in ADL's, mobility, safety and/or upper extremity function for ADL's. Plan of Care: ADL Retraining, Functional Mobility, UE Funct Exercise/Act Treatment Duration: Nov 04, 2021 Frequency: 3 times per week (3-5 times per week) Rehab Potential: Guarded Time/GCodes Start Time: 09:28 Stop Time: 09:38 Total Time Billed (hr/min): 10 Billed Treatment Time 1, EX CELINA SIGALA OT Oct 26, 2021 09:42
--- NOTE | 2021-10-26 10:18 | Physical Therapy Daily Note ---
PT Daily Note-Current Subjective Pt. agrees to Rx, states she was indep at indep living unit she where she lives before this hospitalization. Pt. states she expects to be DCd to [facility] today. Pt. reluctant to participate but agrees to bed ex and TRFs and a few steps of gait . Pain Location: No Pain Reported Mental Status Patient Orientation: Normal For Age Attachments: Oxygen, Other-See Comments (BP, O2 sat), IV Transfers SCALE: Activities may be completed with or without assistive devices. 9-Eewhcfdhwh-mfsekuu completes the activity by him/herself with no assistance from a helper. 5-Set-up or Clean-up Assistance-helper sets up or cleans up; patient completes activity. [place] assists only prior to or following the activity. 4-Supervision or Touching Assistance-helper provides verbal cues and/or touching/steadying and/or contact guard assistance as patient completes activity. Assistance may be provided throughout the activity or intermittently. 3-Partial/Moderate Assistance-helper does LESS THAN HALF the effort. [place] lifts, holds or supports trunk or limbs, but provides less than half the effort. 2-Substantial/Maximal Assistance-helper does MORE THAN HALF the effort. [place] lifts or holds trunk or limbs and provides more than half the effort. 3-Hszizhysi-dfkumq does ALL the effort. Patient does none of the effort to complete the activity. Or, the assistance of 2 or more helpers is required for the patient to complete the activity. If activity was not attempted, code reason: 7-Patient Refused. 9-Not Applicable-not attempted and the patient did not perform the activity before the current illness, exacerbation or injury. 10-Not Attempted due to Environmental Limitations-(lack of equipment, weather restraints, etc.). 88-Not Attempted due to Medical Conditions or Safety Concerns. Roll Left & Right (QC): 6 Sit to Lying (QC): 6 Lying to Sitting/Side of Bed(Q: 6 Sit to Stand (QC): 6 Gait Training side step left and right and for and back with CGA 5-6 ft Exercises Supine Ex: Bridging, Ankle pumps, Quad Set, Rolling, Glut sets, Heel Slides, Short Arc Quads, Scooting, Straight leg raise, Hip abd/add Supine Reps: 12 Seated Therapy Exercises: Ankle pumps, Long arc quads Seated Reps: 12 Treatments therex, TRFs, minimal gait per cooperation Assessment Current Status: Good Progress O2 sats monitored and >90% throughout Rx PT Wood Finisher Goals Custodial Goals PT Wood Finisher Goals Time Frame: Nov 05, 2021 Roll Left & Right (QC): 6 Sit to Lying (QC): 6 Lying-Sitting on Side/Bed(QC): 6 Sit to Stand (QC): 6 Chair/Nev-pl-Huqsf Xfer(QC): 6 Toilet Transfer (QC): 6 Walk 10 feet (QC): 4 Walk 50ft with 2 Turns (QC): 4 PT Plan Treatment/Plan Treatment Plan: Continue Plan of Care Treatment Plan: Bed Mobility, Education, Functional Activity Lelia, Functional Strength, Gait, Safety, Therapeutic Exercise, Transfers Treatment Duration: Nov 05, 2021 Frequency: 6 times per week Estimated Hrs Per Day: .25 hour per day Patient and/or Family Agrees t: Yes Safety Risks/Education Patient Education: Transfer Techniques, Correct Positioning, Safety Issues Teaching Recipient: Patient Teaching Methods: Demonstration, Discussion Response to Teaching: Verbalize Understanding, Return Demonstration, Reinforcement Needed Time/GCodes Time In: 950 Time Out: 1015 Total Billed Treatment Time: 25 Total Billed Treatment 1,FA10m,EX15m KATE CHARLES [employer] FACULTY MEMBER Oct 26, 2021 10:18
[2021-10-26] MEDS: RT--FLUTICASONE/SALMETEROL 113-14 (AIRDUO RespiCLICK) IH SCH ×2 (11:28→18:20)
[2021-10-26] MEDS: NS IV 1000 ML 1,000 ML IV SCH ×2 (12:40→17:55)
[2021-10-26] MEDS: ENOXAPARIN 40 MG/0.4 ML (LOVENOX) SYR SC SCH (17:56)
[2021-10-26] MEDS: AZITHROMYCIN INJECTION 250 MG in NS (IVPB) 250 ML IV SCH (17:56)
--- NOTE | 2021-10-26 21:14 | Progress Note ---
Subjective Subjective/Events-last exam Patient states that she is feeling better but still requiring oxygen. She is having some desaturations with activity but feeling better. Tolerating PO diet. Review of Systems Pulmonary: Dyspnea, Cough Neurological: Weakness, Incoordination Objective Exam Last Set of Vital Signs Vital Signs Date Time Temp Pulse Resp B/P (MAP) Pulse Ox O2 Delivery O2 Flow Rate FiO2 10/26/21 19:41 37.4 95 18 134/60 (84) 93 Nasal Cannula 4.00 10/26/21 16:15 36 Capillary Refill : Less Than 3 Seconds I&O Intake and Output 10/26/21 00:00 Intake Total 3460 ml Output Total 1200 ml Balance 2260 ml Intake Oral 2410 ml IV Total 1050 ml Output Urine Total 1200 ml # Voids 1 # Bowel Movements 2 General: Alert, Oriented X3 Lungs: Other (diffuse wheezing, normal work of breathing.) Heart: Regular Rate, No Murmurs Abdomen: Normal Bowel Sounds, Soft, No Tenderness Extremities: No Edema, No Tenderness/Swelling Neuro: Normal Speech Results/Procedures Lab Laboratory Tests 10/26/21 06:03: White Blood Count 12.9H, Red Blood Count 4.04, Hemoglobin 12.1, Hematocrit 38, Mean Corpuscular Volume 94, Mean Corpuscular Hemoglobin 30, Mean Corpuscular Hemoglobin Concent 32, Red Cell Distribution Width 12.8, Platelet Count 91L, Mean Platelet Volume 11.1, Immature Granulocyte % (Auto) 1, Neutrophils (%) (Auto) 82H, Lymphocytes (%) (Auto) 12, Monocytes (%) (Auto) 6, Eosinophils (%) (Auto) 0, Basophils (%) (Auto) 0, Neutrophils # (Auto) 10.6H, Lymphocytes # (Auto) 1.5, Monocytes # (Auto) 0.7, Eosinophils # (Auto) 0.0, Basophils # (Auto) 0.0, Immature Granulocyte # (Auto) 0.1, Percent Immature Platelet Fraction 9.7H, Sodium Level 135, Potassium Level 4.4, Chloride Level 105, Carbon Dioxide Level 19L, Anion Gap 11, Blood Urea Nitrogen 18, Creatinine 0.59L, Estimat Glomerular Filtration Rate 89, BUN/Creatinine Ratio 31, Glucose Level 106H, Calcium Level 8.4L, Corrected Calcium 9.5, Total Bilirubin 0.2, Aspartate Amino Transf (AST/SGOT) 21, Alanine Aminotransferase (ALT/SGPT) 9, Alkaline Phosphatase 61, Total Protein 5.5L, Albumin 2.6L Microbiology 10/23/21 Urine Culture - Final, Complete NO GROWTH 10/23/21 Blood Culture - Preliminary, Resulted No growth Assessment/Plan Assessment/Plan (1) Acute on chronic respiratory failure with hypoxemia Status: Acute Assessment & Plan: - MAT protocol, Steroids and antibiotics, IS, titrate oxygen as tolerated 10/25: Will continue to titrate oxygen as tolerated, Encouraged IS 10/26: Still having decrease in oxygen saturations with activity, home O2 study completed today, will monitor how patient is doing tomorrow, possible d/c home tomorrow (2) Interstitial lung disease Status: Acute (3) COPD exacerbation Status: Acute (4) Debility Status: Acute Assessment & Plan: - PT ordered BING HUBER MD Oct 26, 2021 21:13
[2021-10-26] MEDS: MELATONIN 3 MG TABLET PO PRN (22:25)
[2021-10-27] VITALS: BP 131/59
[2021-10-27] MEDS: methylPREDNISolone 125 MG (Solu-MEDROL) VIAL IVP SCH ×2 (00:10→05:17)
[2021-10-27 03:10] VITALS: BP 137/64
[2021-10-27] MEDS: RT-ALBUTEROL/IPRATROPIUM 3 ML (DUONEB) VIAL INH SCH ×3 (03:31→10:08)
[2021-10-27] MEDS: CEFEPIME 1,000 MG/NS 50 ML IVPB IV SCH ×2 (05:17)
[2021-10-27 05:43] LABS: BASOPHILS % (AUTO) 0 % (0-10); EOSINOPHILS % (AUTO) 0 % (0-10); HEMATOCRIT 38 % (35-52); LYMPHOCYTES # (AUTO) 0.4 10^3/uL (1.0-4.0); LYMPHOCYTES % (AUTO) 5 % (12-44); MEAN CORPUSCULAR HEMOGLOBIN 29 pg (25-34); MEAN CORPUSCULAR HGB CONC 31 g/dL (32-36); MEAN CORPUSCULAR VOLUME 93 fL (80-99); MEAN PLATELET VOLUME 9.1 fL (9.0-12.2); MONOCYTES # (AUTO) 0.2 10^3/uL (0.0-1.0); MONOCYTES % (AUTO) 3 % (0-12); NEUTROPHILS # (AUTO) 6.8 10^3/uL (1.8-7.8); NEUTROPHILS % (AUTO) 92 % (42-75); PLATELET COUNT 260 10^3/uL (130-400); WHITE BLOOD COUNT 7.5 10^3/uL (4.3-11.0)
[2021-10-27 05:58] LABS: ALBUMIN 2.8 GM/DL (3.2-4.5); POTASSIUM 3.4 MMOL/L (3.6-5.0)
[2021-10-27 05:59] LABS: CALCIUM 8.8 MG/DL (8.5-10.1)
[2021-10-27 06:00] LABS: TOTAL PROTEIN 5.6 GM/DL (6.4-8.2)
[2021-10-27 06:02] LABS: BILIRUBIN,TOTAL 0.3 MG/DL (0.1-1.0)
[2021-10-27 06:04] LABS: CREATININE SERUM 0.6 MG/DL (0.60-1.30)
[2021-10-27 07:57] VITALS: BP 144/66
[2021-10-27] MEDS: DOCUSATE SODIUM 100 MG (COLACE) CAP PO SCH (09:11)
[2021-10-27] MEDS: SENNOSIDES 8.6 MG (SENOKOT) TAB PO SCH (09:11)
[2021-10-27 11:47] VITALS: BP 140/68
--- NOTE | 2021-10-27 12:21 | Discharge Summary ---
Discharge Summary Reconcile Patient Problems Problems Reviewed?: Yes Hospital Course Hospital Course Date of Admission: Oct 23, 2021 at 16:29 Admission Diagnosis : Family Physician/Provider: No,Local Physician Date of Discharge: 10/27/21 Discharge Diagnosis: Acute on Chronic Respiratory failure Interstitial lung dz COPD exacerbation Advanced age Debility Hospital Course: 86 yo F with known interstitial lung dz here with acute exacerbation. Patient was discharged previously with oxygen requirement. She was then titrated off over the next month and has not been using oxygen at home. Requiring IV steroids and MAT protocol. Oxygen requirement now and will likely need continuous oxygen permanently. D/c to SNF Labs and Pending Lab Test: Laboratory Tests 10/27/21 05:20: White Blood Count 7.5, Red Blood Count 4.11, Hemoglobin 12.0, Hematocrit 38, Mean Corpuscular Volume 93, Mean Corpuscular Hemoglobin 29, Mean Corpuscular Hemoglobin Concent 31L, Red Cell Distribution Width 12.6, Platelet Count 260, Mean Platelet Volume 9.1, Immature Granulocyte % (Auto) 1, Neutrophils (%) (Auto) 92H, Lymphocytes (%) (Auto) 5L, Monocytes (%) (Auto) 3, Eosinophils (%) (Auto) 0, Basophils (%) (Auto) 0, Neutrophils # (Auto) 6.8, Lymphocytes # (Auto) 0.4L, Monocytes # (Auto) 0.2, Eosinophils # (Auto) 0.0, Basophils # (Auto) 0.0, Immature Granulocyte # (Auto) 0.1, Sodium Level 136, Potassium Level 3.4L, Chloride Level 102, Carbon Dioxide Level 21, Anion Gap 13, Blood Urea Nitrogen 17, Creatinine 0.60, Estimat Glomerular Filtration Rate 88, BUN/Creatinine Ratio 28, Glucose Level 144H, Calcium Level 8.8, Corrected Calcium 9.8, Total Bilirubin 0.3, Aspartate Amino Transf (AST/SGOT) 11, Alanine Aminotransferase (ALT/SGPT) 11, Alkaline Phosphatase 60, Total Protein 5.6L, Albumin 2.8L Microbiology 10/23/21 Urine Culture - Final, Complete NO GROWTH 10/23/21 Blood Culture - Preliminary, Resulted No growth Home Meds Active Reported Iprat-Albut 0.5-3(2.5) mg/3 ml (Ipratropium/Albuterol Sulfate) 3 Ml Ampul.neb 3 Ml IH Q6H PRN Mucinex (Guaifenesin) 600 Mg Tab.er.12h 600 Mg PO Q12H PRN Benzonatate 100 Mg Capsule 100 Mg PO TID PRN Tylenol (Acetaminophen) 325 Mg Tablet 650 Mg PO Q6H PRN Hydrocodone-Acetamin 5-325 mg (Hydrocodone/Acetaminophen) 1 Each Tablet 1 Tab PO Q6H PRN Ultra A-D (Loperamide HCl) 2 Mg Tablet 2 Mg PO Q6H PRN Refresh Tears (Carboxymethylcellulose Sodium) 15 Ml Drops 2-3 Drops OU UD PRN Melatonin 5 Mg Tablet 5 Mg PO HS Lactobacillus Tablet (L. Acidophilus/L.bulgaricus) 1 Each Tablet 1 Each PO DAILY Amoxicillin 875 Mg Tablet 875 Mg PO BID FIRST DOSE 10-19-2021 #10/5 DAY SUPPLY Milk of Magnesia (Magnesium Hydroxide) 400 Mg/5 Ml Oral.susp 5 Ml PO Q4H PRN Vitamin C (Ascorbic Acid) 500 Mg Capsule 500 Mg PO DAILY Proair Hfa (Albuterol Sulfate) 1 Puff Puff 2 Puff IH Q6H PRN Olopatadine HCl 5 Ml Drops 1 Drop OU BID Symbicort 160-4.5 Mcg Inhaler (Budesonide/Formoterol Fumarate) 10.2 Gm Hfa.aer.ad 2 Puff IH BID Lexapro (Escitalopram Oxalate) 20 Mg Tablet 20 Mg PO DAILY Skilled NF Admit to: [facility] Certification ([facility]) I certify that SNF services are required to be given on an inpatient basis because of the above named patient's need for residential care on a continuing basis for the conditions(s) for which he/she was receiving inpatient hospital services prior to his/her transfer to the SNF. [facility] Facility Order: Nursing Services, Reporting Developer-Evaluate & Treat, Physical Therapy-Evaluate & Treat Oxygen Delivery Method: Nasal Cannula (4L continuously) Discharge Diet: No Restrictions Daily Activity as Tolerated: Yes Resuscitation Status: Do Not Resuscitate Bing Livingston Oct 27, 2021 12:17 Discharge Physical Exam General: Alert, Oriented X3, No Acute Distress Lungs: Other (Basilar wheezing, normal work of breathing at rest, increased work with activity) Heart: Regular Rate, Other (systolic murmur) Abdomen: Normal Bowel Sounds, Soft, No Tenderness Extremities: No Edema, No Tenderness/Swelling Skin: No Rashes Neuro: Normal Speech, Cranial Nerves 3-12 NL Psych/Mental Status: Mental Status NL, Mood NL BING LIVINGSTON MD Oct 27, 2021 12:21
[2021-10-27] MEDS ORDERED: GUAI5SYR PO (12:27)
[2021-10-27] MEDS ORDERED: ACHD5005 PO (12:27)
[2021-10-27] MEDS ORDERED: CEFD300C3 PO (12:27)
[2021-10-27] MEDS ORDERED: DIAZ5TAB49 PO (12:27)
== END 2021-10-27 13:54 | DRG 196 ==
LOC: EDUNIT# 14:08 → ER 14:09 → CSD 16:29
PROVIDERS: ADMIT Internal Medicine; ATTEND Family Medicine
DX: J84.9 Interstitial pulmonary disease, unspecified (principal); J96.21 Acute and chronic respiratory failure with hypoxia; J44.1 Chronic obstructive pulmonary disease with (acute) exacerbation; R53.81 Other malaise; F32.A Depression, unspecified; Z96.641 Presence of right artificial hip joint; M06.9 Rheumatoid arthritis, unspecified; G89.29 Other chronic pain; Z66 Do not resuscitate; Z20.822 Contact with and (suspected) exposure to COVID-19
CPT/HCPCS: 36415; 71045; 71275; 80053; 81000; 82805; 83605; 83880; 84145; 84484; 85007; 85025; 85027; 85379; 85610; 85730; 86141; 87040; 87088; 87636; 93005; 94640; 94760; 94761; 96361; 96365; 96367

== ENCOUNTER 2022-07-29 20:35 | Inpatient (IN) | payer MEDICARE ==
[~2022-07-29] VITALS: Ht 167.7 cm; Wt 72.5 kg
[~2022-07-29 20:35] MED LIST changes: +ACET325T38 PO; +ACHD5005 PO; +ALB0.5V INH; +ALBU8.5H6 IH; +AMOX875T2 PO; +APIX5TAB PO; +BENZ-36 PO; +CARB15DR OU; +DICL100G13 TP; +DILT240C91 PO; +GUAI5SYR PO; +GUAI600T43 PO; +HYDR-4506 PO; +IBUP-2185 PO; +IPRA3AMP31 IH; +L. A1TAB10 PO; +LOPE2TAB48 PO; +MELA5TAB14 PO; -MOME13HF IH; +MOME13HF11 IH; -OLOP5DRO13 OU; +OLOP5DRO26 OU; +OMEP20TA56 PO; -OMEP20TA7 PO; +OXC5T PO; +PRED10TA22 PO; -RT-ALBUINH IH
[2022-07-29] MEDS ORDERED: RT-ALBUTEROL SULF 2.5 MG/3 ML PRE-MIX VIAL INH STA (20:40)
[2022-07-29] MEDS ORDERED: methylPREDNISolone 125 MG (Solu-MEDROL) VIAL IV STA (20:40)
[2022-07-29 20:59] LABS: ALBUMIN 3.3 GM/DL (3.2-4.5); POTASSIUM 4.2 MMOL/L (3.6-5.0)
[2022-07-29 21:00] LABS: CALCIUM 9.4 MG/DL (8.5-10.1)
[2022-07-29 21:02] LABS: TOTAL PROTEIN 7.6 GM/DL (6.4-8.2)
[2022-07-29 21:03] LABS: BILIRUBIN,TOTAL 0.4 MG/DL (0.1-1.0)
[2022-07-29 21:05] LABS: CREATININE SERUM 0.62 MG/DL (0.60-1.30)
[2022-07-29] MEDS ORDERED: RT-ALBUTEROL SULF 2.5 MG/3 ML PRE-MIX VIAL ONE (21:10)
[2022-07-29] MEDS ORDERED: RT-ALBUTEROL/IPRATROPIUM 3 ML (DUONEB) VIAL ONE (21:10)
[2022-07-29 21:14] LABS: BASOPHILS # (AUTO) 0.1 10^3/uL (0.0-0.1); BASOPHILS % (AUTO) 1 % (0-10); EOSINOPHILS # (AUTO) 0.5 10^3/uL (0.0-0.3); EOSINOPHILS % (AUTO) 4 % (0-10); HEMATOCRIT 40 % (35-52); HEMOGLOBIN 12.4 g/dL (11.5-16.0); LYMPHOCYTES # (AUTO) 1.4 10^3/uL (1.0-4.0); LYMPHOCYTES % (AUTO) 10 % (12-44); MEAN CORPUSCULAR HEMOGLOBIN 29 pg (25-34); MEAN CORPUSCULAR HGB CONC 31 g/dL (32-36); MEAN CORPUSCULAR VOLUME 92 fL (80-99); MEAN PLATELET VOLUME 9.3 fL (9.0-12.2); MONOCYTES # (AUTO) 0.7 10^3/uL (0.0-1.0); MONOCYTES % (AUTO) 6 % (0-12); NEUTROPHILS # (AUTO) 10.4 10^3/uL (1.8-7.8); NEUTROPHILS % (AUTO) 79 % (42-75); PLATELET COUNT 250 10^3/uL (130-400); WHITE BLOOD COUNT 13.1 10^3/uL (4.3-11.0)
[2022-07-29] MEDS ORDERED: RT-ALBUTEROL/IPRATROPIUM 3 ML (DUONEB) VIAL INH ONE (21:15)
[2022-07-29 21:22] LABS: BILIRUBIN,URINE NEGATIVE (NEGATIVE); CLARITY,URINE CLEAR; COLOR,URINE YELLOW; GLUCOSE, URINE (UA) NEGATIVE (NEGATIVE); KETONES,URINE NEGATIVE (NEGATIVE); LEUKOCYTE ESTERASE ,URINE NEGATIVE (NEGATIVE); NITRITE,URINE NEGATIVE (NEGATIVE); PROTEIN,URINE TRACE (NEGATIVE)
[2022-07-29 21:25] VITALS: BP 143/69
--- NOTE | 2022-07-29 21:25 | Diagnostic Imaging Report ---
Chest 1 view, AP/PA only Indication: Shortness of breath. Comparison: 07/12/2022. Findings: Multifocal chronic heterogeneous and coarse pulmonary opacities have not changed. No pleural effusion or pneumothorax. Stable cardiomegaly. 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 Dictated by: Dictated on workstation # [id number]
[2022-07-29 21:38] LABS: BACTERIA,URINE FEW /HPF; SQUAMOUS EPITHELIAL CELL,UR RARE /HPF; WBC,URINE 0-2 /HPF; YEAST,URINE FEW /HPF
[2022-07-29] MEDS ORDERED: CEFEPIME INJECTION 1,000 MG in NS (IVPB) 50 ML IV ONE (21:45)
[2022-07-29 22:38] LABS: ABG BASE EXCESS 10.6 MMOL/L (-2.5-2.5); ABG OXYGEN SATURATION 100 % (94-100); ABG PO2 265 MMHG (79-93); ABG TCO2 39.3 MMOL/L (21.0-31.0)
[2022-07-29 22:41] LABS: ABG PCO2 75 MMHG (35-45); ABG PH 7.31 (7.37-7.43); ALLENS TEST YES-POS
--- NOTE | 2022-07-29 22:41 | ED Respiratory ---
General Chief Complaint: Respiratory Problems Stated Complaint: LOW O2 Nursing Triage Note: TO ED VIA [facility] FROM [facility] WITH C/O SOA. PT ARRIVES TO ER ON NRB AT 15L. O2 SATS ARE MID 60s AT THE TIME OF ARRIVAL AND OXYMASK APPLIED AT 15L AND SATS RAISED TO 80s. MAINTAINING 89-92% AFTER A FEW MINUTES OF OXYMASK APPLICATION. RT WAS CALLED FOR BIPAP PLACEMENT. PT HAS HX OF O2 AT 5L PER NC AT ALL TIMES AND RECENT HOSPITAL ADMISSION FOR BILATERAL PNEUMONIA. NO IV IN PLACE ON ARRIVAL TO ER. (NAOMI LINK APRN) History of Present Illness Date Seen by Provider: Jul 29, 2022 Time Seen by Provider: 20:40 Initial Comments Patient is a 87-year-old female who presents the emergency department via EMS from her alf at the [facility] where she was noted to have acute worsening of her shortness of air. Patient reportedly was hypoxic there despite being turned up from her normal 5 L of oxygen at 10 L. EMS states patient was hypoxic upon their arrival. They placed her on a facemask and initiated a DuoNeb treatment. They stated patient's oxygen saturations were in the low 80s upon their arrival. Patient was recently admitted to this facility for pneumonia. Patient endorses a nonproductive cough. No recent fever per her report. (NAOMI LINK APRN) Allergies and Home Medications Allergies Coded Allergies: Sulfa (Sulfonamide Antibiotics) (Verified Allergy, Unknown, 11/13/13) nitrofurantoin (Verified Adverse Reaction, Unknown, NAUSEA, 06/05/16) Patient Home Medication List Home Medication List Reviewed: Yes (NAOMI LINK APRN) Acetaminophen (Tylenol) 325 Mg Tablet, 650 MG PO Q6H PRN for PAIN-MILD (1-4), (Reported) Entered as Reported by: CARL SHI on 10/24/21 1109 Last Action: Reviewed Albuterol Sulfate (Ventolin Hfa) 1 Puff Puff, 2 PUFF IH Q6H PRN for SHORTNESS OF BREATH, (Reported) Entered as Reported by: PAULY RASCON on 07/18/21 7207 Last Action: Reviewed Albuterol Sulfate (Albuterol Sulfate) 2.5 Mg/0.5 Ml Vial.neb, 2.5 MG INH QID, (Reported) Entered as Reported by: CARL SHI on 07/13/22 1015 Last Action: Reviewed Albuterol Sulfate (Albuterol Sulfate) 2.5 Mg/0.5 Ml Vial.neb, 2.5 MG INH Q6H PRN for SHORTNESS OF BREATH, (Reported) Entered as Reported by: CARL SHI on 07/13/22 1015 Last Action: Reviewed Apixaban (Eliquis) 5 Mg Tablet, 5 MG PO Q12H, (Reported) Entered as Reported by: CARL SHI on 07/31/22 1434 Last Action: Reviewed Ascorbic Acid (Vitamin C) 500 Mg Capsule, 500 MG PO 1200, (Reported) Entered as Reported by: PAULY RASCON on 07/18/21 1604 Last Action: Reviewed Budesonide/Formoterol Fumarate (Symbicort 160-4.5 Mcg Inhaler) 10.2 Gm Hfa.aer.ad, 2 PUFF IH BID, (Reported) Entered as Reported by: PAULY RASCON on 07/18/21 6655 Last Action: Reviewed Carboxymethylcellulose Sodium (Refresh Tears) 0.5 % Drops, 2-3 DROPS OU QID PRN for ALLERGIC DERMATITIS, (Reported) Entered as Reported by: CARL SHI on 07/13/22 101 Last Action: Reviewed Diazepam (Diazepam) 5 Mg Tablet, 5 MG PO HS PRN for INSOMNIA, (Reported) Entered as Reported by: CARL SHI on 07/13/22 101 Last Action: Reviewed Diclofenac Sodium (Diclofenac Sodium) 1 % Gel..gram., 2 GM TP Q6H PRN for PAIN- BREAKTHROUGH, (Reported) Entered as Reported by: CARL SHI on 07/13/22 1015 Last Action: Reviewed Diltiazem HCl (Diltiazem 24Hr Cd) 240 Mg Cap.er.24h, 240 MG PO DAILY, (Reported) Entered as Reported by: CARL SHI on 07/31/22 1434 Last Action: Reviewed Docusate Sodium (Docusate Sodium) 100 Mg Capsule, 100 MG PO BID, (Reported) Entered as Reported by: CARL SHI on 07/31/22 1434 Last Action: Reviewed Escitalopram Oxalate (Lexapro) 20 Mg Tablet, 20 MG PO 1200, (Reported) Entered as Reported by: CARL SHI on 07/28/19 0936 Last Action: Reviewed Guaifenesin (Mucinex) 600 Mg Tab.er.12h, 600 MG PO Q12H PRN for COUGH, (Reported) Entered as Reported by: CARL SHI on 10/24/211108 Last Action: Reviewed Guaifenesin/Dextromethorphan (Guaifenesin Dm Syrup) 5 Ml Syrup, 5 ML PO Q4H PRN for COUGH Prescribed by: BING HUBER on 10/27/21 1227 Last Action: Reviewed Hydrocodone/Acetaminophen (Hydrocodone-Acetamin 5-325 mg) 5 Mg-325 Mg Tablet, 1 TAB PO QID, (Reported) Entered as Reported by: CARL SHI on 07/31/22 143 Last Action: Reviewed Hydrocortisone (Proctozone-Hc) 2.5 % Cream.appl, 1 APPLIC RC QID, (Reported) Entered as Reported by: CARL SHI on 07/31/221433 Last Action: Reviewed Ipratropium/Albuterol Sulfate (Iprat-Albut 0.5-3(2.5) mg/3 ml) 3 Ml Ampul.neb, 3 ML IH Q6H PRN for SHORTNESS OF BREATH, (Reported) Entered as Reported by: CARL SHI on 10/24/211108 Last Action: Reviewed L. Acidophilus/L.bulgaricus (Lactobacillus Tablet) 1 Million Cell Tablet, 1 EACH PO 1200, (Reported) Entered as Reported by: CARL SHI on 10/24/211108 Last Action: Reviewed Loperamide HCl (Imodium A-D) 2 Mg Capsule, 2 MG PO Q6H PRN for DIARRHEA, (Reported) Entered as Reported by: CARL SHI on 07/31/22 143 Last Action: Reviewed Magnesium Hydroxide (Milk of Magnesia) 400 Mg/5 Ml Oral.susp, 5 ML PO Q4H PRN for CONSTIPATION-7TH LINE, (Reported) Entered as Reported by: PAULY RASCON on 07/18/21 1604 Last Action: Reviewed Melatonin (Melatonin) 5 Mg Tablet, 5 MG PO HS, (Reported) Entered as Reported by: CARL SHI on 10/24/211108 Last Action: Reviewed Polyethylene Glycol 3350 (Miralax) 17 Gram Powd.pack, 17 GM PO DAILY, (Reported) Entered as Reported by: CARL SHI on 07/31/22 1434 Last Action: Reviewed Discontinued Medications Apixaban (Eliquis) 5 Mg Tablet, 5 MG PO BID Discontinued Reason: Duplicate Order Prescribed by: CARSON MCCLELLAN on 07/17/22 104 Last Action: Discontinued Diltiazem HCl (Diltiazem 24Hr ER) 240 Mg Cap.er.24h, 240 MG PO DAILY Discontinued Reason: Duplicate Order Prescribed by: CARSON MCCLELLAN on 07/17/22 104 Last Action: Discontinued Loperamide HCl (Ultra A-D) 2 Mg Tablet, 2 MG PO Q6H PRN for DIARRHEA, (Reported) Discontinued Reason: Duplicate Order Entered as Reported by: CARL SHI on 10/24/21 1109 Last Action: Discontinued Oxycodone Hcl (Oxyir Tablet) 5 Mg Tab, 5 MG PO TID PRN for PAIN-SEE DOSE INSTRUCTIONS Discontinued Reason: No Longer Taking Prescribed by: CARSON MCCLELLAN on 07/17/221043 Last Action: Discontinued Prednisone (Prednisone) 10 Mg Tab.ds.pk, 10 MG PO DAILY Discontinued Reason: No Longer Taking Prescribed by: CARSON MCCLELLAN on 07/17/221042 Last Action: Discontinued Review of Systems Review of Systems Constitutional: see HPI, weakness EENTM: no symptoms reported Respiratory: see HPI, cough, short of breath, wheezing Cardiovascular: no symptoms reported Gastrointestinal: no symptoms reported Genitourinary: no symptoms reported Musculoskeletal: no symptoms reported Skin: no symptoms reported Psychiatric/Neurological: No Symptoms Reported Hematologic/Lymphatic: No Symptoms Reported Immunological/Allergic: no symptoms reported (NAOMI LINK APRN) Past Klcefdt-Kdiiwz-Ievzsc Hx Immunizations Up To Date Tetanus Booster (TDap): Less than 5yrs PED Vaccines UTD: No First/Initial COVID19 Vaccinat: YES Second COVID19 Vaccination [place]: YES Third COVID19 Vaccination Date: YES (NAOMI LINK APRN) Seasonal Allergies Seasonal Allergies: No (NAOMI LINK APRN) Past Medical History Surgery/Hospitalization HX: Hysterectomy Cataract Rt hip replaced x 2 Surgeries: Yes (2 hip replacements on right hip; L ankle surgery; CATARACTS) Eye Surgery, Hysterectomy, Orthopedic Respiratory: Yes (SOB WITH EXERTION, FREQUENT BRONCHITIS, PNEUMONIA) COPD Currently Using CPAP: No Currently Using BIPAP: No Cardiac: No High Cholesterol, Hypertension Neurological: No Reproductive Disorders: No Female Reproductive Disorders: Denies Sexually Transmitted Disease: No HIV/AIDS: No Bladder Infection, UTI-Chronic Gastrointestinal: Yes Chronic Constipation Musculoskeletal: Yes (Chronic osteoarthritis, bursitis, ) Arthritis, Rheumatoid Arthritis Endocrine: No Cataract Cancer: No Psychosocial: No Integumentary: No Blood Disorders: Yes (CHRONIC ANEMIA) Adverse Reaction/Blood Tranf: No (NAOMI LINK APRN) Family Medical History BONE CANCER 19 FATHER HIP REPLACEMENT 19 MOTHER THYROID ISSUES 19 MOTHER No Pertinent Family Hx (NAOMI LINK APRN) Physical Exam Vital Signs - First Documented 07/29/22 20:35 Temp 36.8 Pulse 99 Resp 35 B/P (MAP) 176/77 (110) Pulse Ox 65 O2 Delivery Non Rebreather O2 Flow Rate 15.00 (GUILHERME JOHNS DO) Capillary Refill : Less Than 3 Seconds (NAOMI LINK APRN) Height: 5'2.00" Weight: 160lbs. 2.3oz. 72.577801dw; 27.05 BMI Method:Stated General Appearance: WD/WN, no apparent distress HEENT: PERRL/EOMI, normal ENT inspection, TMs normal, pharynx normal Neck: non-tender, full range of motion, supple, normal inspection Respiratory: no accessory muscle use, respiratory distress, decreased breath sounds, wheezing, expiration Gastrointestinal: normal bowel sounds, non tender, soft, no organomegaly Extremities: normal range of motion, non-tender, normal inspection, no pedal edema, no calf tenderness Neurologic/Psychiatric: no motor/sensory deficits, alert, normal mood/affect, oriented x 3 Skin: normal color, warm/dry (NAOMI LINK APRN) Focused Exam Lactate Level 07/29/22 20:50: Lactic Acid Level 1.15 (GUILHERME JOHNS DO) Lactic Acid Level Laboratory Tests Test 07/29/22 20:50 Lactic Acid Level 1.15 MMOL/L (0.50-2.00) (GUILHERME JOHNS DO) Progress/Results/Core Measures Suspected Sepsis SIRS Temperature: Pulse: 98 Respiratory Rate: 45 Laboratory Tests 07/29/22 20:44: White Blood Count 13.1H Blood Pressure 143 /69 Mean: 110 07/29/22 20:50: Lactic Acid Level 1.15 Laboratory Tests 07/29/22 20:44: Creatinine 0.62, Platelet Count 250, Total Bilirubin 0.4 (NAOMI LINK APRN) Results/Orders Lab Results Laboratory Tests Test 07/29/22 20:44 07/29/22 20:50 07/29/22 21:10 07/29/22 21:14 Range/Units White Blood Count 13.1 H 4.3-11.0 10^3/uL Red Blood Count 4.32 3.80-5.11 10^6/uL Hemoglobin 12.4 11.5-16.0 g/dL Hematocrit 40 35-52 % Mean Corpuscular Volume 92 80-99 fL Mean Corpuscular Hemoglobin 29 25-34 pg Mean Corpuscular Hemoglobin Concent 31 L 32-36 g/dL Red Cell Distribution Width 13.0 10.0-14.5 % Platelet Count 250 130-400 10^3/uL Mean Platelet Volume 9.3 9.0-12.2 fL Immature Granulocyte % (Auto) 1 % Neutrophils (%) (Auto) 79 H 42-75 % Lymphocytes (%) (Auto) 10 L 12-44 % Monocytes (%) (Auto) 6 0-12 % Eosinophils (%) (Auto) 4 0-10 % Basophils (%) (Auto) 1 0-10 % Neutrophils # (Auto) 10.4 H 1.8-7.8 10^3/uL Lymphocytes # (Auto) 1.4 1.0-4.0 10^3/uL Monocytes # (Auto) 0.7 0.0-1.0 10^3/uL Eosinophils # (Auto) 0.5 H 0.0-0.3 10^3/uL Basophils # (Auto) 0.1 0.0-0.1 10^3/uL Immature Granulocyte # (Auto) 0.1 0.0-0.1 10^3/uL Sodium Level 136 135-145 MMOL/L Potassium Level 4.2 3.6-5.0 MMOL/L Chloride Level 94 L 98-107 MMOL/L Carbon Dioxide Level 32 21-32 MMOL/L Anion Gap 10 5-14 MMOL/L Blood Urea Nitrogen 12 7-18 MG/DL Creatinine 0.62 0.60-1.30 MG/DL Estimat Glomerular Filtration Rate 87 BUN/Creatinine Ratio 19 Glucose Level 135 H 70-105 MG/DL Calcium Level 9.4 8.5-10.1 MG/DL Corrected Calcium 10.0 8.5-10.1 MG/DL Magnesium Level 2.0 1.6-2.4 MG/DL Total Bilirubin 0.4 0.1-1.0 MG/DL Aspartate Amino Transf (AST/SGOT) 18 5-34 U/L Alanine Aminotransferase (ALT/SGPT) 9 0-55 U/L Alkaline Phosphatase 83 40-136 U/L Troponin I < 0.028 <0.028 NG/ML B-Type Natriuretic Peptide 50.5 <100.0 PG/ML Total Protein 7.6 6.4-8.2 GM/DL Albumin 3.3 3.2-4.5 GM/DL Lactic Acid Level 1.15 0.50-2.00 MMOL/L Urine Color YELLOW Urine Clarity CLEAR Urine pH 8.0 5-9 Urine Specific [place] 1.020 1.016-1.022 Urine Protein TRACE H NEGATIVE Urine Glucose (UA) NEGATIVE NEGATIVE Urine Ketones NEGATIVE NEGATIVE Urine Nitrite NEGATIVE NEGATIVE Urine Bilirubin NEGATIVE NEGATIVE Urine Urobilinogen 1.0 < = 1.0 MG/DL Urine Leukocyte Esterase NEGATIVE NEGATIVE Urine RBC (Auto) NEGATIVE NEGATIVE Urine RBC NONE /HPF Urine WBC 0-2 /HPF Urine Squamous Epithelial Cells RARE /HPF Urine Crystals NONE /LPF Urine Bacteria FEW H /HPF Urine Casts NONE /LPF Urine Mucus MODERATE H /LPF Urine Yeast FEW H /HPF Urine Culture Indicated YES Urine Legionella pneumophilia Ag Negative Influenza Type A (RT-PCR) Not Detected Not Detecte Influenza Type B (RT-PCR) Not Detected Not Detecte SARS-CoV-2 RNA (RT-PCR) Not Detected Not Detecte Test 07/29/22 22:30 Range/Units Blood Gas Puncture Site LEFT RADIAL Blood Gas Patient Temperature 36.8 Arterial Blood pH 7.31 *L 7.37-7.43 Arterial Blood Partial Pressure CO2 75 *H 35-45 MMHG Arterial Blood Partial Pressure O2 265 H 79-93 MMHG Arterial Blood HCO3 37 H 23-27 MMOL/L Arterial Blood Total CO2 39.3 H 21.0-31.0 MMOL/L Arterial Blood Oxygen Saturation 100 94-100 % Arterial Blood Base Excess 10.6 H -2.5-2.5 MMOL/L [place] Test YES-POS Blood Gas Ventilator Setting NO Blood Gas Inspired Oxygen NA (AVTAR JOHNSA Jose Eduardo DO) Micro Results Microbiology 07/29/22 Urine Culture - Final, Complete Gram Pos Mixed Bacterial Natalya Enterococcus faecalis Staph, Coag Neg (SPINE SPECIALIST) Aerococcus Viridans Corynebacterium amycolatum Corynebacterium amycolatum#2 Brevibacterium species 07/29/22 Blood Culture - Preliminary, Resulted No growth 07/29/22 Blood Culture - Preliminary, Resulted No growth (ANDREASGUILHERME Jose Eduardo ACUNA) Vital Signs/I&O 07/29/22 07/29/22 07/29/22 07/29/22 20:35 20:35 21:23 21:25 Temp 36.8 Pulse 99 98 Resp 35 45 B/P (MAP) 176/77 (110) Pulse Ox 65 97 O2 Delivery Non Rebreather Non Rebreather OxyMask O2 Flow Rate 15.00 15.00 15.00 100.00 (GUILHERME JOHNS DO) Vital Signs/I&O Capillary Refill : Less Than 3 Seconds (NAOMI LINK APRN) Blood Pressure Mean: 110 Progress Note : Progress Note Patient is in significant respiratory distress upon arrival. She was rapidly placed on BiPAP. Initially this improved work of breathing and oxygen saturations with patient subsequently desaturated to the 60s and the settings were titrated up with oxygen being turned up to 100%. This subsequently improved patient's work of breathing and oxygen saturations. Patient was given an hour-long albuterol treatment which also helped improve breath sounds and aeration. Laboratory evaluation notable for mild leukocytosis. Chest x-ray reveals no discrete infiltrate. EKG without acute ischemic change or arrhythmia. Given level of respiratory support, will admit for further evaluation and treatment. Patient was also given a dose of cefepime as well as a dose of Solu-Medrol. Blood and urine cultures were also obtained. Hospitalist kindly agreed to admit. Spoke with the eICU doctor who also kindly agrees to oversee care while patient is in the ICU. I spoke with patient's daughter on the phone who verbalized understanding of the plan of care. Patient also verbalized understanding. (NAOMI LINK APRN) Departure Impression Primary Impression: Acute on chronic respiratory failure with hypoxemia Disposition: ADMITTED INPATIENT Condition: Stable Admissions Decision to Admit Reason: Admit from ER (General) Decision to Admit/Date: Jul 29, 2022 Time/Decision to Admit Time: 22:40 (NAOMI LINK APRN) Departure-Patient Inst. Referrals: NO,LOCAL PHYSICIAN (PCP/Family) Primary Care Physician ATTENDING PHYSICIAN NOTE: I WAS PHYSICALLY PRESENT ER PHYSICIAN, BUT I WAS NOT INVOLVED IN ANY DECISION MAKING OR ANY CARE OF THIS PATIENT, AND I AM NOT COLLABORATING PHYSICIAN. (GUILHERME JOHNS DO) NAOMI LINK APRN Jul 29, 2022 22:41 GUILHERME JOHNS DO Aug 02, 2022 06:41
[2022-07-29 22:42] LABS: PATIENT TEMP 36.8; VENTILATOR NO
[2022-07-30] VITALS (8 sets, daily range): BP systolic 112–126; BP diastolic 50–101
[2022-07-30] MEDS ORDERED: NS IV 1000 ML 1,000 ML IV SCH (00:15)
--- NOTE | 2022-07-30 00:37 | Tele-ICU Consult ---
Progress Note 87-year-old female who presented the emergency department via EMS from her intermediate at the [facility] where she was noted to have acute worsened dyspnea and hypoxia. No recent fever per pt report. In ED, pt placed on BPAP for hypercapnic resp failure Pt seen on video, mild distress TV low 400s, RR in mid 20s on facemask BPAP. Exam info includes nurse's report CC time was 25 minutes Focused Exam Sepsis Stage: Sepsis Possible Source: Pulmonary Lactate Level 07/29/22 20:50: Lactic Acid Level 1.15 Height, Weight, BMI Height: 5'2.00" Weight: 160lbs. 2.3oz. [id number]; 27.05 BMI Method:Stated Respiratory: No Accessory Muscle Use, Decreased Breath Sounds, Respiratory Distress, Wheezing Skin: normal color Lactic Acid Level Laboratory Tests Test 07/29/22 20:50 Lactic Acid Level 1.15 MMOL/L (0.50-2.00) Within 3hrs of presentation: Admin ABX, Focus exam, Lactate level Allergies and Home Medications Allergies Coded Allergies: Sulfa (Sulfonamide Antibiotics) (Verified Allergy, Unknown, 11/13/13) nitrofurantoin (Verified Adverse Reaction, Unknown, NAUSEA, 06/05/16) Home Medications Acetaminophen 325 Mg Tablet, 650 MG PO Q6H PRN for PAIN-MILD (1-4), (Reported) Albuterol Sulfate 1 Puff Puff, 2 PUFF IH Q6H PRN for SHORTNESS OF BREATH, (Reported) Albuterol Sulfate 2.5 Mg/0.5 Ml Vial.neb, 2.5 MG INH QID, (Reported) Albuterol Sulfate 2.5 Mg/0.5 Ml Vial.neb, 2.5 MG INH Q6H PRN for SHORTNESS OF BREATH, (Reported) Apixaban 5 Mg Tablet, 5 MG PO BID Prescribed by: CARSON MCCLELLAN on 07/17/22 1043 Ascorbic Acid 500 Mg Capsule, 500 MG PO 1200, (Reported) Budesonide/Formoterol Fumarate 10.2 Gm Hfa.aer.ad, 2 PUFF IH BID, (Reported) Carboxymethylcellulose Sodium 0.5 % Drops, 2-3 DROPS OU QID PRN for ALLERGIC DERMATITIS, (Reported) Diazepam 5 Mg Tablet, 5 MG PO HS PRN for INSOMNIA, (Reported) Diclofenac Sodium 1 % Gel..gram., 2 GM TP Q6H PRN for PAIN-BREAKTHROUGH, (Reported) APPLY TO NECK Diltiazem HCl 240 Mg Cap.er.24h, 240 MG PO DAILY Prescribed by: CARSON MCCLELLAN on 07/17/22 1043 Escitalopram Oxalate 20 Mg Tablet, 20 MG PO 1200, (Reported) Guaifenesin 600 Mg Tab.er.12h, 600 MG PO Q12H PRN for COUGH, (Reported) Guaifenesin/Dextromethorphan 5 Ml Syrup, 5 ML PO Q4H PRN for COUGH Prescribed by: BING HUBER on 10/27/21 1227 Ipratropium/Albuterol Sulfate 3 Ml Ampul.neb, 3 ML IH Q6H PRN for SHORTNESS OF BREATH, (Reported) L. Acidophilus/L.bulgaricus 1 Million Cell Tablet, 1 EACH PO 1200, (Reported) Loperamide HCl 2 Mg Tablet, 2 MG PO Q6H PRN for DIARRHEA, (Reported) Magnesium Hydroxide 400 Mg/5 Ml Oral.susp, 5 ML PO Q4H PRN for CONSTIPATION-7TH LINE, (Reported) Melatonin 5 Mg Tablet, 5 MG PO HS, (Reported) Oxycodone Hcl 5 Mg Tab, 5 MG PO TID PRN for PAIN-SEE DOSE INSTRUCTIONS Prescribed by: CARSON MCCLELLAN on 07/17/22 1044 Prednisone 10 Mg Tab.ds.pk, 10 MG PO DAILY Take 4 tabs(40mg)daily,decrease by 1 tab(10MG)daily. Prescribed by: CARSON MCCLELLAN on 07/17/22 104 Assessment/Plan Assessment and Plan Assess & Plan/Chief Complaint 87 yo female admitted with acute on chronic hypercapnic resp failure Pt given Cefepime. Also given solumedrol. Per nurse, resp therapist will order nebs. F/u ABG ordered. Nasal MRSA to be checked as well as urine legionella Will order SCDs prophy Critical Care Critically Ill Patient CC TIME : Critical Care Start Date: Jul 30, 2022 Critical Care Start Time: 00:32 Stop date: Jul 30, 2022 Stop Time: 00:57 Exam Vital Signs Vital Signs 07/29/22 23:45 Temp 36.8 Pulse 86 Resp 23 B/P (MAP) 100/81 Pulse Ox 96 O2 Delivery NIV Bilevel O2 Flow Rate 50.00 Capillary Refill : Less Than 3 Seconds Labs Laboratory Tests Test 07/29/22 20:44 07/29/22 20:50 07/29/22 21:10 07/29/22 21:14 Range/Units White Blood Count 13.1 H 4.3-11.0 10^3/uL Red Blood Count 4.32 3.80-5.11 10^6/uL Hemoglobin 12.4 11.5-16.0 g/dL Hematocrit 40 35-52 % Mean Corpuscular Volume 92 80-99 fL Mean Corpuscular Hemoglobin 29 25-34 pg Mean Corpuscular Hemoglobin Concent 31 L 32-36 g/dL Red Cell Distribution Width 13.0 10.0-14.5 % Platelet Count 250 130-400 10^3/uL Mean Platelet Volume 9.3 9.0-12.2 fL Immature Granulocyte % (Auto) 1 % Neutrophils (%) (Auto) 79 H 42-75 % Lymphocytes (%) (Auto) 10 L 12-44 % Monocytes (%) (Auto) 6 0-12 % Eosinophils (%) (Auto) 4 0-10 % Basophils (%) (Auto) 1 0-10 % Neutrophils # (Auto) 10.4 H 1.8-7.8 10^3/uL Lymphocytes # (Auto) 1.4 1.0-4.0 10^3/uL Monocytes # (Auto) 0.7 0.0-1.0 10^3/uL Eosinophils # (Auto) 0.5 H 0.0-0.3 10^3/uL Basophils # (Auto) 0.1 0.0-0.1 10^3/uL Immature Granulocyte # (Auto) 0.1 0.0-0.1 10^3/uL Sodium Level 136 135-145 MMOL/L Potassium Level 4.2 3.6-5.0 MMOL/L Chloride Level 94 L 98-107 MMOL/L Carbon Dioxide Level 32 21-32 MMOL/L Anion Gap 10 5-14 MMOL/L Blood Urea Nitrogen 12 7-18 MG/DL Creatinine 0.62 0.60-1.30 MG/DL Estimat Glomerular Filtration Rate 87 BUN/Creatinine Ratio 19 Glucose Level 135 H 70-105 MG/DL Calcium Level 9.4 8.5-10.1 MG/DL Corrected Calcium 10.0 8.5-10.1 MG/DL Magnesium Level 2.0 1.6-2.4 MG/DL Total Bilirubin 0.4 0.1-1.0 MG/DL Aspartate Amino Transf (AST/SGOT) 18 5-34 U/L Alanine Aminotransferase (ALT/SGPT) 9 0-55 U/L Alkaline Phosphatase 83 40-136 U/L Troponin I < 0.028 <0.028 NG/ML B-Type Natriuretic Peptide 50.5 <100.0 PG/ML Total Protein 7.6 6.4-8.2 GM/DL Albumin 3.3 3.2-4.5 GM/DL Lactic Acid Level 1.15 0.50-2.00 MMOL/L Urine Color YELLOW Urine Clarity CLEAR Urine pH 8.0 5-9 Urine Specific Hanson 1.020 1.016-1.022 Urine Protein TRACE H NEGATIVE Urine Glucose (UA) NEGATIVE NEGATIVE Urine Ketones NEGATIVE NEGATIVE Urine Nitrite NEGATIVE NEGATIVE Urine Bilirubin NEGATIVE NEGATIVE Urine Urobilinogen 1.0 < = 1.0 MG/DL Urine Leukocyte Esterase NEGATIVE NEGATIVE Urine RBC (Auto) NEGATIVE NEGATIVE Urine RBC NONE /HPF Urine WBC 0-2 /HPF Urine Squamous Epithelial Cells RARE /HPF Urine Crystals NONE /LPF Urine Bacteria FEW H /HPF Urine Casts NONE /LPF Urine Mucus MODERATE H /LPF Urine Yeast FEW H /HPF Urine Culture Indicated YES Influenza Type A (RT-PCR) Not Detected Not Detecte Influenza Type B (RT-PCR) Not Detected Not Detecte SARS-CoV-2 RNA (RT-PCR) Not Detected Not Detecte Test 07/29/22 22:30 Range/Units Blood Gas Puncture Site LEFT RADIAL Blood Gas Patient Temperature 36.8 Arterial Blood pH 7.31 *L 7.37-7.43 Arterial Blood Partial Pressure CO2 75 *H 35-45 MMHG Arterial Blood Partial Pressure O2 265 H 79-93 MMHG Arterial Blood HCO3 37 H 23-27 MMOL/L Arterial Blood Total CO2 39.3 H 21.0-31.0 MMOL/L Arterial Blood Oxygen Saturation 100 94-100 % Arterial Blood Base Excess 10.6 H -2.5-2.5 MMOL/L Villa Test YES-POS Blood Gas Ventilator Setting NO Blood Gas Inspired Oxygen NA General Appearance: Mild Distress Respiratory: Normal Air Movement Extremities: No Cyanosis Labs Laboratory Tests 07/29/22 20:44 Meds/Labs/Orders Lab results: Laboratory Tests Test 07/29/22 20:44 07/29/22 20:50 07/29/22 21:10 07/29/22 21:14 Range/Units White Blood Count 13.1 H 4.3-11.0 10^3/uL Red Blood Count 4.32 3.80-5.11 10^6/uL Hemoglobin 12.4 11.5-16.0 g/dL Hematocrit 40 35-52 % Mean Corpuscular Volume 92 80-99 fL Mean Corpuscular Hemoglobin 29 25-34 pg Mean Corpuscular Hemoglobin Concent 31 L 32-36 g/dL Red Cell Distribution Width 13.0 10.0-14.5 % Platelet Count 250 130-400 10^3/uL Mean Platelet Volume 9.3 9.0-12.2 fL Immature Granulocyte % (Auto) 1 % Neutrophils (%) (Auto) 79 H 42-75 % Lymphocytes (%) (Auto) 10 L 12-44 % Monocytes (%) (Auto) 6 0-12 % Eosinophils (%) (Auto) 4 0-10 % Basophils (%) (Auto) 1 0-10 % Neutrophils # (Auto) 10.4 H 1.8-7.8 10^3/uL Lymphocytes # (Auto) 1.4 1.0-4.0 10^3/uL Monocytes # (Auto) 0.7 0.0-1.0 10^3/uL Eosinophils # (Auto) 0.5 H 0.0-0.3 10^3/uL Basophils # (Auto) 0.1 0.0-0.1 10^3/uL Immature Granulocyte # (Auto) 0.1 0.0-0.1 10^3/uL Sodium Level 136 135-145 MMOL/L Potassium Level 4.2 3.6-5.0 MMOL/L Chloride Level 94 L 98-107 MMOL/L Carbon Dioxide Level 32 21-32 MMOL/L Anion Gap 10 5-14 MMOL/L Blood Urea Nitrogen 12 7-18 MG/DL Creatinine 0.62 0.60-1.30 MG/DL Estimat Glomerular Filtration Rate 87 BUN/Creatinine Ratio 19 Glucose Level 135 H 70-105 MG/DL Calcium Level 9.4 8.5-10.1 MG/DL Corrected Calcium 10.0 8.5-10.1 MG/DL Magnesium Level 2.0 1.6-2.4 MG/DL Total Bilirubin 0.4 0.1-1.0 MG/DL Aspartate Amino Transf (AST/SGOT) 18 5-34 U/L Alanine Aminotransferase (ALT/SGPT) 9 0-55 U/L Alkaline Phosphatase 83 40-136 U/L Troponin I < 0.028 <0.028 NG/ML B-Type Natriuretic Peptide 50.5 <100.0 PG/ML Total Protein 7.6 6.4-8.2 GM/DL Albumin 3.3 3.2-4.5 GM/DL Lactic Acid Level 1.15 0.50-2.00 MMOL/L Urine Color YELLOW Urine Clarity CLEAR Urine pH 8.0 5-9 Urine Specific Hanson 1.020 1.016-1.022 Urine Protein TRACE H NEGATIVE Urine Glucose (UA) NEGATIVE NEGATIVE Urine Ketones NEGATIVE NEGATIVE Urine Nitrite NEGATIVE NEGATIVE Urine Bilirubin NEGATIVE NEGATIVE Urine Urobilinogen 1.0 < = 1.0 MG/DL Urine Leukocyte Esterase NEGATIVE NEGATIVE Urine RBC (Auto) NEGATIVE NEGATIVE Urine RBC NONE /HPF Urine WBC 0-2 /HPF Urine Squamous Epithelial Cells RARE /HPF Urine Crystals NONE /LPF Urine Bacteria FEW H /HPF Urine Casts NONE /LPF Urine Mucus MODERATE H /LPF Urine Yeast FEW H /HPF Urine Culture Indicated YES Influenza Type A (RT-PCR) Not Detected Not Detecte Influenza Type B (RT-PCR) Not Detected Not Detecte SARS-CoV-2 RNA (RT-PCR) Not Detected Not Detecte Test 07/29/22 22:30 Range/Units Blood Gas Puncture Site LEFT RADIAL Blood Gas Patient Temperature 36.8 Arterial Blood pH 7.31 *L 7.37-7.43 Arterial Blood Partial Pressure CO2 75 *H 35-45 MMHG Arterial Blood Partial Pressure O2 265 H 79-93 MMHG Arterial Blood HCO3 37 H 23-27 MMOL/L Arterial Blood Total CO2 39.3 H 21.0-31.0 MMOL/L Arterial Blood Oxygen Saturation 100 94-100 % Arterial Blood Base Excess 10.6 H -2.5-2.5 MMOL/L Villa Test YES-POS Blood Gas Ventilator Setting NO Blood Gas Inspired Oxygen NA My orders: Orders - ANA LAURA GONSALVES MD [facility] Screen Physician Request (07/29/22 23:41) [facility] Nursing Screening/Treatme .admit (07/29/22 23:41) ANA LAURA GONSALVES MD Jul 30, 2022 00:37
[2022-07-30] MEDS ORDERED: VANCOMYCIN INJECTION 1,000 MG in NS (IVPB) 250 ML IV ONE (01:15)
[2022-07-30] MEDS ORDERED: VANCOMYCIN 750 MG/NS 250 ML IVPB IV ONE ×2 (01:30)
[2022-07-30] MEDS ORDERED: NS IV 500 ML 500 ML IV PRN (01:45)
[2022-07-30] MEDS ORDERED: NS (IVPB) 250 ML ONE (02:00)
[2022-07-30] MEDS ORDERED: VANCOMYCIN 500 MG/NS 100 ML IV ONE ×2 (02:30)
[2022-07-30] MEDS ORDERED: RT-ALBUTEROL/IPRATROPIUM 3 ML (DUONEB) VIAL ONE (02:52)
[2022-07-30 03:41] LABS: ABG BASE EXCESS 10.4 MMOL/L (-2.5-2.5); ABG OXYGEN SATURATION 100 % (94-100); ABG PO2 188 MMHG (79-93); ABG TCO2 39.1 MMOL/L (21.0-31.0)
[2022-07-30 03:43] LABS: ABG PH 7.32 (7.37-7.43)
[2022-07-30 03:44] LABS: ABG PCO2 73 MMHG (35-45); ALLENS TEST YES-POS; INSPIRED O2 75%; PATIENT TEMP 36.4; VENTILATOR NO
[2022-07-30 04:24] LABS: BASOPHILS % (AUTO) 0 % (0-10); EOSINOPHILS % (AUTO) 0 % (0-10); HEMATOCRIT 36 % (35-52); HEMOGLOBIN 11.2 g/dL (11.5-16.0); LYMPHOCYTES # (AUTO) 0.6 10^3/uL (1.0-4.0); LYMPHOCYTES % (AUTO) 6 % (12-44); MEAN CORPUSCULAR HEMOGLOBIN 29 pg (25-34); MEAN CORPUSCULAR HGB CONC 32 g/dL (32-36); MEAN CORPUSCULAR VOLUME 91 fL (80-99); MEAN PLATELET VOLUME 9.3 fL (9.0-12.2); MONOCYTES # (AUTO) 0.1 10^3/uL (0.0-1.0); MONOCYTES % (AUTO) 1 % (0-12); NEUTROPHILS # (AUTO) 9.7 10^3/uL (1.8-7.8); NEUTROPHILS % (AUTO) 93 % (42-75); PLATELET COUNT 208 10^3/uL (130-400); WHITE BLOOD COUNT 10.5 10^3/uL (4.3-11.0)
[2022-07-30] MEDS ORDERED: CEFEPIME INJECTION 1,000 MG in NS (IVPB) 50 ML IV SCH (04:30)
[2022-07-30] MEDS ORDERED: CEFEPIME 1,000 MG/NS 50 ML IVPB IV SCH ×2 (04:30)
[2022-07-30 04:58] LABS: ALBUMIN 2.9 GM/DL (3.2-4.5); BILIRUBIN,TOTAL 0.3 MG/DL (0.1-1.0); CALCIUM 8.9 MG/DL (8.5-10.1); CREATININE SERUM 0.56 MG/DL (0.60-1.30); MAGNESIUM 2.3 MG/DL (1.6-2.4); PHOSPHORUS 3.4 MG/DL (2.3-4.7); POTASSIUM 4.3 MMOL/L (3.6-5.0); TOTAL PROTEIN 6.8 GM/DL (6.4-8.2)
[2022-07-30] MEDS: KCL 20 MEQ TAB (K-DUR) PO SCH (05:00)
[2022-07-30] MEDS: POTASSIUM CL 10MEQ/50ML IVPB 50 ML IV SCH (05:01)
[2022-07-30] MEDS: MAGNESIUM 1 GM/100 ML IVPB 100 ML IV SCH (05:01)
[2022-07-30] MEDS ORDERED: NS (IVPB) 50 ML ONE (05:05)
[2022-07-30] MEDS ORDERED: RT-ALBUTEROL/IPRATROPIUM 3 ML (DUONEB) VIAL INH PRN (06:00)
[2022-07-30 06:17] LABS: LYMPHOCYTES % (MANUAL) 2 %; MONOCYTES % (MANUAL) 1 %; NEUTROPHILS % (MANUAL) 97 %; RBC MORPH NORMAL
--- NOTE | 2022-07-30 06:42 | History & Physical ---
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 She was placed on BiPAP and remains BiPAP dependent. I had arranged her to start hospice when she discharged back to [facility] but upon discussion with daughter she had spoken to Ofelia the director toxicology and she had obtained skilled care orders for her which likely increased her activity and respiratory drive which caused an acute decompensation. I spoke with daughter in depth and told her that she has end- stage pulmonary disease and there is no cure for this and advanced age [age] years old she met criteria for hospice and should be enrolled but withdrawal of care will be required since she has become BiPAP dependent which could have possibly been avoided if bedside hospice initially. I spoke with daughter in depth. Source: RN/MD, old records Date Seen 07/30/22 Time Seen by a Provider: 11:00 Attending Physician No,Local Physician PCP Admitting Physician: Karine Lin DO Attending Physician: Karine Lin DO Referring Physician Date of Admission Jul 29, 2022 at 22:50 Home Medications & Allergies Home Medications Reviewed patient Home Medication Reconciliation performed by pharmacy medication reconciliations heating repair technician and/or nursing. Patients Allergies have been reviewed. Allergies Allergies Coded Allergies Sulfa (Sulfonamide Antibiotics) (Verified Allergy, Unknown, 11/13/13) nitrofurantoin (Verified Adverse Reaction, Unknown, NAUSEA, 06/05/16) Past Vomihuv-Vlniyj-Xroseg Hx Past Med/Social Hx: Reviewed Nursing Past Med/Soc Hx, Reviewed and Corrections made Patient Social History Marrital Status: single Employed/Student: retired Smoking Status: Never a Smoker Recent Hopitalizations: No Immunizations Up To Date Tetanus Booster (TDap): Less than 5yrs Pediatric: No Date of Pneumonia Vaccine: Nov 16, 2013 Date of Influenza Vaccine: Apr 30, 2022 Seasonal Allergies Seasonal Allergies: No Past Medical History Surgeries: Eye Surgery, Hysterectomy, Orthopedic Respiratory: Pneumonia Pulmonary fibrosis Currently Using CPAP: No Currently Using BIPAP: No Cardiac: High Cholesterol, Hypertension Reproductive: No Sexually Transmitted Disease: No HIV/AIDS: No Female Reproductive Disorders: Denies Genitourinary: Bladder Infection, UTI-Chronic Gastrointestinal: Chronic Constipation Musculoskeletal: Arthritis, Rheumatoid Arthritis HEENT: Cataract History of Blood Disorders: Yes (CHRONIC ANEMIA) Adverse Reaction to Blood [place]: No Family History BONE CANCER 19 FATHER HIP REPLACEMENT 19 MOTHER THYROID ISSUES 19 MOTHER No Pertinent Family Hx Review of Systems ROS-Unable to Obtain: BiPAP dependent unable to talk to her Constitutional: see HPI Physical Exam Physical Exam Vital Signs Vital Signs - First Documented 07/29/22 07/30/22 20:35 04:00 Temp 36.8 Pulse 99 Resp 35 B/P (MAP) 176/77 (110) Pulse Ox 65 O2 Delivery Non Rebreather O2 Flow Rate 15.00 FiO2 70 Capillary Refill : Less Than 3 Seconds Height, Weight, BMI Height: 5'2.00" Weight: 160lbs. 2.3oz. 72.409443iw; 24.14 BMI Method:Stated General Appearance: Chronically ill, Other (BiPAP dependent) Respiratory: No Accessory Muscle Use, Accessory Muscle Use, Decreased Breath Sounds, Wheezing Results Results/Procedures Labs Laboratory Tests 07/29/22 20:44 07/30/22 03:53 Patient resulted labs reviewed. Assessment/Plan Admission Diagnosis Assessment: Acute on chronic respiratory failure due to end-stage pulmonary fibrosis now BiPAP dependent was previously set up for hospice last admit a week and a half ago but instead opted to go to skilled care with physical therapy taxing an already end-stage pulmonary disease patient Plan: ICU BiPAP DO NOT RESUSCITATE Supportive care Admission Status: Inpatient Order (span 2 midnights) Reason for Inpatient Admission: BiPAP dependence KARINE LIN DO Jul 30, 2022 06:42
[2022-07-30] MEDS: methylPREDNISolone 40 MG/ML (Solu-MEDROL) VIAL IV SCH ×2 (08:01→20:47)
[2022-07-30] MEDS: RT-ALBUTEROL/IPRATROPIUM 3 ML (DUONEB) VIAL INH SCH ×4 (11:01→22:44)
[2022-07-30] MEDS: CEFEPIME INJECTION 1,000 MG in NS (IVPB) 50 ML IV SCH ×2 (12:32→20:47)
[2022-07-30] MEDS: LORazepam INJ 2 MG/ML (ATIVAN) VIAL IVP PRN ×3 (12:34→21:46)
[2022-07-30] MEDS: VANCOMYCIN 1250 MG/NS 250 ML IVPB IV SCH ×2 (14:45)
[2022-07-30] MEDS ORDERED: HYDROcodone/APAP 5 MG/325 MG (LORTAB) TAB ONE (19:39)
[2022-07-30] MEDS ORDERED: HYDROcodone/APAP 5 MG/325 MG (LORTAB) TAB PO ONE (19:45)
--- NOTE | 2022-07-30 19:46 | Tele-ICU Progress Note ---
Progress Note 07/30/2022 19:34 HPI/Events of Note Called by the nurse with Pt c/o pain , Pt takes Oxycodone at home. Dearing 5 mg x 1 ordered. d/w the bedside nurse. Interventions Minor-Other: pain Focused Exam Lactate Level 07/29/22 20:50: Lactic Acid Level 1.15 Height, Weight, BMI Height: 5'2.00" Weight: 160lbs. 2.3oz. 72.332183uv; 24.14 BMI Method:Stated NARAYAN BLANCHARD MD Jul 30, 2022 19:46
[2022-07-30] MEDS ORDERED: NS IV 1000 ML 1,000 ML ONE (20:04)
[2022-07-30] MEDS: NS IV 500 ML 500 ML IV SCH ×3 (20:07→21:48)
[2022-07-30] MEDS: MUPIROCIN 2% OINT 22 GM (BACTROBAN) TUBE NSEACH SCH (21:00)
[2022-07-30] MEDS: NS IV 1000 ML 1,000 ML IV SCH (21:47)
[2022-07-31] MEDS: RT-ALBUTEROL/IPRATROPIUM 3 ML (DUONEB) VIAL INH SCH ×6 (02:43→22:42)
[2022-07-31 04:51] LABS: ABG BASE EXCESS 9.6 MMOL/L (-2.5-2.5); ABG OXYGEN SATURATION 100 % (94-100); ABG PCO2 70 MMHG (35-45); ABG PO2 301 MMHG (79-93); ABG TCO2 38.1 MMOL/L (21.0-31.0)
[2022-07-31 04:54] LABS: ABG PH 7.32 (7.37-7.43); ALLENS TEST YES-POS
[2022-07-31 04:55] LABS: PATIENT TEMP 36.2; VENTILATOR NO
[2022-07-31] MEDS: CEFEPIME INJECTION 1,000 MG in NS (IVPB) 50 ML IV SCH ×3 (05:50→21:28)
[2022-07-31] MEDS ORDERED: TROUGH ORDER-PHARMACY XX NR (06:00)
[2022-07-31 06:07] LABS: BASOPHILS % (AUTO) 0 % (0-10); EOSINOPHILS % (AUTO) 0 % (0-10); HEMATOCRIT 31 % (35-52); HEMOGLOBIN 9.7 g/dL (11.5-16.0); LYMPHOCYTES # (AUTO) 0.5 10^3/uL (1.0-4.0); LYMPHOCYTES % (AUTO) 6 % (12-44); MEAN CORPUSCULAR HEMOGLOBIN 29 pg (25-34); MEAN CORPUSCULAR HGB CONC 31 g/dL (32-36); MEAN CORPUSCULAR VOLUME 92 fL (80-99); MEAN PLATELET VOLUME 9.1 fL (9.0-12.2); MONOCYTES # (AUTO) 0.3 10^3/uL (0.0-1.0); MONOCYTES % (AUTO) 3 % (0-12); NEUTROPHILS # (AUTO) 7.5 10^3/uL (1.8-7.8); NEUTROPHILS % (AUTO) 90 % (42-75); PLATELET COUNT 200 10^3/uL (130-400); WHITE BLOOD COUNT 8.3 10^3/uL (4.3-11.0)
[2022-07-31 06:23] LABS: ALBUMIN 2.6 GM/DL (3.2-4.5); BILIRUBIN,TOTAL 0.2 MG/DL (0.1-1.0); CALCIUM 8.7 MG/DL (8.5-10.1); CREATININE SERUM 0.52 MG/DL (0.60-1.30); MAGNESIUM 3.1 MG/DL (1.6-2.4); PHOSPHORUS 2.8 MG/DL (2.3-4.7); POTASSIUM 3.6 MMOL/L (3.6-5.0); TOTAL PROTEIN 5.9 GM/DL (6.4-8.2)
[2022-07-31 06:34] LABS: VANCOMYCIN,TROUGH 7.3 UG/ML (10.0-20.0)
[2022-07-31] MEDS: MAGNESIUM 1 GM/100 ML IVPB 100 ML IV SCH (06:46)
[2022-07-31] MEDS: POTASSIUM CL 10MEQ/50ML IVPB 50 ML IV SCH ×3 (06:46→15:02)
[2022-07-31] MEDS: KCL 20 MEQ TAB (K-DUR) PO SCH (06:46)
[2022-07-31] MEDS ORDERED: KCL 20 MEQ TAB (K-DUR) PO NR (08:00)
[2022-07-31] MEDS: VANCOMYCIN 1250 MG/NS 250 ML IVPB IV SCH ×2 (08:30)
[2022-07-31] MEDS: NS IV 1000 ML 1,000 ML IV SCH ×2 (09:00→15:02)
[2022-07-31] MEDS: LORazepam INJ 2 MG/ML (ATIVAN) VIAL IVP PRN ×5 (10:00→21:27)
[2022-07-31] MEDS: methylPREDNISolone 40 MG/ML (Solu-MEDROL) VIAL IV SCH ×2 (10:00→21:27)
[2022-07-31] MEDS: MUPIROCIN 2% OINT 22 GM (BACTROBAN) TUBE NSEACH SCH ×2 (10:00→21:36)
--- NOTE | 2022-07-31 14:09 | Speech Therapy Progress Note ---
Therapy Progress Note Speech language pathology received a consultation for a clinical bedside swallowing evaluation. Per patient's chart, the patient is requiring an elevated level of supplemental oxygen at a high rate of input (40 l/p with 80% FiO2%). High-flow nasal cannula flow rates above 40 L/min are known to be associated with increased risk of aspiration and decreased swallowing function. Due to the patient's increased aspiration risks, the patient is not deemed safe or appropr iate for P.O. trials at this time. The clinician discussed the recommendations with the patient's RN. At this time, the patient is on BiPAP. When/if O2 needs decrease, speech pathology will complete the evaluation. ST will continue to monitor the patient daily for improvement. DAQUAN DUMONT Jul 31, 2022 14:09
--- NOTE | 2022-07-31 14:24 | Tele-ICU Progress Note ---
Subjective Date Seen by a Provider: Jul 31, 2022 Time Seen by a Provider: 11:45 Subjective/Events-last exam (Tele-ICU Physician , consultation) Available chart/ vitals / labs / Images reviewed H&P is from ER notes Patient's information available about PMH, allergy reviewed in EMR. ROS as per chart and RN report Video assessment done using teleICU camera, rest of exam as per RN Discussed with RN. She is a 87-year-old female who was admitted yesterday because of worsening hypoxic respiratory failure. She has a history of for advanced interstitial lung disease, with underlying rheumatoid arthritis recently admitted and discharged was admitted again yesterday with shortness of breath. Apparently during the last visit she is supposed to go on hospice but in the last moment apparently she changed her mind and went to a [place] [facility] facility where she could not do any physical therapy. Any movement that she had made her worse in terms of breathing. She is a DNR status. Today I have made a video visit and discussed with the patient and also with her daughter who is the power of tax associate attorney in the room and clearly discussed with her wishes. In case of any cardiac arrest or pulmonary arrest she does not want to be intubated or CPR done. She wants to wait for other family members to come today and after that she wants to go home on comfort care. Until then we will oxygenate her with Vapotherm. She feels BiPAP is to uncomfortable. Impression 1. Advanced interstitial lung disease 2. Acute and chronic hypoxic respiratory failure. 3. DNR status. Recommendations 1. Agree with palliative care and comfort care once the all the other family members arrives. Discussed with the RECYCLING CENTER OPERATOR as well as patient's daughter who is the power of tax associate attorney. Until then continue Vapotherm for oxygenation. Sepsis Event Evaluation Height, Weight, BMI Height: 5'2.00" Weight: 160lbs. 2.3oz. 72.789897hd; 24.14 BMI Method:Stated Focused Exam Lactate Level 07/29/22 20:50: Lactic Acid Level 1.15 Exam Exam Patient acknowledged, consented, and participated in this virtual visit which was conducted using real time audio/video Vital Signs Date Time Temp Pulse Resp B/P (MAP) Pulse Ox O2 Delivery O2 Flow Rate FiO2 07/31/22 12:22 101 07/31/22 11:00 105 24 129/62 (84) 94 Vapotherm 40.00 80.00 07/31/22 10:20 99 Vapotherm 40.00 60 07/31/22 10:00 94 25 127/68 (87) 98 Vapotherm 40.00 80.00 07/31/22 09:00 93 23 118/97 (104) 96 Vapotherm 40.00 80.00 07/31/22 08:00 92 24 99/49 (66) 97 Vapotherm 40.00 80.00 07/31/22 07:54 36.0 07/31/22 07:29 97 Vapotherm 40.00 100 07/31/22 07:25 Vapotherm 40.00 80.00 07/31/22 07:11 86 07/31/22 07:00 82 31 99/55 (70) 96 Vapotherm 40.00 100.00 07/31/22 06:00 75 18 110/52 (71) 96 Vapotherm 40.00 100.00 07/31/22 05:00 81 17 117/54 (75) 96 Vapotherm 40.00 100.00 07/31/22 04:28 36.2 07/31/22 04:00 97 Vapotherm 40.00 100 07/31/22 04:00 76 18 117/56 (76) 98 Vapotherm 40.00 100.00 07/31/22 03:00 87 19 106/60 (75) 97 Vapotherm 40.00 100.00 07/31/22 02:43 98 Vapotherm 40.00 100 07/31/22 02:00 74 18 118/58 (78) 97 Vapotherm 40.00 100.00 07/31/22 01:00 72 17 115/54 (74) 97 Vapotherm 40.00 100.00 07/31/22 01:00 72 07/31/22 00:00 78 19 106/52 (70) 97 Vapotherm 40.00 100.00 07/30/22 23:59 97 Vapotherm 40.00 100 07/30/22 23:57 36.0 07/30/22 23:00 84 21 117/62 (80) 97 Vapotherm 40.00 100.00 07/30/22 22:44 85 21 96 60.00 07/30/22 22:00 86 10 126/101 (109) 95 NIV Bilevel 70.00 07/30/22 21:00 85 25 122/60 (80) 96 NIV Bilevel 70.00 07/30/22 20:00 87 23 125/75 (92) 95 NIV Bilevel 70.00 07/30/22 20:00 95 NIV Bilevel 60 07/30/22 19:55 37.0 07/30/22 19:47 92 22 96 60.00 07/30/22 19:00 89 07/30/22 19:00 89 9 120/61 (80) 96 NIV Bilevel 70.00 07/30/22 18:00 82 20 128/65 (86) 95 NIV Bilevel 70.00 07/30/22 17:00 80 11 115/59 (77) 95 NIV Bilevel 70.00 07/30/22 16:00 83 123/52 (75) 95 NIV Bilevel 70.00 07/30/22 16:00 36.9 07/30/22 16:00 95 NIV Bilevel 60 07/30/22 15:00 89 32 124/47 (72) 96 NIV Bilevel 70.00 I & O 07/31/22 07:00 Intake Total 312.5 ml Output Total 435 ml Balance -122.5 ml Height & Weight Height: 5'2.00" Weight: 160lbs. 2.3oz. 72.222882wd; 24.14 BMI Method:Stated General Appearance: Chronically ill, Other (BiPAP dependent) Respiratory: No Accessory Muscle Use, Accessory Muscle Use, Decreased Breath Sounds, Wheezing Capillary Refill: Less Than 3 Seconds Gastrointestinal: normal bowel sounds, non tender, soft, no organomegaly Results Lab Laboratory Tests 07/29/22 20:44 07/30/22 03:53 07/31/22 05:54 Assessment/Plan Assessment/Plan as above Critical Care: Critically Ill Patient Time spent with patient (mins): 25 ALEX RIVERO MD Jul 31, 2022 14:24
[2022-07-31] MEDS ORDERED: HYDR30CR69 RC (14:34)
[2022-07-31] MEDS ORDERED: DILT240C92 PO (14:34)
[2022-07-31] MEDS ORDERED: ACHD5005 PO (14:34)
[2022-07-31] MEDS ORDERED: POLY17PO6 PO (14:34)
[2022-07-31] MEDS ORDERED: APIX5TAB PO (14:34)
[2022-07-31] MEDS ORDERED: LOPE-175 PO (14:34)
[2022-07-31] MEDS ORDERED: DOCU100C37 PO (14:34)
--- NOTE | 2022-07-31 14:56 | Progress Note ---
Subjective Subjective/Events-last exam Patient did not tolerated bipap overnight. She is doing ok on vapotherm. Spoke with daughter this AM and she would like to do comfort care but would like to notify the rest of the family and give them the opportunity to get to hospital. Patient is DNR. Review of Systems Pulmonary: Dyspnea, Cough Cardiovascular: No: Chest Pain Gastrointestinal: No: Nausea, Vomiting Neurological: Weakness, Incoordination Focused Exam Lactate Level 07/29/22 20:50: Lactic Acid Level 1.15 Objective Exam Last Set of Vital Signs Vital Signs Date Time Temp Pulse Resp B/P (MAP) Pulse Ox O2 Delivery O2 Flow Rate FiO2 07/31/22 14:10 Vapotherm 40.00 50.00 07/31/22 12:22 101 07/31/22 12:00 97 70 07/31/22 12:00 36.0 07/31/22 11:00 24 129/62 (84) Capillary Refill : Less Than 3 Seconds I&O Intake and Output 07/31/22 00:00 Intake Total 712.5 ml Output Total 560 ml Balance 152.5 ml Intake Oral 0 ml IV Total 712.5 ml Output Urine Total 560 ml # Bowel Movements 2 Daily Weight Change No General: Alert, Moderate Distress Lungs: Other (diminished breath sounds with minimal air movement) Heart: Regular Rate Abdomen: Soft, No Tenderness Neuro: Normal Speech (conversational dyspnea) Results/Procedures Lab Laboratory Tests 07/31/22 04:30: Blood Gas Puncture Site RIGHT RADIAL, Blood Gas Patient Temperature 36.2, Arterial Blood pH 7.32*L, Arterial Blood Partial Pressure CO2 70H, Arterial Blood Partial Pressure O2 301H, Arterial Blood HCO3 36H, Arterial Blood Total CO2 38.1H, Arterial Blood Oxygen Saturation 100, Arterial Blood Base Excess 9.6H , Villa Test YES-POS, Blood Gas Ventilator Setting NO, Blood Gas Inspired Oxygen NA 07/31/22 05:54: White Blood Count 8.3, Red Blood Count 3.37L, Hemoglobin 9.7L, Hematocrit 31L, Mean Corpuscular Volume 92, Mean Corpuscular Hemoglobin 29, Mean Corpuscular Hemoglobin Concent 31L, Red Cell Distribution Width 12.9, Platelet Count 200, Mean Platelet Volume 9.1, Immature Granulocyte % (Auto) 1, Neutrophils (%) (Auto) 90H, Lymphocytes (%) (Auto) 6L, Monocytes (%) (Auto) 3, Eosinophils (%) (Auto) 0, Basophils (%) (Auto) 0, Neutrophils # (Auto) 7.5, Lymphocytes # (Auto) 0.5L, Monocytes # (Auto) 0.3, Eosinophils # (Auto) 0.0, Basophils # (Auto) 0.0, Immature Granulocyte # (Auto) 0.1, Sodium Level 143, Potassium Level 3.6, Chloride Level 104, Carbon Dioxide Level 32, Anion Gap 7, Blood Urea Nitrogen 18, Creatinine 0.52L, Estimat Glomerular Filtration Rate 91, BUN/Creatinine Ratio 35, Glucose Level 151H, Calcium Level 8.7, Corrected Calcium 9.8, Phosphorus Level 2.8, Magnesium Level 3.1H, Total Bilirubin 0.2, Aspartate Amino Transf (AST/SGOT) 13, Alanine Aminotransferase (ALT/SGPT) 8, Alkaline Phosphatase 57, Total Protein 5.9L, Albumin 2.6L, Vancomycin Level Trough 7.3L Microbiology 07/31/22 C. difficile GDH Antigen & Toxins - Final, Complete 07/30/22 MRSA Screen - Final, Complete 07/29/22 Urine Culture - Preliminary, Resulted Culture In Progress 07/29/22 Blood Culture - Preliminary, Resulted No growth Assessment/Plan Assessment/Plan (1) Acute and chronic respiratory failure with hypoxia Status: Acute Assessment & Plan: 07/31: Continue Vapotherm, Daughter is going to contact family and give them a change to see patient, Discussed with daughter that she is critically ill and high risk of decompensation (2) Interstitial lung disease Status: Acute (3) COPD exacerbation Status: Acute (4) Advanced age BING HUBER MD Jul 31, 2022 14:56
[2022-07-31 18:55] VITALS: BP 108/52
[2022-07-31] MEDS ORDERED: ONDANSETRON 4 MG/2 ML (SDV) Z0FRAN IVP PRN (19:00)
[2022-07-31] MEDS: morphine INJ 4 MG/ML 1 ML (VIAL/SYRINGE) IVP PRN ×2 (19:34→22:20)
[2022-07-31] MEDS: NS IV 500 ML 500 ML IV SCH (19:40)
[2022-07-31] MEDS: NYSTATIN CREAM (MYCOSTATIN) 30 GM TUBE TP SCH (21:37)
[2022-07-31 22:42] VITALS: BP 106/59
[2022-08-01] MEDS ORDERED: TROUGH ORDER-PHARMACY XX NR
[2022-08-01] MEDS: VANCOMYCIN 1250 MG/NS 250 ML IVPB IV SCH ×4 (01:07→19:12)
[2022-08-01] MEDS: LORazepam INJ 2 MG/ML (ATIVAN) VIAL IVP PRN ×4 (02:50→22:56)
[2022-08-01 03:22] VITALS: BP 131/68
[2022-08-01] MEDS: RT-ALBUTEROL/IPRATROPIUM 3 ML (DUONEB) VIAL INH SCH ×6 (03:22→21:32)
[2022-08-01] MEDS: CEFEPIME INJECTION 1,000 MG in NS (IVPB) 50 ML IV SCH ×3 (04:43→22:04)
[2022-08-01 05:27] LABS: BASOPHILS % (AUTO) 0 % (0-10); EOSINOPHILS % (AUTO) 0 % (0-10); HEMATOCRIT 32 % (35-52); HEMOGLOBIN 9.4 g/dL (11.5-16.0); LYMPHOCYTES # (AUTO) 0.6 10^3/uL (1.0-4.0); LYMPHOCYTES % (AUTO) 7 % (12-44); MEAN CORPUSCULAR HEMOGLOBIN 28 pg (25-34); MEAN CORPUSCULAR HGB CONC 30 g/dL (32-36); MEAN CORPUSCULAR VOLUME 94 fL (80-99); MEAN PLATELET VOLUME 9.5 fL (9.0-12.2); MONOCYTES # (AUTO) 0.2 10^3/uL (0.0-1.0); MONOCYTES % (AUTO) 2 % (0-12); NEUTROPHILS # (AUTO) 8.1 10^3/uL (1.8-7.8); NEUTROPHILS % (AUTO) 91 % (42-75); PLATELET COUNT 212 10^3/uL (130-400); WHITE BLOOD COUNT 8.9 10^3/uL (4.3-11.0)
[2022-08-01 05:37] LABS: ALBUMIN 2.6 GM/DL (3.2-4.5)
[2022-08-01 05:39] LABS: CALCIUM 8.6 MG/DL (8.5-10.1)
[2022-08-01 05:40] LABS: TOTAL PROTEIN 5.8 GM/DL (6.4-8.2)
[2022-08-01 05:42] LABS: BILIRUBIN,TOTAL 0.2 MG/DL (0.1-1.0)
[2022-08-01] MEDS: POTASSIUM CL 10MEQ/50ML IVPB 50 ML IV SCH (05:42)
[2022-08-01] MEDS: KCL 20 MEQ TAB (K-DUR) PO SCH (05:42)
[2022-08-01 05:44] LABS: CREATININE SERUM 0.5 MG/DL (0.60-1.30)
[2022-08-01 05:46] LABS: MAGNESIUM 2.1 MG/DL (1.6-2.4)
[2022-08-01] MEDS: MAGNESIUM 1 GM/100 ML IVPB 100 ML IV SCH (06:04)
[2022-08-01 06:35] VITALS: BP 143/65
[2022-08-01] MEDS: NS IV 1000 ML 1,000 ML IV SCH ×2 (06:38→19:12)
[2022-08-01] MEDS: methylPREDNISolone 40 MG/ML (Solu-MEDROL) VIAL IV SCH ×2 (08:11→22:03)
[2022-08-01] MEDS: PREPARATION H OINTMENT 57 GR TUBE PR PRN (08:11)
[2022-08-01] MEDS: MUPIROCIN 2% OINT 22 GM (BACTROBAN) TUBE NSEACH SCH ×2 (08:11→22:03)
[2022-08-01] MEDS: NYSTATIN CREAM (MYCOSTATIN) 30 GM TUBE TP SCH ×3 (08:11→22:05)
--- NOTE | 2022-08-01 08:50 | Speech Therapy Progress Note ---
Therapy Progress Note Speech pathology completed a medical chart review prior to attempt of the oropharyngeal swallowing evaluation. At this time, the patient remains on BiPAP support. If/when the patient's oxygen needs reduce, please contact speech pathology for completion of the swallowing assessment. DAQUAN DUMONT Aug 01, 2022 08:50
[2022-08-01 10:02] VITALS: BP 143/65
[2022-08-01] MEDS ORDERED: LIDOCAINE TOPICAL 4% 50 ML BTL TP ONE (11:00)
--- NOTE | 2022-08-01 12:17 | Tele-ICU Progress Note ---
Subjective Date Seen by a Provider: Aug 01, 2022 Time Seen by a Provider: 12:16 Subjective/Events-last exam (Tele-ICU Physician , Progress Note ) Service provided via interactive audio and video telecommunications E-CARE system to a patient admitted to ICU bed in [facility]. Available chart/ vitals / labs / Images reviewed Video assessment done using teleICU camera, rest of exam as per RN Discussed with RN Events overnight : Afebrile hemodynamically stable Respiratory - I/O = Drips: Pressors- no Consultants: Hospital course: (07/29) 87F Admitted with end stage pulmonary fibrosis, bipap. Chronic UTI. CDIFF NEG (08/01) Daughter would like comfort care but would like to notify rest of family first Patient is seen today due to persistent and new A/P 1. Advanced interstitial lung disease -Agree with palliative care and comfort care is family agreed - steroid IV SM 40 q12 -ABX started - vanco + cefe[pavithra 2. Acute and chronic hypoxic respiratory failure. -cont vapotherm 3. DNR status. as per RN - family and patient is considering to change goals of care to comfort - will foillow Lines : , (Central Line Necessity Reviewed) Guillen: OG: Nutrition: Analgesia: Anxiety/ delirium VTE Prophylaxis: Stress Ulcer Prophylaxis: Plans in collaboration with bedside consultants and IM MDs. Discussed with RN to reach out if any questions or concerns A total of 15 minutes of critical care time was devoted to this patient today, required to treat and/or prevent further deterioration of critical care condition ( as above ) . I am remotely monitoring this patient from another state. I am unable to do the bedside exam, and history/physical and pertinent information is taken from other notes in the computer and bedside staff. + Sepsis Event Evaluation Height, Weight, BMI Height: 5'2.00" Weight: 160lbs. 2.3oz. 72.419568ye; 26.63 BMI Method:Stated Focused Exam Lactate Level 07/29/22 20:50: Lactic Acid Level 1.15 Exam Exam Patient acknowledged, consented, and participated in this virtual visit which was conducted using real time audio/video Vital Signs Date Time Temp Pulse Resp B/P (MAP) Pulse Ox O2 Delivery O2 Flow Rate FiO2 08/01/22 11:57 37.2 08/01/22 11:00 74 32 144/67 (92) 99 Vapotherm 40.00 75.00 08/01/22 10:35 Vapotherm 40.00 75.00 08/01/22 10:02 63 18 99 60.00 08/01/22 10:00 64 21 138/67 (90) 99 NIV Bilevel 60.00 08/01/22 09:00 69 15 141/56 (84) 99 NIV Bilevel 60.00 08/01/22 08:00 95 NIV Bilevel 60 08/01/22 08:00 75 7 141/71 (94) 99 NIV Bilevel 60.00 08/01/22 07:55 36.2 08/01/22 07:24 68 08/01/22 07:00 63 16 128/55 (79) 99 NIV Bilevel 60.00 08/01/22 06:35 63 18 99 60.00 08/01/22 06:00 69 19 143/65 (91) 99 NIV Bilevel 60.00 08/01/22 05:30 62 17 137/67 (90) 99 NIV Bilevel 60.00 08/01/22 04:00 68 16 131/61 (84) 99 NIV Bilevel 60.00 08/01/22 04:00 95 NIV Bilevel 60 08/01/22 04:00 36.4 98 NIV Bilevel 60.00 08/01/22 03:22 77 18 99 60.00 08/01/22 03:00 69 16 131/68 (89) 99 NIV Bilevel 60.00 08/01/22 02:00 72 16 129/61 (83) 99 NIV Bilevel 60.00 08/01/22 01:00 76 19 130/58 (82) 96 NIV Bilevel 60.00 08/01/22 01:00 76 08/01/22 00:00 36.8 77 19 125/58 (80) 99 NIV Bilevel 60.00 07/31/22 23:54 93 NIV Bilevel 60 07/31/22 23:00 79 20 121/57 (78) 98 NIV Bilevel 60.00 07/31/22 22:42 77 24 99 60.00 07/31/22 22:00 80 23 106/59 (75) 95 NIV Bilevel 60.00 07/31/22 21:00 86 24 101/50 (67) 95 NIV Bilevel 60.00 07/31/22 20:00 87 28 120/59 (79) 95 NIV Bilevel 60.00 07/31/22 20:00 36.5 07/31/22 19:34 NIV Bilevel 60 07/31/22 19:00 90 07/31/22 19:00 90 10 114/60 (78) 93 NIV Bilevel 60.00 07/31/22 18:55 90 29 96 60.00 07/31/22 18:54 NIV Bilevel 60.00 07/31/22 18:27 Vapotherm 40.00 70.00 07/31/22 18:00 95 29 108/52 (70) 94 NIV Bilevel 60.00 07/31/22 17:00 100 20 113/58 (76) 94 NIV Bilevel 60.00 07/31/22 16:00 NIV Bilevel 60 07/31/22 16:00 102 29 125/54 (77) 97 NIV Bilevel 60.00 07/31/22 16:00 36.5 07/31/22 15:00 91 31 107/61 (76) 95 Vapotherm 40.00 50.00 07/31/22 14:50 91 Vapotherm 40.00 50 07/31/22 14:10 Vapotherm 40.00 50.00 07/31/22 14:00 98 22 124/62 (82) 98 NIV Bilevel 60.00 07/31/22 13:05 NIV Bilevel 60.00 07/31/22 13:00 96 21 119/62 (81) 96 Vapotherm 40.00 50.00 07/31/22 12:22 101 I & O 08/01/22 07:00 Intake Total 2825.0 ml Output Total 640 ml Balance 2185.0 ml Height & Weight Height: 5'2.00" Weight: 160lbs. 2.3oz. 72.800612mg; 26.63 BMI Method:Stated General Appearance: Chronically ill, Other (BiPAP dependent) Respiratory: No Accessory Muscle Use, Accessory Muscle Use, Decreased Breath Sounds, Wheezing Capillary Refill: Less Than 3 Seconds Gastrointestinal: normal bowel sounds, non tender, soft, no organomegaly Results Lab Laboratory Tests 07/31/22 05:54 08/01/22 04:57 Assessment/Plan Assessment/Plan 1 JANELLE VIRAMONTES MD Aug 01, 2022 12:17
[2022-08-01] MEDS: morphine INJ 4 MG/ML 1 ML (VIAL/SYRINGE) IVP PRN ×2 (13:11→17:32)
--- NOTE | 2022-08-01 14:12 | Progress Note ---
Subjective Subjective/Events-last exam Patient having pain in her bottom and mask is bothering her. She would like to try and eat later. Review of Systems Pulmonary: Dyspnea Genitourinary: Other (rectal pain) Focused Exam Lactate Level 07/29/22 20:50: Lactic Acid Level 1.15 Objective Exam Last Set of Vital Signs Vital Signs Date Time Temp Pulse Resp B/P (MAP) Pulse Ox O2 Delivery O2 Flow Rate FiO2 08/01/22 13:00 75 31 132/65 (87) 99 Vapotherm 40.00 75.00 08/01/22 11:57 37.2 08/01/22 08:00 60 Capillary Refill : Less Than 3 Seconds I&O Intake and Output 08/01/22 00:00 Intake Total 1512.5 ml Output Total 550 ml Balance 962.5 ml Intake Oral 0 ml IV Total 1512.5 ml Output Urine Total 550 ml # Bowel Movements 3 General: Alert Lungs: Other (minimal breath sounds, increased work of breathing at baseline) Heart: Regular Rate Extremities: Other (cool extremities) Results/Procedures Lab Laboratory Tests 07/31/22 18:34: Glucometer 122H 07/31/22 23:49: Vancomycin Level Trough 10.8 08/01/22 00:24: Glucometer 110 08/01/22 04:57: White Blood Count 8.9, Red Blood Count 3.35L, Hemoglobin 9.4L, Hematocrit 32L, Mean Corpuscular Volume 94, Mean Corpuscular Hemoglobin 28, Mean Corpuscular Hemoglobin Concent 30L, Red Cell Distribution Width 13.2, Platelet Count 212, Mean Platelet Volume 9.5, Immature Granulocyte % (Auto) 1, Neutrophils (%) (Auto) 91H, Lymphocytes (%) (Auto) 7L, Monocytes (%) (Auto) 2, Eosinophils (%) (Auto) 0, Basophils (%) (Auto) 0, Neutrophils # (Auto) 8.1H, Lymphocytes # (Auto) 0.6L, Monocytes # (Auto) 0.2, Eosinophils # (Auto) 0.0, Basophils # (Auto) 0.0, Immature Granulocyte # (Auto) 0.1, Sodium Level 144, Potassium Level 4.0, Chloride Level 105, Carbon Dioxide Level 31, Anion Gap 8, Blood Urea Nitrogen 20H, Creatinine 0.50L, Estimat Glomerular Filtration Rate 92, BUN/Creatinine Ratio 40, Glucose Level 118H, Calcium Level 8.6, Corrected Calci um 9.7, Phosphorus Level 3.0, Magnesium Level 2.1, Total Bilirubin 0.2, Aspartate Amino Transf (AST/SGOT) 18, Alanine Aminotransferase (ALT/SGPT) 11, Alkaline Phosphatase 52, Total Protein 5.8L, Albumin 2.6L 08/01/22 10:50: Glucometer 98 Microbiology 07/31/22 C. difficile GDH Antigen & Toxins - Final, Complete 07/30/22 MRSA Screen - Final, Complete 07/29/22 Urine Culture - Final, Complete Gram Pos Mixed Bacterial Natalya Enterococcus faecalis Staph, Coag Neg ([employer]) Aerococcus Viridans Corynebacterium amycolatum Corynebacterium amycolatum#2 Brevibacterium species 07/29/22 Blood Culture - Preliminary, Resulted No growth Assessment/Plan Assessment/Plan (1) Acute and chronic respiratory failure with hypoxia Status: Acute Assessment & Plan: 07/31: Continue Vapotherm, Daughter is going to contact family and give them a change to see patient, Discussed with daughter that she is critically ill and high risk of decompensation 08/01: Plan to transition to comfort care once family arrives (2) Interstitial lung disease Status: Acute (3) COPD exacerbation Status: Acute (4) Advanced age BING HUBER MD Aug 01, 2022 14:12
[2022-08-01] MEDS ORDERED: ARTIFICAL TEARS 0.4 ML UNIT DOSE (REFRESH PLUS) OU PRN (18:30)
[2022-08-01] MEDS ORDERED: ONDANSETRON 4 MG/2 ML (SDV) Z0FRAN IVP PRN (18:30)
[2022-08-01] MEDS ORDERED: RT-ALBUTEROL/IPRATROPIUM 3 ML (DUONEB) VIAL INH PRN (18:30)
[2022-08-01] MEDS ORDERED: LORazepam 1 MG (ATIVAN) TAB SL PRN (18:30)
[2022-08-01] MEDS ORDERED: ACETAMINOPHEN 650 MG SUPP (TYLENOL) PR PRN (18:30)
[2022-08-01] MEDS ORDERED: PROMETHAZINE INJ 25 MG/ML (PHENERGAN) AMP IVP PRN (18:30)
[2022-08-01] MEDS ORDERED: BISACODYL 10 MG SUPP (DULCOLAX) PR PRN (18:30)
[2022-08-01] MEDS ORDERED: GLYCOPYRROLATE 0.2 MG/ML (ROBINUL) 2 ML VIAL IV PRN (18:30)
[2022-08-01] MEDS: morphine INJ 4 MG/ML 1 ML (VIAL/SYRINGE) IV PRN ×2 (19:48→22:03)
[2022-08-02] MEDS: RT-ALBUTEROL/IPRATROPIUM 3 ML (DUONEB) VIAL INH SCH ×3 (02:43→10:51)
[2022-08-02] MEDS: CEFEPIME INJECTION 1,000 MG in NS (IVPB) 50 ML IV SCH (05:00)
[2022-08-02] MEDS: PREPARATION H OINTMENT 57 GR TUBE PR PRN (08:16)
[2022-08-02] MEDS: methylPREDNISolone 40 MG/ML (Solu-MEDROL) VIAL IV SCH (08:21)
[2022-08-02] MEDS: MUPIROCIN 2% OINT 22 GM (BACTROBAN) TUBE NSEACH SCH ×2 (08:22→21:11)
--- NOTE | 2022-08-02 09:48 | Progress Note ---
Subjective Subjective/Events-last exam Patient in good spirits today. Struggling to breath. Desires to eat. Review of Systems Pulmonary: Dyspnea, Cough Cardiovascular: Edema; No: Chest Pain, Palpitations Gastrointestinal: No: Nausea, Vomiting Neurological: Weakness, Incoordination Objective Exam Last Set of Vital Signs Vital Signs Date Time Temp Pulse Resp B/P (MAP) Pulse Ox O2 Delivery O2 Flow Rate FiO2 08/02/22 07:39 36.6 85 20 120/55 (76) 90 Vapotherm 08/02/22 06:46 10.00 50 Capillary Refill : Less Than 3 Seconds I&O Intake and Output 08/02/22 00:00 Intake Total 1792.5 ml Output Total 1065 ml Balance 727.5 ml Intake Oral 430 ml IV Total 1362.5 ml Output Urine Total 1065 ml General: Alert, Oriented X3, Moderate Distress (distress at rest that gets worse with any activity) Lungs: Other (Diffuse wheezing and crackles, increased work of breathing) Heart: Regular Rate Abdomen: Soft Neuro: Normal Speech Results/Procedures Lab Laboratory Tests 08/01/22 10:50: Glucometer 98 08/01/22 15:27: Glucometer 163H 08/02/22 00:28: Glucometer 93 08/02/22 02:48: Glucometer 100 08/02/22 06:49: Glucometer 109 Microbiology 07/31/22 C. difficile GDH Antigen & Toxins - Final, Complete 07/30/22 MRSA Screen - Final, Complete 07/29/22 Urine Culture - Final, Complete Gram Pos Mixed Bacterial Natalya Enterococcus faecalis Staph, Coag Neg ([employer]) Aerococcus Viridans Corynebacterium amycolatum Corynebacterium amycolatum#2 Brevibacterium species 07/29/22 Blood Culture - Preliminary, Resulted No growth Assessment/Plan Assessment/Plan (1) Acute and chronic respiratory failure with hypoxia Status: Acute Assessment & Plan: 07/31: Continue Vapotherm, Daughter is going to contact family and give them a change to see patient, Discussed with daughter that she is critically ill and high risk of decompensation 08/01: Plan to transition to comfort care once family arrives 08/02: Plan to transition later today when son arrives, IVFs and non comfort meds d/toi today, DNR (2) Interstitial lung disease Status: Acute (3) COPD exacerbation Status: Acute (4) Advanced age BING HUBER MD Aug 02, 2022 09:48
[2022-08-02] MEDS: NYSTATIN CREAM (MYCOSTATIN) 30 GM TUBE TP SCH ×3 (10:17→21:11)
[2022-08-02] MEDS: LORazepam INJ 2 MG/ML (ATIVAN) VIAL IVP PRN ×5 (13:42→22:30)
[2022-08-02] MEDS: morphine INJ 4 MG/ML 1 ML (VIAL/SYRINGE) IV PRN ×3 (16:00→23:48)
[2022-08-02] MEDS: SALIVA SUBSTITUTE 60 ML SPRAY(MOUTHKOTE) MM PRN ×2 (16:02→18:40)
[2022-08-03] MEDS: LORazepam INJ 2 MG/ML (ATIVAN) VIAL IVP PRN ×13 (05:27→15:35)
[2022-08-03] MEDS: NS IV 500 ML 500 ML IV SCH (07:47)
[2022-08-03] MEDS: morphine INJ 4 MG/ML 1 ML (VIAL/SYRINGE) IV PRN ×10 (07:57→15:34)
[2022-08-03] MEDS: MUPIROCIN 2% OINT 22 GM (BACTROBAN) TUBE NSEACH SCH (10:36)
[2022-08-03] MEDS: NYSTATIN CREAM (MYCOSTATIN) 30 GM TUBE TP SCH ×2 (10:37→12:27)
[2022-08-03] MEDS ORDERED: morphine INJ 4 MG/ML 1 ML (VIAL/SYRINGE) ONE (14:22)
[2022-08-03] MEDS ORDERED: morphine INJ 4 MG/ML 1 ML (VIAL/SYRINGE) IVP ONE (14:30)
--- NOTE | 2022-08-03 15:19 | Progress Note ---
Subjective Subjective/Events-last exam Family has all arrived and they and the patient are ready to stop the vapotherm and transition to full comfort care Review of Systems Pulmonary: Dyspnea Cardiovascular: No: Chest Pain Neurological: Weakness, Incoordination, Confusion Objective Exam Last Set of Vital Signs Vital Signs Date Time Temp Pulse Resp B/P (MAP) Pulse Ox O2 Delivery O2 Flow Rate FiO2 08/03/22 09:50 Vapotherm 12.00 50 08/02/22 20:30 90 08/02/22 16:20 37.1 92 20 122/68 (86) Capillary Refill : Less Than 3 Seconds I&O Intake and Output 08/03/22 00:00 Intake Total 170 ml Output Total 1350 ml Balance -1180 ml Intake Oral 170 ml Output Urine Total 1350 ml General: Alert, Other (confused) Lungs: Other (course breath sounds with minimal air movement at the bases) Heart: Regular Rate Abdomen: Soft Psych/Mental Status: Mood NL Results/Procedures Lab Microbiology 07/31/22 C. difficile GDH Antigen & Toxins - Final, Complete 07/30/22 MRSA Screen - Final, Complete 07/29/22 Urine Culture - Final, Complete Gram Pos Mixed Bacterial Natalya Enterococcus faecalis Staph, Coag Neg ([employer]) Aerococcus Viridans Corynebacterium amycolatum Corynebacterium amycolatum#2 Brevibacterium species 07/29/22 Blood Culture - Preliminary, Resulted No growth Assessment/Plan Assessment/Plan (1) Acute and chronic respiratory failure with hypoxia Status: Acute Assessment & Plan: 07/31: Continue Vapotherm, Daughter is going to contact family and give them a change to see patient, Discussed with daughter that she is critically ill and high risk of decompensation 08/01: Plan to transition to comfort care once family arrives 08/02: Plan to transition later today when son arrives, IVFs and non comfort meds d/toi today, DNR 08/03: stopping vapotherm, transition to full comfort care (2) Interstitial lung disease Status: Acute (3) COPD exacerbation Status: Acute (4) Advanced age BING HUBER MD Aug 03, 2022 15:19
== END 2022-08-03 17:01 | disposition expired | DRG 196 ==
LOC: EDUNIT# 20:35 → ER 20:37 → ICU 22:50 → 4TH 08-01 18:23
PROVIDERS: ADMIT Internal Medicine; ATTEND Family Medicine
PROC: 5A09357 Assistance with Respiratory Ventilation, Less than 24 Consecutive Hours, Continuous Positive Airway Pressure (ICD-10-PCS; principal; 2022-07-29)
DX: J84.10 Pulmonary fibrosis, unspecified (principal); J96.21 Acute and chronic respiratory failure with hypoxia; J44.1 Chronic obstructive pulmonary disease with (acute) exacerbation; Z66 Do not resuscitate; Z51.5 Encounter for palliative care; E78.00 Pure hypercholesterolemia, unspecified; M06.9 Rheumatoid arthritis, unspecified; Z79.01 Long term (current) use of anticoagulants; Z96.641 Presence of right artificial hip joint; Z20.822 Contact with and (suspected) exposure to COVID-19
CPT/HCPCS: 36415; 36600; 51702; 71045; 80053; 80202; 81000; 82805; 82947; 83605; 83735; 83880; 84100; 84484; 85007; 85025; 85027; 87040; 87081; 87088; 87324; 87449; 87636; 93005; 93041; 94640; 94660; 94760